=== PATIENT | male | born 1955 | race Two or more races ===

== ENCOUNTER 2017-09-15 20:44 | Inpatient (IN) | payer MEDICAID ==
[~2017-09-15] VITALS: Ht 175.3 cm; Wt 86.0 kg
[2017-09-15] MEDS ORDERED: cloNIDine HCL 0.1 MG TAB PO ONE (21:30)
[2017-09-15 21:47] LABS: Basophils # (auto) 0.1 uL; Basophils % (auto) 0.7 % (0.0-2.0); Eosinophils # (auto) 0.1 uL; Eosinophils % (auto) 0.8 % (0.0-7.0); Hematocrit 49.6 % (41.0-53.0); Hemoglobin 16.9 g/dL (13.5-17.5); Lymphocytes # (auto) 1.4 uL; Lymphocytes % (auto) 12.9 % (10.0-50.0); Mean Corpuscular Hemoglobin 32.8 pg (28.0-32.0); Mean Corpuscular Volume 96.5 fL (80.0-100.0); Monocytes # (auto) 0.8 uL; Monocytes % (auto) 7.5 % (0.0-12.0); Neutrophils # (auto) 8.3 uL; Neutrophils % (auto) 78.1 % (37.0-80.0); Nucleated Red Blood Cells % 0.1 %; Platelet Count (auto) 239 10^3/uL (140-450); Red Blood Cells 5.14 10^6/uL (4.5-5.90); Red Cell Distribution Width 13.8 % (11.8-14.3); White Blood Cell 10.6 10^3/uL (4.4-10.8)
[2017-09-15 21:51] LABS: Urine Bacteria FEW /hpf (None Seen); Urine Blood 2+ /uL (Negative); Urine Mucus FEW (None Seen); Urine Specific Gravity 1.014 (1.001-1.035); Urine WBC 1 /hpf (0 - 3)
[2017-09-15 22:11] LABS: Alanine Aminotransferase 25 U/L (16-61); Albumin 3.6 g/dL (3.4-5.0); Anion Gap 9 (5-15); Aspartate Aminotransferase 17 U/L (15-37); BUN/Creatinine Ratio 10.6; Blood Urea Nitrogen 35 mg/dL (7-18); Calcium 8.3 mg/dL (8.5-10.1); Carbon Dioxide 22 mmol/L (21-32); Chloride 104 mmol/L (98-107); GFR African American 25 mL/min; GFR Non-African American 20 mL/min; Glucose 322 mg/dL (74-106); Potassium 5.2 mmol/L (3.5-5.1); Sodium 135 mmol/L (136-145)
[2017-09-15 22:16] LABS: Alkaline Phosphatase 119 U/L (45-117); Bilirubin, Total 0.6 mg/dL (0.2-1.0)
[2017-09-15 22:23] LABS: INR 0.89 (0.9-1.15); Partial Thromboplastin Time 25.5 sec (23.78-33.04); Prothrombin Time 9.6 sec (9.27-12.13)
[2017-09-16 01:02] LABS: Amylase 81 U/L (25-115); Lipase 695 U/L (73-393)
[2017-09-16] MEDS ORDERED: SODIUM CHLORIDE 0.9% 1,000 ML IV ONE (01:15)
[2017-09-16] MEDS ORDERED: cloNIDine HCL 0.1 MG TAB PO ONE (02:45)
[2017-09-16] MEDS ORDERED: HYDROcodone-ACET 5/325MG TAB PO PRN (03:15)
[2017-09-16] MEDS ORDERED: ONDANSETRON HCL 4 MG/2 ML VIAL IV PRN (03:15)
[2017-09-16] MEDS ORDERED: cloNIDine HCL 0.1 MG TAB PO PRN (03:15)
[2017-09-16] MEDS ORDERED: ACETAMINOPHEN 325 MG TAB PO PRN (03:15)
[2017-09-16] MEDS ORDERED: DEXTROSE (50%) 50ML SYRG IV PRN (03:15)
[2017-09-16] MEDS: SODIUM CHLORIDE 0.9% 1,000 ML IV SCH ×2 (03:19→16:36)
[2017-09-16 05:00] VITALS: BP 150/94
[2017-09-16 05:16] VITALS: BP 150/94
[2017-09-16] MEDS ORDERED: METF-370 PO (05:56)
[2017-09-16] MEDS ORDERED: BENA40TA PO (05:56)
[2017-09-16] MEDS: ACCU-CHEK COMFORT CURVE STRIP VI SCH ×4 (06:23→22:54)
[2017-09-16] MEDS: InsuLIN REG 1unit/0.01ml Soln (100units/ml) SC SCH ×5 (06:23→22:54)
[2017-09-16] MEDS ORDERED: InsuLIN REG 1unit/0.01ml Soln (100units/ml) ONE (06:28)
[2017-09-16 08:00] VITALS: BP 126/82
[2017-09-16 08:30] VITALS: BP 126/82
[2017-09-16] MEDS: PANTOPRAZOLE 40 MG/10 ML VIAL IV SCH (10:33)
[2017-09-16] MEDS ORDERED: GASTROGRAFIN 120 ML SOL ONE (10:44)
[2017-09-16 13:30] VITALS: BP 152/99
[2017-09-16 15:57] LABS: BUN/Creatinine Ratio 10.2; Calcium 8.5 mg/dL (8.5-10.1); Potassium 5.3 mmol/L (3.5-5.1)
[2017-09-16] MEDS ORDERED: SODIUM POLYSTYRENE SULF 15GM/60ML SUSP PO ONE (16:30)
[2017-09-16 21:40] VITALS: BP 127/85
[2017-09-16] MEDS ORDERED: INSULIN LANTUS (GLARGINE) 1 /0.01ml (100units/ml) SC SCH (22:00)
[2017-09-17] MEDS: SODIUM CHLORIDE 0.9% 1,000 ML IV SCH (04:17)
[2017-09-17 04:43] VITALS: BP 120/73
[2017-09-17] MEDS: ACCU-CHEK COMFORT CURVE STRIP VI SCH ×2 (05:27→12:09)
[2017-09-17] MEDS: InsuLIN REG 1unit/0.01ml Soln (100units/ml) SC SCH ×2 (05:27→12:10)
[2017-09-17 07:01] LABS: BUN/Creatinine Ratio 9.3; Calcium 7.8 mg/dL (8.5-10.1); Potassium 4.6 mmol/L (3.5-5.1)
[2017-09-17 08:00] VITALS: BP_SYST 121; BP_SYST 141; BP_SYST 155; BP_DIAS 86; BP_DIAS 93; BP_DIAS 97
[2017-09-17] MEDS: PANTOPRAZOLE 40 MG/10 ML VIAL IV SCH (10:26)
[2017-09-17] MEDS ORDERED: INSULIN LANTUS (GLARGINE) 1 /0.01ml (100units/ml) SC ONE (11:45)
[2017-09-17 12:00] VITALS: BP 154/92
[2017-09-17 12:29] VITALS: BP 140/75
== END 2017-09-17 15:00 | disposition home or self-care (01) | DRG 282 ==
LOC: ER 21:01 → WEST WING 21:02 → ER 09-16 04:09
PROVIDERS: ADMIT Nurse Practitioner; ATTEND Internal Medicine
DX: K85.00 Idiopathic acute pancreatitis without necrosis or infection (principal); N17.0 Acute kidney failure with tubular necrosis; E11.21 Type 2 diabetes mellitus with diabetic nephropathy; R18.8 Other ascites; E87.5 Hyperkalemia; E11.65 Type 2 diabetes mellitus with hyperglycemia; N18.4 Chronic kidney disease, stage 4 (severe); K76.0 Fatty (change of) liver, not elsewhere classified; K56.7 Ileus, unspecified; E11.22 Type 2 diabetes mellitus with diabetic chronic kidney disease; I12.9 Hypertensive chronic kidney disease with stage 1 through stage 4 chronic kidney disease, or unspecified chronic kidney disease; F17.210 Nicotine dependence, cigarettes, uncomplicated; K52.9 Noninfective gastroenteritis and colitis, unspecified; N28.1 Cyst of kidney, acquired
CPT/HCPCS: 36415; 71045; 74176; 74250; 80048; 80053; 81001; 82150; 82962; 83036; 83690; 83735; 83880; 84484; 85025; 85610; 85730; 93005; 94761; 96361; 96374; C9113; J1815

== ENCOUNTER 2018-06-20 10:55 | Emergency (ER) | payer MEDICAID ==
[~2018-06-20] VITALS: Ht 177.8 cm; Wt 93.0 kg
[2018-06-20 12:50] VITALS: BP 150/83
[2018-06-20] MEDS ORDERED: methylPREDNISolone SOD SUCC 125 MG/2 ML VL IM ONE (13:15)
== END 2018-06-20 15:29 | disposition home or self-care (01) ==
LOC: ER 11:00
DX: J02.9 Acute pharyngitis, unspecified (principal); E11.9 Type 2 diabetes mellitus without complications; I10 Essential (primary) hypertension; F17.210 Nicotine dependence, cigarettes, uncomplicated
CPT/HCPCS: 71046; 96372; 99283; J2930

== ENCOUNTER 2020-02-11 15:43 | Emergency (ER) | payer MEDICAID ==
[~2020-02-11] VITALS: Ht 172.7 cm; Wt 90.7 kg
[2020-02-11 20:30] VITALS: BP 190/115
[2020-02-11] MEDS ORDERED: ACETAMINOPHEN 325 MG TAB PO ONE (20:45)
[2020-02-11] MEDS ORDERED: cloNIDine HCL 0.1 MG TAB PO ONE (20:45)
[2020-02-11 22:35] LABS: Basophils # (auto) 0 10 ^3/uL (0-0.2); Basophils % (auto) 0.4 % (0.0-2.0); Eosinophils # (auto) 0 10 ^3/uL (0-0.8); Eosinophils % (auto) 0.3 % (0.0-7.0); Hematocrit 43.9 % (41.0-53.0); Hemoglobin 15.3 g/dL (13.5-17.5); Lymphocytes % (auto) 17.8 % (10.0-50.0); Mean Corpuscular Hgb Conc. 34.9 g/dL (32.0-36.0); Mean Corpuscular Volume 94.6 fL (80.0-100.0); Monocytes # (auto) 0.7 10 ^3/uL (0-1.3); Monocytes % (auto) 12.3 % (0.0-12.0); Neutrophils # (auto) 3.9 10 ^3/uL (1.6-8.6); Neutrophils % (auto) 69.2 % (37.0-80.0); Nucleated Red Blood Cells % 0.1 %; Platelet Count (auto) 204 10^3/uL (140-450); Red Blood Cells 4.64 10^6/uL (4.5-5.90); Red Cell Distribution Width 13.3 % (11.8-14.3); White Blood Cell 5.7 10^3/uL (4.4-10.8)
[2020-02-11 23:04] LABS: Albumin 2.9 g/dL (3.4-5.0); Anion Gap 7 (5-15); Blood Urea Nitrogen 36 mg/dL (7-18); Calcium 8.1 mg/dL (8.5-10.1); Carbon Dioxide 21 mmol/L (21-32); Chloride 97 mmol/L (98-107); Glucose 303 mg/dL (74-106); Potassium 4.6 mmol/L (3.5-5.1); Sodium 125 mmol/L (136-145)
[2020-02-11 23:11] LABS: Alanine Aminotransferase 20 U/L (16-61); Alkaline Phosphatase 113 U/L (45-117); Aspartate Aminotransferase 15 U/L (15-37); BUN/Creatinine Ratio 7.7; Bilirubin, Total 0.4 mg/dL (0.2-1.0); GFR African American 16 mL/min; GFR Non-African American 13 mL/min; Total Protein 7.4 g/dL (6.4-8.2)
[2020-02-11] MEDS ORDERED: DOXYCYCLINE 100 MG TAB/CAP PO ONE (23:30)
[2020-02-11] MEDS ORDERED: cefTRIAXone SOD 1,000 MG VL IM ONE (23:30)
== END 2020-02-12 00:59 | disposition left against medical advice (07) ==
LOC: ER 15:43
DX: U07.1 COVID-19 (principal); R03.0 Elevated blood-pressure reading, without diagnosis of hypertension; E11.22 Type 2 diabetes mellitus with diabetic chronic kidney disease; I12.9 Hypertensive chronic kidney disease with stage 1 through stage 4 chronic kidney disease, or unspecified chronic kidney disease; N18.5 Chronic kidney disease, stage 5; E86.0 Dehydration
CPT/HCPCS: 36415; 71045; 80053; 83880; 84443; 84484; 85025; 87426; 93005

== ENCOUNTER 2020-02-12 09:27 | Emergency (ER) | payer MEDICAID ==
[~2020-02-12] VITALS: Ht 175.3 cm; Wt 90.7 kg
[2020-02-12 16:22] VITALS: BP 147/95
[2020-02-12 16:44] LABS: Basophils # (auto) 0 10 ^3/uL (0-0.2); Basophils % (auto) 0.6 % (0.0-2.0); Eosinophils # (auto) 0 10 ^3/uL (0-0.8); Hematocrit 44.9 % (41.0-53.0); Hemoglobin 15.5 g/dL (13.5-17.5); Lymphocytes # (auto) 1.3 10 ^3/uL (0.4-5.4); Lymphocytes % (auto) 27.8 % (10.0-50.0); Mean Corpuscular Hemoglobin 32.5 pg (28.0-32.0); Mean Corpuscular Hgb Conc. 34.6 g/dL (32.0-36.0); Mean Corpuscular Volume 94.1 fL (80.0-100.0); Monocytes # (auto) 0.8 10 ^3/uL (0-1.3); Monocytes % (auto) 16.9 % (0.0-12.0); Neutrophils # (auto) 2.6 10 ^3/uL (1.6-8.6); Neutrophils % (auto) 54.7 % (37.0-80.0); Nucleated Red Blood Cells % 0.3 %; Platelet Count (auto) 198 10^3/uL (140-450); Red Blood Cells 4.78 10^6/uL (4.5-5.90); Red Cell Distribution Width 13.6 % (11.8-14.3); White Blood Cell 4.7 10^3/uL (4.4-10.8)
[2020-02-12 17:01] LABS: BUN/Creatinine Ratio 8.3; Magnesium 1.9 mg/dL (1.6-2.6); Potassium 4.7 mmol/L (3.5-5.1)
[2020-02-12 17:02] LABS: INR 0.98 (0.9-1.15); Partial Thromboplastin Time 29.4 sec (23.0-31.2)
[2020-02-12 17:04] LABS: Bilirubin, Total 0.4 mg/dL (0.2-1.0); Total Protein 7.4 g/dL (6.4-8.2)
== END 2020-02-12 20:18 | disposition home or self-care (01) ==
LOC: ER 09:27
DX: U07.1 COVID-19 (principal); J40 Bronchitis, not specified as acute or chronic; I12.9 Hypertensive chronic kidney disease with stage 1 through stage 4 chronic kidney disease, or unspecified chronic kidney disease; N18.9 Chronic kidney disease, unspecified
CPT/HCPCS: 36415; 71045; 80053; 83735; 85025; 85610; 85730

== ENCOUNTER 2020-03-19 15:08 | Emergency (ER) | payer MEDICAID ==
[~2020-03-19] VITALS: Ht 175.3 cm; Wt 88.9 kg
[2020-03-19] MEDS ORDERED: cloNIDine HCL 0.1 MG TAB PO ONE ×2 (16:00→19:45)
[2020-03-19 17:13] LABS: Basophils # (auto) 0.1 10 ^3/uL (0-0.2); Basophils % (auto) 1.1 % (0.0-2.0); Eosinophils # (auto) 0.2 10 ^3/uL (0-0.8); Hematocrit 43.4 % (41.0-53.0); Hemoglobin 14.7 g/dL (13.5-17.5); Lymphocytes # (auto) 1.7 10 ^3/uL (0.4-5.4); Mean Corpuscular Hemoglobin 32.1 pg (28.0-32.0); Mean Corpuscular Hgb Conc. 33.9 g/dL (32.0-36.0); Mean Corpuscular Volume 94.6 fL (80.0-100.0); Monocytes # (auto) 0.5 10 ^3/uL (0-1.3); Monocytes % (auto) 6.7 % (0.0-12.0); Neutrophils # (auto) 5.5 10 ^3/uL (1.6-8.6); Neutrophils % (auto) 69.2 % (37.0-80.0); Nucleated Red Blood Cells % 0.1 %; Platelet Count (auto) 254 10^3/uL (140-450); Red Blood Cells 4.59 10^6/uL (4.5-5.90); Red Cell Distribution Width 14.3 % (11.8-14.3)
[2020-03-19 17:23] LABS: Alanine Aminotransferase 17 U/L (16-61); Albumin 3.3 g/dL (3.4-5.0); Anion Gap 8 (5-15); Aspartate Aminotransferase 17 U/L (15-37); BUN/Creatinine Ratio 8.7; Blood Urea Nitrogen 36 mg/dL (7-18); Calcium 8.5 mg/dL (8.5-10.1); Carbon Dioxide 22 mmol/L (21-32); Chloride 104 mmol/L (98-107); GFR African American 19 mL/min; GFR Non-African American 16 mL/min; Glucose 201 mg/dL (74-106); Potassium 4.6 mmol/L (3.5-5.1); Sodium 134 mmol/L (136-145)
[2020-03-19 17:28] LABS: Alkaline Phosphatase 102 U/L (45-117); Bilirubin, Total 0.6 mg/dL (0.2-1.0); Total Protein 7.5 g/dL (6.4-8.2)
[2020-03-19 17:38] LABS: INR 0.97 (0.9-1.15); Partial Thromboplastin Time 26.8 sec (23.0-31.2)
[2020-03-19 19:09] LABS: Urine Bacteria FEW /hpf (None Seen); Urine Blood TRACE /uL (Negative); Urine Specific Gravity 1.006 (1.001-1.035); Urine WBC <1 /hpf (0 - 3)
[2020-03-19 21:26] VITALS: BP 137/91
== END 2020-03-19 21:29 | disposition home or self-care (01) ==
LOC: ER 15:08
DX: I16.0 Hypertensive urgency (principal); E11.22 Type 2 diabetes mellitus with diabetic chronic kidney disease; N18.5 Chronic kidney disease, stage 5; K80.20 Calculus of gallbladder without cholecystitis without obstruction; K86.1 Other chronic pancreatitis; K21.9 Gastro-esophageal reflux disease without esophagitis; Z20.822 Contact with and (suspected) exposure to COVID-19
CPT/HCPCS: 36415; 71250; 74176; 76705; 80053; 81001; 83690; 83735; 83880; 84443; 84484; 85025; 85379; 85610; 85730; 87426; 93005; 99285; C9803; U0003

== ENCOUNTER 2021-01-01 13:04 | Emergency (ER) | payer MEDICAID ==
[~2021-01-01] VITALS: Ht 175.3 cm; Wt 90.7 kg
[2021-01-01] MEDS ORDERED: cloNIDine HCL 0.1 MG TAB ONE (13:14)
[2021-01-01] MEDS ORDERED: cloNIDine HCL 0.1 MG TAB PO ONE (13:30)
[2021-01-01 14:29] LABS: Basophils # (auto) 0.1 10 ^3/uL (0-0.2); Basophils % (auto) 1.2 % (0.0-2.0); Eosinophils # (auto) 0.1 10 ^3/uL (0-0.8); Eosinophils % (auto) 1.4 % (0.0-7.0); Hematocrit 46.8 % (41.0-53.0); Hemoglobin 15.8 g/dL (13.5-17.5); Lymphocytes # (auto) 2.2 10 ^3/uL (0.4-5.4); Lymphocytes % (auto) 23.8 % (10.0-50.0); Mean Corpuscular Hgb Conc. 33.7 g/dL (32.0-36.0); Mean Corpuscular Volume 95.1 fL (80.0-100.0); Monocytes # (auto) 0.7 10 ^3/uL (0-1.3); Monocytes % (auto) 7.9 % (0.0-12.0); Neutrophils # (auto) 6.1 10 ^3/uL (1.6-8.6); Neutrophils % (auto) 65.7 % (37.0-80.0); Nucleated Red Blood Cells % 0.2 %; Red Blood Cells 4.92 10^6/uL (4.5-5.90); Red Cell Distribution Width 14.4 % (11.8-14.3); White Blood Cell 9.2 10^3/uL (4.4-10.8)
[2021-01-01 14:44] LABS: Albumin 3.2 g/dL (3.4-5.0); Calcium 8.2 mg/dL (8.5-10.1)
[2021-01-01 14:49] LABS: BUN/Creatinine Ratio 8.3; Bilirubin, Total 0.5 mg/dL (0.2-1.0)
[2021-01-01] MEDS ORDERED: amLODIPine BESYLATE 5 MG TAB PO ONE (16:00)
[2021-01-01] MEDS ORDERED: hydrALAZINE HCL 20 MG/ML VL IV ONE ×2 (17:15→18:30)
[2021-01-01 18:34] LABS: Urine Bacteria FEW /hpf (None Seen); Urine Blood TRACE /uL (Negative); Urine Specific Gravity 1.007 (1.001-1.035); Urine WBC 5 /hpf (0 - 3)
[2021-01-01 19:36] VITALS: BP 131/84
== END 2021-01-01 20:09 | disposition home or self-care (01) ==
LOC: ER 13:04
DX: I16.0 Hypertensive urgency (principal); J45.909 Unspecified asthma, uncomplicated; I12.9 Hypertensive chronic kidney disease with stage 1 through stage 4 chronic kidney disease, or unspecified chronic kidney disease; N18.9 Chronic kidney disease, unspecified
CPT/HCPCS: 36415; 70450; 80053; 81001; 84484; 85025; 93005; 96374; 96375; 99285; J0360

== ENCOUNTER 2021-01-03 02:37 | Inpatient (IN) | payer MEDICAID ==
[~2021-01-03] VITALS: Ht 175.3 cm; Wt 90.4 kg
[2021-01-03 04:38] LABS: Urine Bacteria FEW /hpf (None Seen); Urine Blood TRACE /uL (Negative); Urine Specific Gravity 1.005 (1.001-1.035); Urine WBC 2 /hpf (0 - 3)
[2021-01-03] MEDS ORDERED: LABETALOL HCL 5 MG/ML 4ML SYRINGE IV ONE (05:15)
[2021-01-03 07:05] LABS: Albumin 1.7 g/dL (3.4-5.0); BUN/Creatinine Ratio 11.2; Bilirubin, Total 0.5 mg/dL (0.2-1.0); Total Protein 4.5 g/dL (6.4-8.2)
[2021-01-03 07:13] LABS: Calcium 5.6 mg/dL (8.5-10.1); Potassium 2.9 mmol/L (3.5-5.1)
[2021-01-03] MEDS ORDERED: LORazepam 2MG/ML-1ML VIAL IV ONE (07:30)
[2021-01-03] MEDS ORDERED: CALCIUM GLUC 1,000mg/50ml-NS 50 ML IV ONE (07:30)
[2021-01-03] MEDS ORDERED: ENOXAPARIN SOD 100 MG/1 ML SYRINGE SC ONE (07:30)
[2021-01-03] MEDS ORDERED: POTASSIUM EFFERVESENT TAB 25 MEQ PO ONE (07:30)
[2021-01-03] MEDS ORDERED: ASPirin 81 mg TAB PO ONE (07:30)
[2021-01-03 08:40] LABS: Basophils # (auto) 0.1 10 ^3/uL (0-0.2); Basophils % (auto) 0.8 % (0.0-2.0); Eosinophils # (auto) 0.1 10 ^3/uL (0-0.8); Eosinophils % (auto) 1.2 % (0.0-7.0); Hemoglobin 14.2 g/dL (13.5-17.5); Lymphocytes # (auto) 1.5 10 ^3/uL (0.4-5.4); Lymphocytes % (auto) 20.2 % (10.0-50.0); Mean Corpuscular Hemoglobin 32.2 pg (28.0-32.0); Mean Corpuscular Hgb Conc. 33.8 g/dL (32.0-36.0); Mean Corpuscular Volume 95.2 fL (80.0-100.0); Monocytes # (auto) 0.7 10 ^3/uL (0-1.3); Monocytes % (auto) 8.8 % (0.0-12.0); Neutrophils # (auto) 5.2 10 ^3/uL (1.6-8.6); Nucleated Red Blood Cells % 0.1 %; Red Blood Cells 4.42 10^6/uL (4.5-5.90); Red Cell Distribution Width 13.9 % (11.8-14.3); White Blood Cell 7.6 10^3/uL (4.4-10.8)
[2021-01-03] MEDS ORDERED: POTASSIUM CHLORIDE 60 MEQ, LIDOCAINE 1% (LOCAL ANESTH.) 6 ML in SODIUM CHL 0.9% 500 ML IV ONE (09:15)
[2021-01-03] MEDS ORDERED: MORPHINE SULFATE INJECTION 2 MG/ML SYRG IV PRN ×3 (09:15→11:15)
[2021-01-03] MEDS ORDERED: METOPROLOL SUCCINATE XL 50 MG TAB PO ONE (09:15)
[2021-01-03] MEDS ORDERED: LABETALOL HCL 5 MG/ML 4ML SYRINGE IV PRN (09:15)
[2021-01-03] MEDS ORDERED: NITROGLYCERIN 0.4 MG SL TAB SL PRN ×2 (09:15→11:15)
[2021-01-03 09:44] LABS: Magnesium 1.4 mg/dL (1.6-2.6); Phosphorus 3.5 mg/dL (2.5-4.90)
[2021-01-03] MEDS ORDERED: MAGNESIUM SULFATE 1GM/100ML 100 ML IV ONE (10:00)
[2021-01-03] MEDS ORDERED: amLODIPine BESYLATE 5 MG TAB PO ONE (10:15)
[2021-01-03 10:59] LABS: Cholesterol 68 mg/dL (< 200); Triglycerides 113 mg/dL (< 150)
[2021-01-03 11:03] LABS: HDL Cholesterol 27 mg/dL (40-59); LDL Cholesterol 30 mg/dL (< 100)
[2021-01-03] MEDS ORDERED: ADENOSINE 76 MG in GIVE UN-DILUTED 0 ML IV STA (11:12)
[2021-01-03] MEDS ORDERED: HYDROcodone-ACET 5/325MG TAB PO PRN (11:15)
[2021-01-03] MEDS ORDERED: DOCUSATE SOD 100 MG CAP PO PRN (11:15)
[2021-01-03] MEDS ORDERED: LORazepam 0.5 MG TAB PO PRN (11:15)
[2021-01-03] MEDS ORDERED: FAMOTIDINE (10MG/ML) 2ML VL IV ONE (11:15)
[2021-01-03] MEDS ORDERED: DEXTROSE (50%) 50ML SYRG IV PRN (11:15)
[2021-01-03] MEDS ORDERED: ALUM & MAG HYDROX-SIMETH LIQ(MAALOX) 30 ML PO PRN (11:15)
[2021-01-03] MEDS ORDERED: ONDANSETRON HCL 4 MG/2 ML VIAL IV PRN (11:15)
[2021-01-03] MEDS ORDERED: cefTRIAXone 1GM/50ML D5W 50 ML IV ONE (11:15)
[2021-01-03] MEDS ORDERED: ACETAMINOPHEN 325 MG TAB PO PRN (11:15)
[2021-01-03 11:22] LABS: Sodium Urine 36 mmol/L (40-220)
[2021-01-03 11:56] LABS: INR 0.99 (0.9-1.15); Partial Thromboplastin Time 29.6 sec (23.6-33.0)
[2021-01-03] MEDS ORDERED: HEPARIN DRIP/D5W 100UNITS/ML 250 ML IV SCH (12:00)
[2021-01-03 12:26] VITALS: BP 155/90
[2021-01-03 15:58] LABS: Alcohol, Urine < 3.0 mg/dL (0-10); Amphetamine Screen, Urine NEGATIVE (NEGATIVE); Barbiturate Scree,Urine NEGATIVE (NEGATIVE); Benzodiazephine Screen, Urine NEGATIVE (NEGATIVE); Cannabinoid Screen, Urine NEGATIVE (NEGATIVE); Cocaine Screen, Urine NEGATIVE (NEGATIVE); Opiate Scree,Urine NEGATIVE (NEGATIVE); Phencyclidine Screen, Urine NEGATIVE (NEGATIVE)
[2021-01-03] MEDS: ACCU-CHEK COMFORT CURVE STRIP VI SCH ×3 (16:00→21:44)
[2021-01-03 16:39] VITALS: BP 148/95
[2021-01-03] MEDS: InsuLIN REG 1unit/0.01ml Soln (100units/ml) SC SCH ×2 (16:43→16:46)
[2021-01-03] MEDS: FUROSEMIDE 20 MG/2 ML VIAL IV SCH (17:42)
[2021-01-03] MEDS: CALCIUM W/VIT D (600MG/400IU) TAB PO SCH (17:42)
[2021-01-03] MEDS: METOPROLOL TARTRATE 50 MG TAB PO SCH (21:43)
[2021-01-03] MEDS: FAMOTIDINE (10MG/ML) 2ML VL IV SCH (21:44)
[2021-01-03 22:00] VITALS: BP 129/87
[2021-01-03] MEDS ORDERED: ATORVASTATIN 20 MG TAB PO SCH (22:00)
[2021-01-03] MEDS ORDERED: POTASSIUM CHL 20 Meq TABLET PO SCH (22:00)
[2021-01-03] MEDS ORDERED: MAGNESIUM OXIDE 400 MG TAB PO SCH (22:00)
[2021-01-03] MEDS ORDERED: InsuLIN REG 1unit/0.01ml Soln (100units/ml) SC SCH (22:00)
[2021-01-04 05:00] VITALS: BP 159/101
[2021-01-04 05:25] LABS: Basophils # (auto) 0.1 10 ^3/uL (0-0.2); Eosinophils # (auto) 0.1 10 ^3/uL (0-0.8); Eosinophils % (auto) 1.8 % (0.0-7.0); Hematocrit 45.3 % (41.0-53.0); Hemoglobin 14.8 g/dL (13.5-17.5); Lymphocytes # (auto) 1.8 10 ^3/uL (0.4-5.4); Lymphocytes % (auto) 26.9 % (10.0-50.0); Mean Corpuscular Hemoglobin 31.2 pg (28.0-32.0); Mean Corpuscular Hgb Conc. 32.7 g/dL (32.0-36.0); Mean Corpuscular Volume 95.4 fL (80.0-100.0); Monocytes # (auto) 0.6 10 ^3/uL (0-1.3); Monocytes % (auto) 8.9 % (0.0-12.0); Neutrophils # (auto) 4.2 10 ^3/uL (1.6-8.6); Neutrophils % (auto) 61.4 % (37.0-80.0); Nucleated Red Blood Cells % 0.1 %; Red Blood Cells 4.75 10^6/uL (4.5-5.90); Red Cell Distribution Width 14.3 % (11.8-14.3); White Blood Cell 6.8 10^3/uL (4.4-10.8)
[2021-01-04 05:41] LABS: INR 0.98 (0.9-1.15); Partial Thromboplastin Time 27.1 sec (23.6-33.0)
[2021-01-04 05:43] LABS: Albumin 2.8 g/dL (3.4-5.0); Calcium 8.6 mg/dL (8.5-10.1); Magnesium 2.9 mg/dL (1.6-2.6)
[2021-01-04 05:48] LABS: BUN/Creatinine Ratio 9.9; Bilirubin, Total 0.5 mg/dL (0.2-1.0); Phosphorus 4.9 mg/dL (2.5-4.90); Total Protein 7.1 g/dL (6.4-8.2); Uric Acid 8.3 mg/dL (3.5-7.2)
[2021-01-04] MEDS: ACCU-CHEK COMFORT CURVE STRIP VI SCH ×2 (05:51→11:32)
[2021-01-04] MEDS: FUROSEMIDE 20 MG/2 ML VIAL IV SCH (05:51)
[2021-01-04] MEDS: InsuLIN REG 1unit/0.01ml Soln (100units/ml) SC SCH ×2 (06:04→11:33)
[2021-01-04] MEDS: CALCIUM W/VIT D (600MG/400IU) TAB PO SCH (08:31)
[2021-01-04] MEDS: FAMOTIDINE (10MG/ML) 2ML VL IV SCH (08:32)
[2021-01-04 08:33] VITALS: BP 150/97
[2021-01-04] MEDS: METOPROLOL TARTRATE 50 MG TAB PO SCH (08:33)
[2021-01-04] MEDS ORDERED: cefTRIAXone 1GM/50ML D5W 50 ML IV SCH (09:00)
[2021-01-04] MEDS ORDERED: METOPROLOL SUCCINATE XL 50 MG TAB PO SCH (10:00)
[2021-01-04] MEDS ORDERED: ASPirin 81 mg TAB PO SCH (10:00)
[2021-01-04] MEDS ORDERED: amLODIPine BESYLATE 5 MG TAB PO SCH (10:00)
[2021-01-04] MEDS ORDERED: ENOXAPARIN SOD 100 MG/1 ML SYRINGE SC SCH (10:00)
[2021-01-04] MEDS ORDERED: LORATADINE 10 MG TAB PO ONE (11:45)
[2021-01-04] MEDS ORDERED: FLUTICASONE PROP NASAL SPR 0.05 % (50MCG) 16GM EACHNOSTRI ONE (11:45)
[2021-01-04] MEDS ORDERED: ATEN50TA PO (12:17)
[2021-01-04] MEDS ORDERED: ATOR20TA50 PO (13:22)
[2021-01-04] MEDS ORDERED: FLUT50SP EACHNOSTRI (13:22)
[2021-01-04] MEDS ORDERED: ASPI1CHW15 PO (13:22)
[2021-01-04] MEDS ORDERED: ISOS1TAB28 PO (13:22)
[2021-01-04] MEDS ORDERED: MET50T PO (13:22)
[2021-01-04] MEDS ORDERED: AMLO-496 PO (13:22)
[2021-01-04] MEDS ORDERED: LORA-483 PO (13:22)
[2021-01-04] MEDS ORDERED: NITR0.4S29 SL (13:22)
[2021-01-04] MEDS ORDERED: ERGOCALCIFEROL 50,000 UNIT(1.25MG) CAP PO SCH (13:30)
[2021-01-04 14:16] VITALS: BP 150/99
[2021-01-04] MEDS ORDERED: FLUTICASONE PROP NASAL SPR 0.05 % (50MCG) 16GM EACHNOSTRI SCH (22:00)
[2021-01-05] MEDS ORDERED: amLODIPine BESYLATE 5 MG TAB PO SCH (10:00)
[2021-01-05] MEDS ORDERED: ISOSORBIDE MONONITRATE ER 60 MG TAB PO SCH (10:00)
[2021-01-05] MEDS ORDERED: ENOXAPARIN SOD 30 MG/0.3 ML SYRINGE SC SCH (10:00)
[2021-01-05] MEDS ORDERED: LORATADINE 10 MG TAB PO SCH (10:00)
== END 2021-01-04 15:37 | disposition home or self-care (01) | DRG 194 ==
LOC: EDBD 02:37 → ER 02:37 → TELE 09:05 → TELE-CENTR 11:21
PROVIDERS: ADMIT Hospitalist; ATTEND Internal Medicine
DX: I13.2 Hypertensive heart and chronic kidney disease with heart failure and with stage 5 chronic kidney disease, or end stage renal disease (principal); E43 Unspecified severe protein-calorie malnutrition; I21.A1 Myocardial infarction type 2; E83.51 Hypocalcemia; E83.59 Other disorders of calcium metabolism; I16.1 Hypertensive emergency; I50.21 Acute systolic (congestive) heart failure; E11.40 Type 2 diabetes mellitus with diabetic neuropathy, unspecified; I15.9 Secondary hypertension, unspecified; E87.6 Hypokalemia; E66.9 Obesity, unspecified; E83.42 Hypomagnesemia; I25.5 Ischemic cardiomyopathy; N18.5 Chronic kidney disease, stage 5; N30.00 Acute cystitis without hematuria; E11.22 Type 2 diabetes mellitus with diabetic chronic kidney disease; E87.8 Other disorders of electrolyte and fluid balance, not elsewhere classified; J45.909 Unspecified asthma, uncomplicated; E11.21 Type 2 diabetes mellitus with diabetic nephropathy; E11.59 Type 2 diabetes mellitus with other circulatory complications; Z20.822 Contact with and (suspected) exposure to COVID-19; Z91.19 Patient's noncompliance with other medical treatment and regimen; Z79.4 Long term (current) use of insulin; Z80.3 Family history of malignant neoplasm of breast; Z82.49 Family history of ischemic heart disease and other diseases of the circulatory system; Z82.5 Family history of asthma and other chronic lower respiratory diseases; Z83.3 Family history of diabetes mellitus; Z68.29 Body mass index [BMI] 29.0-29.9, adult
CPT/HCPCS: 36415; 71045; 78452; 80053; 80061; 80307; 81001; 82088; 82306; 82962; 83036; 83735; 83880; 83970; 84100; 84132; 84133; 84244; 84300; 84443; 84484; 84550; 85025; 85379; 85610; 85730; 87040; 87081; 87086; 87426; 87804; 93005; 93017; 93306; 96365; 96375; G0378; J0153; J0696; J1815; J2001; J2405; J3490

== ENCOUNTER 2022-01-14 09:16 | Inpatient (IN) | payer MEDICARE, MEDICAID ==
[~2022-01-14] VITALS: Ht 177.8 cm; Wt 76.9 kg
[~2022-01-14 09:16] MED LIST: AMLO-496 PO; ASPI1CHW15 PO; ATEN50TA PO; ATOR20TA50 PO; ISOS1TAB28 PO; LORA-483 PO; MET50T PO; NITR0.4S29 SL
[2022-01-14 09:46] LABS: Basophils # (auto) 0.1 10 ^3/uL (0-0.2); Basophils % (auto) 0.9 % (0.0-2.0); Eosinophils # (auto) 0.2 10 ^3/uL (0-0.8); Eosinophils % (auto) 2.3 % (0.0-7.0); Hematocrit 31.9 % (41.0-53.0); Hemoglobin 10.4 g/dL (13.5-17.5); Lymphocytes # (auto) 1.6 10 ^3/uL (0.4-5.4); Lymphocytes % (auto) 21.9 % (10.0-50.0); Mean Corpuscular Hemoglobin 32.1 pg (28.0-32.0); Mean Corpuscular Hgb Conc. 32.5 g/dL (32.0-36.0); Mean Corpuscular Volume 98.8 fL (80.0-100.0); Monocytes # (auto) 0.6 10 ^3/uL (0-1.3); Monocytes % (auto) 7.6 % (0.0-12.0); Neutrophils % (auto) 67.3 % (37.0-80.0); Red Blood Cells 3.23 10^6/uL (4.5-5.90); Red Cell Distribution Width 14.7 % (11.8-14.3); White Blood Cell 7.3 10^3/uL (4.4-10.8)
[2022-01-14 10:48] LABS: Albumin 3.7 g/dL (3.4-5.0); BUN/Creatinine Ratio 7.8; Bilirubin, Total 0.5 mg/dL (0.2-1.0); Total Protein 7.2 g/dL (6.4-8.2)
[2022-01-14 10:54] LABS: Potassium 6.4 mmol/L (3.5-5.1)
[2022-01-14] MEDS ORDERED: CALCIUM GLUC 1,000mg/50ml-NS 50 ML IV ONE (11:30)
[2022-01-14] MEDS ORDERED: ALBUTEROL SULF 2.5 MG/0.5ML(0.5%) NEB SOLN NEB ONE ×2 (11:30→18:30)
[2022-01-14] MEDS ORDERED: SODIUM ZIRCONIUM CYCL 10 GM PAK PO ONE ×2 (11:30→18:30)
[2022-01-14] MEDS ORDERED: DEXTROSE (50%) 50ML SYRG IV ONE (11:30)
[2022-01-14] MEDS ORDERED: InsuLIN REG 1unit/0.01ml Soln (100units/ml) IV ONE (11:30)
[2022-01-14 15:05] LABS: Urine Specific Gravity 1.009 (1.001-1.035)
[2022-01-14 15:06] LABS: Urine Blood Trace /uL (Negative)
[2022-01-14] MEDS ORDERED: MORPHINE SULFATE INJ 2 MG/ml SYRG IV PRN (15:45)
[2022-01-14] MEDS ORDERED: NITROGLYCERIN 0.4 MG SL TAB SL PRN (15:45)
[2022-01-14] MEDS ORDERED: ALBUTEROL SULF 2.5 MG/0.5ML(0.5%) NEB SOLN NEB PRN (16:00)
[2022-01-14 17:40] LABS: Cholesterol 90 mg/dL (< 200); LDL Cholesterol 51 mg/dL (< 100); Triglycerides 108 mg/dL (< 150)
[2022-01-14 17:42] LABS: HDL Cholesterol 32 mg/dL (40-59)
[2022-01-14] MEDS ORDERED: LISI40TA11 PO (18:21)
[2022-01-14] MEDS ORDERED: B-CO-5 PO (18:21)
[2022-01-14] MEDS ORDERED: SODIUM CHL 0.9% 1000 ML BAG XX ONE (18:30)
[2022-01-14] MEDS: MORPHINE SULFATE INJ 2 MG/ml SYRG IV PRN (20:48)
[2022-01-14] MEDS: SODIUM CHLOR 0.9% PF (SALINE LOCK) 10ML VIAL/SYR IV SCH (22:03)
[2022-01-14] MEDS: ATORVASTATIN 20 MG TAB PO SCH (23:41)
[2022-01-14] MEDS: HEPARIN SODIUM (PORCINE) 5000 UNITS/ML 1ML VIAL SC SCH (23:42)
[2022-01-15 01:44] VITALS: BP 137/79
[2022-01-15 04:53] LABS: Basophils # (auto) 0.1 10 ^3/uL (0-0.2); Basophils % (auto) 0.9 % (0.0-2.0); Eosinophils # (auto) 0.2 10 ^3/uL (0-0.8); Eosinophils % (auto) 2.1 % (0.0-7.0); Hematocrit 29.1 % (41.0-53.0); Hemoglobin 9.7 g/dL (13.5-17.5); Lymphocytes # (auto) 1.6 10 ^3/uL (0.4-5.4); Lymphocytes % (auto) 22.2 % (10.0-50.0); Mean Corpuscular Hemoglobin 32.6 pg (28.0-32.0); Mean Corpuscular Hgb Conc. 33.4 g/dL (32.0-36.0); Mean Corpuscular Volume 97.6 fL (80.0-100.0); Monocytes # (auto) 0.7 10 ^3/uL (0-1.3); Monocytes % (auto) 9.1 % (0.0-12.0); Neutrophils # (auto) 4.8 10 ^3/uL (1.6-8.6); Neutrophils % (auto) 65.7 % (37.0-80.0); Red Blood Cells 2.98 10^6/uL (4.5-5.90); Red Cell Distribution Width 14.5 % (11.8-14.3); White Blood Cell 7.3 10^3/uL (4.4-10.8)
[2022-01-15 05:16] LABS: Albumin 3.4 g/dL (3.4-5.0); BUN/Creatinine Ratio 7.9; Calcium 7.9 mg/dL (8.5-10.1); Potassium 4.7 mmol/L (3.5-5.1)
[2022-01-15 05:19] LABS: Bilirubin, Total 0.4 mg/dL (0.2-1.0); Total Protein 6.7 g/dL (6.4-8.2)
[2022-01-15] MEDS: SODIUM CHLOR 0.9% PF (SALINE LOCK) 10ML VIAL/SYR IV SCH ×3 (06:38→21:44)
[2022-01-15] MEDS ORDERED: PATIENTS OWN MEDICATION (Isosorbide Mononitrate (Isosorbide Mononitrate Er) 1 TAB) PO SCH (10:00)
[2022-01-15] MEDS ORDERED: ASPirin 81 mg TAB PO SCH (10:00)
[2022-01-15] MEDS ORDERED: amLODIPine BESYLATE 5 MG TAB PO SCH (10:00)
[2022-01-15] MEDS: MORPHINE SULFATE INJ 2 MG/ml SYRG IV PRN (10:21)
[2022-01-15] MEDS: HEPARIN SODIUM (PORCINE) 5000 UNITS/ML 1ML VIAL SC SCH ×2 (10:21→21:26)
[2022-01-15 13:34] VITALS: BP 150/84
[2022-01-15] MEDS ORDERED: GABA100C9 PO (15:25)
[2022-01-15 17:00] VITALS: BP 133/76
[2022-01-15] MEDS ORDERED: ZOLPIDEM TARTRATE 5 MG TAB PO PRN (17:00)
[2022-01-15] MEDS ORDERED: DEXTROSE (50%) 50ML SYRG IV PRN (17:00)
[2022-01-15] MEDS: ACCU-CHEK COMFORT CURVE STRIP VI SCH ×2 (17:47→21:44)
[2022-01-15] MEDS: InsuLIN REG 1unit/0.01ml Soln (100units/ml) SC SCH ×2 (17:50→21:44)
[2022-01-15 20:00] VITALS: BP 153/78
[2022-01-15] MEDS: ATORVASTATIN 20 MG TAB PO SCH (21:24)
[2022-01-15] MEDS: ACETAMINOPHEN 325 MG TAB PO PRN (21:43)
[2022-01-15 22:00] VITALS: BP 153/78
[2022-01-16 05:00] VITALS: BP 142/76
[2022-01-16] MEDS: SODIUM CHLOR 0.9% PF (SALINE LOCK) 10ML VIAL/SYR IV SCH ×3 (05:26→20:54)
[2022-01-16] MEDS: ACCU-CHEK COMFORT CURVE STRIP VI SCH ×4 (06:54→20:54)
[2022-01-16] MEDS: InsuLIN REG 1unit/0.01ml Soln (100units/ml) SC SCH ×4 (06:55→20:55)
[2022-01-16 08:00] VITALS: BP 118/71
[2022-01-16] MEDS ORDERED: ADENOSINE 74 MG in GIVE UN-DILUTED 0 ML IV ONE (08:00)
[2022-01-16 09:19] VITALS: BP 118/71
[2022-01-16] MEDS: HEPARIN SODIUM (PORCINE) 5000 UNITS/ML 1ML VIAL SC SCH ×2 (10:13→20:55)
[2022-01-16 13:00] VITALS: BP 130/61
[2022-01-16 16:45] VITALS: BP 116/60
[2022-01-16] MEDS ORDERED: DOCUSATE SOD 100 MG CAP PO PRN (18:00)
[2022-01-16] MEDS: ATORVASTATIN 20 MG TAB PO SCH (20:54)
[2022-01-16] MEDS: TEMAZEPAM 15 MG CAP PO PRN (21:43)
[2022-01-16 22:00] VITALS: BP 142/86
[2022-01-17 05:00] VITALS: BP 134/69
[2022-01-17] MEDS: SODIUM CHLOR 0.9% PF (SALINE LOCK) 10ML VIAL/SYR IV SCH ×2 (05:17→17:01)
[2022-01-17] MEDS: ACCU-CHEK COMFORT CURVE STRIP VI SCH ×3 (06:01→19:20)
[2022-01-17] MEDS: InsuLIN REG 1unit/0.01ml Soln (100units/ml) SC SCH ×4 (06:01→22:00)
[2022-01-17] MEDS ORDERED: SODIUM CHL 0.9% 1000 ML BAG XX ONE (07:00)
[2022-01-17 09:00] VITALS: BP 179/81
[2022-01-17] MEDS: HEPARIN SODIUM (PORCINE) 5000 UNITS/ML 1ML VIAL SC SCH (10:00)
[2022-01-17 13:00] VITALS: BP_SYST 113; BP_SYST 152; BP_DIAS 62; BP_DIAS 92
[2022-01-17] MEDS: ACETAMINOPHEN 325 MG TAB PO PRN (14:57)
[2022-01-17 17:00] VITALS: BP 149/81
[2022-01-17 22:00] VITALS: BP 146/85
[2022-01-18] MEDS: SODIUM CHLOR 0.9% PF (SALINE LOCK) 10ML VIAL/SYR IV SCH ×2 (00:22→06:41)
[2022-01-18] MEDS: ACCU-CHEK COMFORT CURVE STRIP VI SCH ×2 (00:23→06:42)
[2022-01-18] MEDS: ATORVASTATIN 20 MG TAB PO SCH (00:23)
[2022-01-18] MEDS: TEMAZEPAM 15 MG CAP PO PRN (00:24)
[2022-01-18] MEDS: HEPARIN SODIUM (PORCINE) 5000 UNITS/ML 1ML VIAL SC SCH ×2 (00:27→08:57)
[2022-01-18 05:00] VITALS: BP 151/80
[2022-01-18] MEDS: InsuLIN REG 1unit/0.01ml Soln (100units/ml) SC SCH (06:43)
[2022-01-18 09:00] VITALS: BP 137/79
[2022-01-18] MEDS ORDERED: LEVO500T31 PO (10:12)
[2022-01-18 11:50] VITALS: BP 135/76
== END 2022-01-18 13:30 | disposition home or self-care (01) | DRG 194 ==
LOC: ER 09:16 → TELE 15:34 → TELE-CENTR 01-15 13:26
PROVIDERS: ADMIT Nurse Practitioner Family; ATTEND Family Medicine
PROC: 5A1D70Z Performance of Urinary Filtration, Intermittent, Less than 6 Hours Per Day (ICD-10-PCS; principal; 2022-01-15)
PROC: 5A1D70Z Performance of Urinary Filtration, Intermittent, Less than 6 Hours Per Day (ICD-10-PCS; 2022-01-17)
DX: I13.2 Hypertensive heart and chronic kidney disease with heart failure and with stage 5 chronic kidney disease, or end stage renal disease (principal); E87.20 Acidosis, unspecified; D63.1 Anemia in chronic kidney disease; R07.89 Other chest pain; I50.33 Acute on chronic diastolic (congestive) heart failure; N18.6 End stage renal disease; J45.909 Unspecified asthma, uncomplicated; K21.9 Gastro-esophageal reflux disease without esophagitis; E03.9 Hypothyroidism, unspecified; E87.5 Hyperkalemia; I07.1 Rheumatic tricuspid insufficiency; Z20.822 Contact with and (suspected) exposure to COVID-19; E78.5 Hyperlipidemia, unspecified; Z80.3 Family history of malignant neoplasm of breast; Z82.49 Family history of ischemic heart disease and other diseases of the circulatory system; Z82.5 Family history of asthma and other chronic lower respiratory diseases; Z83.3 Family history of diabetes mellitus; Z99.2 Dependence on renal dialysis; Z86.16 Personal history of COVID-19; Z79.4 Long term (current) use of insulin
CPT/HCPCS: 36415; 71045; 78452; 78582; 80053; 80061; 81001; 82962; 83036; 84443; 84484; 85025; 85379; 87081; 87426; 87804; 90935; 93005; 93017; 93306; 93970; 94640; 96365; 96375; 99291; G0378; J0153; J1642; J1815

== ENCOUNTER 2022-03-03 09:22 | Emergency (ER) | payer MEDICARE, MEDICAID ==
[~2022-03-03] VITALS: Ht 177.8 cm; Wt 90.9 kg
[~2022-03-03 09:22] MED LIST changes: -AMLO-496 PO; -ASPI1CHW15 PO; -ATOR20TA50 PO; +B-CO-5 PO; +GABA100C9 PO; -ISOS1TAB28 PO; +LEVO500T31 PO; +LISI40TA11 PO; -LORA-483 PO; -MET50T PO; -NITR0.4S29 SL
[2022-03-03 09:39] VITALS: BP 160/85
[2022-03-03 09:57] LABS: Basophils # (auto) 0.1 10 ^3/uL (0-0.2); Basophils % (auto) 0.6 % (0.0-2.0); Eosinophils # (auto) 0 10 ^3/uL (0-0.8); Eosinophils % (auto) 0.5 % (0.0-7.0); Hematocrit 34.5 % (41.0-53.0); Hemoglobin 11.3 g/dL (13.5-17.5); Lymphocytes # (auto) 0.7 10 ^3/uL (0.4-5.4); Mean Corpuscular Hemoglobin 31.8 pg (28.0-32.0); Mean Corpuscular Hgb Conc. 32.9 g/dL (32.0-36.0); Mean Corpuscular Volume 96.8 fL (80.0-100.0); Monocytes # (auto) 0.9 10 ^3/uL (0-1.3); Monocytes % (auto) 9.7 % (0.0-12.0); Neutrophils # (auto) 7.5 10 ^3/uL (1.6-8.6); Neutrophils % (auto) 81.2 % (37.0-80.0); Red Blood Cells 3.56 10^6/uL (4.5-5.90); Red Cell Distribution Width 14.1 % (11.8-14.3); White Blood Cell 9.3 10^3/uL (4.4-10.8)
[2022-03-03 10:56] LABS: Urine Bacteria NONE SEEN /hpf (None Seen); Urine Blood TRACE /uL (Negative); Urine Specific Gravity 1.008 (1.001-1.035); Urine WBC 2 /hpf (0 - 3)
[2022-03-03 11:27] LABS: Potassium 4.9 mmol/L (3.5-5.1)
[2022-03-03] MEDS ORDERED: cloNIDine HCL 0.1 MG TAB PO ONE (11:45)
[2022-03-03 11:57] LABS: Albumin 3.9 g/dL (3.4-5.0); BUN/Creatinine Ratio 5.2; Bilirubin, Total 0.7 mg/dL (0.2-1.0); Calcium 8.5 mg/dL (8.5-10.1); Total Protein 7.5 g/dL (6.4-8.2)
== END 2022-03-03 17:54 | disposition home or self-care (01) ==
LOC: ER 09:22
DX: R33.9 Retention of urine, unspecified (principal); I10 Essential (primary) hypertension; I12.0 Hypertensive chronic kidney disease with stage 5 chronic kidney disease or end stage renal disease; N18.6 End stage renal disease; K21.9 Gastro-esophageal reflux disease without esophagitis; J45.909 Unspecified asthma, uncomplicated
CPT/HCPCS: 36415; 51702; 71045; 80053; 81001; 85025

== ENCOUNTER 2022-03-12 15:30 | Emergency (ER) | payer MEDICARE, MEDICAID ==
[~2022-03-12] VITALS: Ht 177.8 cm; Wt 87.6 kg
[2022-03-12 16:15] LABS: Basophils # (auto) 0 10 ^3/uL (0-0.2); Basophils % (auto) 0.8 % (0.0-2.0); Eosinophils # (auto) 0.1 10 ^3/uL (0-0.8); Eosinophils % (auto) 2.5 % (0.0-7.0); Hematocrit 33.6 % (41.0-53.0); Hemoglobin 11.1 g/dL (13.5-17.5); Lymphocytes # (auto) 1.3 10 ^3/uL (0.4-5.4); Lymphocytes % (auto) 22.5 % (10.0-50.0); Mean Corpuscular Hemoglobin 31.9 pg (28.0-32.0); Mean Corpuscular Volume 96.8 fL (80.0-100.0); Monocytes # (auto) 0.5 10 ^3/uL (0-1.3); Monocytes % (auto) 7.7 % (0.0-12.0); Neutrophils % (auto) 66.5 % (37.0-80.0); Nucleated Red Blood Cells % 0.1 %; Red Blood Cells 3.47 10^6/uL (4.5-5.90); Red Cell Distribution Width 14.2 % (11.8-14.3)
[2022-03-12 16:50] LABS: Albumin 3.7 g/dL (3.4-5.0); Calcium 8.1 mg/dL (8.5-10.1); Potassium 5.4 mmol/L (3.5-5.1)
[2022-03-12 16:53] LABS: BUN/Creatinine Ratio 6.9; Bilirubin, Total 0.4 mg/dL (0.2-1.0); Total Protein 7.6 g/dL (6.4-8.2)
[2022-03-12] MEDS ORDERED: cloNIDine HCL 0.1 MG TAB PO ONE (21:00)
[2022-03-12 21:33] VITALS: BP 189/108
== END 2022-03-12 21:37 | disposition home or self-care (01) ==
LOC: ER 15:30
DX: E11.22 Type 2 diabetes mellitus with diabetic chronic kidney disease (principal); I12.0 Hypertensive chronic kidney disease with stage 5 chronic kidney disease or end stage renal disease; N18.6 End stage renal disease; E11.65 Type 2 diabetes mellitus with hyperglycemia; R60.9 Edema, unspecified; E87.5 Hyperkalemia; R91.8 Other nonspecific abnormal finding of lung field; Z20.822 Contact with and (suspected) exposure to COVID-19
CPT/HCPCS: 36415; 71046; 80053; 83735; 85025; 87426; 87804

== ENCOUNTER 2022-09-17 08:07 | Emergency (ER) | payer MEDICARE, MEDICAID ==
[~2022-09-17] VITALS: Ht 177.8 cm; Wt 96.3 kg
[~2022-09-17 08:07] MED LIST changes: +GABA-1308 PO; -GABA100C9 PO; -LISI40TA11 PO; +LISI40TA16 PO
[2022-09-17 09:00] LABS: Basophils # (auto) 0.1 10 ^3/uL (0-0.2); Basophils % (auto) 0.8 % (0.0-2.0); Eosinophils # (auto) 0.1 10 ^3/uL (0-0.8); Hematocrit 29.7 % (41.0-53.0); Hemoglobin 10.1 g/dL (13.5-17.5); Lymphocytes # (auto) 1.5 10 ^3/uL (0.4-5.4); Lymphocytes % (auto) 22.9 % (10.0-50.0); Mean Corpuscular Hemoglobin 33.6 pg (28.0-32.0); Mean Corpuscular Volume 98.8 fL (80.0-100.0); Monocytes # (auto) 0.7 10 ^3/uL (0-1.3); Monocytes % (auto) 10.7 % (0.0-12.0); Neutrophils # (auto) 4.2 10 ^3/uL (1.6-8.6); Neutrophils % (auto) 63.6 % (37.0-80.0); Nucleated Red Blood Cells % 0.1 %; Red Blood Cells 3.01 10^6/uL (4.5-5.90); Red Cell Distribution Width 14.5 % (11.8-14.3); White Blood Cell 6.7 10^3/uL (4.4-10.8)
[2022-09-17 09:12] LABS: Urine Bacteria NONE SEEN /hpf (None Seen); Urine Blood TRACE /uL (Negative); Urine Clarity Clear (Clear); Urine Color Colorless (Yellow); Urine Protein, UAD 3+ (Negative); Urine Specific Gravity 1.005 (1.001-1.035); Urine Urobilinogen Normal (Negative); Urine WBC 1 /hpf (0 - 3)
[2022-09-17 09:21] LABS: Potassium 4.4 mmol/L (3.5-5.1)
[2022-09-17 09:30] LABS: Albumin 3.2 g/dL (3.4-5.0); BUN/Creatinine Ratio 5.3 (10.0-20.0); Bilirubin, Total 0.3 mg/dL (0.2-1.0); Calcium 7.5 mg/dL (8.5-10.1); Total Protein 6.7 g/dL (6.4-8.2)
[2022-09-17] MEDS ORDERED: SODIUM CHLORIDE 0.9% 1,000 ML IV ONE (10:00)
[2022-09-17 10:35] LABS: Magnesium 2.9 mg/dL (1.6-2.6)
[2022-09-17] MEDS ORDERED: TRAM50TA2 PO (13:33)
[2022-09-17] MEDS ORDERED: METO-281 PO (13:33)
[2022-09-17 13:43] VITALS: BP 168/81; PULSE 71; RESP 16; TEMP 98.3; O2SAT 95
== END 2022-09-17 13:44 | disposition home or self-care (01) ==
LOC: ER 08:07
DX: K80.50 Calculus of bile duct without cholangitis or cholecystitis without obstruction (principal); R10.84 Generalized abdominal pain; E11.65 Type 2 diabetes mellitus with hyperglycemia; N18.6 End stage renal disease; E46 Unspecified protein-calorie malnutrition; J45.909 Unspecified asthma, uncomplicated; K80.20 Calculus of gallbladder without cholecystitis without obstruction; K21.9 Gastro-esophageal reflux disease without esophagitis; I10 Essential (primary) hypertension; Z98.890 Other specified postprocedural states; Z88.8 Allergy status to other drugs, medicaments and biological substances; Z79.899 Other long term (current) drug therapy; Z99.2 Dependence on renal dialysis; Z68.30 Body mass index [BMI] 30.0-30.9, adult
CPT/HCPCS: 36415; 71046; 74176; 80053; 81001; 83690; 83735; 84484; 85025; 93005; 96360; 96361; 99285; J7030

== ENCOUNTER 2023-03-22 22:25 | Emergency (ER) | payer MEDICARE, MEDICAID ==
[~2023-03-22] VITALS: Ht 177.8 cm; Wt 90.9 kg
[~2023-03-22 22:25] MED LIST changes: +METO-281 PO; +TRAM50TA2 PO
[2023-03-22 23:10] LABS: Basophils # (auto) 0.1 10 ^3/uL (0-0.2); Basophils % (auto) 1.1 % (0.0-2.0); Eosinophils # (auto) 0.2 10 ^3/uL (0-0.8); Eosinophils % (auto) 3.4 % (0.0-7.0); Hematocrit 29.8 % (41.0-53.0); Hemoglobin 9.5 g/dL (13.5-17.5); Lymphocytes # (auto) 1.4 10 ^3/uL (0.4-5.4); Mean Corpuscular Hemoglobin 31.5 pg (28.0-32.0); Mean Corpuscular Hgb Conc. 32.1 g/dL (32.0-36.0); Mean Corpuscular Volume 98.3 fL (80.0-100.0); Monocytes # (auto) 0.7 10 ^3/uL (0-1.3); Monocytes % (auto) 11.2 % (0.0-12.0); Neutrophils # (auto) 3.9 10 ^3/uL (1.6-8.6); Neutrophils % (auto) 62.3 % (37.0-80.0); Nucleated Red Blood Cells % 0.1 %; Red Blood Cells 3.03 10^6/uL (4.5-5.90); Red Cell Distribution Width 15.8 % (11.8-14.3); White Blood Cell 6.3 10^3/uL (4.4-10.8)
[2023-03-22 23:19] LABS: Urine Bacteria NONE SEEN /hpf (None Seen); Urine Blood TRACE /uL (Negative); Urine Clarity Clear (Clear); Urine Color Colorless (Yellow); Urine Protein, UAD 3+ (Negative); Urine Specific Gravity 1.007 (1.001-1.035); Urine Urobilinogen Normal (Negative); Urine WBC <1 /hpf (0 - 3)
[2023-03-22 23:26] LABS: Chloride 102 mmol/L (98-107); Potassium 5.2 mmol/L (3.5-5.1); Sodium 135 mmol/L (136-145)
[2023-03-22 23:27] LABS: Anion Gap 10 (5-15); Calcium 8.4 mg/dL (8.7-10.4); Carbon Dioxide 23 mmol/L (20-30)
[2023-03-22 23:32] LABS: BUN/Creatinine Ratio 3.9 (10.0-20.0); Blood Urea Nitrogen 42 mg/dL (9-23); Glucose 115 mg/dL (74-106); Lipase 63 U/L (12-53)
[2023-03-23] MEDS ORDERED: LEVO500T91 PO (02:35)
[2023-03-23 03:06] VITALS: PULSE 84; RESP 12; O2SAT 96
[2023-03-23] MEDS ORDERED: SODIUM ZIRCONIUM CYCL 10 GM PAK PO ONE (03:45)
[2023-03-23] MEDS ORDERED: HYDROcodone-ACET 5/325MG TAB PO ONE (03:45)
[2023-03-23 04:00] VITALS: BP 176/92; PULSE 85; RESP 15; O2SAT 100
== END 2023-03-23 04:21 | disposition home or self-care (01) ==
LOC: ER 22:25
DX: N30.90 Cystitis, unspecified without hematuria (principal); K57.30 Diverticulosis of large intestine without perforation or abscess without bleeding; E11.22 Type 2 diabetes mellitus with diabetic chronic kidney disease; I12.0 Hypertensive chronic kidney disease with stage 5 chronic kidney disease or end stage renal disease; N18.6 End stage renal disease; J45.909 Unspecified asthma, uncomplicated; K21.9 Gastro-esophageal reflux disease without esophagitis
CPT/HCPCS: 36415; 74176; 80048; 81001; 83690; 85025

== ENCOUNTER 2023-04-16 00:43 | Emergency (ER) | payer MEDICARE, MEDICAID ==
[~2023-04-16] VITALS: Ht 172.7 cm; Wt 90.0 kg
[~2023-04-16 00:43] MED LIST changes: +LEVO500T91 PO
[2023-04-16] MEDS: HYDROcodone-ACET 5/325MG TAB PO ONE (01:19)
[2023-04-16] MEDS: cloNIDine HCL 0.1 MG TAB PO ONE (02:33)
[2023-04-16 03:24] VITALS: BP 134/78; PULSE 72; RESP 18; TEMP 98.6; O2SAT 98
== END 2023-04-16 03:22 | disposition home or self-care (01) ==
LOC: ER 00:43 → EDBD 00:43 → ER 03:22
DX: S02.32XA Fracture of orbital floor, left side, initial encounter for closed fracture (principal); I10 Essential (primary) hypertension; I12.0 Hypertensive chronic kidney disease with stage 5 chronic kidney disease or end stage renal disease; E11.22 Type 2 diabetes mellitus with diabetic chronic kidney disease; N18.6 End stage renal disease; Z99.2 Dependence on renal dialysis; K21.9 Gastro-esophageal reflux disease without esophagitis; J45.909 Unspecified asthma, uncomplicated; Z79.2 Long term (current) use of antibiotics; Z79.899 Other long term (current) drug therapy; Z88.8 Allergy status to other drugs, medicaments and biological substances; W18.39XA Other fall on same level, initial encounter; Y93.89 Activity, other specified; Y92.89 Other specified places as the place of occurrence of the external cause; Y99.8 Other external cause status
CPT/HCPCS: 70450; 70486; 72125

== ENCOUNTER 2023-07-03 16:49 | Inpatient (IN) | payer MEDICARE, MEDICAID ==
[~2023-07-03] VITALS: Ht 170.2 cm; Wt 84.5 kg
[2023-07-03 19:16] LABS: Basophils # (auto) 0.1 10 ^3/uL (0-0.2); Basophils % (auto) 1.1 % (0.0-2.0); Eosinophils # (auto) 0.1 10 ^3/uL (0-0.8); Eosinophils % (auto) 1.7 % (0.0-7.0); Hematocrit 35.2 % (41.0-53.0); Hemoglobin 11.2 g/dL (13.5-17.5); Lymphocytes # (auto) 1.2 10 ^3/uL (0.4-5.4); Lymphocytes % (auto) 25.4 % (10.0-50.0); Mean Corpuscular Hemoglobin 28.8 pg (28.0-32.0); Mean Corpuscular Hgb Conc. 31.9 g/dL (32.0-36.0); Mean Corpuscular Volume 90.4 fL (80.0-100.0); Monocytes # (auto) 0.7 10 ^3/uL (0-1.3); Monocytes % (auto) 13.3 % (0.0-12.0); Neutrophils # (auto) 2.9 10 ^3/uL (1.6-8.6); Neutrophils % (auto) 58.5 % (37.0-80.0); Nucleated Red Blood Cells % 0.1 %; Red Cell Distribution Width 17.7 % (11.8-14.3); White Blood Cell 4.9 10^3/uL (4.4-10.8)
[2023-07-03 19:36] LABS: Alanine Aminotransferase 11 U/L (7-40); Albumin 3.8 g/dL (3.2-4.8); Alkaline Phosphatase 105 U/L (46-116); Anion Gap 10 (5-15); Aspartate Aminotransferase 11 U/L (13-40); Blood Urea Nitrogen 35 mg/dL (9-23); Calcium 9.2 mg/dL (8.7-10.4); Carbon Dioxide 26 mmol/L (20-30); Chloride 97 mmol/L (98-107); Glucose 106 mg/dL (74-106); Potassium 4.8 mmol/L (3.5-5.1); Sodium 133 mmol/L (136-145)
[2023-07-03 19:37] LABS: Bilirubin, Total 0.5 mg/dL (0.2-1.0); Total Protein 6.5 g/dL (5.7-8.2)
[2023-07-03 19:58] VITALS: PULSE 80; RESP 16; O2SAT 94
[2023-07-03 20:00] VITALS: PULSE 56
[2023-07-03] MEDS: cloNIDine HCL 0.1 MG TAB PO ONE (20:00)
[2023-07-03] MEDS: InsuLIN REG 1unit/0.01ml Soln (100units/ml) SC SCH (22:00)
[2023-07-03] MEDS ORDERED: DEXTROSE (50%) 50ML SYRG IV PRN (22:00)
[2023-07-03] MEDS: SODIUM CHLOR 0.9% PF (SALINE LOCK) 10ML VIAL/SYR IV SCH (22:00)
[2023-07-03] MEDS ORDERED: ONDANSETRON HCL 4 MG/2 ML VIAL IV PRN (22:00)
[2023-07-03] MEDS ORDERED: ACETAMINOPHEN 325 MG TAB PO PRN (22:00)
[2023-07-03] MEDS ORDERED: MORPHINE SULFATE INJ 2 MG/ml SYRG IV PRN (22:45)
[2023-07-03] MEDS ORDERED: NITROGLYCERIN 0.4 MG SL TAB SL PRN (22:45)
[2023-07-03 23:43] LABS: Urine Bacteria None Seen /hpf (None Seen)
[2023-07-04] VITALS (11 sets, daily range): BP systolic 149–177; BP diastolic 82–101; PULSE 56–74; RESP 15–20; TEMP 97.1–98.4; O2SAT 94–100
[2023-07-04 00:11] LABS: Urine Blood TRACE /uL (Negative); Urine Clarity Clear (Clear); Urine Color Light-Yellow (Yellow); Urine Protein, UAD 3+ (Negative); Urine Specific Gravity 1.007 (1.001-1.035); Urine Urobilinogen Normal (Negative); Urine WBC 1 /hpf (0 - 3)
[2023-07-04 00:15] LABS: Amphetamine Screen, Urine Neg (NEGATIVE); Barbiturate Scree,Urine Neg (NEGATIVE); Benzodiazephine Screen, Urine Neg (NEGATIVE); Cannabinoid Screen, Urine Neg (NEGATIVE); Cocaine Screen, Urine Neg (NEGATIVE); Opiate Scree,Urine Neg (NEGATIVE); Phencyclidine Screen, Urine Neg (NEGATIVE)
[2023-07-04] MEDS: ACCU-CHEK COMFORT CURVE STRIP VI SCH (00:35)
[2023-07-04] MEDS: HYDROcodone-ACET 5/325MG TAB PO PRN (00:35)
[2023-07-04] MEDS: cloNIDine HCL 0.1 MG TAB PO PRN (02:38)
[2023-07-04 05:56] LABS: Basophils # (auto) 0.1 10 ^3/uL (0-0.2); Basophils % (auto) 1.4 % (0.0-2.0); Eosinophils # (auto) 0.1 10 ^3/uL (0-0.8); Eosinophils % (auto) 1.7 % (0.0-7.0); Hematocrit 30.9 % (41.0-53.0); Hemoglobin 10.1 g/dL (13.5-17.5); Lymphocytes # (auto) 1.2 10 ^3/uL (0.4-5.4); Lymphocytes % (auto) 25.3 % (10.0-50.0); Mean Corpuscular Hemoglobin 29.3 pg (28.0-32.0); Mean Corpuscular Hgb Conc. 32.5 g/dL (32.0-36.0); Mean Corpuscular Volume 90.1 fL (80.0-100.0); Monocytes # (auto) 0.6 10 ^3/uL (0-1.3); Monocytes % (auto) 12.4 % (0.0-12.0); Neutrophils # (auto) 2.7 10 ^3/uL (1.6-8.6); Neutrophils % (auto) 59.2 % (37.0-80.0); Nucleated Red Blood Cells % 0.2 %; Red Blood Cells 3.43 10^6/uL (4.5-5.90); Red Cell Distribution Width 17.6 % (11.8-14.3); White Blood Cell 4.6 10^3/uL (4.4-10.8)
[2023-07-04 06:10] LABS: Alanine Aminotransferase < 9 U/L (7-40); Albumin 3.5 g/dL (3.2-4.8); Alkaline Phosphatase 89 U/L (46-116); Anion Gap 9 (5-15); Aspartate Aminotransferase 10 U/L (13-40); BUN/Creatinine Ratio 3.5 (10.0-20.0); Blood Urea Nitrogen 32 mg/dL (9-23); Carbon Dioxide 24 mmol/L (20-30); Chloride 99 mmol/L (98-107); Glucose 91 mg/dL (74-106); Potassium 4.8 mmol/L (3.5-5.1); Sodium 132 mmol/L (136-145)
[2023-07-04 06:11] LABS: Bilirubin, Total 0.4 mg/dL (0.2-1.0); Total Protein 6.1 g/dL (5.7-8.2)
[2023-07-04] MEDS: SEVELAMER 800 MG TAB PO SCH (09:59)
[2023-07-04] MEDS: ATENOLOL 25 MG TAB PO SCH (10:00)
[2023-07-04] MEDS: B-COMPLEX W/ C & FOLIC ACID(NEPHROVITE TAB) PO SCH (10:01)
[2023-07-04] MEDS: DOCUSATE SOD 100 MG CAP PO PRN (12:15)
[2023-07-04] MEDS: ACYCLOVIR 400 MG TAB PO SCH (17:56)
[2023-07-04] MEDS: LOSARTAN POTASSIUM 50 MG TAB PO SCH (22:06)
[2023-07-04] MEDS: diphenhdrAMINE HCL 50 MG/1 ML VL IV ONE (22:07)
[2023-07-05] VITALS (9 sets, daily range): BP systolic 150–182; BP diastolic 72–104; PULSE 58–78; RESP 17–19; TEMP 97.1–98.2; O2SAT 91–100
[2023-07-05] MEDS: hydrALAZINE HCL 20 MG/ML VL IV PRN (01:34)
[2023-07-05] MEDS: LOSARTAN POTASSIUM 50 MG TAB PO SCH (22:32)
[2023-07-06 01:00] VITALS: BP 133/76; PULSE 73; RESP 18; TEMP 97.9; O2SAT 94
[2023-07-06 05:00] VITALS: BP 165/101; PULSE 72; RESP 20; TEMP 98.1; O2SAT 95
[2023-07-06 08:00] VITALS: PULSE 77
[2023-07-06 08:39] VITALS: BP 144/70; PULSE 73; RESP 19; TEMP 99.3; O2SAT 94
[2023-07-06 09:19] LABS: Hepatitis B Surface Antibody Positive (Negative)
[2023-07-06 09:31] LABS: Hepatitis B Surface Antigen Negative (Negative)
[2023-07-06] MEDS: SODIUM CHL 0.9% 1000 ML BAG XX ONE (09:40)
[2023-07-06] MEDS ORDERED: HYDR50TA47 PO (09:45)
[2023-07-06] MEDS ORDERED: SEVE800T20 PO (09:45)
[2023-07-06] MEDS ORDERED: DEXT1SYP9 PO (10:59)
[2023-07-06] MEDS ORDERED: ACYC400T16 PO (10:59)
[2023-07-06 13:00] VITALS: BP 149/85; PULSE 66; RESP 18; TEMP 97.8; O2SAT 99
[2023-07-07] MEDS ORDERED: SODIUM CHL 0.9% 1000 ML BAG XX ONE (07:00)
[2023-07-07] MEDS ORDERED: EPOETIN ALFA-EPBX 10,000 UNIT/1ML VIAL SC ONE (21:00)
== END 2023-07-06 14:45 | disposition home or self-care (01) | DRG 812 ==
LOC: ER 16:49 → TELE 22:37 → TELE-CENTR 07-04 02:25 → TELE-EAST 07-06 09:40
PROVIDERS: ADMIT Nurse Practitioner Family; ATTEND Family Medicine
PROC: 5A1D70Z Performance of Urinary Filtration, Intermittent, Less than 6 Hours Per Day (ICD-10-PCS; principal; 2023-07-05)
DX: T42.6X1A Poisoning by other antiepileptic and sedative-hypnotic drugs, accidental (unintentional), initial encounter (principal); G92.8 Other toxic encephalopathy; I12.0 Hypertensive chronic kidney disease with stage 5 chronic kidney disease or end stage renal disease; N18.6 End stage renal disease; D63.1 Anemia in chronic kidney disease; E87.1 Hypo-osmolality and hyponatremia; E11.22 Type 2 diabetes mellitus with diabetic chronic kidney disease; B02.9 Zoster without complications; J45.909 Unspecified asthma, uncomplicated; I16.0 Hypertensive urgency; E11.65 Type 2 diabetes mellitus with hyperglycemia; R80.9 Proteinuria, unspecified; K21.9 Gastro-esophageal reflux disease without esophagitis; Z86.19 Personal history of other infectious and parasitic diseases; Z99.2 Dependence on renal dialysis; Y92.89 Other specified places as the place of occurrence of the external cause; Z79.899 Other long term (current) drug therapy; Z80.3 Family history of malignant neoplasm of breast; Z82.49 Family history of ischemic heart disease and other diseases of the circulatory system; Z82.5 Family history of asthma and other chronic lower respiratory diseases; Z83.3 Family history of diabetes mellitus
CPT/HCPCS: 36415; 80053; 80307; 81001; 82140; 82962; 83036; 85025; 86706; 87081; 87340; 90935; G0378; J1815

== ENCOUNTER 2023-07-24 14:00 | Inpatient (IN) | payer MEDICARE, MEDICAID ==
[~2023-07-24] VITALS: Ht 175.3 cm; Wt 84.5 kg
[~2023-07-24 14:00] MED LIST changes: +ACYC400T16 PO; +DEXT1SYP9 PO; +HYDR50TA47 PO; +SEVE800T20 PO
[2023-07-24 16:05] LABS: Basophils # (auto) 0.1 10 ^3/uL (0-0.2); Basophils % (auto) 1.3 % (0.0-2.0); Eosinophils # (auto) 0.2 10 ^3/uL (0-0.8); Eosinophils % (auto) 2.7 % (0.0-7.0); Hematocrit 38.9 % (41.0-53.0); Hemoglobin 12.6 g/dL (13.5-17.5); Lymphocytes # (auto) 0.7 10 ^3/uL (0.4-5.4); Lymphocytes % (auto) 12.1 % (10.0-50.0); Mean Corpuscular Hemoglobin 29.4 pg (28.0-32.0); Mean Corpuscular Hgb Conc. 32.4 g/dL (32.0-36.0); Mean Corpuscular Volume 90.6 fL (80.0-100.0); Monocytes # (auto) 0.6 10 ^3/uL (0-1.3); Monocytes % (auto) 9.6 % (0.0-12.0); Neutrophils # (auto) 4.4 10 ^3/uL (1.6-8.6); Neutrophils % (auto) 74.3 % (37.0-80.0); Nucleated Red Blood Cells % 0.1 %; Red Blood Cells 4.29 10^6/uL (4.5-5.90); Red Cell Distribution Width 19.9 % (11.8-14.3); White Blood Cell 5.9 10^3/uL (4.4-10.8)
[2023-07-24 16:12] LABS: Alkaline Phosphatase 111 U/L (46-116); Anion Gap 6 (5-15); Aspartate Aminotransferase 9 U/L (13-40); BUN/Creatinine Ratio 3.9 (10.0-20.0); Bilirubin, Total 0.4 mg/dL (0.2-1.0); Blood Urea Nitrogen 33 mg/dL (9-23); Calcium 9.2 mg/dL (8.5-10.1); Carbon Dioxide 30 mmol/L (20-30); Chloride 100 mmol/L (98-107); Glucose 132 mg/dL (74-106); Potassium 4.8 mmol/L (3.5-5.1); Sodium 136 mmol/L (136-145); Total Protein 6.9 g/dL (5.7-8.2)
[2023-07-24 16:15] LABS: Alanine Aminotransferase < 9 U/L (7-40)
[2023-07-24] MEDS: cloNIDine HCL 0.1 MG TAB PO ONE (18:21)
[2023-07-24] MEDS: HYDROcodone-ACET 10/325MG TAB PO ONE (18:21)
[2023-07-24] MEDS: FUROSEMIDE 40 MG/4 ML VIAL IV ONE (18:25)
[2023-07-24 19:44] VITALS: RESP 20; O2SAT 96
[2023-07-24] MEDS: InsuLIN REG 1unit/0.01ml Soln (100units/ml) SC SCH (22:00)
[2023-07-24] MEDS ORDERED: ACETAMINOPHEN 325 MG TAB PO PRN (22:00)
[2023-07-24] MEDS ORDERED: DEXTROSE (50%) 50ML SYRG IV PRN (22:00)
[2023-07-24] MEDS: CARVEDILOL 12.5 MG TAB PO SCH (22:00)
[2023-07-24] MEDS ORDERED: ONDANSETRON HCL 4 MG/2 ML VIAL IV PRN (22:00)
[2023-07-24] MEDS: HEPARIN SODIUM (PORCINE) 5000 UNITS/ML 1ML VIAL SC SCH (22:00)
[2023-07-24] MEDS: ACCU-CHEK COMFORT CURVE STRIP VI SCH (22:00)
[2023-07-24] MEDS: SODIUM CHLOR 0.9% PF (SALINE LOCK) 10ML VIAL/SYR IV SCH (22:00)
[2023-07-24] MEDS ORDERED: DOCUSATE SOD 100 MG CAP PO PRN (22:00)
[2023-07-24] MEDS ORDERED: NITROGLYCERIN 0.4 MG SL TAB SL PRN (23:30)
[2023-07-24] MEDS ORDERED: MORPHINE SULFATE INJ 2 MG/ml SYRG IV PRN (23:30)
[2023-07-25] VITALS (8 sets, daily range): BP systolic 126–161; BP diastolic 72–97; PULSE 71–91; RESP 17–20; TEMP 97.4–98.3; O2SAT 92–97
[2023-07-25] MEDS: hydrALAZINE HCL 20 MG/ML VL IV PRN (05:01)
[2023-07-25 06:46] LABS: Albumin 3.6 g/dL (3.2-4.8); Alkaline Phosphatase 91 U/L (46-116); Anion Gap 11 (5-15); BUN/Creatinine Ratio 3.9 (10.0-20.0); Blood Urea Nitrogen 37 mg/dL (9-23); Calcium 9.2 mg/dL (8.7-10.4); Carbon Dioxide 25 mmol/L (20-30); Chloride 98 mmol/L (98-107); Glucose 131 mg/dL (74-106); Sodium 134 mmol/L (136-145)
[2023-07-25 06:47] LABS: Aspartate Aminotransferase < 8 U/L (13-40); Bilirubin, Total 0.4 mg/dL (0.2-1.0); Total Protein 6.3 g/dL (5.7-8.2)
[2023-07-25] MEDS: InsuLIN REG 1unit/0.01ml Soln (100units/ml) SC SCH (06:56)
[2023-07-25 07:51] LABS: Alanine Aminotransferase < 9 U/L (7-40)
[2023-07-25 07:53] LABS: Potassium 5.6 mmol/L (3.5-5.1)
[2023-07-25 08:01] LABS: Basophils # (auto) 0.1 10 ^3/uL (0-0.2); Basophils % (auto) 1.2 % (0.0-2.0); Eosinophils # (auto) 0.1 10 ^3/uL (0-0.8); Eosinophils % (auto) 2.2 % (0.0-7.0); Hematocrit 37.6 % (41.0-53.0); Hemoglobin 12.2 g/dL (13.5-17.5); Lymphocytes # (auto) 0.5 10 ^3/uL (0.4-5.4); Lymphocytes % (auto) 9.4 % (10.0-50.0); Mean Corpuscular Hemoglobin 30.1 pg (28.0-32.0); Mean Corpuscular Hgb Conc. 32.5 g/dL (32.0-36.0); Mean Corpuscular Volume 92.7 fL (80.0-100.0); Monocytes # (auto) 0.6 10 ^3/uL (0-1.3); Monocytes % (auto) 10.2 % (0.0-12.0); Neutrophils # (auto) 4.4 10 ^3/uL (1.6-8.6); Nucleated Red Blood Cells % 0.1 %; Red Blood Cells 4.06 10^6/uL (4.5-5.90); White Blood Cell 5.7 10^3/uL (4.4-10.8)
[2023-07-25 08:03] LABS: Red Cell Distribution Width 20.1 % (11.8-14.3)
[2023-07-25] MEDS: SEVELAMER 800 MG TAB PO SCH (09:52)
[2023-07-25] MEDS: FAMOTIDINE (10MG/ML) 2ML VL IV SCH (09:52)
[2023-07-25] MEDS: B-COMPLEX W/ C & FOLIC ACID(NEPHROVITE TAB) PO SCH (09:52)
[2023-07-25 16:09] LABS: Triglycerides 65 mg/dL (< 150)
[2023-07-25 16:10] LABS: LDL Cholesterol 53 mg/dL (< 100)
[2023-07-25 16:11] LABS: Cholesterol 118 mg/dL (< 200); HDL Cholesterol 48 mg/dL (40-59)
[2023-07-25] MEDS: SODIUM ZIRCONIUM CYCL 10 GM PAK PO ONE (16:26)
[2023-07-25] MEDS ORDERED: FUROSEMIDE 40 MG/4 ML VIAL IV SCH (18:00)
[2023-07-25] MEDS: FUROSEMIDE 40 MG/4 ML VIAL IV SCH (19:36)
[2023-07-26] VITALS (8 sets, daily range): BP systolic 112–143; BP diastolic 68–85; PULSE 70–89; RESP 14–19; TEMP 97.9–98.7; O2SAT 92–95
[2023-07-26] MEDS: HYDROcodone-ACET 5/325MG TAB PO PRN (05:38)
[2023-07-26] MEDS ORDERED: SODIUM CHL 0.9% 1000 ML BAG XX ONE (07:00)
[2023-07-26] MEDS ORDERED: EMPAGLIFLOZIN 10 MG TAB PO SCH (10:00)
[2023-07-26] MEDS: MAGNESIUM OXIDE 400 MG TAB PO ONE (15:33)
[2023-07-26] MEDS ORDERED: TAMS0.4C36 PO (20:02)
[2023-07-26] MEDS: MAGNESIUM OXIDE 400 MG TAB PO SCH (21:34)
[2023-07-27] VITALS (9 sets, daily range): BP systolic 101–153; BP diastolic 65–91; PULSE 65–81; RESP 14–18; TEMP 97.7–98.7; O2SAT 92–95
[2023-07-27] MEDS ORDERED: PATI1POW PO (11:43)
[2023-07-27] MEDS ORDERED: FERR1TAB17 PO (11:43)
[2023-07-27] MEDS ORDERED: GABA-1250 PO (11:43)
[2023-07-27] MEDS ORDERED: CLON0.1T PO (11:43)
[2023-07-27] MEDS: GABAPENTIN 300 MG CAP PO ONE (14:59)
[2023-07-28] VITALS (7 sets, daily range): BP systolic 130–178; BP diastolic 70–89; PULSE 60–79; RESP 18–19; TEMP 36.7; O2SAT 92–95
[2023-07-28] MEDS ORDERED: SODIUM CHL 0.9% 1000 ML BAG XX ONE (07:00)
[2023-07-28 08:38] LABS: Alanine Aminotransferase 11 U/L (7-40); Albumin 3.6 g/dL (3.2-4.8); Alkaline Phosphatase 83 U/L (46-116); Anion Gap 6 (5-15); Aspartate Aminotransferase 9 U/L (13-40); BUN/Creatinine Ratio 3.5 (10.0-20.0); Blood Urea Nitrogen 32 mg/dL (9-23); Calcium 8.9 mg/dL (8.5-10.1); Carbon Dioxide 25 mmol/L (20-30); Chloride 101 mmol/L (98-107); Glucose 97 mg/dL (74-106); Potassium 5.1 mmol/L (3.5-5.1); Sodium 132 mmol/L (136-145)
[2023-07-28 08:40] LABS: Bilirubin, Total 0.4 mg/dL (0.2-1.0); Total Protein 6.1 g/dL (5.7-8.2)
[2023-07-28] MEDS: GABAPENTIN 300 MG CAP PO SCH (09:06)
[2023-07-28] MEDS: LIDOCAINE 5% TOPICAL PATCH TOP SCH (09:08)
[2023-07-28 12:33] LABS: COVID19 ANTIGEN SOFIA FIA NEGATIVE (NEGATIVE)
[2023-07-28] MEDS: LIDOCAINE 2% TOPICAL JELLY 5 ML URJT TOP PRN (13:19)
[2023-07-30 08:30] LABS: Hepatitis B Surface Antibody Positive (Negative)
[2023-07-30 08:41] LABS: Hepatitis B Surface Antigen Negative (Negative)
== END 2023-07-28 18:25 | DRG 194 ==
LOC: ER 14:00 → EDBD 14:00 → TELE 23:22 → TELE-CENTR 23:22
PROVIDERS: ADMIT Family Medicine; ATTEND Family Medicine
PROC: 5A1D70Z Performance of Urinary Filtration, Intermittent, Less than 6 Hours Per Day (ICD-10-PCS; principal; 2023-07-26)
PROC: 5A1D70Z Performance of Urinary Filtration, Intermittent, Less than 6 Hours Per Day (ICD-10-PCS; 2023-07-28)
DX: I13.2 Hypertensive heart and chronic kidney disease with heart failure and with stage 5 chronic kidney disease, or end stage renal disease (principal); D63.1 Anemia in chronic kidney disease; N18.6 End stage renal disease; E11.22 Type 2 diabetes mellitus with diabetic chronic kidney disease; E11.65 Type 2 diabetes mellitus with hyperglycemia; E87.5 Hyperkalemia; Z20.822 Contact with and (suspected) exposure to COVID-19; I50.33 Acute on chronic diastolic (congestive) heart failure; I16.0 Hypertensive urgency; K21.9 Gastro-esophageal reflux disease without esophagitis; J45.909 Unspecified asthma, uncomplicated; N40.0 Benign prostatic hyperplasia without lower urinary tract symptoms; Z80.3 Family history of malignant neoplasm of breast; Z82.49 Family history of ischemic heart disease and other diseases of the circulatory system; Z82.5 Family history of asthma and other chronic lower respiratory diseases; Z91.148 Patient's other noncompliance with medication regimen for other reason; Z83.3 Family history of diabetes mellitus; Z99.2 Dependence on renal dialysis; Z79.4 Long term (current) use of insulin
CPT/HCPCS: 36415; 72131; 73600; 80053; 80061; 82962; 83605; 83735; 83880; 84132; 84443; 85025; 86706; 87340; 87426; 90935; 93306; 93926; 93971; 96374; 97163; G0378; J1815; J3490

== ENCOUNTER 2024-03-15 17:15 | Inpatient (IN) | payer MEDICARE, MEDICAID ==
[~2024-03-15] VITALS: Ht 180.3 cm; Wt 81.5 kg
[~2024-03-15 17:15] MED LIST changes: +CLON0.1T PO; +FERR1TAB17 PO; +GABA-1250 PO; -GABA-1308 PO; -LEVO500T31 PO; -LEVO500T91 PO; -METO-281 PO; +PATI1POW PO; +TAMS0.4C39 PO; -TRAM50TA2 PO
[2024-03-15 17:51] LABS: Basophils # (auto) 0.1 10 ^3/uL (0-0.2); Basophils % (auto) 1.6 % (0.0-2.0); Eosinophils # (auto) 0.1 10 ^3/uL (0-0.8); Hematocrit 38.9 % (41.0-53.0); Hemoglobin 12.9 g/dL (13.5-17.5); Lymphocytes # (auto) 1.1 10 ^3/uL (0.4-5.4); Lymphocytes % (auto) 17.2 % (10.0-50.0); Mean Corpuscular Hemoglobin 32.6 pg (28.0-32.0); Mean Corpuscular Hgb Conc. 33.1 g/dL (32.0-36.0); Mean Corpuscular Volume 98.5 fL (80.0-100.0); Monocytes # (auto) 0.7 10 ^3/uL (0-1.3); Monocytes % (auto) 11.4 % (0.0-12.0); Neutrophils # (auto) 4.4 10 ^3/uL (1.6-8.6); Neutrophils % (auto) 67.8 % (37.0-80.0); Nucleated Red Blood Cells % 0.1 %; Platelet Count (auto) 263 10^3/uL (140-450); Red Blood Cells 3.95 10^6/uL (4.5-5.90); White Blood Cell 6.5 10^3/uL (4.4-10.8)
--- NOTE | 2024-03-15 17:59 | ED.PDOC ---
Musculoskeletal HPI Comments HPI: Poor Historian. HPI: 68 y/o M, with PMHX of ESRD, DM, and HTN presents to the ED with CC left toe pain. Patient states, that he has been experiencing 3rd and 4th digit left foot pain [id number]. Patient states that he bumped his foot approximately two weeks ago and that is when they onset of pain. Patient completed a full session of dialysis today. Patient also has multiple other chronic complaints including diffuse itchiness for a one year particularly after dialysis. Also a lesion on his penis that he showed his PCP in the past and started him on cream which patient states showed some improvement but has not completely resolved. Denies any history of STDs. Initial Vitals: Temp:98.0 BP:173/42 HR:78 RR:18 O2 Sat.:93 Past Medical History: ESRD, DM, HTN Past Surgical History: Denies Social History: Denies smoking, ETOH, and drug use Medication: LISINOPRIL, NORCO, ATENOLOL Allergies: NKDA Past Medcial History: Past Surgical History: REVIEW OF SYSTEMS: CONSTITUTIONAL: Denies acute: fever, diaphoresis, chills, generalized weakness. HEAD: Denies acute: headache, photophobia Eyes: Denies acute: Double vision, vision loss, eye pain, eye discharge. EARS: Denies acute: tinnitus, hearing loss, ear discharge, ear pain, THROAT: Denies acute: sore throat, swelling, difficulty swallowing , pain with swal lowing, change in voice. NECK: Denies acute: neck pain, neck swelling, stiff neck. HEART: Denies acute : chest pain, palpitations, LUNGS: Denies acute: SOB, wheezing, cough, hemoptysis ABDOMEN: Denies acute: abdominal pain, Nausea, Vomiting, diarrhea, melena , hematemesis, hematochezia SKIN: Denies acute: rash, redness, lesions, itchiness. EXTREMITIES: Denies acute: calf pain, numbness, tingling, weakness, denies pain in extremity. Denies acute: Low back pain. Neuro: Denies acute: focal neurological deficit, motor or sensory focal neurological deficit, tremors, seizure like activity, confusion, dizziness, change in mental status, loss of bowel or bladder function, cauda equina like symptoms. : Denies acute: dysuria, hematuria, flank pain, increase in urinary frequency. PSYCH: Denies acute: hallucination, suicidal ideation, homicidal ideation. PHYSICAL EXAM: General: no acute distress, awake and alert. Head: normocephalic, atraumatic. Neck: supple, trachea is midline, no swelling. Throat: Normal phonation. Eyes:, no erythema, no purulent discharge, no proptosis, no icterus. Heart: regular rate, regular rhythm, no significant murmur appreciated. Lungs: no apparent respiratory distress, Able to speak in full sentences. No wheezing, no rhonchi, no crackles. No stridors Clear to auscultation bilaterally. Abdomen: non tender to palpation, non distended, soft, no guarding, no rebound, + bowel sounds. Neuro: Awake, Alert, oriented to name, self, situation, follows commands GCS=15. Speech is normal. Skin: no petechia, no purpura, no cyanosis, non-pale, not jaundice. Lower extremities: --trace bilateral - Pitting edema no deformity, no calf TTP. Noted mild focal swelling at the dorsum of the left foot near the 3rd and 4th digit that is tender to palpation. Pulses are present in the affected extremity by Doppler. There is noted erythema of the region as well. Makes eye contact. moves all four extremities. Face: no apparent facial droop. Ambulating in the ED independently. Chief Complaint: Wound Check Time Seen by MD: 17:30 Primary Care Provider: WANDA Reviewed Notes: Nurses Notes, Allergies Allergies: Coded Allergies: Amlodipine (Verified Adverse Reaction, Mild, "feet swelling" per pt statement on 01/07/21. , 07/04/23) Home Meds Active Scripts Dextromethorphan-Guaifenesin (Robitussin-Dm) 10 Ml Sr, 10 ML PO TID, #180 SYP Prov:ANDRAE RYAN MD 07/06/23 Acyclovir (ZOVIRAX TABLET) 400 Mg Tb, 1 TAB PO BID, #14 TAB 11 Refills Prov:ANDRAE RYAN MD 07/06/23 Reported Medications Patiromer Sorbitex Calcium (Veltassa) 8.4 Gm Pow, 8.4 GM PO DAILY, POW 07/27/23 Ferric Citrate (Auryxia) 210 Mg Tab, 2 TAB PO TIDWM, TAB 07/27/23 Clonidine Hydrochloride (Clonidine Hcl) 0.1 Mg Tab, 0.1 MG PO BID, MG 07/27/23 Gabapentin (Gabapentin) 300 Mg Cap, 300 MG PO DAILY for ZOSTER UNCOMPLICATED, MG 07/27/23 Tamsulosin Hcl (Tamsulosin Hcl) 0.4 Mg Cap, 0.4 MG PO DAILY for Urine Retension for 30 Days, MG 07/26/23 Sevelamer Hydrochloride (Sevelamer Hydrochloride) 800 Mg Tab, 2 TAB PO TID 07/06/23 Hydralazine Hcl (Hydralazine Hcl) 50 Mg Tab, 1 TAB PO TID 07/06/23 B-Complex W/ C & Folic Acid (Blanka-Meredith) Tab, 1 TAB PO DAILY, TAB 01/14/22 Lisinopril (Lisinopril) 40 Mg Tab, 40 MG PO DAILY, MG 01/14/22 Atenolol (Atenolol) 50 Mg Tab, 50 MG PO EOD 01/04/21 Information Source: Patient Mode of Arrival: Ambulatory Was a procedure done? Was a procedure done?: No Differential Diagnosis EXT Differential Diagnosis: Fracture, Sprain, Gout, Other (Leg swellingDdx include but not limited to DVT, ischemic limb, pitting edema, volume overload, CHF, cellulitis, hematoma, compartment syndrome, dependent edema, venous stasis.) X-Ray, Labs, Meds, VS Vital Signs Date Time Temp Pulse Resp B/P (MAP) Pulse Ox O2 Delivery O2 Flow Rate FiO2 03/15/24 18:39 69 03/15/24 17:27 98.0 78 18 173/42 (85) 93 Lab Test 03/15/24 20:14 03/15/24 18:15 03/15/24 17:40 03/15/24 17:33 Range/Units Troponin I High Sensitivity 29 27 26 </=54 ng/L Urine Color Yellow Yellow Urine Clarity Clear Clear Urine pH 8.5 5.0-9.0 Urine Specific [place] 1.015 1.001-1.035 Urine Protein 3+ H Negative Urine Ketones Trace Negative Urine Blood Trace H Negative /uL Urine Nitrite Negative Negative Urine Bilirubin Negative Negative Urine Urobilinogen Normal Negative mg/dL Urine Leukocyte Esterase Negative Negative /uL Urine RBC 1 0 - 3 /hpf Urine Microscopic WBC 2 0-3 /HPF Urine Squamous Epithelial Cells Few <5 /hpf Urine Bacteria None seen None Seen /hpf Urine Glucose 2+ H Normal mg/dL Chlamydia trachomatis (ITZ) Pending Neisseria gonorrhoeae (ITZ) Pending White Blood Count 6.5 4.4-10.8 10^3/uL Red Blood Count 3.95 L 4.5-5.90 10^6/uL Hemoglobin 12.9 L 13.5-17.5 g/dL Hematocrit 38.9 L 41.0-53.0 % Mean Corpuscular Volume 98.5 80.0-100.0 fL Mean Corpuscular Hemoglobin 32.6 H 28.0-32.0 pg Mean Corpuscular Hemoglobin Concent 33.1 32.0-36.0 g/dL Red Cell Distribution Width 17.0 H 11.8-14.3 % Platelet Count 263 140-450 10^3/uL Mean Platelet Volume 7.3 6.9-10.8 fL Neutrophils (%) (Auto) 67.8 37.0-80.0 % Lymphocytes (%) (Auto) 17.2 10.0-50.0 % Monocytes (%) (Auto) 11.4 0.0-12.0 % Eosinophils (%) (Auto) 2.0 0.0-7.0 % Basophils (%) (Auto) 1.6 0.0-2.0 % Neutrophils # (Auto) 4.4 1.6-8.6 10 ^3/uL Lymphocytes # (Auto) 1.1 0.4-5.4 10 ^3/uL Monocytes # (Auto) 0.7 0-1.3 10 ^3/uL Eosinophils # (Auto) 0.1 0-0.8 10 ^3/uL Basophils # (Auto) 0.1 0-0.2 10 ^3/uL Nucleated Red Blood Cells 0.1 % Erythrocyte Sedimentation Rate 36 H 0-20 mm/hr Sodium Level 136 136-145 mmol/L Potassium Level 4.4 3.5-5.1 mmol/L Chloride Level 96 L 98-107 mmol/L Carbon Dioxide Level 30 20-31 mmol/L Anion Gap 10 5-15 Blood Urea Nitrogen 31 H 9-23 mg/dL Creatinine 6.58 H 0.700-1.30 mg/dL Glomerular Filtration Rate Calc 9 >90 mL/min BUN/Creatinine Ratio 4.7 L 10.0-20.0 Serum Glucose 88 74-106 mg/dL Lactic Acid Level 1.8 0.4-2.0 mmol/L Uric Acid 3.8 3.7-9.2 mg/dL Calcium Level 9.3 8.7-10.4 mg/dL Total Bilirubin 0.6 0.2-1.0 mg/dL Aspartate Amino Transferase (AST) 22 13-40 U/L Alanine Aminotransferase (ALT) 16 7-40 U/L Alkaline Phosphatase 157 H 46-116 U/L C-Reactive Protein High Sensitivity 2.66 H <1.0 mg/dL Total Protein 6.5 5.7-8.2 g/dL Albumin 4.0 3.2-4.8 g/dL Test 03/15/24 17:25 Range/Units Influenza Type A Antigen Negative Negative Influenza Type B Antigen Negative Negative SARS-CoV-2 Antigen (Rapid) Negative NEGATIVE [place] [address] Ph: [phone] DIAGNOSTIC IMAGING Diagnostic Imaging Report : [id number] Signed PATIENT: MANDA LAI ACCT: [id number] UNIT: [id number] : 1955 LOC: ER ROOM / BED: / AGE / SEX: 68 / M ADM STATUS: REG ER SERVICE 1720 ORDERING PHYSICIAN: MARIVEL DUKE DO PROCEDURE(s): CXRP - CHEST PORTABLE REASON: cough ORDER NUMBER(s): [id number], ACCESSION NUMBER(s): [id number] CHEST RADIOGRAPH Indication: cough Technique: Single frontal view of the chest was obtained Comparison: CXRP on DOS: 03/03/22, CHEST PORTABLE on DOS: 03/03/22, CXRP on DOS: 01/14/22 FINDINGS: Lines and Tubes: None Lungs: No focal consolidation. Pleura: SMall right pleural effusion No pneumothorax. Cardiomediastinal contours: cardiomegaly Bones: No acute osseous abnormality. IMPRESSION: SMall right pleural effusion cardiomegaly with chf ATED BY: EVENS ORTIZ MD DICTATED DATE/TIME: 03/15/241821 SIGNED BY: EVENS ORTIZ MD SIGNED DATE/TIME: 03/15/241821 CC: [place] [address] Ph: [phone] DIAGNOSTIC IMAGING Diagnostic Imaging Report : [id number] Signed PATIENT: MANDA LAI ACCT: [id number] UNIT: [id number] : 1955 LOC: ER ROOM / BED: / AGE / SEX: 68 / M ADM STATUS: REG ER SERVICE 06 ORDERING PHYSICIAN: MARIVEL DUKE DO PROCEDURE(s): LFOOT - L FOOT 3 VIEW XRAY REASON: 3rd/4th digit pain ORDER NUMBER(s): [id number], ACCESSION NUMBER(s): [id number] EXAM: XY L FOOT 3 VIEW XRAY CLINICAL INDICATION: 3rd/4th digit pain TECHNIQUE: XY L FOOT 3 VIEW XRAY Comparison: None FINDINGS/IMPRESSION: There is no evidence of acute fracture or dislocation. The visualized joint space is well maintained. The alignment is anatomical. There is no radiopaque foreign body. Extensive atherosclerosis ATED BY: EVENS ORTIZ MD DICTATED DATE/TIME: 03/15/241830 SIGNED BY: EVENS ORTIZ MD SIGNED DATE/TIME: 03/15/241830 CC: Time of 1ST Reevaluation: 18:00 Reevaluation 1ST: Unchanged Patient Education/Counseling: Diagnosis, Treatment Family Education/Counseling: No Family Present Comments Patient presented with the above HPI.-- WOUND CHECK--workup was initiated. patient was found with the above mentioned diagnosis. the following medications were ordered: NONE the following tests were ordered: LABS, CXR, L FT XR, EKG Patient ED course and VS have been stabilized. Patient has been reassessed in the ED and remained in a stable condition. Pertinent incidental findings were discussed with the patient and/or family. Patient/family voices understanding and is agreeable with plan. Patient has been observed in the ED adequate length of time to insure improvement/stability. Escalation of care considered: Consideration of escalation to observation or admission Patient was ADMITTED to the medicine team for further evaluation and treatment of their presentation. Patient was DISCHARGED home in a stable condition. All the reports of any imaging studies that were ordered by myself were reviewed by myself. Departure 1 Departure Time of Disposition: 21:02 Impression: Primary Impression: Toe contusion Additional Impressions: Cough Toe infection Disposition: ADMITTED INPATIENT Admit to: Tele Condition: Guarded Additional Instructions: [address] [address] Ph: [phone] DIAGNOSTIC IMAGING Diagnostic Imaging Report : [id number] Signed PATIENT: MANDA LAI ACCT: [id number] UNIT: [id number] : 1955 LOC: ER ROOM / BED: / AGE / SEX: 68 / M ADM STATUS: REG ER SERVICE 1720 ORDERING PHYSICIAN: MARIVEL DUKE DO PROCEDURE(s): CXRP - CHEST PORTABLE REASON: cough ORDER NUMBER(s): [id number], ACCESSION NUMBER(s): [id number] CHEST RADIOGRAPH Indication: cough Technique: Single frontal view of the chest was obtained Comparison: CXRP on DOS: 03/03/22, CHEST PORTABLE on DOS: 03/03/22, CXRP on DOS: 01/14/22 FINDINGS: Lines and Tubes: None Lungs: No focal consolidation. Pleura: SMall right pleural effusion No pneumothorax. Cardiomediastinal contours: cardiomegaly Bones: No acute osseous abnormality. IMPRESSION: SMall right pleural effusion cardiomegaly with chf ATED BY: EVENS ORTIZ MD DICTATED DATE/TIME: 03/15/241821 SIGNED BY: EVENS ORTIZ MD SIGNED DATE/TIME: 03/15/241821 CC: [address] [address] Ph: [phone] DIAGNOSTIC IMAGING Diagnostic Imaging Report : [id number] Signed PATIENT: MANDA LAI ACCT: [id number] UNIT: [id number] : 1955 LOC: ER ROOM / BED: / AGE / SEX: 68 / M ADM STATUS: REG ER SERVICE 1807 ORDERING PHYSICIAN: MARIVEL DUKE DO PROCEDURE(s): LFOOT - L FOOT 3 VIEW XRAY REASON: 3rd/4th digit pain ORDER NUMBER(s): [id number], ACCESSION NUMBER(s): [id number] EXAM: XY L FOOT 3 VIEW XRAY CLINICAL INDICATION: 3rd/4th digit pain TECHNIQUE: XY L FOOT 3 VIEW XRAY Comparison: None FINDINGS/IMPRESSION: There is no evidence of acute fracture or dislocation. The visualized joint space is well maintained. The alignment is anatomical. There is no radiopaque foreign body. Extensive atherosclerosis ATED BY: EVENS ORTIZ MD DICTATED DATE/TIME: 03/15/241830 SIGNED BY: EVENS ORTIZ MD SIGNED DATE/TIME: 03/15/241830 CC: Discharged With: Self I personally scribed for MARIVEL DUKE DO ([email or web address]) on 03/15/24 at 17:59. Electronically submitted by Ly Sarkar ([email or web address]). I personally scribed for MARIVEL DUKE DO ([email or web address]) on 03/15/24 at 18:39. Electronically submitted by Ly Sarkar ([email or web address]). I personally scribed for MARIVEL DUKE DO ([email or web address]) on 03/15/24 at 18:41. Electronically submitted by Ly Sarkar ([email or web address]). MARIVEL DUKE DO Mar 15, 2024 17:59
[2024-03-15 18:08] LABS: Alanine Aminotransferase 16 U/L (7-40); Anion Gap 10 (5-15); Aspartate Aminotransferase 22 U/L (13-40); BUN/Creatinine Ratio 4.7 (10.0-20.0); Bilirubin, Total 0.6 mg/dL (0.2-1.0); Calcium 9.3 mg/dL (8.7-10.4); Carbon Dioxide 30 mmol/L (20-31); Glucose 88 mg/dL (74-106); Potassium 4.4 mmol/L (3.5-5.1); Sodium 136 mmol/L (136-145); Total Protein 6.5 g/dL (5.7-8.2)
[2024-03-15 18:23] LABS: Chloride 96 mmol/L (98-107)
[2024-03-15 18:24] LABS: Alkaline Phosphatase 157 U/L (46-116); Blood Urea Nitrogen 31 mg/dL (9-23)
--- NOTE | 2024-03-15 18:24 | DVH ---
CHEST RADIOGRAPH Indication: cough Technique: Single frontal view of the chest was obtained Comparison: CXRP on DOS: 03/03/22, CHEST PORTABLE on DOS: 03/03/22, CXRP on DOS: 01/14/22 FINDINGS: Lines and Tubes: None Lungs: No focal consolidation. Pleura: SMall right pleural effusion No pneumothorax. Cardiomediastinal contours: cardiomegaly Bones: No acute osseous abnormality. IMPRESSION: SMall right pleural effusion cardiomegaly with chf
--- NOTE | 2024-03-15 18:34 | DVH ---
EXAM: XY L FOOT 3 VIEW XRAY CLINICAL INDICATION: 3rd/4th digit pain TECHNIQUE: XY L FOOT 3 VIEW XRAY Comparison: None FINDINGS/IMPRESSION: There is no evidence of acute fracture or dislocation. The visualized joint space is well maintained. The alignment is anatomical. There is no radiopaque foreign body. Extensive atherosclerosis
[2024-03-15 19:31] LABS: Urine Bacteria None Seen /hpf (None Seen)
[2024-03-15 19:41] LABS: Urine Blood TRACE /uL (Negative); Urine Clarity Clear (Clear); Urine Color Yellow (Yellow); Urine Protein, UAD 3+ (Negative); Urine Specific Gravity 1.015 (1.001-1.035); Urine Squamous Epithelial Cell FEW /hpf (<5); Urine Urobilinogen Normal (Negative); Urine WBC 2 /HPF (0-3); Urine pH 8.5 (5.0-9.0)
[2024-03-15 19:43] LABS: COVID19 ANTIGEN SOFIA FIA NEGATIVE (NEGATIVE); Rapid Influenza A Negative (Negative); Rapid Influenza B Negative (Negative)
--- NOTE | 2024-03-15 22:22 | ECG ---
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
[2024-03-15 22:23] LABS: Erythrocyte Sedimentation Rate 36 mm/hr (0-20)
[2024-03-15] MEDS ORDERED: VANCOMYCIN PER PHARMACY 0 MG IV SCH (22:45)
--- NOTE | 2024-03-15 23:21 | DVHHPRES ---
History of Present Illness Resident Creating Document: ROMEO BLACK RESIDENT History of Present Illness Patient is a 68-year-old male with past medical history of ESRD on hemodialysis, CHF, diabetes, cholelithiasis, herpes zoster, chronic anemia, hypertension, who came in due to a dry cough. According to the patient, for the past 2 months he has been experiencing a dry cough that is persistent. Moreover, patient notes he banged his left foot against the wall 2 weeks ago and sustained a contusion of the 3rd and 4th digit of the left lower extremity, discoloration noted along with severe tenderness to palpation in the 4th toe, L pedal pulse was palpable manually and with bedside Doppler. Patient is also complaining of balanitis which is what prompted this visit to the hospital, patient is not sexually active currently. Patient receives dialysis on Tuesdays and via a right forearm fistula and is able to make urine. On review of systems patient is complaining of fatigue, chills, shortness of breath, dry cough, dyspnea, nausea. Patient was also complaining of generalized body itching. Chest x-ray showed a small left-sided pleural effusion. Past Medical History ESRD on hemodialysis, CHF, diabetes, cholelithiasis, herpes zoster, chronic anemia, hypertension Past Surgical History Right arm fistula Past Social History Smokin pack year history in the past now quit Alcohol: Quit 5 years ago, prior to that was drinking daily 2-3 drinks Drugs: Denies Review of Systems Constitutional: Yes: Fever, Chills, Malaise; No: Sweats, Weakness, Other Eyes: No: Pain, Vision change, Conjunctivae inflammation, Eyelid inflammation, Other, Redness ENT: No: Ear pain, Ear discharge, Nose pain, Nose discharge, Nose congestion, Mouth pain, Mouth swelling, Throat pain, Throat swelling, Other Respiratory: Cough, Dry, Shortness of breath; No: SOB with excertion, Wheezing, Hemoptysis, Pleuritic Pain, Sputum, Wheezing, Other Cardiovascular: Orthopnea; No: Chest Pain, Palpitations, Paroxysmal Noc. Dyspnea, Edema, Lt Headedness, Other Gastrointestinal: Nausea; No: Vomiting, Abdominal Pain, Diarrhea, Constipation, Melena, Hematochezia, Other Genitourinary: No Dysuria, No Frequency, No Incontinence, No Hematuria, No Retention, No Other Musculoskeletal: No: other, neck pain, shoulder pain, arm pain, back pain, hand pain, leg pain, foot pain Skin: No: Rash, Lesions, Jaundice, Bruising, Other Neurological: No: Weakness, Numbness, Incoordination, Change in speech, Confusion, Seizures, Other Allergies: Coded Allergies: Amlodipine (Verified Adverse Reaction, Mild, "feet swelling" per pt statement on 01/07/21. , 07/04/23) Medications Current Medications Medications Dose Ordered Sig/Alec Route Start Time Stop Time Status Last Admin Dose Admin Vancomycin HCl 0 ml @ 0 mls/hr UD IV 03/15/24 22:45 UNV Vancomycin HCl 250 ml @ 125 mls/hr Q2H IV 03/15/24 23:00 03/16/24 02:59 Exam Vital Signs Vital Signs Date Time Temp Pulse Resp B/P (MAP) Pulse Ox O2 Delivery O2 Flow Rate FiO2 03/15/24 18:39 69 03/15/24 17:27 98.0 18 173/42 (85) 93 General Appearance: Alert, Oriented X3, Cooperative, No acute distress HEENT: Atraumatic, PERRLA, EOMI Respiratory: Clear to auscultation, Normal air movement Cardiovascular: Regular rate, Normal S1, Normal S2 Abdominal: Normal bowel sounds, Soft, No tenderness Extremities: Other (Left foot 4th toe discoloration, positive pedal pulses. Small multiple papules noted on the right foot) Neuro: Normal speech, Sensation intact Psych/Mental Status: Mental status NL, Mood NL Labs/Xrays Labs Test 03/15/24 20:14 03/15/24 17:40 03/15/24 17:33 03/15/24 17:25 Range/Units Troponin I High Sensitivity 29 </=54 ng/L Urine Color Yellow Yellow Urine Clarity Clear Clear Urine pH 8.5 5.0-9.0 Urine Specific [place] 1.015 1.001-1.035 Urine Protein 3+ H Negative Urine Ketones Trace Negative Urine Blood Trace H Negative /uL Urine Nitrite Negative Negative Urine Bilirubin Negative Negative Urine Urobilinogen Normal Negative mg/dL Urine Leukocyte Esterase Negative Negative /uL Urine RBC 1 0 - 3 /hpf Urine Microscopic WBC 2 0-3 /HPF Urine Squamous Epithelial Cells Few <5 /hpf Urine Bacteria None seen None Seen /hpf Urine Glucose 2+ H Normal mg/dL White Blood Count 6.5 4.4-10.8 10^3/uL Red Blood Count 3.95 L 4.5-5.90 10^6/uL Hemoglobin 12.9 L 13.5-17.5 g/dL Hematocrit 38.9 L 41.0-53.0 % Mean Corpuscular Volume 98.5 80.0-100.0 fL Mean Corpuscular Hemoglobin 32.6 H 28.0-32.0 pg Mean Corpuscular Hemoglobin Concent 33.1 32.0-36.0 g/dL Red Cell Distribution Width 17.0 H 11.8-14.3 % Platelet Count 263 140-450 10^3/uL Mean Platelet Volume 7.3 6.9-10.8 fL Neutrophils (%) (Auto) 67.8 37.0-80.0 % Lymphocytes (%) (Auto) 17.2 10.0-50.0 % Monocytes (%) (Auto) 11.4 0.0-12.0 % Eosinophils (%) (Auto) 2.0 0.0-7.0 % Basophils (%) (Auto) 1.6 0.0-2.0 % Neutrophils # (Auto) 4.4 1.6-8.6 10 ^3/uL Lymphocytes # (Auto) 1.1 0.4-5.4 10 ^3/uL Monocytes # (Auto) 0.7 0-1.3 10 ^3/uL Eosinophils # (Auto) 0.1 0-0.8 10 ^3/uL Basophils # (Auto) 0.1 0-0.2 10 ^3/uL Nucleated Red Blood Cells 0.1 % Erythrocyte Sedimentation Rate 36 H 0-20 mm/hr Sodium Level 136 136-145 mmol/L Potassium Level 4.4 3.5-5.1 mmol/L Chloride Level 96 L 98-107 mmol/L Carbon Dioxide Level 30 20-31 mmol/L Anion Gap 10 5-15 Blood Urea Nitrogen 31 H 9-23 mg/dL Creatinine 6.58 H 0.700-1.30 mg/dL Glomerular Filtration Rate Calc 9 >90 mL/min BUN/Creatinine Ratio 4.7 L 10.0-20.0 Serum Glucose 88 74-106 mg/dL Lactic Acid Level 1.8 0.4-2.0 mmol/L Uric Acid 3.8 3.7-9.2 mg/dL Calcium Level 9.3 8.7-10.4 mg/dL Total Bilirubin 0.6 0.2-1.0 mg/dL Aspartate Amino Transferase (AST) 22 13-40 U/L Alanine Aminotransferase (ALT) 16 7-40 U/L Alkaline Phosphatase 157 H 46-116 U/L C-Reactive Protein High Sensitivity 2.66 H <1.0 mg/dL Total Protein 6.5 5.7-8.2 g/dL Albumin 4.0 3.2-4.8 g/dL Influenza Type A Antigen Negative Negative Influenza Type B Antigen Negative Negative SARS-CoV-2 Antigen (Rapid) Negative NEGATIVE Assessment/Plan Assessment/Plan Left-sided pleural effusion Left lower extremity 4th digit contusion with a possible infection/cellulitis - CXR: SMall right pleural effusion. cardiomegaly with chf - L foot xray: There is no evidence of acute fracture or dislocation. The visualized joint space is well maintained. The alignment is anatomical. There is no radiopaque foreign body. Extensive atherosclerosis - IV vancomycin, IV cefepime - ordered foot MRI - ordered arterial Doppler - wound consult Hypertensive urgency - carvedilol 6.25 mg b.i.d. - resumed home medication lisinopril 40 mg - IV hydralazine 10 mg once ESRD on hemodialysis CHF Type 2 diabetes Chronic anemia BPH - resumed home medication tamsulosin 0.4 mg - sevelamer - renal diet DVT prophylaxis: Heparin 5000 units b.i.d. Goals of care: Full code, discussed for >16 minutes on 03/16/2024 Plan discussed with patient Plan discussed with Dr. Frazier Plan discussed with: Patient, Other (RN) Date of Service: Mar 15, 2024 Billing Provider: JOSIE MORALES MD Common Visit Codes: 84401-[id number] INP/OBS CARE (HIGH) ROMEO BLACK RESIDENT Mar 15, 2024 23:21 JOSIE MORALES MD Mar 16, 2024 23:16
[2024-03-16] VITALS (9 sets, daily range): BP systolic 114–185; BP diastolic 63–91; PULSE 58–84; RESP 18–20; TEMP 97.4–99.6; O2SAT 92–100
[2024-03-16] MEDS: VANCOMYCIN 1GM/250ML KIT 250 ML IV SCH
[2024-03-16] MEDS: PIPERACILLIN-TAZOB 2.25GM 50 ML IV ONE
[2024-03-16] MEDS: CARVEDILOL 3.125 MG TAB PO SCH (03:14)
[2024-03-16] MEDS: hydrALAZINE HCL 20 MG/ML VL IV ONE (03:15)
[2024-03-16] MEDS: diphenhdrAMINE HCL 50 MG/1 ML VL IV ONE (03:19)
[2024-03-16 04:36] LABS: Basophils # (auto) 0.1 10 ^3/uL (0-0.2); Basophils % (auto) 1.2 % (0.0-2.0); Eosinophils # (auto) 0.2 10 ^3/uL (0-0.8); Eosinophils % (auto) 2.9 % (0.0-7.0); Hematocrit 37.9 % (41.0-53.0); Hemoglobin 12.5 g/dL (13.5-17.5); Lymphocytes # (auto) 0.8 10 ^3/uL (0.4-5.4); Lymphocytes % (auto) 14.9 % (10.0-50.0); Mean Corpuscular Hemoglobin 32.2 pg (28.0-32.0); Mean Corpuscular Hgb Conc. 32.9 g/dL (32.0-36.0); Monocytes # (auto) 0.8 10 ^3/uL (0-1.3); Monocytes % (auto) 14.4 % (0.0-12.0); Neutrophils # (auto) 3.7 10 ^3/uL (1.6-8.6); Neutrophils % (auto) 66.6 % (37.0-80.0); Nucleated Red Blood Cells % 0.1 %; Platelet Count (auto) 244 10^3/uL (140-450); Red Blood Cells 3.87 10^6/uL (4.5-5.90); Red Cell Distribution Width 17.6 % (11.8-14.3); White Blood Cell 5.5 10^3/uL (4.4-10.8)
[2024-03-16 04:46] LABS: Potassium 4.8 mmol/L (3.5-5.1)
[2024-03-16 04:47] LABS: Anion Gap 9 (5-15)
[2024-03-16 04:52] LABS: BUN/Creatinine Ratio 4.4 (10.0-20.0); Blood Urea Nitrogen 32 mg/dL (9-23); Carbon Dioxide 31 mmol/L (20-31); Chloride 95 mmol/L (98-107); Glucose 88 mg/dL (74-106); Sodium 135 mmol/L (136-145)
[2024-03-16] MEDS: SEVELAMER 800 MG TAB PO SCH (06:09)
--- NOTE | 2024-03-16 09:34 | DVH ---
CLINICAL INDICATION: 68 years old, Male; osteomyelitis abscess . COMPARISON: None TECHNIQUE: Multiplanar, multisequence MRI of the left foot was performed without intravenous contrast . Contrast: None. INTERPRETATION: Images are degraded by motion but still of diagnostic value. Bones: No evidence of acute fracture. There is no marrow replacing lesion. Soft tissues: Diffuse subcutaneous edema in the dorsal forefoot. No fluid collection. The Lisfranc li gament is intact. The medial and lateral collateral ligaments are intact at the metatarsophalangeal joints. The flexor and extensor tendons are intact. There is no high-grade plantar plate tear. Th ere is no soft tissue mass. The intrinsic muscles of the foot are unremarkable. IMPRESSION: 1. Diffuse soft tissue swelling of the forefoot which may reflect cellulitis. No MR evidence of osteo myelitis.
[2024-03-16] MEDS: HYDROcodone-ACET 5/325MG TAB PO PRN (10:15)
[2024-03-16] MEDS: TAMSULOSIN HYDROCHLORIDE 0.4 MG CAP PO SCH (10:19)
[2024-03-16] MEDS: hydrALAZINE HCL 25 MG TAB PO SCH (10:20)
[2024-03-16] MEDS: LISINOPRIL 20 MG TAB PO SCH (10:21)
[2024-03-16] MEDS: HEPARIN SODIUM (PORCINE) 5000 UNITS/ML 1ML VIAL SC SCH (10:22)
[2024-03-16] MEDS: CEFEPIME 1GM/ 50ML 50 ML IV SCH (10:22)
[2024-03-16] MEDS: guaiFENesin-DM 100/10mg/5ml SYR PO PRN (10:36)
--- NOTE | 2024-03-16 13:20 | DVH ---
Bilateral Lower Extremity Arterial Duplex Clinical History: L foot 4th toe blue; bruising vs ischemia Comparison: US LT LOW EXT ART DUPLEX on DOS: 07/25/23 Technique: Duplex Doppler evaluation including color Doppler and spectral/pulsed waveform analysis of the lower extremity arteries was performed. Findings: RIGHT: Peak systolic velocities are less than 150 centimeter/second. The waveforms are biphasic with diastolic flow. LEFT: Peak systolic velocities are less than 150 centimeter/second. The waveforms are monophasic in the dorsalis pedis and anterior tibial artery. IMPRESSION: No hemodynamically significant stenosis based on peak systolic velocity criteria. Monophasic arterial waveforms are present in the left calf suggestive of underlying peripheral arteri al disease. Left popliteal fossa cyst measures 6.4 cm. REFERENCE VALUES, [facility] ([facility]) vascular Imaging Lab Criteria: Peak systolic velocity ranges (in cm/sec) are as follows: <150 cm/s - <20 % stenosis 150-200 cm/s - 20-49% stenosis 200-300 cm/s - 50-75% stenosis >300 cm/s -> 75% stenosis
[2024-03-16] MEDS ORDERED: CLOTRIMAZOLE 1 % CREAM 15GM TOP ONE (15:15)
[2024-03-16] MEDS: MUPIROCIN 2% OINT 15gm or 22gm TOP SCH (18:52)
--- NOTE | 2024-03-16 21:55 | DVHINCON2 ---
DATE OF CONSULTATION: 03/16/2024 CONSULTING PHYSICIAN: Dr. Perdomo. REASON FOR CONSULTATION: Management of dialysis. HISTORY OF PRESENT ILLNESS: The patient is a 68-year-old gentleman who is one of our chronic dialysis patients. He went to the hospital complaining of left foot pain. Apparently, 2 weeks ago, he sustained a contusion to the lower aspect of his foot and he noticed some bruising in the area. The bruising has turned into actual inflammation with tenderness and swelling and redness, so now, he came to the hospital and was found to have cellulitis. At the same time, he is complaining of dysuria, urinary tract infection. He also has an inflammation of the genital area. REVIEW OF SYSTEMS: Otherwise, unremarkable. PAST MEDICAL HISTORY: Significant for hypertension, diabetes, end-stage renal disease, cholelithiasis, anemia, hyperparathyroidism and herpes zoster. SOCIAL HISTORY: He denies smoking cigarettes recently, in the past used to smoke for about 20 years. Also, he quit drinking alcohol 5 years ago. MEDICATIONS: Here in the hospital, he is on ____, hydralazine, tamsulosin, lisinopril. He is getting hydrocodone, sevelamer, and carvedilol. PHYSICAL EXAMINATION: VITAL SIGNS: Blood pressure 139/47, heart rate is 59, respirations 16, temperature 98. GENERAL: The patient is an adult gentleman who appears to be chronically ill, in no acute distress, alert and oriented x3. HEENT: Unremarkable. NECK: There is no jugular venous distention, palpable thyroid or lymphadenopathy. LUNGS: Clear to auscultation. CARDIOVASCULAR: Shows regular rate, 1/6 systolic murmur. ABDOMEN: Soft, nontender, no organomegaly. EXTREMITIES: Show no clubbing, cyanosis. NEUROLOGIC: There is cellulitis of the left foot. LABORATORY DATA: Sodium is 135, potassium 4.8, BUN 32, creatinine 7.3. hemoglobin is 12.5. ASSESSMENT AND PLAN: 1. End-stage renal disease. 2. Cellulitis of the left foot. 3. Balanitis. 4. Anemia of renal disease. 5. Type 2 diabetes. The plan is to schedule dialysis tomorrow. We will remove 2 liters of fluid. He will get intravenous antibiotics. Wound care consulting and also urine cultures. His hemoglobin is good. There is no need for Epogen. I will follow him closely. Thank you for the consult. MD CLARK Crawford/ROJELIO/HEBER TID: [id number] RECEIPT: [id number]
[2024-03-16] MEDS ORDERED: CLOTRIMAZOLE 1 % CREAM 15GM TOP SCH (22:00)
[2024-03-16] MEDS: ceFAZolin 1GM/50ML 50 ML IV SCH (22:45)
--- NOTE | 2024-03-16 23:06 | DVHPNRES ---
Progress Note Date Seen: Mar 16, 2024 Resident Creating Document: JINNY SWANSONOJ RESIDENT Medical Necessity Reason Pt with a Central, PICC or Fol: No Subjective Review of Systems Patient is a 68-year-old male with past medical history of ESRD on hemodialysis, CHF, diabetes, cholelithiasis, herpes zoster, chronic anemia, hypertension, who came in due to a dry cough. According to the patient, for the past 2 months he has been experiencing a dry cough that is persistent. Moreover, patient notes he banged his left foot against the wall 2 weeks ago and sustained a contusion of the 3rd and 4th digit of the left lower extremity, discoloration noted along with severe tenderness to palpation in the 4th toe, L pedal pulse was palpable manually and with bedside Doppler. Patient is also complaining of balanitis which is what prompted this visit to the hospital, patient is not sexually active currently. Patient receives dialysis on TTS via a right forearm fistula and is able to make urine. On review of systems patient is complaining of fatigue, chills, shortness of breath, dry cough, dyspnea, nausea. Patient was also complaining of generalized body itching. Chest x-ray showed a small left- sided pleural effusion. Past Medical History: ESRD on hemodialysis, CHF, diabetes, cholelithiasis, herpes zoster, chronic anemia, hypertension Past Surgical History: Right arm fistula Past Social History: Smokin pack year history in the past, but currently denies smoking, alcohol and drug use Review of systems Patient reports feeling short of breath and had to be put on oxygen has pain at the glans penis pain at the left foot around the 3rd-4th toe with swelling Objective vital signs Vital Sign Date Time Temp Pulse Resp B/P (MAP) Pulse Ox O2 Delivery O2 Flow Rate FiO2 03/16/24 22:20 97.7 70 19 138/69 (92) 95 97.7 03/16/24 09:47 Nasal Cannula* 6 44 medications Current Medications Medications Dose Ordered Sig/Alec Route Start Time Stop Time Status Last Admin Dose Admin Heparin Sodium (Porcine) 5,000 units Q12HR SC 03/16/24 10:00 03/16/24 10:22 5,000 UNITS Carvedilol 6.25 mg Q12HR PO 03/16/24 02:00 03/16/24 10:22 6.25 MG Lisinopril 40 mg DAILY PO 03/16/24 10:00 03/16/24 10:21 40 MG Sevelamer HCl 1,600 mg TID PO 03/16/24 06:00 03/16/24 14:33 1,600 MG Tamsulosin HCl 0.4 mg DAILY PO 03/16/24 10:00 03/16/24 10:19 0.4 MG Hydralazine HCl 50 mg Q12HR PO 03/16/24 10:00 03/16/24 10:20 50 MG Acetaminophen/ Hydrocodone Bitart 1 tab [id number] PRN PO 03/16/24 09:00 03/16/24 10:15 1 TAB Guaifenesin/ Dextromethorphan 10 ml Q6HP PRN PO 03/16/24 09:00 03/16/24 10:36 10 ML Cefazolin Sodium 50 ml @ 100 mls/hr Q12HR IV 03/16/24 22:00 Mupirocin 1 applic BID TOP 03/16/24 16:21 03/16/24 18:52 1 APPLIC Examination Physical Examination Constitutional: Patient was alert and oriented to time, place and person does not appear to be in acute distress. Gen - no pallor, no icterus, no cyanosis, no clubbing, no LAD, 2+ bilateral pedal edema Skin - Patients skin is warm and dry.. HEENT - normocephalic, atraumatic, moist mucous membranes. Neck - full ROM, no LAD, no JVD Pulmonary -decreased - absent breath sounds on the right lower lung no crackles , no wheezing cardiovascular - normal S1,S2 heard. no murmurs heard. GI - soft abdomen without tenderness to palpation. no hepatospleenomegaly. Bowel sounds normoactive Neurological - Bilateral upper extremity strength 5/5, bilateral lower extremity strength 5/5, no facial droop, normal speech, no tremor, no sensory deficiets. Extremity: Left foot has swelling on the dorsal surface around the 3rd and the 4th toe with redness. Tender to touch Genital: Ulcer seen on the glans penis less than 1 cm in size and pain food to touch, no inguinal lymph nodes palpated laboratory and microbiology Laboratory Tests 03/16/24 04:19 Test 03/16/24 04:19 Range/Units Serum Glucose 88 74-106 mg/dL Problem List/Assessment/Plan Problem List/Assessment/Plan Acute hypoxic respiratory failure likely d/t pleural effusion Right sided pleural effusion , ESRD with fluid overload pneumonitis ESRD on hemodialysis -chest x-ray shows right-sided pleural effusion -bedside ultrasound reveals pleural effusion -patient on 1-2 L oxygen via nasal cannula -nephrology consulted with Dr. Mayen, dialysis to be done tomorrow Left lower extremity 4th digit contusion with a possible infection/cellulitis - L foot xray: There is no evidence of acute fracture or dislocation. The visualized joint space is well maintained. The alignment is anatomical. There is no radiopaque foreign body. Extensive atherosclerosis - foot MRI shows Diffuse soft tissue swelling of the forefoot which may reflect cellulitis. - arterial Doppler shows no hemodynamically significant stenosis - IV cefazolin - wound consult Hypertensive urgency - carvedilol 6.25 mg b.i.d. - resumed home medication lisinopril 40 mg Balanitis - on mupirocin ointment bid Type 2 diabetes HbA1c 6.9% Blood glucose levels target 140-180 mg/dL Chronic anemia BPH DVT prophylaxis: Heparin 5000 units b.i.d. Goals of care discussed with the patient for over 20 minutes. Full code Plan discussed with Plan discussed with: Patient My Orders My Orders Orders - ALEXEI SWANSON RESIDENT Procedure Category Date Status Time Hydralazine Hcl PHA 03/16/24 In Process Tablet (Apresoline 10:00 Hydrocodone-Acet PHA 03/16/24 In Process 5/325mg Tab ([place] 09:00 Guaifenesin-Dextromet PHA 03/16/24 In Process Liquid (Robitussin 09:00 Mrsa Screen NOEMY 03/16/24 Uncollected 10:07 Cefazolin 1gm/50ml PHA 03/16/24 In Process (Ancef) 22:00 Mupirocin 2% Ointment PHA 03/16/24 In Process (Bactroban 2% Oint 16:21 Communication Order ORDERS 03/16/24 Transmitted 16:07 Cleanse Wound With SANDRA 03/16/24 In Process Wound Clean 15:40 *Consult CONS 03/16/24 Transmitted / 17:30 ALEXEI SWANSON RESIDENT Mar 16, 2024 23:06
--- NOTE | 2024-03-16 23:17 | DVHINCON2 ---
Date of service: Mar 16, 2024 Referring Physician Enedina Miranda MD Reason for Consultation Acute hypoxic respiratory failure, pleural effusion History of Present Illness A 68-year-old man with PMHx of ESRD on hemodialysis, CHF, diabetes, cholelithiasis, herpes zoster, chronic anemia, and hypertension, who presented to ED on 03/15/24 due to a dry cough, persistent for past 2 months. Patient also reports he banged his left foot against the wall 2 weeks ago and sustained a contusion of the left 3rd and 4th digits with pain. He also c/o balanitis which is what prompted this visit to the hospital. Pt is not sexually active currently. He receives dialysis on Tuesdays and via a right forearm fistula and is able to make urine. On review of systems pt c/o fatigue, chills, shortness of breath, dry cough, dyspnea, nausea and generalized body itching. Chest x-ray showed a small left-sided pleural effusion. Patient was admitted for further care and pulmonary consultation is requested for evaluation and management due to the above findings. Review of Systems: 14-point review of systems negative unless otherwise noted above. Past Medical History: ESRD on hemodialysis, CHF, diabetes, cholelithiasis, herpes zoster, chronic anemia, hypertension Past Surgical History: Right arm fistula Medications: Reviewed. Allergies: Amlodipine. Family History: Bronchitis breast cancer diabetes mellitus hypertension. Social History: Former smoker. 20 pack year history in the past, now quit Alcohol: Quit 5 years ago, prior to that was drinking daily 2-3 drinks No illicit drug use. Family History: Bronchitis G8 MOTHER FH: breast cancer G8 MOTHER FH: diabetes mellitus G8 MOTHER G8 FATHER FH: hypertension G8 MOTHER G8 FATHER FH: smoking G8 MOTHER Allergies: Coded Allergies: Amlodipine (Verified Adverse Reaction, Mild, "feet swelling" per pt statement on 01/07/21. , 07/04/23) Home Meds Active Scripts Dextromethorphan-Guaifenesin (Robitussin-Dm) 10 Ml Sr, 10 ML PO TID, #180 SYP Prov:ANDRAE RYAN MD 07/06/23 Acyclovir (ZOVIRAX TABLET) 400 Mg Tb, 1 TAB PO BID, #14 TAB 11 Refills Prov:ANDRAE RYAN MD 07/06/23 Reported Medications Patiromer Sorbitex Calcium (Veltassa) 8.4 Gm Pow, 8.4 GM PO DAILY, POW 07/27/23 Ferric Citrate (Auryxia) 210 Mg Tab, 2 TAB PO TIDWM, TAB 07/27/23 Clonidine Hydrochloride (Clonidine Hcl) 0.1 Mg Tab, 0.1 MG PO BID, MG 07/27/23 Gabapentin (Gabapentin) 300 Mg Cap, 300 MG PO DAILY for ZOSTER UNCOMPLICATED, MG 07/27/23 Tamsulosin Hcl (Tamsulosin Hcl) 0.4 Mg Cap, 0.4 MG PO DAILY for Urine Retension for 30 Days, MG 07/26/23 Sevelamer Hydrochloride (Sevelamer Hydrochloride) 800 Mg Tab, 2 TAB PO TID 07/06/23 Hydralazine Hcl (Hydralazine Hcl) 50 Mg Tab, 1 TAB PO TID 07/06/23 B-Complex W/ C & Folic Acid (Blanka-Meredith) Tab, 1 TAB PO DAILY, TAB 01/14/22 Lisinopril (Lisinopril) 40 Mg Tab, 40 MG PO DAILY, MG 01/14/22 Atenolol (Atenolol) 50 Mg Tab, 50 MG PO EOD 01/04/21 Current Medications Current Medications Medications (Trade) Dose Ordered Sig/Alec Route PRN Reason Start Time Stop Time Status Last Admin Cefepime HCl 50 ml @ 12.5 mls/hr DAILY IV 03/16/24 10:00 03/16/24 15:04 DC 03/16/24 10:22 Heparin Sodium (Porcine) 5,000 units Q12HR SC 03/16/24 10:00 03/16/24 22:50 Carvedilol (Coreg Tablet) 6.25 mg Q12HR PO 03/16/24 02:00 03/16/24 22:47 Lisinopril (Zestril Tablet) 40 mg DAILY PO 03/16/24 10:00 03/16/24 10:21 Sevelamer HCl (Renagel) 1,600 mg TID PO 03/16/24 06:00 03/16/24 22:49 Tamsulosin HCl (Flomax) 0.4 mg DAILY PO 03/16/24 10:00 03/16/24 10:19 Hydralazine HCl (Apresoline Tablet) 50 mg Q12HR PO 03/16/24 10:00 03/16/24 10:20 Acetaminophen/ Hydrocodone Bitart ([place] 5/325MG Tab) 1 tab [id number] PRN PO MODERATE PAIN (4-6 PAIN SCALE) 03/16/24 09:00 03/16/24 22:44 Guaifenesin/ Dextromethorphan (Robitussin-Dm Liquid) 10 ml Q6HP PRN PO FOR COUGH 03/16/24 09:00 03/16/24 10:36 Cefazolin Sodium 50 ml @ 100 mls/hr Q12HR IV 03/16/24 22:00 03/16/24 22:45 Clotrimazole (Lotrimin 1% Cream) 1 applic Q12HR TOP 03/16/24 22:00 03/16/24 16:08 DC Mupirocin (Bactroban 2% Ointment) 1 applic BID TOP 03/16/24 16:21 03/16/24 18:52 Vital Signs Vital Signs Date Time Temp Pulse Resp B/P (MAP) Pulse Ox O2 Delivery O2 Flow Rate FiO2 03/16/24 22:47 70 138/77 03/16/24 22:20 97.7 19 95 97.7 03/16/24 09:47 Nasal Cannula* 6 44 Physical Exam Gen.: Patient lying in bed in no apparent distress. On supplemental oxygen Head: Normocephalic, atraumatic. Eyes: EOMI/PERRLA. Ears: Normal hearing. Normal anatomy. Neck/trachea: Trachea midline, supple. Nose: Normal external anatomy. Mouth: Moist mucous membranes. Chest: Decreased air entry bilaterally. No wheezing or rhonchi. Cardiovascular: Positive S1, positive S2. Regular rate and rhythm. Abdomen: Positive bowel sounds in all 4 quadrants. Soft, non-tender, non- distended. : Deferred. Rectal: Deferred. Skin: Warm, dry. Intact. Extremities: 2+ radial pulses bilaterally. No lower extremity edema. Neuro: Awake, alert, oriented x3. No gross motor or sensory deficits. Cranial nerves II through XII intact. Gait not assessed. Labs/Diagnostic Data Labs Test 03/16/24 04:19 03/16/24 02:18 03/15/24 20:14 03/15/24 17:40 Range/Units White Blood Count 5.5 4.4-10.8 10^3/uL Red Blood Count 3.87 L 4.5-5.90 10^6/uL Hemoglobin 12.5 L 13.5-17.5 g/dL Hematocrit 37.9 L 41.0-53.0 % Mean Corpuscular Volume 98.0 80.0-100.0 fL Mean Corpuscular Hemoglobin 32.2 H 28.0-32.0 pg Mean Corpuscular Hemoglobin Concent 32.9 32.0-36.0 g/dL Red Cell Distribution Width 17.6 H 11.8-14.3 % Platelet Count 244 140-450 10^3/uL Mean Platelet Volume 7.0 6.9-10.8 fL Neutrophils (%) (Auto) 66.6 37.0-80.0 % Lymphocytes (%) (Auto) 14.9 10.0-50.0 % Monocytes (%) (Auto) 14.4 H 0.0-12.0 % Eosinophils (%) (Auto) 2.9 0.0-7.0 % Basophils (%) (Auto) 1.2 0.0-2.0 % Neutrophils # (Auto) 3.7 1.6-8.6 10 ^3/uL Lymphocytes # (Auto) 0.8 0.4-5.4 10 ^3/uL Monocytes # (Auto) 0.8 0-1.3 10 ^3/uL Eosinophils # (Auto) 0.2 0-0.8 10 ^3/uL Basophils # (Auto) 0.1 0-0.2 10 ^3/uL Nucleated Red Blood Cells 0.1 % Sodium Level 135 L 136-145 mmol/L Potassium Level 4.8 3.5-5.1 mmol/L Chloride Level 95 L 98-107 mmol/L Carbon Dioxide Level 31 20-31 mmol/L Anion Gap 9 5-15 Blood Urea Nitrogen 32 H 9-23 mg/dL Creatinine 7.34 H 0.700-1.30 mg/dL Glomerular Filtration Rate Calc 8 >90 mL/min BUN/Creatinine Ratio 4.4 L 10.0-20.0 Serum Glucose 88 74-106 mg/dL Hemoglobin A1c 6.9 H <5.7 % A1C Calcium Level 9.0 8.7-10.4 mg/dL HIV (1&2) Antibody Negative Negative Troponin I High Sensitivity 29 </=54 ng/L Urine Color Yellow Yellow Urine Clarity Clear Clear Urine pH 8.5 5.0-9.0 Urine Specific [place] 1.015 1.001-1.035 Urine Protein 3+ H Negative Urine Ketones Trace Negative Urine Blood Trace H Negative /uL Urine Nitrite Negative Negative Urine Bilirubin Negative Negative Urine Urobilinogen Normal Negative mg/dL Urine Leukocyte Esterase Negative Negative /uL Urine RBC 1 0 - 3 /hpf Urine Microscopic WBC 2 0-3 /HPF Urine Squamous Epithelial Cells Few <5 /hpf Urine Bacteria None seen None Seen /hpf Urine Glucose 2+ H Normal mg/dL Test 03/15/24 17:33 03/15/24 17:25 Range/Units Erythrocyte Sedimentation Rate 36 H 0-20 mm/hr Lactic Acid Level 1.8 0.4-2.0 mmol/L Uric Acid 3.8 3.7-9.2 mg/dL Total Bilirubin 0.6 0.2-1.0 mg/dL Aspartate Amino Transferase (AST) 22 13-40 U/L Alanine Aminotransferase (ALT) 16 7-40 U/L Alkaline Phosphatase 157 H 46-116 U/L C-Reactive Protein High Sensitivity 2.66 H <1.0 mg/dL Total Protein 6.5 5.7-8.2 g/dL Albumin 4.0 3.2-4.8 g/dL Influenza Type A Antigen Negative Negative Influenza Type B Antigen Negative Negative SARS-CoV-2 Antigen (Rapid) Negative NEGATIVE Assessment Impression: Acute hypoxic respiratory failure Pleural effusion, right Atelectasis End-stage renal disease, on hemodialysis Congestive heart failure Hx of nicotine dependence Plan: Supplemental oxygen Titrate to keep O2 sats above 92%. CXR reviewed, demonstrates small right pleural effusion. Cardiomegaly. No consolidation or pneumothorax. Obtain consent for right thoracentesis Send fluid for analysis, cultures Plan for thora in AM We will do limited chest ultrasound to assess if pleural effusion amenable for thoracentesis. Continue antibiotics Incentive spirometry Pain control Avoid oversedation Monitor renal function. Monitor electrolytes. Supplement as necessary. Monitor ins and outs. HD per Nephrology DVT prophylaxis. Prognosis: Poor given patient's multiple co-morbidities. Rest of plan per hospitalist and other consultants. Thank you Dr. Miranda, for allowing me to participate in this patient's care. Further recommendations will depend on the patient's clinical course. Please do not hesitate to contact me if you have any questions or concerns. This medical document was created using an electronic medical record system with S[employer] computerized dictation system. Although these documentations are being carefully reviewed, there may still be some phonetic and typographical changes. The errors are purely typographical, due to imperfection on the software program, and do not reflect any compromise in the patient's medical care. Plan discussed with: Patient, Other (RN/ Jhajj,) ALIA MOBLEY MD Mar 16, 2024 23:17
[2024-03-17] VITALS (13 sets, daily range): BP systolic 124–136; BP diastolic 49–74; PULSE 58–78; RESP 17–20; TEMP 97.4–98.3; O2SAT 92–99
[2024-03-17] MEDS: diphenhdrAMINE HCL 50 MG/1 ML VL IV ONE (00:06)
[2024-03-17] MEDS: ACETAMINOPHEN 325 MG TAB PO ONE (06:19)
[2024-03-17 07:06] LABS: RPR Non Reactive (Non Reactive)
[2024-03-17 08:13] LABS: Basophils # (auto) 0 10 ^3/uL (0-0.2); Eosinophils # (auto) 0.1 10 ^3/uL (0-0.8); Eosinophils % (auto) 2.7 % (0.0-7.0); Hematocrit 34.2 % (41.0-53.0); Hemoglobin 11.5 g/dL (13.5-17.5); Lymphocytes # (auto) 0.8 10 ^3/uL (0.4-5.4); Mean Corpuscular Hemoglobin 32.8 pg (28.0-32.0); Mean Corpuscular Hgb Conc. 33.5 g/dL (32.0-36.0); Mean Corpuscular Volume 98.1 fL (80.0-100.0); Monocytes # (auto) 0.6 10 ^3/uL (0-1.3); Monocytes % (auto) 11.4 % (0.0-12.0); Neutrophils # (auto) 3.6 10 ^3/uL (1.6-8.6); Neutrophils % (auto) 69.9 % (37.0-80.0); Nucleated Red Blood Cells % 0.2 %; Platelet Count (auto) 207 10^3/uL (140-450); Red Blood Cells 3.49 10^6/uL (4.5-5.90); Red Cell Distribution Width 16.9 % (11.8-14.3); White Blood Cell 5.2 10^3/uL (4.4-10.8)
[2024-03-17 08:28] LABS: INR 1.08 (0.9-1.15); Partial Thromboplastin Time 28.5 SEC (24.5-34.5); Prothrombin Time 11.4 sec (9.3-11.8)
[2024-03-17 08:42] LABS: Anion Gap 9 (5-15); Carbon Dioxide 30 mmol/L (20-31); Potassium 4.6 mmol/L (3.5-5.1)
[2024-03-17] MEDS ORDERED: HYDROcodone-ACET 5/325MG TAB PO PRN (08:45)
[2024-03-17 08:48] LABS: BUN/Creatinine Ratio 4.6 (10.0-20.0); Calcium 8.6 mg/dL (8.7-10.4); Chloride 92 mmol/L (98-107); Glucose 89 mg/dL (74-106); Sodium 131 mmol/L (136-145)
[2024-03-17 08:55] LABS: Blood Urea Nitrogen 38 mg/dL (9-23)
[2024-03-17] MEDS: HYDROcodone-ACET 5/325MG TAB PO ONE (09:20)
[2024-03-17] MEDS: ALBUTEROL SULF 2.5 MG/0.5ML(0.5%) NEB SOLN NEB PRN (14:27)
[2024-03-17] MEDS: SODIUM CHL 0.9% 1000 ML BAG XX ONE (16:24)
[2024-03-17] MEDS: HYDROcodone-ACET 5/325MG TAB PO PRN (17:40)
--- NOTE | 2024-03-17 18:19 | DVHPN2 ---
Progress Note - Dictate Date Seen: Mar 17, 2024 Medical Necessity Reason Pt with a Central, PICC or Fol: No Subjective No new complaints vital signs Vital Sign Date Time Temp Pulse Resp B/P (MAP) Pulse Ox O2 Delivery O2 Flow Rate FiO2 03/17/24 17:47 92 Nasal Cannula 4.0 03/17/24 17:47 36 03/17/24 17:46 71 20 03/17/24 16:38 97.6 136/74 (94) 97.6 Total Intake and Output 03/16/24 03/16/24 03/17/24 15:00 23:00 07:00 Intake Total 50 ml 50 ml Balance 50 ml 50 ml medications Current Medications Medications Dose Ordered Sig/Alec Route Start Time Stop Time Status Last Admin Dose Admin Heparin Sodium (Porcine) 5,000 units Q12HR SC 03/16/24 10:00 03/16/24 22:50 5,000 UNITS Carvedilol 6.25 mg Q12HR PO 03/16/24 02:00 03/16/24 22:47 6.25 MG Lisinopril 40 mg DAILY PO 03/16/24 10:00 03/16/24 10:21 40 MG Sevelamer HCl 1,600 mg TID PO 03/16/24 06:00 03/17/24 14:00 1,600 MG Tamsulosin HCl 0.4 mg DAILY PO 03/16/24 10:00 03/17/24 09:20 0.4 MG Hydralazine HCl 50 mg Q12HR PO 03/16/24 10:00 03/16/24 10:20 50 MG Guaifenesin/ Dextromethorphan 10 ml Q6HP PRN PO 03/16/24 09:00 03/17/24 01:43 10 ML Cefazolin Sodium 50 ml @ 100 mls/hr Q12HR IV 03/16/24 22:00 03/17/24 09:20 100 MLS/HR Mupirocin 1 applic BID TOP 03/16/24 16:21 03/17/24 09:31 1 APPLIC Acetaminophen/ Hydrocodone Bitart 1 tab Q8HPRN PRN PO 03/17/24 14:00 03/17/24 17:40 1 TAB Albuterol 2.5 mg Q6HPRN PRN NEB 03/17/24 13:45 03/17/24 17:46 2.5 MG objective Alert and oriented 3 NAD Lungs few basilar rales CV RR, no pericardial rub Abdomen soft, NT Trace ankle edema Left foot cellulitis laboratory and microbiology Laboratory Tests 03/17/24 07:01 Test 03/17/24 07:01 Range/Units Serum Glucose 89 74-106 mg/dL Problem List 1. Stable ESRD 2. Left foot cellulitis, MRI is negative for OM 3. HTN 4. Anemia 5. DM2 HD to be done today UF goal 3 L DC home on PO antibiotics Plan discussed with: AMANDEEP Pugh MD Mar 17, 2024 18:19
--- NOTE | 2024-03-17 19:22 | DVHPNRES ---
Progress Note Date Seen: Mar 17, 2024 Resident Creating Document: ELISEOREJIALEXEI RESIDENT Medical Necessity Reason Pt with a Central, PICC or Fol: No Subjective Review of Systems Patient reports feeling short of breath and had to be put on oxygen. reports pain in the foot has decreased. Objective vital signs Vital Sign Date Time Temp Pulse Resp B/P (MAP) Pulse Ox O2 Delivery O2 Flow Rate FiO2 03/17/24 17:47 92 Nasal Cannula 4.0 03/17/24 17:47 36 03/17/24 17:46 71 20 03/17/24 16:38 97.6 136/74 (94) 97.6 Total Intake and Output 03/16/24 03/16/24 03/17/24 15:00 23:00 07:00 Intake Total 50 ml 50 ml Balance 50 ml 50 ml medications Current Medications Medications Dose Ordered Sig/Alec Route Start Time Stop Time Status Last Admin Dose Admin Heparin Sodium (Porcine) 5,000 units Q12HR SC 03/16/24 10:00 03/16/24 22:50 5,000 UNITS Carvedilol 6.25 mg Q12HR PO 03/16/24 02:00 03/16/24 22:47 6.25 MG Lisinopril 40 mg DAILY PO 03/16/24 10:00 03/16/24 10:21 40 MG Sevelamer HCl 1,600 mg TID PO 03/16/24 06:00 03/17/24 14:00 1,600 MG Tamsulosin HCl 0.4 mg DAILY PO 03/16/24 10:00 03/17/24 09:20 0.4 MG Hydralazine HCl 50 mg Q12HR PO 03/16/24 10:00 03/16/24 10:20 50 MG Guaifenesin/ Dextromethorphan 10 ml Q6HP PRN PO 03/16/24 09:00 03/17/24 01:43 10 ML Cefazolin Sodium 50 ml @ 100 mls/hr Q12HR IV 03/16/24 22:00 03/17/24 09:20 100 MLS/HR Mupirocin 1 applic BID TOP 03/16/24 16:21 03/17/24 09:31 1 APPLIC Acetaminophen/ Hydrocodone Bitart 1 tab Q8HPRN PRN PO 03/17/24 14:00 03/17/24 17:40 1 TAB Albuterol 2.5 mg Q6HPRN PRN NEB 03/17/24 13:45 03/17/24 17:46 2.5 MG Acetylcysteine 200 mg Q8HR NEB 03/17/24 22:00 Examination Constitutional: Patient was alert and oriented to time, place and person does not appear to be in acute distress. Gen - no pallor, no icterus, no cyanosis, no clubbing, no LAD, 2+ bilateral pedal edema Skin - Patients skin is warm and dry.. HEENT - normocephalic, atraumatic, moist mucous membranes. Neck - full ROM, no LAD, no JVD Pulmonary -decreased - absent breath sounds on the right lower lung no crackles , no wheezing cardiovascular - normal S1,S2 heard. no murmurs heard. GI - soft abdomen without tenderness to palpation. no hepatospleenomegaly. Bowel sounds normoactive Neurological - Bilateral upper extremity strength 5/5, bilateral lower extremity strength 5/5, no facial droop, normal speech, no tremor, no sensory deficiets. Extremity: Left foot has swelling on the dorsal surface around the 3rd and the 4th toe with redness. Better than yesterday Genital: Ulcer seen on the glans penis less than 1 cm in size and pain food to touch, no inguinal lymph nodes palpated laboratory and microbiology Laboratory Tests 03/17/24 07:01 Test 03/17/24 07:01 Range/Units Serum Glucose 89 74-106 mg/dL Microbiology Date/Time Source Procedure Growth Status 03/17/24 00:40 Nose MRSA Screen - Final Complete Problem List/Assessment/Plan Problem List/Assessment/Plan Acute hypoxic respiratory failure likely d/t pleural effusion Right sided pleural effusion , ESRD with fluid overload pneumonitis ESRD on hemodialysis -chest x-ray shows right-sided pleural effusion -bedside ultrasound reveals pleural effusion -patient on 2-3 L oxygen via nasal cannula -nephrology consulted with Dr. Mayen, dialysis done today with goal UF 3L Left lower extremity 4th digit contusion with a possible infection/cellulitis - L foot xray: There is no evidence of acute fracture or dislocation. The visualized joint space is well maintained. The alignment is anatomical. There is no radiopaque foreign body. Extensive atherosclerosis - foot MRI shows Diffuse soft tissue swelling of the forefoot which may reflect cellulitis. - arterial Doppler shows no hemodynamically significant stenosis - IV cefazolin - wound consult Hypertensive urgency - carvedilol 6.25 mg b.i.d. - resumed home medication lisinopril 40 mg Balanitis - on mupirocin ointment bid Type 2 diabetes HbA1c 6.9% Blood glucose levels target 140-180 mg/dL Chronic anemia BPH Patient reported feeling shortness of breath and was advised that thoracocentesis will be beneficial but the patient denied even after more than 20 mins of explanation. we will rediscuss in the morning currently on O2 support via NC at 2-3L/min DVT prophylaxis: Heparin 5000 units b.i.d. Goals of care discussed with the patient for over 20 minutes. Full code Plan discussed with Plan discussed with: Patient My Orders My Orders Orders - ALEXEI SWANSON Procedure Category Date Status Time Hydrocodone-Acet PHA 03/17/24 In Process 5/325mg Tab ([place] 14:00 ALEXEI SWANSON RESIDENT Mar 17, 2024 19:22
[2024-03-17] MEDS: ACETYLCYSTEINE 20%(200MG/ML) SOL 4ML NEB SCH (22:25)
[2024-03-17 23:06] LABS: Chlamydia Trachomatis, NAA Negative (Negative); Neisseria gonorrhoeae, NAA Negative (Negative)
--- NOTE | 2024-03-17 23:19 | DVHPN2 ---
Progress Note - Dictate Date Seen: Mar 17, 2024 Medical Necessity Reason Pt with a Central, PICC or Fol: No Subjective Patient seen and examined at bedside. Remains on supplemental oxygen Overnight events reviewed. vital signs Vital Sign Date Time Temp Pulse Resp B/P (MAP) Pulse Ox O2 Delivery O2 Flow Rate FiO2 03/17/24 22:44 78 125/61 03/17/24 22:26 18 97 03/17/24 21:00 97.4 97.4 03/17/24 17:47 Nasal Cannula 4.0 03/17/24 17:47 36 Total Intake and Output 03/16/24 03/16/24 03/17/24 15:00 23:00 07:00 Intake Total 50 ml 50 ml Balance 50 ml 50 ml medications Current Medications Medications Dose Ordered Sig/Alec Route Start Time Stop Time Status Last Admin Dose Admin Heparin Sodium (Porcine) 5,000 units Q12HR SC 03/16/24 10:00 03/17/24 22:55 5,000 UNITS Carvedilol 6.25 mg Q12HR PO 03/16/24 02:00 03/17/24 22:44 6.25 MG Lisinopril 40 mg DAILY PO 03/16/24 10:00 03/16/24 10:21 40 MG Sevelamer HCl 1,600 mg TID PO 03/16/24 06:00 03/17/24 22:44 1,600 MG Tamsulosin HCl 0.4 mg DAILY PO 03/16/24 10:00 03/17/24 09:20 0.4 MG Hydralazine HCl 50 mg Q12HR PO 03/16/24 10:00 03/17/24 22:43 50 MG Guaifenesin/ Dextromethorphan 10 ml Q6HP PRN PO 03/16/24 09:00 03/17/24 20:37 10 ML Cefazolin Sodium 50 ml @ 100 mls/hr Q12HR IV 03/16/24 22:00 03/17/24 22:41 100 MLS/HR Mupirocin 1 applic BID TOP 03/16/24 16:21 03/17/24 22:59 1 APPLIC Acetaminophen/ Hydrocodone Bitart 1 tab Q8HPRN PRN PO 03/17/24 14:00 03/17/24 17:40 1 TAB Albuterol 2.5 mg Q6HPRN PRN NEB 03/17/24 13:45 03/17/24 22:23 2.5 MG Acetylcysteine 200 mg Q8HR NEB 03/17/24 22:00 03/17/24 22:25 200 MG objective Gen.: Patient lying in bed in no apparent distress. On supplemental oxygen. Head: Normocephalic, atraumatic. Eyes: EOMI/PERRLA. Ears: Normal hearing. Normal anatomy. Neck/trachea: Trachea midline, supple. Nose: Normal external anatomy. Mouth: Moist mucous membranes. Chest: Decreased air entry bilaterally. No wheezing or rhonchi. Cardiovascular: Positive S1, positive S2. Regular rate and rhythm. Abdomen: Positive bowel sounds in all 4 quadrants. Soft, non-tender, non- distended. : Deferred. Rectal: Deferred. Skin: Warm, dry. Intact. Extremities: 2+ radial pulses bilaterally. No lower extremity edema. Neuro: Awake, alert, oriented x3. No gross motor or sensory deficits. Cranial nerves II through XII intact. Gait not assessed. laboratory and microbiology Laboratory Tests 03/17/24 07:01 Test 03/17/24 07:01 Range/Units Serum Glucose 89 74-106 mg/dL Assessment/Plan Impression: Acute hypoxic respiratory failure Pleural effusion, right Atelectasis End-stage renal disease, on hemodialysis Congestive heart failure Hx of nicotine dependence Events: Remains on supplemental oxygen, 2 LPM NC Taper O2 as tolerated Patient refused thoracentesis this AM. On hemodialysis this evening. Obtain chest x-ray in AM. If right pleural effusion persists, then plan for right thoracentesis Start bronchodilators/Mucomyst/CPT Continue antibiotics Incentive spirometry Antitussive for cough Labs and imaging reviewed. Rest of plan as noted below. Plan: Supplemental oxygen Titrate to keep O2 sats above 92%. CXR reviewed, demonstrates small right pleural effusion. Cardiomegaly. No consolidation or pneumothorax. Plan for right thoracentesis Send fluid for analysis, cultures Continue antibiotics Incentive spirometry Pain control Avoid oversedation Monitor renal function. Monitor electrolytes. Supplement as necessary. Monitor ins and outs. HD per Nephrology DVT prophylaxis. Prognosis: Poor given patient's multiple co-morbidities. Rest of plan per hospitalist and other consultants. Thank you Dr. Miranda, for allowing me to participate in this patient's care. Further recommendations will depend on the patient's clinical course. Please do not hesitate to contact me if you have any questions or concerns. This medical document was created using an electronic medical record system with [employer] dictation system. Although these documentations are being carefully reviewed, there may still be some phonetic and typographical changes. The errors are purely typographical, due to imperfection on the software program, and do not reflect any compromise in the patient's medical care. Plan discussed with: Patient, Other (DANNA Kelly/ Jhajj) ALIA MOBLEY MD Mar 17, 2024 23:19
[2024-03-18] VITALS (15 sets, daily range): BP systolic 103–160; BP diastolic 43–62; PULSE 65–78; RESP 17–21; TEMP 97.6–98.6; O2SAT 90–99
--- NOTE | 2024-03-18 05:45 | DVH ---
EXAM: XR Chest, 1 View CLINICAL INDICATION: pleural effusion TECHNIQUE: Frontal view of the chest. COMPARISON: XY CHEST PORTABLE on DOS: 03/15/24, CXRP on DOS: 03/03/22, CHEST PORTABLE on DOS: 03/03/22 , CXRP on DOS: 01/14/22 FINDINGS: LUNGS AND PLEURAL SPACES: Mild CHF. Right pleural effusion. No consolidation. No pneumothorax. HEART: Unremarkable. No cardiomegaly. MEDIASTINUM: Unremarkable. Normal mediastinal contour. BONES/JOINTS: Unremarkable. No acute fracture. OTHER FINDINGS: . . IMPRESSION: 1. Mild CHF. 2. Right pleural effusion.
[2024-03-18] MEDS ORDERED: DEXTROSE (50%) 50ML SYRG IV PRN (06:45)
[2024-03-18] MEDS: ACCU-CHEK COMFORT CURVE STRIP VI SCH (07:00)
[2024-03-18] MEDS: InsuLIN REG 1unit/0.01ml Soln (100units/ml) SC SCH (07:00)
[2024-03-18 10:45] LABS: Basophils # (auto) 0.1 10 ^3/uL (0-0.2); Basophils % (auto) 0.9 % (0.0-2.0); Eosinophils # (auto) 0.1 10 ^3/uL (0-0.8); Eosinophils % (auto) 1.8 % (0.0-7.0); Hematocrit 33.9 % (41.0-53.0); Hemoglobin 11.1 g/dL (13.5-17.5); Lymphocytes # (auto) 0.7 10 ^3/uL (0.4-5.4); Mean Corpuscular Hemoglobin 32.6 pg (28.0-32.0); Mean Corpuscular Hgb Conc. 32.9 g/dL (32.0-36.0); Mean Corpuscular Volume 99.3 fL (80.0-100.0); Monocytes # (auto) 0.6 10 ^3/uL (0-1.3); Monocytes % (auto) 10.5 % (0.0-12.0); Neutrophils # (auto) 4.6 10 ^3/uL (1.6-8.6); Neutrophils % (auto) 75.8 % (37.0-80.0); Nucleated Red Blood Cells % 0.2 %; Platelet Count (auto) 194 10^3/uL (140-450); Red Blood Cells 3.41 10^6/uL (4.5-5.90); Red Cell Distribution Width 17.8 % (11.8-14.3)
--- NOTE | 2024-03-18 11:00 | DVHPN2 ---
Progress Note - Dictate Date Seen: Mar 18, 2024 Medical Necessity Reason Pt with a Central, PICC or Fol: No Subjective No new complaints vital signs Vital Sign Date Time Temp Pulse Resp B/P (MAP) Pulse Ox O2 Delivery O2 Flow Rate FiO2 03/18/24 09:53 160/60 03/18/24 09:52 70 03/18/24 09:00 97.8 17 91 97.8 03/18/24 07:03 Nasal Cannula* 4 36 Total Intake and Output 03/17/24 03/17/24 03/18/24 15:00 23:00 07:00 Intake Total 50 ml 550 ml 1200 ml Output Total 430 ml Balance 50 ml 120 ml 1200 ml medications Current Medications Medications Dose Ordered Sig/Alec Route Start Time Stop Time Status Last Admin Dose Admin Heparin Sodium (Porcine) 5,000 units Q12HR SC 03/16/24 10:00 03/17/24 22:55 5,000 UNITS Carvedilol 6.25 mg Q12HR PO 03/16/24 02:00 03/18/24 09:52 6.25 MG Lisinopril 40 mg DAILY PO 03/16/24 10:00 03/18/24 09:53 40 MG Sevelamer HCl 1,600 mg TID PO 03/16/24 06:00 03/18/24 06:17 1,600 MG Tamsulosin HCl 0.4 mg DAILY PO 03/16/24 10:00 03/18/24 09:53 0.4 MG Hydralazine HCl 50 mg Q12HR PO 03/16/24 10:00 03/18/24 09:52 50 MG Guaifenesin/ Dextromethorphan 10 ml Q6HP PRN PO 03/16/24 09:00 03/17/24 20:37 10 ML Cefazolin Sodium 50 ml @ 100 mls/hr Q12HR IV 03/16/24 22:00 03/18/24 09:49 100 MLS/HR Mupirocin 1 applic BID TOP 03/16/24 16:21 03/18/24 10:02 1 APPLIC Acetaminophen/ Hydrocodone Bitart 1 tab Q8HPRN PRN PO 03/17/24 14:00 03/18/24 07:53 1 TAB Albuterol 2.5 mg Q6HPRN PRN NEB 03/17/24 13:45 03/18/24 07:03 2.5 MG Acetylcysteine 200 mg Q8HR NEB 03/17/24 22:00 03/18/24 07:03 200 MG Diagnostic Test (Pha) 1 strip ACHS 03/18/24 07:00 03/18/24 07:00 1 STRIP Insulin Human Regular ACHS SC 03/18/24 07:00 Dextrose 50 ml UD PRN IV 03/18/24 06:45 Atorvastatin Calcium 40 mg HS PO 03/18/24 22:00 objective Alert and oriented 3 NAD Lungs few basilar rales CV RR, no pericardial rub Abdomen soft, NT Trace ankle edema Left foot cellulitis laboratory and microbiology Laboratory Tests 03/18/24 10:29 Test 03/18/24 10:29 Range/Units Serum Glucose Pending Problem List 1. Stable ESRD 2. Left foot cellulitis, MRI is negative for OM 3. HTN 4. Anemia 5. DM2 6. Pleural effusion HD on TTS schedule DC home on PO antibiotics Plan discussed with: Patient AMANDEEP BAIN MD Mar 18, 2024 11:00
[2024-03-18 11:01] LABS: Potassium 4.5 mmol/L (3.5-5.1)
[2024-03-18 11:02] LABS: Anion Gap 10 (5-15); Calcium 8.6 mg/dL (8.7-10.4); Carbon Dioxide 28 mmol/L (20-31); Chloride 95 mmol/L (98-107); Sodium 133 mmol/L (136-145)
[2024-03-18 11:07] LABS: BUN/Creatinine Ratio 4.3 (10.0-20.0)
[2024-03-18 11:10] LABS: Blood Urea Nitrogen 27 mg/dL (9-23); Glucose 119 mg/dL (74-106)
[2024-03-18 11:33] LABS: Albumin 3.5 g/dL (3.2-4.8); Alkaline Phosphatase 110 U/L (46-116); Anion Gap 11 (5-15); Aspartate Aminotransferase 17 U/L (13-40); BUN/Creatinine Ratio 4.1 (10.0-20.0); Carbon Dioxide 26 mmol/L (20-31); Chloride 96 mmol/L (98-107); Glucose 120 mg/dL (74-106); Potassium 4.5 mmol/L (3.5-5.1); Sodium 133 mmol/L (136-145)
[2024-03-18 11:34] LABS: Alanine Aminotransferase < 9 U/L (7-40); Bilirubin, Total 0.4 mg/dL (0.2-1.0); Blood Urea Nitrogen 26 mg/dL (9-23); Calcium 8.5 mg/dL (8.7-10.4)
[2024-03-18 11:36] LABS: Total Protein 5.6 g/dL (5.7-8.2)
--- NOTE | 2024-03-18 13:25 | DVHPNRES ---
Progress Note Date Seen: Mar 18, 2024 Resident Creating Document: ELISEOALEXEI MENDOZA RESIDENT Medical Necessity Reason Pt with a Central, PICC or Fol: No Subjective Review of Systems Patient reports feeling worsening shortness of breath, on O2 3L via NC. reports pain in the foot has decreased. Thoracentesis done bedside Objective vital signs Vital Sign Date Time Temp Pulse Resp B/P (MAP) Pulse Ox O2 Delivery O2 Flow Rate FiO2 03/18/24 10:00 91 Nasal Cannula 4.0 03/18/24 10:00 36 03/18/24 09:53 160/60 03/18/24 09:52 70 03/18/24 09:00 97.8 17 97.8 Total Intake and Output 03/17/24 03/17/24 03/18/24 15:00 23:00 07:00 Intake Total 50 ml 550 ml 1200 ml Output Total 430 ml Balance 50 ml 120 ml 1200 ml medications Current Medications Medications Dose Ordered Sig/Alec Route Start Time Stop Time Status Last Admin Dose Admin Heparin Sodium (Porcine) 5,000 units Q12HR SC 03/16/24 10:00 03/17/24 22:55 5,000 UNITS Carvedilol 6.25 mg Q12HR PO 03/16/24 02:00 03/18/24 09:52 6.25 MG Lisinopril 40 mg DAILY PO 03/16/24 10:00 03/18/24 09:53 40 MG Sevelamer HCl 1,600 mg TID PO 03/16/24 06:00 03/18/24 13:03 1,600 MG Tamsulosin HCl 0.4 mg DAILY PO 03/16/24 10:00 03/18/24 09:53 0.4 MG Hydralazine HCl 50 mg Q12HR PO 03/16/24 10:00 03/18/24 09:52 50 MG Guaifenesin/ Dextromethorphan 10 ml Q6HP PRN PO 03/16/24 09:00 03/17/24 20:37 10 ML Cefazolin Sodium 50 ml @ 100 mls/hr Q12HR IV 03/16/24 22:00 03/18/24 09:49 100 MLS/HR Mupirocin 1 applic BID TOP 03/16/24 16:21 03/18/24 10:02 1 APPLIC Acetaminophen/ Hydrocodone Bitart 1 tab Q8HPRN PRN PO 03/17/24 14:00 03/18/24 13:03 1 TAB Albuterol 2.5 mg Q6HPRN PRN NEB 03/17/24 13:45 03/18/24 07:03 2.5 MG Acetylcysteine 200 mg Q8HR NEB 03/17/24 22:00 03/18/24 07:03 200 MG Diagnostic Test (Pha) 1 strip ACHS 03/18/24 07:00 03/18/24 13:01 1 STRIP Insulin Human Regular ACHS SC 03/18/24 07:00 Dextrose 50 ml UD PRN IV 03/18/24 06:45 Atorvastatin Calcium 40 mg HS PO 03/18/24 22:00 Examination Constitutional: Patient was alert and oriented to time, place and person does not appear to be in acute distress. Gen - no pallor, no icterus, no cyanosis, no clubbing, no LAD, 2+ bilateral pedal edema Skin - Patients skin is warm and dry.. HEENT - normocephalic, atraumatic, moist mucous membranes. Neck - full ROM, no LAD, no JVD Pulmonary -decreased - absent breath sounds on the right lower lung no crackles , no wheezing cardiovascular - normal S1,S2 heard. no murmurs heard. GI - soft abdomen without tenderness to palpation. no hepatospleenomegaly. Bowel sounds normoactive Neurological - Bilateral upper extremity strength 5/5, bilateral lower extremity strength 5/5, no facial droop, normal speech, no tremor, no sensory deficiets. Extremity: Left foot has swelling on the dorsal surface around the 3rd and the 4th toe with redness. Better than yesterday Genital: Ulcer seen on the glans penis less than 1 cm in size and pain food to touch, no inguinal lymph nodes palpated laboratory and microbiology Laboratory Tests 03/18/24 10:29 Test 03/18/24 10:29 Range/Units Serum Glucose 120 H 74-106 mg/dL Microbiology Date/Time Source Procedure Growth Status 03/17/24 00:40 Nose MRSA Screen - Final Complete Problem List/Assessment/Plan Problem List/Assessment/Plan Acute hypoxic respiratory failure likely d/t pleural effusion Right sided pleural effusion , ESRD with fluid overload pneumonitis ESRD on hemodialysis -chest x-ray shows right-sided pleural effusion -bedside ultrasound reveals pleural effusion -patient on 2-3 L oxygen via nasal cannula -nephrology consulted with Dr. Mayen, dialysis done yesterday with goal UF 3L Left lower extremity 4th digit contusion with a possible infection/cellulitis - L foot xray: There is no evidence of acute fracture or dislocation. The visualized joint space is well maintained. The alignment is anatomical. There is no radiopaque foreign body. Extensive atherosclerosis - foot MRI shows Diffuse soft tissue swelling of the forefoot which may reflect cellulitis. - arterial Doppler shows no hemodynamically significant stenosis - IV cefazolin - wound consult Hypertensive urgency - carvedilol 6.25 mg b.i.d. - resumed home medication lisinopril 40 mg Balanitis - on mupirocin ointment bid Type 2 diabetes HbA1c 6.9% Blood glucose levels target 140-180 mg/dL Chronic anemia BPH On reevaluation with the patient, he agreed to get the thoracentesis done. 1650 ml of krzysztof colored fluid removed and sent for culture, cytology. patient reports feeling better. continued on 2L O2 Possible D/c tomorrow DVT prophylaxis: Heparin 5000 units b.i.d. Goals of care discussed with the patient for over 20 minutes. Full code Plan discussed with Plan discussed with: Patient My Orders My Orders Orders - ALEXEI SWANSON RESIDENT Procedure Category Date Status Time Glucose Blood PHA 03/18/24 In Process (Accu-Chek Comfort 07:00 Insulin R (Human) PHA 03/18/24 In Process (Insulin R) 07:00 Dextrose 50% Syringe PHA 03/18/24 In Process 06:45 Atorvastatin (Lipitor) PHA 03/18/24 In Process 22:00 Lactate Dehydrogenase LAB 03/18/24 Logged 10:59 ALEXEI SWANSON Mar 18, 2024 13:25
--- NOTE | 2024-03-18 17:32 | DVHNC2 ---
Procedure - Ultrasound-guided RIGHT thoracentesis procedure note: Physician: Dr Karlie Roman Asst: Jhashvinjj DANNA Green Time out time: 1711 pm Patient medications and allergies reviewed. The risks and benefits of the procedure and the sedation options and risk were discussed with the patient's healthcare proxy. All questions were answered and informed consent was obtained. Patient identification and proposed procedure were verified prior to the procedure by the physician, and a nurse in the patient's room. The heart rate, respiratory rate, oxygen saturations, blood pressure, adequacy of pulmonary ventilation, and response to care were monitored throughout the procedure. The physical status of the patient was reassessed after the procedure. Date: 03/18/2024 Consent: Consent was obtained from patient's healthcare proxy prior to procedure. Indication, risks, and benefits were explained at length. Procedure summary: A time-out was performed and a chest x-ray was reviewed prior to procedure. The appropriate site was confirmed and marked. My hands were washed immediately prior to the procedure, I wore a surgical cap, mask with protective eyewear, sterile gown and sterile gloves throughout the procedure. The patient was prepped and draped in a sterile manner using chlorhexidine scrub after the appropriate level was percussed and confirmed by ultrasound. 1% lidocaine was used to anesthetize the skin, subcutaneous tissue, superior aspect of the rib periosteum and parietal pleura. A finder needle was then introduced over the superior aspect of the rib to locate the pleural fluid; BASSAM colored fluid was aspirated. Thoracentesis needle was then introduced through the skin incision into the pleural space using negative aspiration pressure. The thoracentesis catheter was then threaded without difficulty. 1650 mL's of BASSAM colored fluid were removed without difficulty. The catheter was then removed. No im mediate complications were noted during the procedure. A postprocedure chest x- ray is pending at the time of this note. The pleural fluid will be sent for cultures and cytology. Estimated blood loss is less than 5 mL's. CPT: 80536 ALIA ROMAN MD Mar 18, 2024 17:32
--- NOTE | 2024-03-18 17:53 | DVH ---
EXAM: XR Chest, 1 View CLINICAL INDICATION: s/p right thoracentesis TECHNIQUE: Frontal view of the chest. COMPARISON: XY CHEST PORTABLE on DOS: 03/18/24, XY CHEST PORTABLE on DOS: 03/15/24, CXRP on DOS: 03/03, CHEST PORTABLE on DOS: 03/03/22, CXRP on DOS: 01/14/22 FINDINGS: LUNGS AND PLEURAL SPACES: Decreasing right pleural effusion. No pneumothorax. Congestion. HEART: Unremarkable. No cardiomegaly. MEDIASTINUM: Unremarkable. Normal mediastinal contour. BONES/JOINTS: Unremarkable. No acute fracture. OTHER FINDINGS: . . IMPRESSION: Decreasing right pleural effusion. No pneumothorax.
[2024-03-18 21:07] LABS: Body Fluid Polymorphonuclear 5 % (0-25); Body Fluid Red Blood Cells 0 CUMM (0-2000); Body Fluid White Blood Cells 448 CUMM (0-200)
[2024-03-18] MEDS: POLYETHYLENE GLYCOL 17 GM PWDR PO PRN (22:01)
[2024-03-18] MEDS: ATORVASTATIN 20 MG TAB PO SCH (22:02)
[2024-03-18] MEDS: ceFAZolin 1GM/50ML 50 ML IV SCH (22:05)
--- NOTE | 2024-03-18 22:27 | DVHPN2 ---
Progress Note - Dictate Date Seen: Mar 18, 2024 Medical Necessity Reason Pt with a Central, PICC or Fol: No Subjective Patient seen and examined at bedside. Remains on supplemental oxygen Overnight events reviewed. vital signs Vital Sign Date Time Temp Pulse Resp B/P (MAP) Pulse Ox O2 Delivery O2 Flow Rate FiO2 03/18/24 22:09 77 20 99 03/18/24 22:02 Nasal Cannula 4.0 03/18/24 22:02 36 03/18/24 22:00 122/55 03/18/24 21:00 97.6 97.6 Total Intake and Output 03/17/24 03/17/24 03/18/24 14:59 22:59 06:59 Intake Total 50 ml 400 ml 1350 ml Output Total 200 ml 230 ml Balance 50 ml 200 ml 1120 ml medications Current Medications Medications Dose Ordered Sig/Alec Route Start Time Stop Time Status Last Admin Dose Admin Heparin Sodium (Porcine) 5,000 units Q12HR SC 03/16/24 10:00 03/18/24 21:56 5,000 UNITS Carvedilol 6.25 mg Q12HR PO 03/16/24 02:00 03/18/24 09:52 6.25 MG Lisinopril 40 mg DAILY PO 03/16/24 10:00 03/18/24 09:53 40 MG Sevelamer HCl 1,600 mg TID PO 03/16/24 06:00 03/18/24 22:01 1,600 MG Tamsulosin HCl 0.4 mg DAILY PO 03/16/24 10:00 03/18/24 09:53 0.4 MG Hydralazine HCl 50 mg Q12HR PO 03/16/24 10:00 03/18/24 22:00 50 MG Guaifenesin/ Dextromethorphan 10 ml Q6HP PRN PO 03/16/24 09:00 03/17/24 20:37 10 ML Mupirocin 1 applic BID TOP 03/16/24 16:21 03/18/24 22:04 1 APPLIC Acetaminophen/ Hydrocodone Bitart 1 tab Q8HPRN PRN PO 03/17/24 14:00 03/18/24 20:23 1 TAB Albuterol 2.5 mg Q6HPRN PRN NEB 03/17/24 13:45 03/18/24 22:07 2.5 MG Acetylcysteine 200 mg Q8HR NEB 03/17/24 22:00 03/18/24 22:07 200 MG Diagnostic Test (Pha) 1 strip ACHS 03/18/24 07:00 03/18/24 22:04 1 STRIP Insulin Human Regular ACHS SC 03/18/24 07:00 Dextrose 50 ml UD PRN IV 03/18/24 06:45 Atorvastatin Calcium 40 mg HS PO 03/18/24 22:00 03/18/24 22:02 40 MG Polyethylene Glycol 17 gm DAILYPRN PRN PO 03/18/24 16:15 03/18/24 22:01 17 GM Cefazolin Sodium 50 ml @ 100 mls/hr HS IV 03/18/24 22:00 03/18/24 22:05 100 MLS/HR objective Gen.: Patient lying in bed in no apparent distress. On supplemental oxygen. Head: Normocephalic, atraumatic. Eyes: EOMI/PERRLA. Ears: Normal hearing. Normal anatomy. Neck/trachea: Trachea midline, supple. Nose: Normal external anatomy. Mouth: Moist mucous membranes. Chest: Decreased air entry bilaterally. No wheezing or rhonchi. Cardiovascular: Positive S1, positive S2. Regular rate and rhythm. Abdomen: Positive bowel sounds in all 4 quadrants. Soft, non-tender, non- distended. : Deferred. Rectal: Deferred. Skin: Warm, dry. Intact. Extremities: 2+ radial pulses bilaterally. No lower extremity edema. Neuro: Awake, alert, oriented x3. No gross motor or sensory deficits. Cranial nerves II through XII intact. Gait not assessed. laboratory and microbiology Laboratory Tests 03/18/24 10:29 Test 03/18/24 10:29 Range/Units Serum Glucose 120 H 74-106 mg/dL Assessment/Plan Impression: Acute hypoxic respiratory failure Pleural effusion, right Atelectasis End-stage renal disease, on hemodialysis Congestive heart failure Hx of nicotine dependence Events: Remains on supplemental oxygen, 2 LPM NC Taper O2 as tolerated Patient underwent right thoracentesis with drainage of 1650 mL krzysztof fluid from R pleural space. Thoracentesis was stopped due to pain. CXR demonstrates interval reduction in right pleural effusion. S/p hemodialysis yesterday. Continue bronchodilators/Mucomyst/CPT Continue antibiotics Incentive spirometry Antitussive for cough Labs and imaging reviewed. Rest of plan as noted below. Plan: Supplemental oxygen Titrate to keep O2 sats above 92%. S/p right thoracentesis with drainage of 1650 mL krzysztof fluid from R pleural space. Fluid sent for analysis, cultures Continue antibiotics Incentive spirometry Pain control Avoid oversedation Monitor renal function. Monitor electrolytes. Supplement as necessary. Monitor ins and outs. HD per Nephrology DVT prophylaxis. Prognosis: Poor given patient's multiple co-morbidities. Rest of plan per hospitalist and other consultants. Thank you Dr. Miranda, for allowing me to participate in this patient's care. Further recommendations will depend on the patient's clinical course. Please do not hesitate to contact me if you have any questions or concerns. This medical document was created using an electronic medical record system with [employer] dictation system. Although these documentations are being carefully reviewed, there may still be some phonetic and typographical changes. The errors are purely typographical, due to imperfection on the software program, and do not reflect any compromise in the patient's medical care. Plan discussed with: Patient, Other (DNANA Green) ALIA MOBLEY MD Mar 18, 2024 22:27
[2024-03-19] VITALS (15 sets, daily range): BP systolic 103–155; BP diastolic 53–80; PULSE 57–89; RESP 12–22; TEMP 97.9–99.3; O2SAT 82–100
[2024-03-19] MEDS ORDERED: SODIUM CHL 0.9% 1000 ML BAG XX ONE (07:00)
[2024-03-19 07:19] LABS: Basophils # (auto) 0 10 ^3/uL (0-0.2); Basophils % (auto) 0.6 % (0.0-2.0); Eosinophils # (auto) 0.1 10 ^3/uL (0-0.8); Eosinophils % (auto) 0.9 % (0.0-7.0); Hematocrit 32.7 % (41.0-53.0); Lymphocytes # (auto) 0.9 10 ^3/uL (0.4-5.4); Lymphocytes % (auto) 13.2 % (10.0-50.0); Mean Corpuscular Hgb Conc. 33.6 g/dL (32.0-36.0); Mean Corpuscular Volume 98.3 fL (80.0-100.0); Monocytes # (auto) 0.6 10 ^3/uL (0-1.3); Monocytes % (auto) 9.6 % (0.0-12.0); Neutrophils % (auto) 75.7 % (37.0-80.0); Nucleated Red Blood Cells % 0.2 %; Platelet Count (auto) 186 10^3/uL (140-450); Red Blood Cells 3.33 10^6/uL (4.5-5.90); Red Cell Distribution Width 17.2 % (11.8-14.3); White Blood Cell 6.6 10^3/uL (4.4-10.8)
[2024-03-19 07:21] LABS: Hematocrit 33.1 % (41.0-53.0); Hemoglobin 11.1 g/dL (13.5-17.5)
[2024-03-19 07:37] LABS: Potassium 4.7 mmol/L (3.5-5.1)
[2024-03-19 07:38] LABS: Anion Gap 10 (5-15); Carbon Dioxide 27 mmol/L (20-31)
[2024-03-19 07:39] LABS: % Iron Saturation 10.3 % (20-55); Calcium 8.8 mg/dL (8.7-10.4)
[2024-03-19 07:41] LABS: Chloride 92 mmol/L (98-107); Sodium 129 mmol/L (136-145)
[2024-03-19 07:43] LABS: Glucose 84 mg/dL (74-106)
[2024-03-19 07:44] LABS: BUN/Creatinine Ratio 3.8 (10.0-20.0); Blood Urea Nitrogen 28 mg/dL (9-23)
[2024-03-19] MEDS: cefTRIAXone 1GM/50ML D5W 50 ML IV ONE (11:51)
[2024-03-19] MEDS: traMADol HCL 50 MG TAB PO PRN (11:52)
[2024-03-19] MEDS: BUMETANIDE 1 MG TAB PO ONE (11:52)
--- NOTE | 2024-03-19 15:41 | DVHPN2 ---
Progress Note - Dictate Date Seen: Mar 19, 2024 Medical Necessity Reason Pt with a Central, PICC or Fol: No Subjective No new complaints vital signs Vital Sign Date Time Temp Pulse Resp B/P (MAP) Pulse Ox O2 Delivery O2 Flow Rate FiO2 03/19/24 14:40 83 20 96 03/19/24 14:29 Nasal Cannula* 2 28 03/19/24 12:50 98.2 103/53 (70) 98.2 Total Intake and Output 03/18/24 03/18/24 03/19/24 15:00 23:00 07:00 Intake Total 50 ml 1020 ml 780 ml Output Total 100 ml Balance 50 ml 1020 ml 680 ml medications Current Medications Medications Dose Ordered Sig/Alec Route Start Time Stop Time Status Last Admin Dose Admin Heparin Sodium (Porcine) 5,000 units Q12HR SC 03/16/24 10:00 03/18/24 21:56 5,000 UNITS Carvedilol 6.25 mg Q12HR PO 03/16/24 02:00 03/19/24 09:28 6.25 MG Lisinopril 40 mg DAILY PO 03/16/24 10:00 03/19/24 09:27 40 MG Sevelamer HCl 1,600 mg TID PO 03/16/24 06:00 03/19/24 11:52 1,600 MG Tamsulosin HCl 0.4 mg DAILY PO 03/16/24 10:00 03/19/24 09:26 0.4 MG Hydralazine HCl 50 mg Q12HR PO 03/16/24 10:00 03/19/24 09:26 50 MG Guaifenesin/ Dextromethorphan 10 ml Q6HP PRN PO 03/16/24 09:00 03/17/24 20:37 10 ML Mupirocin 1 applic BID TOP 03/16/24 16:21 03/19/24 09:51 1 APPLIC Albuterol 2.5 mg Q6HPRN PRN NEB 03/17/24 13:45 03/19/24 14:29 2.5 MG Acetylcysteine 200 mg Q8HR NEB 03/17/24 22:00 03/19/24 14:28 200 MG Diagnostic Test (Pha) 1 strip ACHS 03/18/24 07:00 03/19/24 11:56 1 STRIP Insulin Human Regular ACHS SC 03/18/24 07:00 Dextrose 50 ml UD PRN IV 03/18/24 06:45 Atorvastatin Calcium 40 mg HS PO 03/18/24 22:00 03/18/24 22:02 40 MG Polyethylene Glycol 17 gm DAILYPRN PRN PO 03/18/24 16:15 03/19/24 09:27 17 GM Bumetanide 2 mg BIDD PO 03/19/24 18:00 Ceftriaxone Sodium 50 ml @ 100 mls/hr DAILY@09 IV 03/20/24 09:00 Tramadol HCl 50 mg Q6HP PRN PO 03/19/24 10:00 03/19/24 11:52 50 MG Gabapentin 100 mg TID PO 03/19/24 22:00 objective Alert and oriented 3 NAD Lungs few basilar rales CV RR, no pericardial rub Abdomen soft, NT Trace ankle edema Left foot cellulitis laboratory and microbiology Laboratory Tests 03/19/24 06:23 Test 03/19/24 06:23 Range/Units Serum Glucose 84 74-106 mg/dL Problem List 1. Stable ESRD, patient requested to terminate HD 30 min early today 2. Left foot cellulitis, MRI is negative for OM 3. HTN 4. Anemia 5. DM2 6. Pleural effusion HD on TTS schedule DC home on PO antibiotics Plan discussed with: Patient AMANDEEP BAIN MD Mar 19, 2024 15:41
[2024-03-19] MEDS: GABAPENTIN 100 MG CAP PO ONE (16:31)
--- NOTE | 2024-03-19 17:00 | DVHPNRES ---
Progress Note Date Seen: Mar 19, 2024 Resident Creating Document: ALEXEI SWANSON RESIDENT Medical Necessity Reason Pt with a Central, PICC or Fol: No Subjective Review of Systems Patient reports breathing is better with lower O2 requirements reports pain in the foot has been the same since yesterday. reports feeling constipated Objective vital signs Vital Sign Date Time Temp Pulse Resp B/P (MAP) Pulse Ox O2 Delivery O2 Flow Rate FiO2 03/19/24 14:40 83 20 96 03/19/24 14:29 Nasal Cannula* 2 28 03/19/24 12:50 98.2 103/53 (70) 98.2 Total Intake and Output 03/18/24 03/18/24 03/19/24 15:00 23:00 07:00 Intake Total 50 ml 1020 ml 780 ml Output Total 100 ml Balance 50 ml 1020 ml 680 ml medications Current Medications Medications Dose Ordered Sig/Alec Route Start Time Stop Time Status Last Admin Dose Admin Heparin Sodium (Porcine) 5,000 units Q12HR SC 03/16/24 10:00 03/18/24 21:56 5,000 UNITS Carvedilol 6.25 mg Q12HR PO 03/16/24 02:00 03/19/24 09:28 6.25 MG Lisinopril 40 mg DAILY PO 03/16/24 10:00 03/19/24 09:27 40 MG Sevelamer HCl 1,600 mg TID PO 03/16/24 06:00 03/19/24 11:52 1,600 MG Tamsulosin HCl 0.4 mg DAILY PO 03/16/24 10:00 03/19/24 09:26 0.4 MG Hydralazine HCl 50 mg Q12HR PO 03/16/24 10:00 03/19/24 09:26 50 MG Guaifenesin/ Dextromethorphan 10 ml Q6HP PRN PO 03/16/24 09:00 03/19/24 16:31 10 ML Mupirocin 1 applic BID TOP 03/16/24 16:21 03/19/24 09:51 1 APPLIC Albuterol 2.5 mg Q6HPRN PRN NEB 03/17/24 13:45 03/19/24 14:29 2.5 MG Acetylcysteine 200 mg Q8HR NEB 03/17/24 22:00 03/19/24 14:28 200 MG Diagnostic Test (Pha) 1 strip ACHS 03/18/24 07:00 03/19/24 11:56 1 STRIP Insulin Human Regular ACHS SC 03/18/24 07:00 Dextrose 50 ml UD PRN IV 03/18/24 06:45 Atorvastatin Calcium 40 mg HS PO 03/18/24 22:00 03/18/24 22:02 40 MG Polyethylene Glycol 17 gm DAILYPRN PRN PO 03/18/24 16:15 03/19/24 09:27 17 GM Bumetanide 2 mg BIDD PO 03/19/24 18:00 Ceftriaxone Sodium 50 ml @ 100 mls/hr DAILY@09 IV 03/20/24 09:00 Tramadol HCl 50 mg Q6HP PRN PO 03/19/24 10:00 03/19/24 11:52 50 MG Gabapentin 100 mg TID PO 03/19/24 22:00 Examination Constitutional: Patient was alert and oriented to time, place and person does not appear to be in acute distress. Gen - no pallor, no icterus, no cyanosis, no clubbing, no LAD, 2+ bilateral pedal edema Skin - Patients skin is warm and dry.. HEENT - normocephalic, atraumatic, moist mucous membranes. Neck - full ROM, no LAD, no JVD Pulmonary - breath sounds on the right lower lung audible with coarse inspiratory crackles, no wheezing cardiovascular - normal S1,S2 heard. no murmurs heard. GI - soft abdomen without tenderness to palpation. no hepatospleenomegaly. Bowel sounds normoactive Neurological - Bilateral upper extremity strength 5/5, bilateral lower extremity strength 5/5, no facial droop, normal speech, no tremor, no sensory deficiets. Extremity: Left foot has swelling on the dorsal surface around the 3rd and the 4th toe with redness. Genital: Ulcer seen on the glans penis less than 1 cm in size and pain food to touch, no inguinal lymph nodes palpated laboratory and microbiology Laboratory Tests 03/19/24 06:23 Test 03/19/24 06:23 Range/Units Serum Glucose 84 74-106 mg/dL Microbiology Date/Time Source Procedure Growth Status 03/18/24 17:30 Pleural Fluid Gram Stain - Final Resulted 03/18/24 17:30 Pleural Fluid Body Fluid Culture - Preliminary Resulted 03/17/24 00:40 Nose MRSA Screen - Final Complete Problem List/Assessment/Plan Problem List/Assessment/Plan Acute hypoxic respiratory failure likely d/t pleural effusion Right sided pleural effusion , ESRD with fluid overload pneumonitis ESRD on hemodialysis -chest x-ray shows right-sided pleural effusion -bedside ultrasound reveals pleural effusion -patient on 2-3 L oxygen via nasal cannula -nephrology consulted with Dr. Mayen, dialysis done yesterday with goal UF 3L Left lower extremity 4th digit contusion with a possible infection/cellulitis - L foot xray: There is no evidence of acute fracture or dislocation. The visualized joint space is well maintained. The alignment is anatomical. There is no radiopaque foreign body. Extensive atherosclerosis - foot MRI shows Diffuse soft tissue swelling of the forefoot which may reflect cellulitis. - arterial Doppler shows no hemodynamically significant stenosis - IV cefazolin stopped - wound consult Hypertensive urgency - carvedilol 6.25 mg b.i.d. - resumed home medication lisinopril 40 mg Balanitis - on mupirocin ointment bid Type 2 diabetes HbA1c 6.9% Blood glucose levels target 140-180 mg/dL Chronic anemia BPH patient reports feeling better. Oxygen requirement has decreased and the patient will be tried to wean off O2. started on IV ceftriaxone miralax PRN for constipation gabapentin 100mg tid added Possible D/c tomorrow DVT prophylaxis: Heparin 5000 units b.i.d. Goals of care discussed with the patient for over 21 minutes. Full code Plan discussed with Dr. Hernández Plan discussed with: Patient My Orders My Orders Orders - ALEXEI SWANSON Procedure Category Date Status Time Bumetanide Tablet PHA 03/19/24 In Process (Bumex Tablet) 18:00 Ceftriaxone 1gm/50ml PHA 03/20/24 In Process D5w (Rocephin) 09:00 Pt Request For Service PT 03/19/24 Logged 09:59 Tramadol Hcl (Ultram) PHA 03/19/24 In Process 10:00 Gabapentin Capsule PHA 03/19/24 In Process (Neurontin Capsule) 22:00 Date of Service: Mar 19, 2024 Billing Provider: HEIDI HERNÁNDEZ MD Common Visit Codes: [id number] INP/OBS CARE(HIGH) ALEXEI SWANSON Mar 19, 2024 17:00 HEIDI HERNÁNDEZ MD Mar 21, 2024 18:09
[2024-03-19] MEDS: BUMETANIDE 1 MG TAB PO SCH (17:17)
--- NOTE | 2024-03-19 21:46 | DVH ---
CHEST RADIOGRAPH Indication: S/P THORA Technique: Single frontal view of the chest was obtained COMPARISON: XY CHEST XRAY 1 VIEW on DOS: 03/18/24, XY CHEST PORTABLE on DOS: 03/18/24, XY CHEST PORTABL E on DOS: 03/15/24, CXRP on DOS: 03/03/22, CHEST PORTABLE on DOS: 03/03/22 FINDINGS: Lines and Tubes: None Lungs: Right lower lobe airspace disease. Pulmonary vascular congestion. Pleura: Small right pleural effusion. No pneumothorax. Cardiomediastinal contours: Unremarkable Bones: Unremarkable IMPRESSION: No appreciable pneumothorax post thoracentesis.
[2024-03-19] MEDS: GABAPENTIN 100 MG CAP PO SCH (21:57)
--- NOTE | 2024-03-19 22:51 | DVHPN2 ---
Progress Note - Dictate Date Seen: Mar 19, 2024 Medical Necessity Reason Pt with a Central, PICC or Fol: No Subjective Patient seen and examined at bedside. Remains on supplemental oxygen Overnight events reviewed. vital signs Vital Sign Date Time Temp Pulse Resp B/P (MAP) Pulse Ox O2 Delivery O2 Flow Rate FiO2 03/19/24 22:00 122/60 03/19/24 22:00 81 03/19/24 21:00 98.4 19 96 98.4 03/19/24 19:33 Nasal Cannula 2.0 03/19/24 19:33 28 Total Intake and Output 03/18/24 03/18/24 03/19/24 15:00 23:00 07:00 Intake Total 50 ml 1020 ml 780 ml Output Total 100 ml Balance 50 ml 1020 ml 680 ml medications Current Medications Medications Dose Ordered Sig/Alec Route Start Time Stop Time Status Last Admin Dose Admin Heparin Sodium (Porcine) 5,000 units Q12HR SC 03/16/24 10:00 03/19/24 22:01 5,000 UNITS Carvedilol 6.25 mg Q12HR PO 03/16/24 02:00 03/19/24 22:00 6.25 MG Lisinopril 40 mg DAILY PO 03/16/24 10:00 03/19/24 09:27 40 MG Sevelamer HCl 1,600 mg TID PO 03/16/24 06:00 03/19/24 22:06 1,600 MG Tamsulosin HCl 0.4 mg DAILY PO 03/16/24 10:00 03/19/24 09:26 0.4 MG Hydralazine HCl 50 mg Q12HR PO 03/16/24 10:00 03/19/24 22:00 50 MG Guaifenesin/ Dextromethorphan 10 ml Q6HP PRN PO 03/16/24 09:00 03/17/24 20:37 10 ML Mupirocin 1 applic BID TOP 03/16/24 16:21 03/19/24 22:07 1 APPLIC Albuterol 2.5 mg Q6HPRN PRN NEB 03/17/24 13:45 03/19/24 19:32 2.5 MG Acetylcysteine 200 mg Q8HR NEB 03/17/24 22:00 03/19/24 19:33 200 MG Diagnostic Test (Pha) 1 strip ACHS 1/31/25 07:00 03/19/24 22:02 1 STRIP Insulin Human Regular ACHS SC 03/18/24 07:00 Dextrose 50 ml UD PRN IV 03/18/24 06:45 Atorvastatin Calcium 40 mg HS PO 03/18/24 22:00 03/19/24 22:00 40 MG Polyethylene Glycol 17 gm DAILYPRN PRN PO 03/18/24 16:15 03/19/24 09:27 17 GM Bumetanide 2 mg BIDD PO 03/19/24 18:00 03/19/24 17:17 2 MG Ceftriaxone Sodium 50 ml @ 100 mls/hr DAILY@09 IV 03/20/24 09:00 Tramadol HCl 50 mg Q6HP PRN PO 03/19/24 10:00 03/19/24 21:40 50 MG Gabapentin 100 mg TID PO 03/19/24 22:00 03/19/24 21:57 100 MG Aspirin 81 mg DAILY PO 03/20/24 10:00 Clopidogrel Bisulfate 75 mg DAILY PO 03/20/24 10:00 objective Gen.: Patient lying in bed in no apparent distress. On supplemental oxygen. Head: Normocephalic, atraumatic. Eyes: EOMI/PERRLA. Ears: Normal hearing. Normal anatomy. Neck/trachea: Trachea midline, supple. Nose: Normal external anatomy. Mouth: Moist mucous membranes. Chest: Decreased air entry bilaterally. No wheezing or rhonchi. Cardiovascular: Positive S1, positive S2. Regular rate and rhythm. Abdomen: Positive bowel sounds in all 4 quadrants. Soft, non-tender, non- distended. : Deferred. Rectal: Deferred. Skin: Warm, dry. Intact. Extremities: 2+ radial pulses bilaterally. No lower extremity edema. Neuro: Awake, alert, oriented x3. No gross motor or sensory deficits. Cranial nerves II through XII intact. Gait not assessed. laboratory and microbiology Laboratory Tests 03/19/24 06:23 Test 03/19/24 06:23 Range/Units Serum Glucose 84 74-106 mg/dL Assessment/Plan Impression: Acute hypoxic respiratory failure Pleural effusion, right Atelectasis End-stage renal disease, on hemodialysis Congestive heart failure Hx of nicotine dependence Events: Remains on supplemental oxygen, 2 LPM NC Taper O2 as tolerated Assess for home O2 requirements Arrange for home O2 Pt desaturated to 84% on room air at rest. BiPAP PRN. Obtain CXR in AM for interval changes. Diurese w/ Bumex as tolerated Monitor renal function Hemodialysis per Nephrology - HD today Continue bronchodilators/Mucomyst/CPT Continue antibiotics Incentive spirometry Antitussive for cough S/p right thoracentesis on 03/18/24 with drainage of 1650 mL krzysztof fluid from R pleural space. Thoracentesis was stopped due to pain. CXR demonstrated interval reduction in right pleural effusion. Labs and imaging reviewed. Rest of plan as noted below. Plan: Supplemental oxygen Titrate to keep O2 sats above 92%. Continue antibiotics Incentive spirometry Pain control Avoid oversedation Monitor renal function. Monitor electrolytes. Supplement as necessary. Monitor ins and outs. HD per Nephrology DVT prophylaxis. Prognosis: Poor given patient's multiple co-morbidities. Rest of plan per hospitalist and other consultants. Thank you Dr. Miranda, for allowing me to participate in this patient's care. Further recommendations will depend on the patient's clinical course. Please do not hesitate to contact me if you have any questions or concerns. This medical document was created using an electronic medical record system with [employer] dictation system. Although these documentations are being carefully reviewed, there may still be some phonetic and typographical changes. The errors are purely typographical, due to imperfection on the software program, and do not reflect any compromise in the patient's medical care. Plan discussed with: Patient, Other (DANNA Green) ALIA MOBLEY MD Mar 19, 2024 22:51
[2024-03-20] VITALS (14 sets, daily range): BP systolic 104–141; BP diastolic 58–73; PULSE 64–78; RESP 15–20; TEMP 97.6–98.9; O2SAT 92–100
--- NOTE | 2024-03-20 05:38 | DVH ---
EXAM: XY CHEST XRAY 1 VIEW HISTORY: shortness of breath COMPARISON: XY CHEST XRAY 1 VIEW on DOS: 03/19/24, XY CHEST XRAY 1 VIEW on DOS: 03/18/24, XY CHEST REY BLE on DOS: 03/18/24, XY CHEST PORTABLE on DOS: 03/15/24, CXRP on DOS: 03/03/22 TECHNIQUE: Portable AP view of the chest was performed. FINDINGS: There is stable interstitial prominence, greater centrally. There is stable right basilar infiltrate and effusion. No pneumothorax. The heart is enlarged. IMPRESSION: 1. Stable right basilar infiltrate and effusion. 2. Cardiomegaly and central interstitial prominence suggestive of CHF.
[2024-03-20 06:25] LABS: Eosinophils # (auto) 0.1 10 ^3/uL (0-0.8); Lymphocytes # (auto) 0.8 10 ^3/uL (0.4-5.4); Monocytes # (auto) 0.8 10 ^3/uL (0-1.3)
[2024-03-20 06:49] LABS: Anion Gap 10 (5-15); Carbon Dioxide 27 mmol/L (20-31); Potassium 4.7 mmol/L (3.5-5.1)
[2024-03-20 06:50] LABS: Chloride 95 mmol/L (98-107); Sodium 132 mmol/L (136-145)
[2024-03-20 06:55] LABS: Glucose 81 mg/dL (74-106)
[2024-03-20 06:56] LABS: BUN/Creatinine Ratio 3.4 (10.0-20.0); Blood Urea Nitrogen 20 mg/dL (9-23)
[2024-03-20 07:02] LABS: Calcium 8.7 mg/dL (8.7-10.4); Phosphorus 5.5 mg/dL (2.4-5.1)
[2024-03-20 07:43] LABS: Basophils # (auto) 0 10 ^3/uL (0-0.2); Basophils % (auto) 0.7 % (0.0-2.0); Eosinophils % (auto) 2.1 % (0.0-7.0); Hematocrit 33.1 % (41.0-53.0); Hemoglobin 10.8 g/dL (13.5-17.5); Lymphocytes % (auto) 13.1 % (10.0-50.0); Mean Corpuscular Hemoglobin 32.3 pg (28.0-32.0); Mean Corpuscular Hgb Conc. 32.6 g/dL (32.0-36.0); Monocytes % (auto) 13.6 % (0.0-12.0); Neutrophils # (auto) 4.1 10 ^3/uL (1.6-8.6); Neutrophils % (auto) 70.5 % (37.0-80.0); Nucleated Red Blood Cells % 0.1 %; Platelet Count (auto) 167 10^3/uL (140-450); Red Blood Cells 3.34 10^6/uL (4.5-5.90); Red Cell Distribution Width 17.4 % (11.8-14.3); White Blood Cell 5.8 10^3/uL (4.4-10.8)
[2024-03-20] MEDS: cefTRIAXone 1GM/50ML D5W 50 ML IV SCH (09:06)
[2024-03-20] MEDS: CLOPIDOGREL BISULFATE 75 MG TAB PO SCH (09:08)
[2024-03-20] MEDS: ASPirin 81 mg TAB PO SCH (09:08)
--- NOTE | 2024-03-20 11:38 | DVHPNRES ---
Progress Note Date Seen: Mar 20, 2024 Resident Creating Document: PARIS VALLES RESIDENT Medical Necessity Reason Pt with a Central, PICC or Fol: No Subjective Review of Systems Patient is having episodes of desaturation is refusing bipap at night Objective vital signs Vital Sign Date Time Temp Pulse Resp B/P (MAP) Pulse Ox O2 Delivery O2 Flow Rate FiO2 03/20/24 09:47 98 Nasal Cannula* 3 32 03/20/24 09:07 141/73 03/20/24 09:00 98.9 76 18 98.9 Total Intake and Output 03/19/24 03/19/24 03/20/24 15:00 23:00 07:00 Intake Total 620 ml Output Total 200 ml Balance 420 ml medications Current Medications Medications Dose Ordered Sig/Alec Route Start Time Stop Time Status Last Admin Dose Admin Heparin Sodium (Porcine) 5,000 units Q12HR SC 03/16/24 10:00 03/20/24 09:13 5,000 UNITS Carvedilol 6.25 mg Q12HR PO 03/16/24 02:00 03/19/24 22:00 6.25 MG Lisinopril 40 mg DAILY PO 03/16/24 10:00 03/20/24 09:07 40 MG Sevelamer HCl 1,600 mg TID PO 03/16/24 06:00 03/20/24 06:45 1,600 MG Tamsulosin HCl 0.4 mg DAILY PO 03/16/24 10:00 03/20/24 09:08 0.4 MG Hydralazine HCl 50 mg Q12HR PO 03/16/24 10:00 03/20/24 09:07 50 MG Guaifenesin/ Dextromethorphan 10 ml Q6HP PRN PO 03/16/24 09:00 03/17/24 20:37 10 ML Mupirocin 1 applic BID TOP 03/16/24 16:21 03/20/24 09:09 1 APPLIC Albuterol 2.5 mg Q6HPRN PRN NEB 03/17/24 13:45 03/20/24 06:59 2.5 MG Acetylcysteine 200 mg Q8HR NEB 03/17/24 22:00 03/20/24 06:59 200 MG Diagnostic Test (Pha) 1 strip ACHS 03/18/24 07:00 03/20/24 06:45 1 STRIP Insulin Human Regular ACHS SC 03/18/24 07:00 Dextrose 50 ml UD PRN IV 03/18/24 06:45 Atorvastatin Calcium 40 mg HS PO 03/18/24 22:00 03/19/24 22:00 40 MG Polyethylene Glycol 17 gm DAILYPRN PRN PO 03/18/24 16:15 03/19/24 09:27 17 GM Bumetanide 2 mg BIDD PO 03/19/24 18:00 03/20/24 06:45 2 MG Ceftriaxone Sodium 50 ml @ 100 mls/hr DAILY@09 IV 03/20/24 09:00 03/20/24 09:06 100 MLS/HR Tramadol HCl 50 mg Q6HP PRN PO 03/19/24 10:00 03/20/24 09:06 50 MG Gabapentin 100 mg TID PO 03/19/24 22:00 03/20/24 06:45 100 MG Aspirin 81 mg DAILY PO 03/20/24 10:00 03/20/24 09:08 81 MG Clopidogrel Bisulfate 75 mg DAILY PO 03/20/24 10:00 03/20/24 09:08 75 MG Examination Constitutional: Patient was alert and oriented to time, place and person does not appear to be in acute distress. Gen - no pallor, no icterus, no cyanosis, no clubbing, no LAD, 2+ bilateral pedal edema Skin - Patients skin is warm and dry.. HEENT - normocephalic, atraumatic, moist mucous membranes. Neck - full ROM, no LAD, no JVD Pulmonary - breath sounds on the right lower lung audible with coarse inspiratory crackles, no wheezing cardiovascular - normal S1,S2 heard. no murmurs heard. GI - soft abdomen without tenderness to palpation. no hepatospleenomegaly. Bowel sounds normoactive Neurological - Bilateral upper extremity strength 5/5, bilateral lower extremity strength 5/5, no facial droop, normal speech, no tremor, no sensory deficiets. Extremity: Left foot has swelling on the dorsal surface around the 3rd and the 4th toe with redness. Genital: Ulcer seen on the glans penis less than 1 cm in size and pain food to touch, no inguinal lymph nodes palpated laboratory and microbiology Laboratory Tests 03/20/24 06:03 Test 03/20/24 06:03 Range/Units Serum Glucose 81 74-106 mg/dL Microbiology Date/Time Source Procedure Growth Status 03/18/24 17:30 Pleural Fluid Gram Stain - Final Resulted 03/18/24 17:30 Pleural Fluid Body Fluid Culture - Preliminary Resulted 03/17/24 00:40 Nose MRSA Screen - Final Complete Problem List/Assessment/Plan Problem List/Assessment/Plan Acute hypoxic respiratory failure likely d/t pleural effusion Right sided pleural effusion , ESRD with fluid overload pneumonitis ESRD on hemodialysis -chest x-ray shows right-sided pleural effusion -bedside ultrasound reveals pleural effusion -patient on 2-3 L oxygen via nasal cannula: patient will need home o2: abg on room air ordered -nephrology consulted with Dr. Mayen, dialysis done yesterday stop ealry: only 1.5 LT were pulled off Left lower extremity 4th digit contusion with a possible infection/cellulitis - L foot xray: There is no evidence of acute fracture or dislocation. The visualized joint space is well maintained. The alignment is anatomical. There is no radiopaque foreign body. Extensive atherosclerosis - foot MRI shows Diffuse soft tissue swelling of the forefoot which may reflect cellulitis. - arterial Doppler shows no hemodynamically significant stenosis - IV ceftriaxone - wound consult Hypertensive urgency - carvedilol 6.25 mg b.i.d. - resumed home medication lisinopril 40 mg Balanitis - on mupirocin ointment bid Type 2 diabetes HbA1c 6.9% Blood glucose levels target 140-180 mg/dL Chronic anemia BPH patient reports feeling better. Pending ABG for home o2 DVT prophylaxis: Heparin 5000 units b.i.d. Goals of care discussed with the patient for over 21 minutes. Full code Plan discussed with Dr. Hernández Plan discussed with: Patient, Other My Orders My Orders Orders - PARIS VALLES Procedure Category Date Status Time Abg W/ Co-Ox RT 03/20/24 Logged 11:14 Date of Service: Mar 20, 2024 Billing Provider: HEIDI HERNÁNDEZ MD Common Visit Codes: [id number] INP/OBS CARE(HIGH) PARIS VALLES RESIDENT Mar 20, 2024 11:38 HEIDI HERNÁNDEZ MD Mar 21, 2024 18:10
--- NOTE | 2024-03-20 12:53 | DVHPN2 ---
Progress Note - Dictate Date Seen: Mar 20, 2024 Medical Necessity Reason Pt with a Central, PICC or Fol: No Subjective Patient complains that he is getting "too much dialysis here" He requested to terminate treatment early yesterday vital signs Vital Sign Date Time Temp Pulse Resp B/P (MAP) Pulse Ox O2 Delivery O2 Flow Rate FiO2 03/20/24 11:51 74 20 94 03/20/24 09:47 Nasal Cannula* 3 32 03/20/24 09:07 141/73 03/20/24 09:00 98.9 98.9 Total Intake and Output 03/19/24 03/19/24 03/20/24 14:59 22:59 06:59 Intake Total 620 ml Output Total 200 ml Balance 420 ml medications Current Medications Medications Dose Ordered Sig/Alec Route Start Time Stop Time Status Last Admin Dose Admin Heparin Sodium (Porcine) 5,000 units Q12HR SC 03/16/24 10:00 03/20/24 09:13 5,000 UNITS Carvedilol 6.25 mg Q12HR PO 03/16/24 02:00 03/19/24 22:00 6.25 MG Lisinopril 40 mg DAILY PO 03/16/24 10:00 03/20/24 09:07 40 MG Sevelamer HCl 1,600 mg TID PO 03/16/24 06:00 03/20/24 12:05 1,600 MG Tamsulosin HCl 0.4 mg DAILY PO 03/16/24 10:00 03/20/24 09:08 0.4 MG Hydralazine HCl 50 mg Q12HR PO 03/16/24 10:00 03/20/24 09:07 50 MG Guaifenesin/ Dextromethorphan 10 ml Q6HP PRN PO 03/16/24 09:00 03/17/24 20:37 10 ML Mupirocin 1 applic BID TOP 03/16/24 16:21 03/20/24 09:09 1 APPLIC Albuterol 2.5 mg Q6HPRN PRN NEB 03/17/24 13:45 03/20/24 11:41 2.5 MG Acetylcysteine 200 mg Q8HR NEB 03/17/24 22:00 03/20/24 11:42 200 MG Diagnostic Test (Pha) 1 strip ACHS 03/18/24 07:00 03/20/24 12:05 1 STRIP Insulin Human Regular ACHS SC 03/18/24 07:00 Dextrose 50 ml UD PRN IV 03/18/24 06:45 Atorvastatin Calcium 40 mg HS PO 03/18/24 22:00 03/19/24 22:00 40 MG Polyethylene Glycol 17 gm DAILYPRN PRN PO 03/18/24 16:15 03/19/24 09:27 17 GM Bumetanide 2 mg BIDD PO 03/19/24 18:00 03/20/24 06:45 2 MG Ceftriaxone Sodium 50 ml @ 100 mls/hr DAILY@09 IV 03/20/24 09:00 03/20/24 09:06 100 MLS/HR Tramadol HCl 50 mg Q6HP PRN PO 03/19/24 10:00 03/20/24 09:06 50 MG Gabapentin 100 mg TID PO 03/19/24 22:00 03/20/24 12:05 100 MG Aspirin 81 mg DAILY PO 03/20/24 10:00 03/20/24 09:08 81 MG Clopidogrel Bisulfate 75 mg DAILY PO 03/20/24 10:00 03/20/24 09:08 75 MG objective Alert and oriented 3 NAD Lungs Low air entry at right base CV RR, no pericardial rub Abdomen soft, NT Trace ankle edema Penile ulcer Left foot cellulitis laboratory and microbiology Laboratory Tests 03/20/24 06:03 Test 03/20/24 06:03 Range/Units Serum Glucose 81 74-106 mg/dL Problem List 1. ESRD 2. Left foot cellulitis, MRI is negative for OM 3. HTN 4. Anemia 5. DM2 6. Pleural effusion this looks large on the CXR, and is the reason he desaturates when laying down 7. Balanitis Needs a thoracentesis HD will continue on TTS schedule IV antibiotics Home O2 Plan discussed with: Patient AMANDEEP BAIN MD Mar 20, 2024 12:53
[2024-03-20 14:47] LABS: Base Excess 2.8 mmol/L (-2.0-3.0)
--- NOTE | 2024-03-20 21:17 | DVH ---
CHEST RADIOGRAPH Indication: post thoracentesis Technique: Single frontal view of the chest was obtained Comparison: XY CHEST XRAY 1 VIEW on DOS: 03/20/24, XY CHEST XRAY 1 VIEW on DOS: 03/19/24, XY CHEST XRAY 1 VIEW on DOS: 03/18/24 Findings / impression: Status post thoracentesis with interval improvement in the right lower lung zone opacification. Stab le mild cardiomegaly. Small left-sided pleural effusion. No pneumothorax.
--- NOTE | 2024-03-20 22:09 | DVHNC2 ---
Procedure - Ultrasound-guided thoracentesis procedure note: Physician: Dr Karlie Roman Time out time: 1814 Patient medications and allergies reviewed. The risks and benefits of the procedure and the sedation options and risk were discussed with the patient's healthcare proxy. All questions were answered and informed consent was obtained. Patient identification and proposed procedure were verified prior to the procedure by the physician, and a nurse in the patient's room. The heart rate, respiratory rate, oxygen saturations, blood pressure, adequacy of pulmonary ventilation, and response to care were monitored throughout the procedure. The physical status of the patient was reassessed after the procedure. Date: Consent: Consent was obtained from patient prior to procedure. Indication, risks, and benefits were explained at length. Procedure summary: A time out was performed and a chest x-ray was reviewed prior to procedure. The appropriate site was confirmed and marked. My hands were washed immediately prior to the procedure, I wore a surgical cap, mask with protective eyewear, sterile gown and sterile gloves throughout the procedure. The patient was prepped and draped in a sterile manner using chlorhexidine scrub after the appropriate level was percussed and confirmed by ultrasound. 1% lidocaine was used to anesthetize the skin, subcutaneous tissue, superior aspect of the rib periosteum and parietal pleura. A finder needle was then introduced over the superior aspect of the rib to locate the pleural fluid; whitish sanguinous fluid was aspirated. A 10 blade scalpel was used to isabel the skin at the insertion site. Thoracentesis needle was then introduced through the skin incision into the pleural space using negative aspiration pressure. The thoracentesis catheter was then threaded without difficulty. 2000 mL's of whitish sanguinous colored fluid were removed without difficulty. The catheter was then removed. No immediate complications were noted during the procedure. A postprocedure chest x-ray demonstrates interval improvement in right pleural effusion. No pneumothorax. The pleural fluid will be sent for cultures. Estimated blood loss is less than 5 mL's. CPT: 32184 ALIA ROMAN MD Mar 20, 2024 22:09
--- NOTE | 2024-03-20 22:13 | DVHPN2 ---
Progress Note - Dictate Date Seen: Mar 20, 2024 Medical Necessity Reason Pt with a Central, PICC or Fol: No Subjective Patient seen and examined at bedside. Remains on supplemental oxygen Overnight events reviewed. vital signs Vital Sign Date Time Temp Pulse Resp B/P (MAP) Pulse Ox O2 Delivery O2 Flow Rate FiO2 03/20/24 22:00 59 107/90 03/20/24 21:59 16 100 03/20/24 17:26 98.9 98.9 03/20/24 14:20 3.0 32 03/20/24 09:47 Nasal Cannula* Total Intake and Output 03/19/24 03/19/24 03/20/24 15:00 23:00 07:00 Intake Total 620 ml Output Total 200 ml Balance 420 ml medications Current Medications Medications Dose Ordered Sig/Alec Route Start Time Stop Time Status Last Admin Dose Admin Heparin Sodium (Porcine) 5,000 units Q12HR SC 03/16/24 10:00 03/20/24 09:13 5,000 UNITS Carvedilol 6.25 mg Q12HR PO 03/16/24 02:00 03/19/24 22:00 6.25 MG Lisinopril 40 mg DAILY PO 03/16/24 10:00 03/20/24 09:07 40 MG Sevelamer HCl 1,600 mg TID PO 03/16/24 06:00 03/20/24 12:05 1,600 MG Tamsulosin HCl 0.4 mg DAILY PO 03/16/24 10:00 03/20/24 09:08 0.4 MG Hydralazine HCl 50 mg Q12HR PO 03/16/24 10:00 03/20/24 09:07 50 MG Guaifenesin/ Dextromethorphan 10 ml Q6HP PRN PO 03/16/24 09:00 03/17/24 20:37 10 ML Mupirocin 1 applic BID TOP 03/16/24 16:21 03/20/24 09:09 1 APPLIC Albuterol 2.5 mg Q6HPRN PRN NEB 03/17/24 13:45 03/20/24 11:41 2.5 MG Acetylcysteine 200 mg Q8HR NEB 03/17/24 22:00 03/20/24 11:42 200 MG Diagnostic Test (Pha) 1 strip ACHS 03/18/24 07:00 03/20/24 19:06 1 STRIP Insulin Human Regular ACHS SC 03/18/24 07:00 Dextrose 50 ml UD PRN IV 03/18/24 06:45 Atorvastatin Calcium 40 mg HS PO 03/18/24 22:00 03/19/24 22:00 40 MG Polyethylene Glycol 17 gm DAILYPRN PRN PO 03/18/24 16:15 03/19/24 09:27 17 GM Bumetanide 2 mg BIDD PO 03/19/24 18:00 03/20/24 16:20 2 MG Ceftriaxone Sodium 50 ml @ 100 mls/hr DAILY@09 IV 03/20/24 09:00 03/20/24 09:06 100 MLS/HR Tramadol HCl 50 mg Q6HP PRN PO 03/19/24 10:00 03/20/24 16:19 50 MG Gabapentin 100 mg TID PO 03/19/24 22:00 03/20/24 12:05 100 MG Aspirin 81 mg DAILY PO 03/20/24 10:00 03/20/24 09:08 81 MG Clopidogrel Bisulfate 75 mg DAILY PO 03/20/24 10:00 03/20/24 09:08 75 MG objective Gen.: Patient lying in bed in no apparent distress. On supplemental oxygen. Head: Normocephalic, atraumatic. Eyes: EOMI/PERRLA. Ears: Normal hearing. Normal anatomy. Neck/trachea: Trachea midline, supple. Nose: Normal external anatomy. Mouth: Moist mucous membranes. Chest: Decreased air entry bilaterally. No wheezing or rhonchi. Cardiovascular: Positive S1, positive S2. Regular rate and rhythm. Abdomen: Positive bowel sounds in all 4 quadrants. Soft, non-tender, non- distended. : Deferred. Rectal: Deferred. Skin: Warm, dry. Intact. Extremities: 2+ radial pulses bilaterally. No lower extremity edema. Neuro: Awake, alert, oriented x3. No gross motor or sensory deficits. Cranial nerves II through XII intact. Gait not assessed. laboratory and microbiology Laboratory Tests 03/20/24 06:03 Test 03/20/24 06:03 Range/Units Serum Glucose 81 74-106 mg/dL Assessment/Plan Impression: Acute hypoxic respiratory failure Pleural effusion, right Atelectasis End-stage renal disease, on hemodialysis Congestive heart failure Hx of nicotine dependence Events: Remains on supplemental oxygen, 3 LPM NC Taper O2 as tolerated Assess for home O2 requirements Arrange for home O2 Pt desaturates on room air. BiPAP PRN. Patient was on BIPAP overnight CXR at 10:00 reviewed; stable right basilar infiltrate and effusion. Cardiomegaly and central interstitial prominence suggestive of CHF. Patient agreed for right thoracentesis S/p right thoracentesis with removal of 2000 mL's of whitish sanguineous fluid from R pleural space. Obtain post procedure chest x-ray Diurese w/ Bumex as tolerated Monitor renal function Hemodialysis per Nephrology - S/p HD yesterday Continue bronchodilators/Mucomyst/CPT Continue antibiotics Incentive spirometry Antitussive for cough S/p right thoracentesis on 03/18/24 with drainage of 1650 mL krzysztof fluid from R pleural space. Thoracentesis was stopped due to pain. CXR demonstrated interval reduction in right pleural effusion. Labs and imaging reviewed. Rest of plan as noted below. Plan: Supplemental oxygen Titrate to keep O2 sats above 92%. Continue antibiotics Incentive spirometry Pain control Avoid oversedation Monitor renal function. Monitor electrolytes. Supplement as necessary. Monitor ins and outs. HD per Nephrology DVT prophylaxis. Prognosis: Poor given patient's multiple co-morbidities. Rest of plan per hospitalist and other consultants. Thank you Dr. Miranda, for allowing me to participate in this patient's care. Further recommendations will depend on the patient's clinical course. Please do not hesitate to contact me if you have any questions or concerns. This medical document was created using an electronic medical record system with [employer] dictation system. Although these documentations are being carefully reviewed, there may still be some phonetic and typographical changes. The errors are purely typographical, due to imperfection on the software program, and do not reflect any compromise in the patient's medical care. Plan discussed with: Patient, Other (DANNA Green) ALIA MOBLEY MD Mar 20, 2024 22:13
[2024-03-21] VITALS (15 sets, daily range): BP systolic 102–119; BP diastolic 56–64; PULSE 60–80; RESP 16–20; TEMP 98.1–98.7; O2SAT 91–100
[2024-03-21 07:15] LABS: Basophils # (auto) 0 10 ^3/uL (0-0.2); Basophils % (auto) 0.6 % (0.0-2.0); Eosinophils # (auto) 0.2 10 ^3/uL (0-0.8); Eosinophils % (auto) 3.6 % (0.0-7.0); Hematocrit 32.9 % (41.0-53.0); Hemoglobin 10.9 g/dL (13.5-17.5); Lymphocytes # (auto) 0.7 10 ^3/uL (0.4-5.4); Lymphocytes % (auto) 11.2 % (10.0-50.0); Mean Corpuscular Hemoglobin 32.9 pg (28.0-32.0); Mean Corpuscular Hgb Conc. 33.1 g/dL (32.0-36.0); Mean Corpuscular Volume 99.3 fL (80.0-100.0); Monocytes # (auto) 0.8 10 ^3/uL (0-1.3); Monocytes % (auto) 12.4 % (0.0-12.0); Neutrophils # (auto) 4.5 10 ^3/uL (1.6-8.6); Neutrophils % (auto) 72.2 % (37.0-80.0); Nucleated Red Blood Cells % 0.1 %; Platelet Count (auto) 176 10^3/uL (140-450); Red Blood Cells 3.32 10^6/uL (4.5-5.90); Red Cell Distribution Width 17.3 % (11.8-14.3); White Blood Cell 6.2 10^3/uL (4.4-10.8)
[2024-03-21 07:36] LABS: Alkaline Phosphatase 85 U/L (46-116); Anion Gap 9 (5-15); Aspartate Aminotransferase 13 U/L (13-40); BUN/Creatinine Ratio 4.1 (10.0-20.0); Carbon Dioxide 27 mmol/L (20-31); Glucose 83 mg/dL (74-106); Potassium 4.9 mmol/L (3.5-5.1)
[2024-03-21 07:40] LABS: Chloride 93 mmol/L (98-107); Sodium 129 mmol/L (136-145)
[2024-03-21 07:41] LABS: Alanine Aminotransferase < 9 U/L (7-40); Albumin 3.2 g/dL (3.2-4.8); Blood Urea Nitrogen 30 mg/dL (9-23); Calcium 8.2 mg/dL (8.7-10.4); Total Protein 5.3 g/dL (5.7-8.2)
[2024-03-21 07:45] LABS: Bilirubin, Total 0.3 mg/dL (0.2-1.0)
--- NOTE | 2024-03-21 13:16 | DVHSR ---
APPROVED REPORT EXAM: Two-dimensional and M-mode echocardiogram with Doppler and color Doppler. Blood Pressure: 106/64 mmHg INDICATION Heart Failure RISK FACTORS Height: 5'11", Weight: 178 DIMENSIONS LVDd5.3 (3.8-5.7cm)LA (2D)5.0 (1.9-4.0cm)Aortic Root3.6 (2.0-3.7cm) LVDs3.7 (2.5-4.0cm)LA (MM) (1.9-4.0cm)Aortic Cusp Exc1.5 (1.5-2.0cm) EF (%) 57.0 (55-70%)Rt. Atrium5.1 (1.9-4.0cm)Asc. Aorta3.6 cm IVSd1.4 (0.7-1.1cm)RV (D)4.5 (1.8-2.4cm) PWd1.3 (0.7-1.1cm) Mitral Valve MitralMitral Stenosis E wave1.25m/sMV Mean GR.mmHg A wave0.50m/sMV Peak GR.mmHg E/A ratio2.52D MVAcm2 DECEL [id number] 1/2 Timems Aortic Valve Aortic ValveAortic Stenosis V11.28m/Laura Mean GR.6mmHg V21.57m/Laura Peak GR.10mmHg LVOT Diameter2.2 (1.8-2.4cm)Doppler AVA3.10cm2 Tricuspid Valve TR Velocity3.66m/s [id number] Other Information Quality : Technically LimitedRhythm : Technically limited study due to body habitus. Conclusion Technically good study. Sinus rhythm. Biatrial and right ventricular enlargement. Concentric LVH. Sclerosis of the right and non coronary cusps. Adequate excursion of the leaflets. Tricuspid and pu lmonic or structurally normal. EF of 60% with normal RV function. Moderate tricuspid regurgitation. Pulmonary hypertension noted. Right ventricular systolic pressure a55 mmHg. Trace aortic insufficiency. Small pericardial effusion not hemodynamically significant. No masses or vegetations discernible.
--- NOTE | 2024-03-21 14:51 | DVHPNRES ---
Progress Note Date Seen: Mar 21, 2024 Resident Creating Document: JHElviJALEXEI Mendez RESIDENT Medical Necessity Reason Pt with a Central, PICC or Fol: No Subjective Review of Systems patient underwent a thoracentesis yesterday with removal of about 1800ml fluid reports that his breathing is better reports pain at the left foot although the swelling has decreased denies penile pain Objective vital signs Vital Sign Date Time Temp Pulse Resp B/P (MAP) Pulse Ox O2 Delivery O2 Flow Rate FiO2 03/21/24 13:00 98.2 70 17 118/61 (80) 96 98.2 03/21/24 09:15 Nasal Cannula* 2 28 Total Intake and Output 03/20/24 03/20/24 03/21/24 15:00 23:00 07:00 Intake Total 70 ml 400 ml 300 ml Output Total 200 ml Balance 70 ml 200 ml 300 ml medications Current Medications Medications Dose Ordered Sig/Alec Route Start Time Stop Time Status Last Admin Dose Admin Heparin Sodium (Porcine) 5,000 units Q12HR SC 03/16/24 10:00 03/21/24 10:06 5,000 UNITS Carvedilol 6.25 mg Q12HR PO 03/16/24 02:00 03/21/24 09:38 6.25 MG Lisinopril 40 mg DAILY PO 03/16/24 10:00 03/21/24 09:39 40 MG Sevelamer HCl 1,600 mg TID PO 03/16/24 06:00 03/21/24 13:29 1,600 MG Tamsulosin HCl 0.4 mg DAILY PO 03/16/24 10:00 03/21/24 09:37 0.4 MG Hydralazine HCl 50 mg Q12HR PO 03/16/24 10:00 03/21/24 09:37 50 MG Guaifenesin/ Dextromethorphan 10 ml Q6HP PRN PO 03/16/24 09:00 03/20/24 22:50 10 ML Mupirocin 1 applic BID TOP 03/16/24 16:21 03/21/24 10:00 1 APPLIC Albuterol 2.5 mg Q6HPRN PRN NEB 03/17/24 13:45 03/21/24 06:25 2.5 MG Acetylcysteine 200 mg Q8HR NEB 03/17/24 22:00 03/21/24 06:25 200 MG Diagnostic Test (Pha) 1 strip ACHS 03/18/24 07:00 03/21/24 11:30 1 STRIP Insulin Human Regular ACHS SC 03/18/24 07:00 03/20/24 22:39 2 UNITS Dextrose 50 ml UD PRN IV 03/18/24 06:45 Atorvastatin Calcium 40 mg HS PO 03/18/24 22:00 03/20/24 22:51 40 MG Polyethylene Glycol 17 gm DAILYPRN PRN PO 03/18/24 16:15 03/19/24 09:27 17 GM Bumetanide 2 mg BIDD PO 03/19/24 18:00 03/21/24 05:54 2 MG Ceftriaxone Sodium 50 ml @ 100 mls/hr DAILY@09 IV 03/20/24 09:00 03/21/24 09:37 100 MLS/HR Tramadol HCl 50 mg Q6HP PRN PO 03/19/24 10:00 03/21/24 06:30 50 MG Gabapentin 100 mg TID PO 03/19/24 22:00 03/21/24 13:28 100 MG Aspirin 81 mg DAILY PO 03/20/24 10:00 03/21/24 09:39 81 MG Clopidogrel Bisulfate 75 mg DAILY PO 03/20/24 10:00 03/21/24 09:38 75 MG Examination Constitutional: Patient was alert and oriented to time, place and person does not appear to be in acute distress. Gen - no pallor, no icterus, no cyanosis, no clubbing, no LAD, 2+ bilateral pedal edema Skin - Patients skin is warm and dry.. HEENT - normocephalic, atraumatic, moist mucous membranes. Neck - full ROM, no LAD, no JVD Pulmonary - breath sounds on the right lower lung audible with coarse inspiratory crackles, left inspiratory crackles in the lower lobe, no wheezing cardiovascular - normal S1,S2 heard. no murmurs heard. GI - soft abdomen without tenderness to palpation. no hepatospleenomegaly. Bowel sounds normoactive Neurological - Bilateral upper extremity strength 5/5, bilateral lower extremity strength 5/5, no facial droop, normal speech, no tremor, no sensory deficiets. Extremity: Left foot has swelling on the dorsal surface around the 3rd and the 4th toe has decreased Genital: Ulcer seen on the glans penis less than 1 cm in size and pain food to touch, no inguinal lymph nodes palpated laboratory and microbiology Laboratory Tests 03/21/24 06:35 Test 03/21/24 06:35 Range/Units Serum Glucose 83 74-106 mg/dL Microbiology Date/Time Source Procedure Growth Status 03/18/24 17:30 Pleural Fluid Gram Stain - Final Resulted 03/18/24 17:30 Pleural Fluid Body Fluid Culture - Preliminary Resulted 03/17/24 00:40 Nose MRSA Screen - Final Complete Problem List/Assessment/Plan Problem List/Assessment/Plan Acute hypoxic respiratory failure likely d/t pleural effusion Right sided pleural effusion , ESRD with fluid overload pneumonitis ESRD on hemodialysis -chest x-ray shows right-sided pleural effusion -bedside ultrasound reveals pleural effusion -patient on 2 L oxygen via nasal cannula -nephrology consulted with Dr. Mayen, Left lower extremity 4th digit contusion with a possible infection/cellulitis - L foot xray: There is no evidence of acute fracture or dislocation. The visualized joint space is well maintained. The alignment is anatomical. There is no radiopaque foreign body. Extensive atherosclerosis - foot MRI shows Diffuse soft tissue swelling of the forefoot which may reflect cellulitis. - arterial Doppler shows no hemodynamically significant stenosis - IV cefazolin stopped - wound consult - on IV ceftriaxone Hypertensive urgency - carvedilol 6.25 mg b.i.d. - resumed home medication lisinopril 40 mg Balanitis - on mupirocin ointment bid Type 2 diabetes HbA1c 6.9% Blood glucose levels target 140-180 mg/dL Chronic anemia BPH patient reports feeling better. Oxygen requirement has decreased and the patient will be tried to wean off O2. on IV ceftriaxone miralax PRN for constipation Likely D/c tomorrow after hemodialysis DVT prophylaxis: Heparin 5000 units b.i.d. Goals of care discussed with the patient for over 21 minutes. Full code Plan discussed with Dr. Vaca Plan discussed with: Patient My Orders My Orders Orders - ALEXEI SWANSON Procedure Category Date Status Time Echo 2d Mode Cardiac US 03/21/24 Resulted DOP 06:36 Wound Culture W/ Gs NOEMY 03/21/24 In Process 07:38 ALEXEI SWANSON RESIDENT Mar 21, 2024 14:50
--- NOTE | 2024-03-21 17:05 | DVHPN2 ---
Progress Note - Dictate Date Seen: Mar 21, 2024 Medical Necessity Reason Pt with a Central, PICC or Fol: No vital signs Vital Sign Date Time Temp Pulse Resp B/P (MAP) Pulse Ox O2 Delivery O2 Flow Rate FiO2 03/21/24 15:23 80 16 98 03/21/24 15:17 Nasal Cannula* 3 32 03/21/24 13:00 98.2 118/61 (80) 98.2 Total Intake and Output 03/20/24 03/20/24 03/21/24 15:00 23:00 07:00 Intake Total 70 ml 400 ml 300 ml Output Total 200 ml Balance 70 ml 200 ml 300 ml medications Current Medications Medications Dose Ordered Sig/Alec Route Start Time Stop Time Status Last Admin Dose Admin Heparin Sodium (Porcine) 5,000 units Q12HR SC 03/16/24 10:00 03/21/24 10:06 5,000 UNITS Carvedilol 6.25 mg Q12HR PO 03/16/24 02:00 03/21/24 09:38 6.25 MG Lisinopril 40 mg DAILY PO 03/16/24 10:00 03/21/24 09:39 40 MG Sevelamer HCl 1,600 mg TID PO 03/16/24 06:00 03/21/24 13:29 1,600 MG Tamsulosin HCl 0.4 mg DAILY PO 03/16/24 10:00 03/21/24 09:37 0.4 MG Hydralazine HCl 50 mg Q12HR PO 03/16/24 10:00 03/21/24 09:37 50 MG Guaifenesin/ Dextromethorphan 10 ml Q6HP PRN PO 03/16/24 09:00 03/20/24 22:50 10 ML Mupirocin 1 applic BID TOP 03/16/24 16:21 03/21/24 10:00 1 APPLIC Albuterol 2.5 mg Q6HPRN PRN NEB 03/17/24 13:45 03/21/24 15:17 2.5 MG Acetylcysteine 200 mg Q8HR NEB 03/17/24 22:00 03/21/24 15:17 200 MG Diagnostic Test (Pha) 1 strip ACHS 03/18/24 07:00 03/21/24 11:30 1 STRIP Insulin Human Regular ACHS SC 03/18/24 07:00 2/2/25 22:39 2 UNITS Dextrose 50 ml UD PRN IV 03/18/24 06:45 Atorvastatin Calcium 40 mg HS PO 03/18/24 22:00 03/20/24 22:51 40 MG Polyethylene Glycol 17 gm DAILYPRN PRN PO 03/18/24 16:15 03/19/24 09:27 17 GM Bumetanide 2 mg BIDD PO 03/19/24 18:00 03/21/24 05:54 2 MG Ceftriaxone Sodium 50 ml @ 100 mls/hr DAILY@09 IV 03/20/24 09:00 03/21/24 09:37 100 MLS/HR Tramadol HCl 50 mg Q6HP PRN PO 03/19/24 10:00 03/21/24 06:30 50 MG Gabapentin 100 mg TID PO 03/19/24 22:00 03/21/24 13:28 100 MG Aspirin 81 mg DAILY PO 03/20/24 10:00 03/21/24 09:39 81 MG Clopidogrel Bisulfate 75 mg DAILY PO 03/20/24 10:00 03/21/24 09:38 75 MG objective Gen: NAD Lungs Low air entry at right base CV RR, no pericardial rub Abdomen soft, NT Trace ankle edema Penile ulcer Left foot cellulitis laboratory and microbiology Laboratory Tests 03/21/24 06:35 Test 03/21/24 06:35 Range/Units Serum Glucose 83 74-106 mg/dL Assessment/Plan Assessment: 1. ESRD on HD 2. Left foot cellulitis, MRI is negative for OM 3. Hypertension 4. Anemia of CKD 5. DM2 6. Rt Pleural effusion s/p thoracentesis 7. Balanitis Plan: Next HD on Thursday HD will continue on TTS schedule Needs a thoracentesis IV antibiotics Plan discussed with: STEPH Neri MD Mar 21, 2024 17:05
--- NOTE | 2024-03-21 22:23 | DVHPN2 ---
Progress Note - Dictate Date Seen: Mar 21, 2024 Medical Necessity Reason Pt with a Central, PICC or Fol: No Subjective Patient seen and examined at bedside. Remains on supplemental oxygen Overnight events reviewed. vital signs Vital Sign Date Time Temp Pulse Resp B/P (MAP) Pulse Ox O2 Delivery O2 Flow Rate FiO2 03/21/24 18:00 110/66 03/21/24 17:00 98.1 67 17 97 98.1 03/21/24 15:17 Nasal Cannula* 3 32 Total Intake and Output 03/20/24 03/20/24 03/21/24 15:00 23:00 07:00 Intake Total 70 ml 400 ml 300 ml Output Total 200 ml Balance 70 ml 200 ml 300 ml medications Current Medications Medications Dose Ordered Sig/Alec Route Start Time Stop Time Status Last Admin Dose Admin Heparin Sodium (Porcine) 5,000 units Q12HR SC 03/16/24 10:00 03/21/24 10:06 5,000 UNITS Carvedilol 6.25 mg Q12HR PO 03/16/24 02:00 03/21/24 09:38 6.25 MG Lisinopril 40 mg DAILY PO 03/16/24 10:00 03/21/24 09:39 40 MG Sevelamer HCl 1,600 mg TID PO 03/16/24 06:00 03/21/24 13:29 1,600 MG Tamsulosin HCl 0.4 mg DAILY PO 03/16/24 10:00 03/21/24 09:37 0.4 MG Hydralazine HCl 50 mg Q12HR PO 03/16/24 10:00 03/21/24 09:37 50 MG Guaifenesin/ Dextromethorphan 10 ml Q6HP PRN PO 03/16/24 09:00 03/20/24 22:50 10 ML Mupirocin 1 applic BID TOP 03/16/24 16:21 03/21/24 10:00 1 APPLIC Albuterol 2.5 mg Q6HPRN PRN NEB 03/17/24 13:45 03/21/24 15:17 2.5 MG Acetylcysteine 200 mg Q8HR NEB 03/17/24 22:00 03/21/24 15:17 200 MG Diagnostic Test (Pha) 1 strip ACHS 03/18/24 07:00 03/21/24 17:34 1 STRIP Insulin Human Regular ACHS SC 03/18/24 07:00 03/21/24 17:34 3 UNITS Dextrose 50 ml UD PRN IV 03/18/24 06:45 Atorvastatin Calcium 40 mg HS PO 03/18/24 22:00 03/20/24 22:51 40 MG Polyethylene Glycol 17 gm DAILYPRN PRN PO 03/18/24 16:15 03/19/24 09:27 17 GM Bumetanide 2 mg BIDD PO 03/19/24 18:00 03/21/24 18:00 2 MG Ceftriaxone Sodium 50 ml @ 100 mls/hr DAILY@09 IV 03/20/24 09:00 03/21/24 09:37 100 MLS/HR Tramadol HCl 50 mg Q6HP PRN PO 03/19/24 10:00 03/21/24 06:30 50 MG Gabapentin 100 mg TID PO 03/19/24 22:00 03/21/24 13:28 100 MG Aspirin 81 mg DAILY PO 03/20/24 10:00 03/21/24 09:39 81 MG Clopidogrel Bisulfate 75 mg DAILY PO 03/20/24 10:00 03/21/24 09:38 75 MG Sennosides 8.6 mg HS PO 03/21/24 22:00 objective Gen.: Patient lying in bed in no apparent distress. On supplemental oxygen. Head: Normocephalic, atraumatic. Eyes: EOMI/PERRLA. Ears: Normal hearing. Normal anatomy. Neck/trachea: Trachea midline, supple. Nose: Normal external anatomy. Mouth: Moist mucous membranes. Chest: Decreased air entry bilaterally. No wheezing or rhonchi. Cardiovascular: Positive S1, positive S2. Regular rate and rhythm. Abdomen: Positive bowel sounds in all 4 quadrants. Soft, non-tender, non- distended. : Deferred. Rectal: Deferred. Skin: Warm, dry. Intact. Extremities: 2+ radial pulses bilaterally. No lower extremity edema. Neuro: Awake, alert, oriented x3. No gross motor or sensory deficits. Cranial nerves II through XII intact. Gait not assessed. laboratory and microbiology Laboratory Tests 03/21/24 06:35 Test 03/21/24 06:35 Range/Units Serum Glucose 83 74-106 mg/dL Assessment/Plan Impression: Acute hypoxic respiratory failure Pleural effusion, right Atelectasis End-stage renal disease, on hemodialysis Congestive heart failure Hx of nicotine dependence Events: Remains on supplemental oxygen, 2 LPM NC Taper O2 as tolerated Assess for home O2 requirements Arrange for home O2 Pt desaturates on room air. BiPAP PRN. Obtain Echocardiogram Wound care S/p right thoracentesis on 03/20/24 with removal of 2000 mL's of whitish sanguineous fluid from R pleural space. Diurese w/ Bumex as tolerated Monitor renal function Hemodialysis per Nephrology Continue bronchodilators/Mucomyst/CPT Continue antibiotics Incentive spirometry Antitussive for cough S/p right thoracentesis on 03/18/24 with drainage of 1650 mL krzysztof fluid from R pleural space. Thoracentesis was stopped due to pain. CXR demonstrated interval reduction in right pleural effusion. Labs and imaging reviewed. Rest of plan as noted below. Plan: Supplemental oxygen Titrate to keep O2 sats above 92%. Continue antibiotics Incentive spirometry Pain control Avoid oversedation Monitor renal function. Monitor electrolytes. Supplement as necessary. Monitor ins and outs. HD per Nephrology DVT prophylaxis. Prognosis: Poor given patient's multiple co-morbidities. Rest of plan per hospitalist and other consultants. Thank you Dr. Miranda, for allowing me to participate in this patient's care. Further recommendations will depend on the patient's clinical course. Please do not hesitate to contact me if you have any questions or concerns. This medical document was created using an electronic medical record system with [employer] dictation system. Although these documentations are being carefully reviewed, there may still be some phonetic and typographical changes. The errors are purely typographical, due to imperfection on the software program, and do not reflect any compromise in the patient's medical care. Plan discussed with: Patient, Other (DANNA Perry) ALIA MOBLEY MD Mar 21, 2024 22:23
[2024-03-21] MEDS: SENNA 8.6 MG TAB PO SCH (22:29)
[2024-03-22] VITALS (18 sets, daily range): BP systolic 111–146; BP diastolic 52–80; PULSE 61–90; RESP 14–19; TEMP 97.3–98.6; O2SAT 78–99
[2024-03-22] MEDS ORDERED: SODIUM CHL 0.9% 1000 ML BAG XX ONE (07:00)
[2024-03-22 07:24] LABS: Anion Gap 9 (5-15); Carbon Dioxide 26 mmol/L (20-31)
[2024-03-22 07:30] LABS: BUN/Creatinine Ratio 4.2 (10.0-20.0); Glucose 93 mg/dL (74-106)
[2024-03-22 07:33] LABS: Blood Urea Nitrogen 35 mg/dL (9-23); Calcium 8.4 mg/dL (8.7-10.4); Chloride 91 mmol/L (98-107); Phosphorus 6.4 mg/dL (2.4-5.1); Potassium 5.2 mmol/L (3.5-5.1); Sodium 126 mmol/L (136-145)
[2024-03-22] MEDS: SODIUM ZIRCONIUM CYCL 10 GM PAK PO ONE (08:00)
[2024-03-22] MEDS: ALBUTEROL SULF 2.5 MG/0.5ML(0.5%) NEB SOLN NEB ONE (08:20)
[2024-03-22 13:06] LABS: Protein, Body Fluid 2.3 g/dL (.)
--- NOTE | 2024-03-22 15:30 | DVHPN2 ---
Progress Note - Dictate Date Seen: Mar 22, 2024 Medical Necessity Reason Pt with a Central, PICC or Fol: No Subjective no new symptoms vital signs Vital Sign Date Time Temp Pulse Resp B/P (MAP) Pulse Ox O2 Delivery O2 Flow Rate FiO2 03/22/24 14:26 98.3 90 16 128/58 (81) 94 98.3 03/22/24 10:00 Nasal Cannula* 2 28 Total Intake and Output 03/21/24 03/21/24 03/22/24 15:00 23:00 07:00 Intake Total 50 ml 400 ml 450 ml Output Total 0 ml Balance 50 ml 400 ml 450 ml medications Current Medications Medications Dose Ordered Sig/Alec Route Start Time Stop Time Status Last Admin Dose Admin Heparin Sodium (Porcine) 5,000 units Q12HR SC 03/16/24 10:00 03/21/24 22:28 5,000 UNITS Carvedilol 6.25 mg Q12HR PO 03/16/24 02:00 03/21/24 09:38 6.25 MG Lisinopril 40 mg DAILY PO 03/16/24 10:00 03/21/24 09:39 40 MG Sevelamer HCl 1,600 mg TID PO 03/16/24 06:00 03/22/24 14:54 1,600 MG Tamsulosin HCl 0.4 mg DAILY PO 03/16/24 10:00 03/21/24 09:37 0.4 MG Hydralazine HCl 50 mg Q12HR PO 03/16/24 10:00 03/21/24 09:37 50 MG Guaifenesin/ Dextromethorphan 10 ml Q6HP PRN PO 03/16/24 09:00 03/20/24 22:50 10 ML Mupirocin 1 applic BID TOP 03/16/24 16:21 03/22/24 10:00 1 APPLIC Albuterol 2.5 mg Q6HPRN PRN NEB 03/17/24 13:45 03/22/24 13:21 2.5 MG Acetylcysteine 200 mg Q8HR NEB 03/17/24 22:00 03/22/24 13:21 200 MG Diagnostic Test (Pha) 1 strip ACHS 03/18/24 07:00 03/22/24 11:30 1 STRIP Insulin Human Regular ACHS SC 03/18/24 07:00 03/21/24 17:34 3 UNITS Dextrose 50 ml UD PRN IV 03/18/24 06:45 Atorvastatin Calcium 40 mg HS PO 03/18/24 22:00 03/21/24 22:29 40 MG Polyethylene Glycol 17 gm DAILYPRN PRN PO 03/18/24 16:15 03/19/24 09:27 17 GM Bumetanide 2 mg BIDD PO 03/19/24 18:00 03/22/24 07:08 2 MG Ceftriaxone Sodium 50 ml @ 100 mls/hr DAILY@09 IV 03/20/24 09:00 03/21/24 09:37 100 MLS/HR Tramadol HCl 50 mg Q6HP PRN PO 03/19/24 10:00 03/22/24 01:10 50 MG Gabapentin 100 mg TID PO 03/19/24 22:00 03/22/24 14:53 100 MG Aspirin 81 mg DAILY PO 03/20/24 10:00 03/21/24 09:39 81 MG Clopidogrel Bisulfate 75 mg DAILY PO 03/20/24 10:00 03/21/24 09:38 75 MG Sennosides 8.6 mg HS PO 03/21/24 22:00 03/21/24 22:29 8.6 MG objective Gen: NAD Lungs Low air entry at right base CV RR, no pericardial rub Abdomen soft, NT Trace ankle edema Penile ulcer Left foot cellulitis laboratory and microbiology Laboratory Tests 03/22/24 06:18 03/21/24 06:35 Test 03/22/24 06:18 Range/Units Serum Glucose 93 74-106 mg/dL Assessment/Plan Assessment: 1. ESRD on HD 2. Left foot cellulitis, MRI is negative for OM 3. Hypertension 4. Anemia of CKD 5. DM2 6. Rt Pleural effusion s/p thoracentesis 7. Balanitis Plan: s/p HD this morning. net UF 1.4 L HD will continue on TTS schedule IV antibiotics Plan discussed with: Patient, Other STEPH WU MD Mar 22, 2024 15:30
--- NOTE | 2024-03-22 19:38 | DVHPNRES ---
Progress Note Date Seen: Mar 22, 2024 Resident Creating Document: JHElviJALEXEI Mendez RESIDENT Medical Necessity Reason Pt with a Central, PICC or Fol: No Subjective Review of Systems patient underwent a dialysis today reports that his breathing is better reports pain at the left foot although the swelling has decreased likely from severe calcifiction in the vessels of the foot denies penile pain Objective vital signs Vital Sign Date Time Temp Pulse Resp B/P (MAP) Pulse Ox O2 Delivery O2 Flow Rate FiO2 03/22/24 17:00 98.5 84 18 146/61 (89) 95 98.5 03/22/24 10:00 Nasal Cannula* 2 28 Total Intake and Output 03/21/24 03/21/24 03/22/24 15:00 23:00 07:00 Intake Total 50 ml 400 ml 450 ml Output Total 0 ml Balance 50 ml 400 ml 450 ml medications Current Medications Medications Dose Ordered Sig/Alec Route Start Time Stop Time Status Last Admin Dose Admin Heparin Sodium (Porcine) 5,000 units Q12HR SC 03/16/24 10:00 03/21/24 22:28 5,000 UNITS Carvedilol 6.25 mg Q12HR PO 03/16/24 02:00 03/21/24 09:38 6.25 MG Lisinopril 40 mg DAILY PO 03/16/24 10:00 03/21/24 09:39 40 MG Sevelamer HCl 1,600 mg TID PO 03/16/24 06:00 03/22/24 14:54 1,600 MG Tamsulosin HCl 0.4 mg DAILY PO 03/16/24 10:00 03/21/24 09:37 0.4 MG Hydralazine HCl 50 mg Q12HR PO 03/16/24 10:00 03/21/24 09:37 50 MG Guaifenesin/ Dextromethorphan 10 ml Q6HP PRN PO 03/16/24 09:00 03/20/24 22:50 10 ML Mupirocin 1 applic BID TOP 03/16/24 16:21 03/22/24 10:00 1 APPLIC Albuterol 2.5 mg Q6HPRN PRN NEB 03/17/24 13:45 03/22/24 18:53 2.5 MG Acetylcysteine 200 mg Q8HR NEB 03/17/24 22:00 03/22/24 18:53 200 MG Diagnostic Test (Pha) 1 strip ACHS 03/18/24 07:00 03/22/24 16:55 1 STRIP Insulin Human Regular ACHS SC 03/18/24 07:00 03/21/24 17:34 3 UNITS Dextrose 50 ml UD PRN IV 03/18/24 06:45 Atorvastatin Calcium 40 mg HS PO 03/18/24 22:00 03/21/24 22:29 40 MG Polyethylene Glycol 17 gm DAILYPRN PRN PO 03/18/24 16:15 03/19/24 09:27 17 GM Bumetanide 2 mg BIDD PO 03/19/24 18:00 03/22/24 16:56 2 MG Ceftriaxone Sodium 50 ml @ 100 mls/hr DAILY@09 IV 03/20/24 09:00 03/21/24 09:37 100 MLS/HR Tramadol HCl 50 mg Q6HP PRN PO 03/19/24 10:00 03/22/24 01:10 50 MG Gabapentin 100 mg TID PO 03/19/24 22:00 03/22/24 14:53 100 MG Aspirin 81 mg DAILY PO 03/20/24 10:00 03/21/24 09:39 81 MG Clopidogrel Bisulfate 75 mg DAILY PO 03/20/24 10:00 03/21/24 09:38 75 MG Sennosides 8.6 mg HS PO 03/21/24 22:00 03/21/24 22:29 8.6 MG Examination Constitutional: Patient was alert and oriented to time, place and person does not appear to be in acute distress. Gen - no pallor, no icterus, no cyanosis, no clubbing, no LAD, 2+ bilateral pedal edema Skin - Patients skin is warm and dry.. HEENT - normocephalic, atraumatic, moist mucous membranes. Neck - full ROM, no LAD, no JVD Pulmonary - breath sounds on the right lower lung audible with coarse inspiratory crackles, left inspiratory crackles in the lower lobe, no wheezing cardiovascular - normal S1,S2 heard. no murmurs heard. GI - soft abdomen without tenderness to palpation. no hepatospleenomegaly. Bowel sounds normoactive Neurological - Bilateral upper extremity strength 5/5, bilateral lower extremity strength 5/5, no facial droop, normal speech, no tremor, no sensory deficiets. Extremity: no swelling noted. left 4th toe has bluish discoloration Genital: Ulcer seen on the glans penis less than 1 cm in size and pain food to touch, no inguinal lymph nodes palpated Examination: HEENT:Normal laboratory and microbiology Laboratory Tests 03/22/24 06:18 03/21/24 06:35 Test 03/22/24 06:18 Range/Units Serum Glucose 93 74-106 mg/dL Microbiology Date/Time Source Procedure Growth Status 03/21/24 07:20 Foot Left Gram Stain - Final Resulted 03/21/24 07:20 Foot Left Wound Culture - Preliminary Resulted 03/20/24 21:00 Pleural Fluid Gram Stain - Final Resulted 03/20/24 21:00 Pleural Fluid Body Fluid Culture - Preliminary Resulted Problem List/Assessment/Plan Problem List/Assessment/Plan Acute hypoxic respiratory failure likely d/t pleural effusion Right sided pleural effusion , ESRD with fluid overload pneumonitis ESRD on hemodialysis -chest x-ray shows right-sided pleural effusion -bedside ultrasound reveals pleural effusion -patient on 2 L oxygen via nasal cannula -nephrology consulted with Dr. Mayen, Left lower extremity 4th digit contusion with a possible infection/cellulitis - L foot xray: There is no evidence of acute fracture or dislocation. The visualized joint space is well maintained. The alignment is anatomical. There is no radiopaque foreign body. Extensive atherosclerosis - foot MRI shows Diffuse soft tissue swelling of the forefoot which may reflect cellulitis. - arterial Doppler shows no hemodynamically significant stenosis - IV cefazolin stopped - wound consult - on IV ceftriaxone Hypertensive urgency - carvedilol 6.25 mg b.i.d. - resumed home medication lisinopril 40 mg Balanitis - on mupirocin ointment bid Type 2 diabetes HbA1c 6.9% Blood glucose levels target 140-180 mg/dL Chronic anemia BPH patient reports feeling better. Oxygen requirement has decreased and the patient will be tried to wean off O2. on IV ceftriaxone miralax PRN for constipation patient got the HD today with about 2L UF. physical therapy recommended patient to be d/c to SNF for physical therapy rehab. emergency medical services coordinator consulted for d/c to SNF DVT prophylaxis: Heparin 5000 units b.i.d. Goals of care discussed with the patient for over 21 minutes. Full code Plan discussed with Dr. Lio Plan discussed with: Patient My Orders My Orders Orders - ALEXEI SWANSON Procedure Category Date Status Time * [employer] CONS 03/22/24 Transmitted Consult 15:56 ALEXEI SWANSON Mar 22, 2024 19:38
--- NOTE | 2024-03-22 21:33 | DVHPN2 ---
Progress Note - Dictate Date Seen: Mar 22, 2024 Medical Necessity Reason Pt with a Central, PICC or Fol: No Subjective Patient seen and examined at bedside. Remains on supplemental oxygen Overnight events reviewed. vital signs Vital Sign Date Time Temp Pulse Resp B/P (MAP) Pulse Ox O2 Delivery O2 Flow Rate FiO2 03/22/24 17:00 98.5 84 18 146/61 (89) 95 98.5 03/22/24 10:00 Nasal Cannula* 2 28 Total Intake and Output 03/21/24 03/21/24 03/22/24 14:59 22:59 06:59 Intake Total 50 ml 400 ml 450 ml Output Total 0 ml Balance 50 ml 400 ml 450 ml medications Current Medications Medications Dose Ordered Sig/Alec Route Start Time Stop Time Status Last Admin Dose Admin Heparin Sodium (Porcine) 5,000 units Q12HR SC 03/16/24 10:00 03/21/24 22:28 5,000 UNITS Carvedilol 6.25 mg Q12HR PO 03/16/24 02:00 03/21/24 09:38 6.25 MG Lisinopril 40 mg DAILY PO 03/16/24 10:00 03/21/24 09:39 40 MG Sevelamer HCl 1,600 mg TID PO 03/16/24 06:00 03/22/24 14:54 1,600 MG Tamsulosin HCl 0.4 mg DAILY PO 03/16/24 10:00 03/21/24 09:37 0.4 MG Hydralazine HCl 50 mg Q12HR PO 03/16/24 10:00 03/21/24 09:37 50 MG Guaifenesin/ Dextromethorphan 10 ml Q6HP PRN PO 03/16/24 09:00 03/20/24 22:50 10 ML Mupirocin 1 applic BID TOP 03/16/24 16:21 03/22/24 10:00 1 APPLIC Albuterol 2.5 mg Q6HPRN PRN NEB 03/17/24 13:45 03/22/24 18:53 2.5 MG Acetylcysteine 200 mg Q8HR NEB 03/17/24 22:00 03/22/24 18:53 200 MG Diagnostic Test (Pha) 1 strip ACHS 03/18/24 07:00 03/22/24 16:55 1 STRIP Insulin Human Regular ACHS SC 03/18/24 07:00 03/21/24 17:34 3 UNITS Dextrose 50 ml UD PRN IV 03/18/24 06:45 Atorvastatin Calcium 40 mg HS PO 03/18/24 22:00 03/21/24 22:29 40 MG Polyethylene Glycol 17 gm DAILYPRN PRN PO 03/18/24 16:15 03/19/24 09:27 17 GM Bumetanide 2 mg BIDD PO 03/19/24 18:00 03/22/24 16:56 2 MG Ceftriaxone Sodium 50 ml @ 100 mls/hr DAILY@09 IV 03/20/24 09:00 03/21/24 09:37 100 MLS/HR Tramadol HCl 50 mg Q6HP PRN PO 03/19/24 10:00 03/22/24 01:10 50 MG Gabapentin 100 mg TID PO 03/19/24 22:00 03/22/24 14:53 100 MG Aspirin 81 mg DAILY PO 03/20/24 10:00 03/21/24 09:39 81 MG Clopidogrel Bisulfate 75 mg DAILY PO 03/20/24 10:00 03/21/24 09:38 75 MG Sennosides 8.6 mg HS PO 03/21/24 22:00 03/21/24 22:29 8.6 MG objective Gen.: Patient lying in bed in no apparent distress. On supplemental oxygen. Head: Normocephalic, atraumatic. Eyes: EOMI/PERRLA. Ears: Normal hearing. Normal anatomy. Neck/trachea: Trachea midline, supple. Nose: Normal external anatomy. Mouth: Moist mucous membranes. Chest: Decreased air entry bilaterally. No wheezing or rhonchi. Cardiovascular: Positive S1, positive S2. Regular rate and rhythm. Abdomen: Positive bowel sounds in all 4 quadrants. Soft, non-tender, non- distended. : Deferred. Rectal: Deferred. Skin: Warm, dry. Intact. Extremities: 2+ radial pulses bilaterally. No lower extremity edema. Neuro: Awake, alert, oriented x3. No gross motor or sensory deficits. Cranial nerves II through XII intact. Gait not assessed. laboratory and microbiology Laboratory Tests 03/22/24 06:18 03/21/24 06:35 Test 03/22/24 06:18 Range/Units Serum Glucose 93 74-106 mg/dL Assessment/Plan Impression: Acute hypoxic respiratory failure Pleural effusion, right Atelectasis End-stage renal disease, on hemodialysis Congestive heart failure Hx of nicotine dependence Events: Remains on supplemental oxygen, 2 LPM NC Taper O2 as tolerated Assess for home O2 requirements Arrange for home O2 Pt desaturates on room air. BiPAP PRN. Obtain Echocardiogram Wound care Diurese w/ Bumex as tolerated Monitor renal function Hemodialysis per Nephrology Continue bronchodilators/Mucomyst/CPT Continue antibiotics Incentive spirometry Antitussive for cough PT evaluation Plan for SNF placement S/p right thoracentesis on 03/20/24 with removal of 2000 mL's of whitish sanguineous fluid from R pleural space. S/p right thoracentesis on 03/18/24 with drainage of 1650 mL krzysztof fluid from R pleural space - Thoracentesis was stopped due to pain. Labs and imaging reviewed. Rest of plan as noted below. Plan: Supplemental oxygen Titrate to keep O2 sats above 92%. Continue antibiotics Incentive spirometry Pain control Avoid oversedation Monitor renal function. Monitor electrolytes. Supplement as necessary. Monitor ins and outs. HD per Nephrology DVT prophylaxis. Prognosis: Poor given patient's multiple co-morbidities. Rest of plan per hospitalist and other consultants. Thank you Dr. Miranda, for allowing me to participate in this patient's care. Further recommendations will depend on the patient's clinical course. Please do not hesitate to contact me if you have any questions or concerns. This medical document was created using an electronic medical record system with [employer] dictation system. Although these documentations are being carefully reviewed, there may still be some phonetic and typographical changes. The errors are purely typographical, due to imperfection on the software program, and do not reflect any compromise in the patient's medical care. Plan discussed with: Patient, Other (DANNA Coello) ALIA MOBLEY MD Mar 22, 2024 21:33
[2024-03-23] VITALS (16 sets, daily range): BP systolic 103–130; BP diastolic 57–77; PULSE 58–84; RESP 16–24; TEMP 98–100.1; O2SAT 91–100
--- NOTE | 2024-03-23 05:17 | DVH ---
CHEST RADIOGRAPH Indication: Reassess Technique: Single frontal view of the chest was obtained Comparison: XY CHEST XRAY 1 VIEW on DOS: 03/20/24 FINDINGS: Lines and Tubes: None Lungs: Bilateral airspace disease similar to prior study. Pleura: No effusion. No pneumothorax. Cardiomediastinal contours: Unremarkable Bones: No acute osseous abnormality. IMPRESSION: 1. Bilateral airspace disease similar to prior study.
[2024-03-23 06:42] LABS: Potassium 4.5 mmol/L (3.5-5.1)
[2024-03-23 06:43] LABS: Anion Gap 10 (5-15); Calcium 8.7 mg/dL (8.7-10.4); Carbon Dioxide 28 mmol/L (20-31)
[2024-03-23 06:48] LABS: Glucose 74 mg/dL (74-106)
[2024-03-23 06:52] LABS: Blood Urea Nitrogen 27 mg/dL (9-23); Chloride 93 mmol/L (98-107); Sodium 131 mmol/L (136-145)
--- NOTE | 2024-03-23 15:26 | DVHPN2 ---
Progress Note - Dictate Date Seen: Mar 23, 2024 Medical Necessity Reason Pt with a Central, PICC or Fol: No Subjective no new symptoms vital signs Vital Sign Date Time Temp Pulse Resp B/P (MAP) Pulse Ox O2 Delivery O2 Flow Rate FiO2 03/23/24 14:20 84 24 95 03/23/24 13:42 130/77 3.0 32 03/23/24 13:00 98.1 98.1 03/23/24 10:00 Nasal Cannula* Total Intake and Output 03/22/24 03/22/24 03/23/24 15:00 23:00 07:00 Intake Total 425 ml 80 ml Output Total 200 ml 100 ml Balance 225 ml -20 ml medications Current Medications Medications Dose Ordered Sig/Alec Route Start Time Stop Time Status Last Admin Dose Admin Heparin Sodium (Porcine) 5,000 units Q12HR SC 03/16/24 10:00 03/23/24 10:14 5,000 UNITS Carvedilol 6.25 mg Q12HR PO 03/16/24 02:00 03/23/24 10:07 6.25 MG Lisinopril 40 mg DAILY PO 03/16/24 10:00 03/23/24 10:07 40 MG Sevelamer HCl 1,600 mg TID PO 03/16/24 06:00 03/23/24 13:52 1,600 MG Tamsulosin HCl 0.4 mg DAILY PO 03/16/24 10:00 03/23/24 10:08 0.4 MG Hydralazine HCl 50 mg Q12HR PO 03/16/24 10:00 03/23/24 10:09 50 MG Guaifenesin/ Dextromethorphan 10 ml Q6HP PRN PO 03/16/24 09:00 03/22/24 23:21 10 ML Mupirocin 1 applic BID TOP 03/16/24 16:21 03/23/24 10:19 1 APPLIC Albuterol 2.5 mg Q6HPRN PRN NEB 03/17/24 13:45 03/23/24 14:29 2.5 MG Acetylcysteine 200 mg Q8HR NEB 03/17/24 22:00 03/23/24 14:29 200 MG Diagnostic Test (Pha) 1 strip ACHS 03/18/24 07:00 03/23/24 11:30 1 STRIP Insulin Human Regular ACHS SC 03/18/24 07:00 03/23/24 11:09 2 UNITS Dextrose 50 ml UD PRN IV 03/18/24 06:45 Atorvastatin Calcium 40 mg HS PO 03/18/24 22:00 03/22/24 22:43 40 MG Polyethylene Glycol 17 gm DAILYPRN PRN PO 03/18/24 16:15 03/19/24 09:27 17 GM Bumetanide 2 mg BIDD PO 03/19/24 18:00 03/23/24 06:34 2 MG Ceftriaxone Sodium 50 ml @ 100 mls/hr DAILY@09 IV 03/20/24 09:00 03/23/24 10:08 100 MLS/HR Tramadol HCl 50 mg Q6HP PRN PO 03/19/24 10:00 03/23/24 10:08 50 MG Gabapentin 100 mg TID PO 03/19/24 22:00 03/23/24 13:52 100 MG Aspirin 81 mg DAILY PO 03/20/24 10:00 03/23/24 10:08 81 MG Clopidogrel Bisulfate 75 mg DAILY PO 03/20/24 10:00 03/23/24 10:08 75 MG Sennosides 8.6 mg HS PO 03/21/24 22:00 03/22/24 22:53 8.6 MG objective Gen: NAD Lungs Low air entry at right base CV RR, no pericardial rub Abdomen soft, NT Trace ankle edema Penile ulcer Left foot cellulitis laboratory and microbiology Laboratory Tests 03/23/24 05:53 03/21/24 06:35 Test 03/23/24 05:53 Range/Units Serum Glucose 74 74-106 mg/dL Assessment/Plan Assessment: 1. ESRD on HD 2. Left foot cellulitis, MRI is negative for OM 3. Hypertension 4. Anemia of CKD 5. DM2 6. Rt Pleural effusion s/p thoracentesis 7. Balanitis Plan: s/p HD Thursday. net UF 1.4 L Next HD tomorrow- HD will continue on TTS schedule IV antibiotics Plan discussed with: Patient STEPH WU MD Mar 23, 2024 15:26
--- NOTE | 2024-03-23 19:52 | DVHNC2 ---
ALEXEI MIRANDA RESIDENT 03/23/241951: Procedure - Ultrasound-guided RIGHT thoracentesis procedure note: Physician: Dr Karlie Roman Asst: Dr Miranda RN Summer Time out time: 1826 pm Patient medications and allergies reviewed. The risks and benefits of the procedure and the sedation options and risk were discussed with the patient. All questions were answered and informed consent was obtained. Patient identification and proposed procedure were verified prior to the procedure by the physician, and a nurse in the patient's room. The heart rate, respiratory rate, oxygen saturations, blood pressure, adequacy of pulmonary ventilation, and response to care were monitored throughout the procedure. The physical status of the patient was reassessed after the procedure. Date: 03/23/2024 Consent: Consent was obtained from the patient. Indication, risks, and benefits were explained at length. Procedure summary: A time-out was performed and a chest x-ray was reviewed prior to procedure. The appropriate site was confirmed and marked. My hands were washed immediately prior to the procedure, I wore a surgical cap, mask with protective eyewear, sterile gown and sterile gloves throughout the procedure. The patient was prepped and draped in a sterile manner using chlorhexidine scrub after the appropriate level was percussed and confirmed by ultrasound. 1% lidocaine was used to anesthetize the skin, subcutaneous tissue, superior aspect of the rib periosteum and parietal pleura. A finder needle was then introduced over the superior aspect of the rib to locate the pleural fluid; BASSAM colored fluid was aspirated. Thoracentesis needle was then introduced through the skin incision into the pleural space using negative aspiration pressure. The thoracentesis catheter was then threaded without difficulty. 1200 mL's of BASSAM colored fluid were removed without difficulty. The catheter was then removed. No imme diate complications were noted during the procedure. A postprocedure chest x- ray is pending at the time of this note. No pleural fluid was sent for cultures and cytology. Estimated blood loss is less than 5 mL's. ALIA ROMAN MD 03/24/242052: Procedure - Right thoracentesis performed with Dr Miranda. See procedure note above for full details. ALEXEI MIRANDA RESIDENT Mar 23, 2024 19:52 ALIA ROMAN MD Mar 24, 2024 20:53
--- NOTE | 2024-03-23 22:51 | DVHPNRES ---
Progress Note Date Seen: Mar 23, 2024 Resident Creating Document: JHAJALEXEI Mendez RESIDENT Medical Necessity Reason Pt with a Central, PICC or Fol: No Subjective Review of Systems reports that his breathing is better reports pain at the left foot although the swelling has decreased likely from severe calcifiction in the vessels of the foot denies penile pain Objective vital signs Vital Sign Date Time Temp Pulse Resp B/P (MAP) Pulse Ox O2 Delivery O2 Flow Rate FiO2 03/23/24 22:31 58 102/59 03/23/24 21:46 18 100 03/23/24 21:38 Nasal Cannula 3.0 03/23/24 21:38 32 03/23/24 21:00 100.1 100.1 Total Intake and Output 03/22/24 03/22/24 03/23/24 15:00 23:00 07:00 Intake Total 425 ml 80 ml Output Total 200 ml 100 ml Balance 225 ml -20 ml medications Current Medications Medications Dose Ordered Sig/Alec Route Start Time Stop Time Status Last Admin Dose Admin Heparin Sodium (Porcine) 5,000 units Q12HR SC 03/16/24 10:00 03/23/24 21:41 5,000 UNITS Carvedilol 6.25 mg Q12HR PO 03/16/24 02:00 03/23/24 21:31 6.25 MG Lisinopril 40 mg DAILY PO 03/16/24 10:00 03/23/24 10:07 40 MG Sevelamer HCl 1,600 mg TID PO 03/16/24 06:00 03/23/24 21:30 1,600 MG Tamsulosin HCl 0.4 mg DAILY PO 03/16/24 10:00 03/23/24 10:08 0.4 MG Hydralazine HCl 50 mg Q12HR PO 03/16/24 10:00 03/23/24 10:09 50 MG Guaifenesin/ Dextromethorphan 10 ml Q6HP PRN PO 03/16/24 09:00 03/22/24 23:21 10 ML Mupirocin 1 applic BID TOP 03/16/24 16:21 03/23/24 21:35 1 APPLIC Albuterol 2.5 mg Q6HPRN PRN NEB 03/17/24 13:45 03/23/24 21:38 2.5 MG Acetylcysteine 200 mg Q8HR NEB 03/17/24 22:00 03/23/24 21:38 200 MG Diagnostic Test (Pha) 1 strip ACHS 03/18/24 07:00 03/23/24 21:34 1 STRIP Insulin Human Regular ACHS SC 03/18/24 07:00 03/23/24 11:09 2 UNITS Dextrose 50 ml UD PRN IV 03/18/24 06:45 Atorvastatin Calcium 40 mg HS PO 03/18/24 22:00 03/23/24 21:31 40 MG Polyethylene Glycol 17 gm DAILYPRN PRN PO 03/18/24 16:15 03/19/24 09:27 17 GM Bumetanide 2 mg BIDD PO 03/19/24 18:00 03/23/24 17:48 2 MG Ceftriaxone Sodium 50 ml @ 100 mls/hr DAILY@09 IV 03/20/24 09:00 03/23/24 10:08 100 MLS/HR Tramadol HCl 50 mg Q6HP PRN PO 03/19/24 10:00 03/23/24 20:11 50 MG Gabapentin 100 mg TID PO 03/19/24 22:00 03/23/24 21:31 100 MG Aspirin 81 mg DAILY PO 03/20/24 10:00 03/23/24 10:08 81 MG Clopidogrel Bisulfate 75 mg DAILY PO 03/20/24 10:00 03/23/24 10:08 75 MG Sennosides 8.6 mg HS PO 03/21/24 22:00 03/23/24 21:31 8.6 MG Examination Constitutional: Patient was alert and oriented to time, place and person does not appear to be in acute distress. Gen - no pallor, no icterus, no cyanosis, no clubbing, no LAD, 2+ bilateral pedal edema Skin - Patients skin is warm and dry.. HEENT - normocephalic, atraumatic, moist mucous membranes. Neck - full ROM, no LAD, no JVD Pulmonary - breath sounds on the right lower lung audible with coarse inspiratory crackles, left inspiratory crackles in the lower lobe, no wheezing cardiovascular - normal S1,S2 heard. no murmurs heard. GI - soft abdomen without tenderness to palpation. no hepatospleenomegaly. Bowel sounds normoactive Neurological - Bilateral upper extremity strength 5/5, bilateral lower extremity strength 5/5, no facial droop, normal speech, no tremor, no sensory deficiets. Extremity: no swelling noted. left 4th toe has bluish discoloration Genital: Ulcer seen on the glans penis less than 1 cm in size and pain food to touch, no inguinal lymph nodes palpated laboratory and microbiology Laboratory Tests 03/23/24 05:53 03/21/24 06:35 Test 03/23/24 05:53 Range/Units Serum Glucose 74 74-106 mg/dL Microbiology Date/Time Source Procedure Growth Status 03/21/24 07:20 Foot Left Gram Stain - Final Resulted 03/21/24 07:20 Foot Left Wound Culture - Preliminary Resulted 03/20/24 21:00 Pleural Fluid Gram Stain - Final Resulted 03/20/24 21:00 Pleural Fluid Body Fluid Culture - Preliminary Resulted Problem List/Assessment/Plan Problem List/Assessment/Plan Acute hypoxic respiratory failure likely d/t pleural effusion Right sided pleural effusion , ESRD with fluid overload pneumonitis ESRD on hemodialysis -chest x-ray shows right-sided pleural effusion -bedside ultrasound reveals pleural effusion -patient on 2 L oxygen via nasal cannula -nephrology consulted with Dr. Mayen, Left lower extremity 4th digit contusion with a possible infection/cellulitis - L foot xray: There is no evidence of acute fracture or dislocation. The visualized joint space is well maintained. The alignment is anatomical. There is no radiopaque foreign body. Extensive atherosclerosis - foot MRI shows Diffuse soft tissue swelling of the forefoot which may reflect cellulitis. - arterial Doppler shows no hemodynamically significant stenosis - IV cefazolin stopped - wound consult - on IV ceftriaxone Hypertensive urgency - carvedilol 6.25 mg b.i.d. - resumed home medication lisinopril 40 mg Balanitis - on mupirocin ointment bid Type 2 diabetes HbA1c 6.9% Blood glucose levels target 140-180 mg/dL Chronic anemia BPH patient reports feeling better. Oxygen requirement has decreased and the patient will be tried to wean off O2. on IV ceftriaxone miralax PRN for constipation patient got the HD today with about 2L UF. physical therapy recommended patient to be d/c to SNF for physical therapy rehab. financial services assistant consulted for d/c to SNF patient underwent thoracentesis today with 1200ml fluid drained. DVT prophylaxis: Heparin 5000 units b.i.d. Goals of care discussed with the patient for over 21 minutes. Full code Plan discussed with Dr. Vaca Plan discussed with: Patient, Daughter (zen) My Orders My Orders Orders - ALEXEI SWANSON Procedure Category Date Status Time Chest Xray 1 View XY 03/23/24 Logged 19:52 ALEXEI SWANSON Mar 23, 2024 22:51
--- NOTE | 2024-03-23 23:19 | DVHPN2 ---
Progress Note - Dictate Date Seen: Mar 23, 2024 Medical Necessity Reason Pt with a Central, PICC or Fol: No Subjective Patient seen and examined at bedside. Remains on supplemental oxygen Overnight events reviewed. vital signs Vital Sign Date Time Temp Pulse Resp B/P (MAP) Pulse Ox O2 Delivery O2 Flow Rate FiO2 03/23/24 22:31 58 102/59 03/23/24 21:46 18 100 03/23/24 21:38 Nasal Cannula 3.0 03/23/24 21:38 32 03/23/24 21:00 100.1 100.1 Total Intake and Output 03/22/24 03/22/24 03/23/24 15:00 23:00 07:00 Intake Total 425 ml 80 ml Output Total 200 ml 100 ml Balance 225 ml -20 ml medications Current Medications Medications Dose Ordered Sig/Alec Route Start Time Stop Time Status Last Admin Dose Admin Heparin Sodium (Porcine) 5,000 units Q12HR SC 03/16/24 10:00 03/23/24 21:41 5,000 UNITS Carvedilol 6.25 mg Q12HR PO 03/16/24 02:00 03/23/24 21:31 6.25 MG Lisinopril 40 mg DAILY PO 03/16/24 10:00 03/23/24 10:07 40 MG Sevelamer HCl 1,600 mg TID PO 03/16/24 06:00 03/23/24 21:30 1,600 MG Tamsulosin HCl 0.4 mg DAILY PO 03/16/24 10:00 03/23/24 10:08 0.4 MG Hydralazine HCl 50 mg Q12HR PO 03/16/24 10:00 03/23/24 10:09 50 MG Guaifenesin/ Dextromethorphan 10 ml Q6HP PRN PO 03/16/24 09:00 03/22/24 23:21 10 ML Mupirocin 1 applic BID TOP 03/16/24 16:21 03/23/24 21:35 1 APPLIC Albuterol 2.5 mg Q6HPRN PRN NEB 03/17/24 13:45 03/23/24 21:38 2.5 MG Acetylcysteine 200 mg Q8HR NEB 03/17/24 22:00 03/23/24 21:38 200 MG Diagnostic Test (Pha) 1 strip ACHS 03/18/24 07:00 03/23/24 21:34 1 STRIP Insulin Human Regular ACHS SC 03/18/24 07:00 03/23/24 11:09 2 UNITS Dextrose 50 ml UD PRN IV 03/18/24 06:45 Atorvastatin Calcium 40 mg HS PO 03/18/24 22:00 03/23/24 21:31 40 MG Polyethylene Glycol 17 gm DAILYPRN PRN PO 03/18/24 16:15 03/19/24 09:27 17 GM Bumetanide 2 mg BIDD PO 03/19/24 18:00 03/23/24 17:48 2 MG Ceftriaxone Sodium 50 ml @ 100 mls/hr DAILY@09 IV 03/20/24 09:00 03/23/24 10:08 100 MLS/HR Tramadol HCl 50 mg Q6HP PRN PO 03/19/24 10:00 03/23/24 20:11 50 MG Gabapentin 100 mg TID PO 03/19/24 22:00 03/23/24 21:31 100 MG Aspirin 81 mg DAILY PO 03/20/24 10:00 03/23/24 10:08 81 MG Clopidogrel Bisulfate 75 mg DAILY PO 03/20/24 10:00 03/23/24 10:08 75 MG Sennosides 8.6 mg HS PO 03/21/24 22:00 03/23/24 21:31 8.6 MG objective Gen.: Patient lying in bed in no apparent distress. On supplemental oxygen. Head: Normocephalic, atraumatic. Eyes: EOMI/PERRLA. Ears: Normal hearing. Normal anatomy. Neck/trachea: Trachea midline, supple. Nose: Normal external anatomy. Mouth: Moist mucous membranes. Chest: Decreased air entry bilaterally. No wheezing or rhonchi. Cardiovascular: Positive S1, positive S2. Regular rate and rhythm. Abdomen: Positive bowel sounds in all 4 quadrants. Soft, non-tender, non- distended. : Deferred. Rectal: Deferred. Skin: Warm, dry. Intact. Extremities: 2+ radial pulses bilaterally. No lower extremity edema. Neuro: Awake, alert, oriented x3. No gross motor or sensory deficits. Cranial nerves II through XII intact. Gait not assessed. laboratory and microbiology Laboratory Tests 03/23/24 05:53 03/21/24 06:35 Test 03/23/24 05:53 Range/Units Serum Glucose 74 74-106 mg/dL Assessment/Plan Impression: Acute hypoxic respiratory failure Pleural effusion, right Atelectasis End-stage renal disease, on hemodialysis Congestive heart failure Hx of nicotine dependence Events: Remains on supplemental oxygen, 3 LPM NC Taper O2 as tolerated Assess for home O2 requirements Arrange for home O2 Pt desaturates on room air. BiPAP PRN. Limited chest ultrasound notable for moderate right pleural effusion. Obtain consent for right thoracentesis to evacuate right pleural effusion. Wound care Diurese w/ Bumex as tolerated Monitor renal function Hemodialysis per Nephrology Continue bronchodilators/Mucomyst/CPT Continue antibiotics Incentive spirometry Antitussive for cough PT evaluation Plan for SNF placement Obtain Echocardiogram S/p right thoracentesis on 03/20/24 with removal of 2000 mL's of whitish sanguineous fluid from R pleural space. S/p right thoracentesis on 03/18/24 with drainage of 1650 mL krzysztof fluid from R pleural space - Thoracentesis was stopped due to pain. Labs and imaging reviewed. Rest of plan as noted below. Plan: Supplemental oxygen Titrate to keep O2 sats above 92%. Continue antibiotics Incentive spirometry Pain control Avoid oversedation Monitor renal function. Monitor electrolytes. Supplement as necessary. Monitor ins and outs. HD per Nephrology DVT prophylaxis. Prognosis: Poor given patient's multiple co-morbidities. Rest of plan per hospitalist and other consultants. Thank you Dr. Miranda, for allowing me to participate in this patient's care. Further recommendations will depend on the patient's clinical course. Please do not hesitate to contact me if you have any questions or concerns. This medical document was created using an electronic medical record system with [employer] dictation system. Although these documentations are being carefully reviewed, there may still be some phonetic and typographical changes. The errors are purely typographical, due to imperfection on the software program, and do not reflect any compromise in the patient's medical care. Plan discussed with: Patient, Other (DANNA Summer) ALIA MOBLEY MD Mar 23, 2024 23:19
[2024-03-24] VITALS (11 sets, daily range): BP systolic 106–136; BP diastolic 48–72; PULSE 65–85; RESP 16–20; TEMP 97.5–98.7; O2SAT 92–100
--- NOTE | 2024-03-24 06:48 | DVH ---
CHEST RADIOGRAPH Indication: s/p right thoracentesis Technique: Single frontal view of the chest was obtained Comparison: XY CHEST XRAY 1 VIEW on DOS: 03/23/24 FINDINGS: Lines and Tubes: None Lungs: Patchy right mid to lower lung zone opacities. Pleura: Decreased right pleural effusion. No persistent left pleural effusion. No pneumothorax. Cardiomediastinal contours: Cardiomegaly. Bones: No acute osseous abnormality. IMPRESSION: 1. Decreased right pleural effusion. Patchy right mid to lower lung zone opacities. 2. Cardiomegaly.
[2024-03-24] MEDS ORDERED: SODIUM CHL 0.9% 1000 ML BAG XX ONE (07:00)
[2024-03-24 07:01] LABS: Basophils # (auto) 0 10 ^3/uL (0-0.2); Basophils % (auto) 0.6 % (0.0-2.0); Eosinophils # (auto) 0.1 10 ^3/uL (0-0.8); Eosinophils % (auto) 1.5 % (0.0-7.0); Hematocrit 30.9 % (41.0-53.0); Hemoglobin 10.5 g/dL (13.5-17.5); Lymphocytes # (auto) 0.8 10 ^3/uL (0.4-5.4); Lymphocytes % (auto) 9.9 % (10.0-50.0); Mean Corpuscular Hemoglobin 32.9 pg (28.0-32.0); Mean Corpuscular Hgb Conc. 34.1 g/dL (32.0-36.0); Mean Corpuscular Volume 96.6 fL (80.0-100.0); Monocytes % (auto) 11.2 % (0.0-12.0); Neutrophils # (auto) 6.6 10 ^3/uL (1.6-8.6); Neutrophils % (auto) 76.8 % (37.0-80.0); Platelet Count (auto) 205 10^3/uL (140-450); Red Cell Distribution Width 16.6 % (11.8-14.3); White Blood Cell 8.6 10^3/uL (4.4-10.8)
[2024-03-24 07:09] LABS: Anion Gap 9 (5-15); Carbon Dioxide 27 mmol/L (20-31); Potassium 4.7 mmol/L (3.5-5.1)
[2024-03-24 07:10] LABS: Calcium 8.4 mg/dL (8.7-10.4); Chloride 93 mmol/L (98-107); Sodium 129 mmol/L (136-145)
[2024-03-24 07:15] LABS: BUN/Creatinine Ratio 4.5 (10.0-20.0)
[2024-03-24 07:16] LABS: Blood Urea Nitrogen 36 mg/dL (9-23); Glucose 66 mg/dL (74-106)
--- NOTE | 2024-03-24 18:00 | DVHPN2 ---
Progress Note - Dictate Date Seen: Mar 24, 2024 Medical Necessity Reason Pt with a Central, PICC or Fol: No Subjective no new symptoms vital signs Vital Sign Date Time Temp Pulse Resp B/P (MAP) Pulse Ox O2 Delivery O2 Flow Rate FiO2 03/24/24 16:40 98.2 75 19 122/68 (86) 94 98.2 03/24/24 10:29 Nasal Cannula* 3 32 Total Intake and Output 03/23/24 03/23/24 03/24/24 15:00 23:00 07:00 Intake Total 50 ml 480 ml 175 ml Output Total 0 ml 0 ml Balance 50 ml 480 ml 175 ml medications Current Medications Medications Dose Ordered Sig/Alec Route Start Time Stop Time Status Last Admin Dose Admin Heparin Sodium (Porcine) 5,000 units Q12HR SC 03/16/24 10:00 03/24/24 10:16 5,000 UNITS Carvedilol 6.25 mg Q12HR PO 03/16/24 02:00 03/23/24 21:31 6.25 MG Lisinopril 40 mg DAILY PO 03/16/24 10:00 03/23/24 10:07 40 MG Sevelamer HCl 1,600 mg TID PO 03/16/24 06:00 03/24/24 05:32 1,600 MG Tamsulosin HCl 0.4 mg DAILY PO 03/16/24 10:00 03/24/24 10:09 0.4 MG Hydralazine HCl 50 mg Q12HR PO 03/16/24 10:00 03/23/24 10:09 50 MG Guaifenesin/ Dextromethorphan 10 ml Q6HP PRN PO 03/16/24 09:00 03/22/24 23:21 10 ML Mupirocin 1 applic BID TOP 03/16/24 16:21 03/24/24 10:10 1 APPLIC Albuterol 2.5 mg Q6HPRN PRN NEB 03/17/24 13:45 03/24/24 07:10 2.5 MG Acetylcysteine 200 mg Q8HR NEB 03/17/24 22:00 03/24/24 07:10 200 MG Diagnostic Test (Pha) 1 strip ACHS 03/18/24 07:00 03/24/24 16:42 1 STRIP Insulin Human Regular ACHS SC 03/18/24 07:00 03/24/24 16:42 2 UNITS Dextrose 50 ml UD PRN IV 03/18/24 06:45 Atorvastatin Calcium 40 mg HS PO 03/18/24 22:00 03/23/24 21:31 40 MG Polyethylene Glycol 17 gm DAILYPRN PRN PO 03/18/24 16:15 03/19/24 09:27 17 GM Bumetanide 2 mg BIDD PO 03/19/24 18:00 03/24/24 05:37 2 MG Ceftriaxone Sodium 50 ml @ 100 mls/hr DAILY@09 IV 03/20/24 09:00 03/24/24 10:09 100 MLS/HR Tramadol HCl 50 mg Q6HP PRN PO 03/19/24 10:00 03/24/24 15:51 50 MG Gabapentin 100 mg TID PO 03/19/24 22:00 03/24/24 05:32 100 MG Aspirin 81 mg DAILY PO 03/20/24 10:00 03/24/24 10:09 81 MG Clopidogrel Bisulfate 75 mg DAILY PO 03/20/24 10:00 03/24/24 10:09 75 MG Sennosides 8.6 mg HS PO 03/21/24 22:00 03/23/24 21:31 8.6 MG objective Gen: NAD Lungs Low air entry at right base CV RR, no pericardial rub Abdomen soft, NT Trace ankle edema Penile ulcer Left foot cellulitis laboratory and microbiology Laboratory Tests 03/24/24 06:02 Test 03/24/24 06:02 Range/Units Serum Glucose 66 L 74-106 mg/dL Assessment/Plan Assessment: 1. ESRD on HD 2. Left foot cellulitis, MRI is negative for OM 3. Hypertension 4. Anemia of CKD 5. DM2 6. Rt Pleural effusion s/p thoracentesis 7. Balanitis Plan: s/p HD Today- net UF 1 L Next HD Thursday HD will continue on TTS schedule IV antibiotics Plan discussed with: Patient, Other STEPH WU MD Mar 24, 2024 18:00
--- NOTE | 2024-03-24 18:22 | DVHDSRES ---
Discharge Summary Date of Admission Resident Creating Document: ALEXEI SWANSON RESIDENT Mar 15, 2024 at 23:20 Date of Discharge: Mar 22, 2024 Admitting Diagnosis Left-sided pleural effusion Left lower extremity 4th digit contusion with a possible infection/cellulitis Hypertensive urgency ESRD on hemodialysis CHF Type 2 diabetes Chronic anemia BPH Wounds: small wound in the left foot interdigital space between 3rd and 4th digits whitish wound on the glans penis Labs/Diagnostic Data: Laboratory Results Test 03/24/24 15:53 03/24/24 06:02 03/22/24 06:18 03/21/24 06:35 POC Glucose 132 mg/dl (70-106) White Blood Count 8.6 10^3/uL (4.4-10.8) Red Blood Count 3.20 10^6/uL (4.5-5.90) Hemoglobin 10.5 g/dL (13.5-17.5) Hematocrit 30.9 % (41.0-53.0) Mean Corpuscular Volume 96.6 fL (80.0-100.0) Mean Corpuscular Hemoglobin 32.9 pg (28.0-32.0) Mean Corpuscular Hemoglobin Concent 34.1 g/dL (32.0-36.0) Red Cell Distribution Width 16.6 % (11.8-14.3) Platelet Count 205 10^3/uL (140-450) Mean Platelet Volume 7.6 fL (6.9-10.8) Neutrophils (%) (Auto) 76.8 % (37.0-80.0) Lymphocytes (%) (Auto) 9.9 % (10.0-50.0) Monocytes (%) (Auto) 11.2 % (0.0-12.0) Eosinophils (%) (Auto) 1.5 % (0.0-7.0) Basophils (%) (Auto) 0.6 % (0.0-2.0) Neutrophils # (Auto) 6.6 10 ^3/uL (1.6-8.6) Lymphocytes # (Auto) 0.8 10 ^3/uL (0.4-5.4) Monocytes # (Auto) 1.0 10 ^3/uL (0-1.3) Eosinophils # (Auto) 0.1 10 ^3/uL (0-0.8) Basophils # (Auto) 0 10 ^3/uL (0-0.2) Nucleated Red Blood Cells 0.0 % Sodium Level 129 mmol/L (136-145) Potassium Level 4.7 mmol/L (3.5-5.1) Chloride Level 93 mmol/L (98-107) Carbon Dioxide Level 27 mmol/L (20-31) Anion Gap 9 (5-15) Blood Urea Nitrogen 36 mg/dL (9-23) Creatinine 7.99 mg/dL (0.700-1.30) Glomerular Filtration Rate Calc 7 mL/min (>90) BUN/Creatinine Ratio 4.5 (10.0-20.0) Serum Glucose 66 mg/dL (74-106) Calcium Level 8.4 mg/dL (8.7-10.4) Phosphorus Level 6.4 mg/dL (2.4-5.1) Total Bilirubin 0.3 mg/dL (0.2-1.0) Aspartate Amino Transferase (AST) 13 U/L (13-40) Alanine Aminotransferase (ALT) < 9 U/L (7-40) Alkaline Phosphatase 85 U/L (46-116) Total Protein 5.3 g/dL (5.7-8.2) Albumin 3.2 g/dL (3.2-4.8) Test 03/20/24 21:00 03/20/24 14:35 03/19/24 06:23 03/18/24 17:30 Body Fluid Glucose 121 mg/dL (.) Body Fluid Total Protein 2.3 g/dL (.) Body Fluid Lactate Dehydrogenase 96 IU/L (.) Blood Gas Specimen Type Arterial Blood Gas Sample Site Left radial Blood Gas Patient Temperature 37.0 Arterial Blood Date Drawn [id number] Arterial Blood pH 7.397 (7.350-7.450) Arterial Blood Partial Pressure CO2 46.9 mmHg (35.0-48.0) Arterial Blood Partial Pressure O2 45.0 mmHg (83.0-108.0) Arterial Blood HCO3 28.2 mmol/L (21.0-28.0) Arterial Blood Oxygen Saturation 79.3 % (94.0-98.0) Arterial Blood Base Excess 2.8 mmol/L (-2.0-3.0) Arterial Blood Oxyhemoglobin 78.3 % (94.0-98.0) Arterial Blood Carboxyhemoglobin 0.9 % (0.5-1.5) Arterial Blood Methemoglobin 0.3 % (0.0-1.5) Norman Test Yes Blood Gas Total Hemoglobin 11.40 g/dL (13.5-17.5) Blood Gas Modality Room air FiO2 % 21.0 Blood Gas Critical Value Read Back Yes Blood Gas Notified Whom ruben Portillo md. Blood Gas Notified Time [id number] Blood Gas Notified By saad Christopher rt. Iron Level 22 ug/dL (65-175) Total Iron Binding Capacity 214 ug/dL (250-425) Percent Iron Saturation 10.3 % (20-55) Ferritin 396.9 ng/mL (22-322) Body Fluid Source Pleural fluid Body Fluid pH 9.0 Body Fluid WBC (Manual) 448 CUMM (0-200) Body Fluid RBC (Manual) 0 CUMM (0-2000) Body Fluid Mononuclear Cells 95 % Body Fluid Polymorphonuclear Cells 5 % (0-25) Test 03/18/24 10:29 03/17/24 07:01 03/16/24 04:19 03/16/24 02:18 Lactate Dehydrogenase 236 U/L (120-246) Prothrombin Time 11.4 sec (9.3-11.8) Prothrombin Time INR 1.08 (0.9-1.15) Activated Partial Thromboplast Time 28.5 SEC (24.5-34.5) Hepatitis B Surface Antigen Negative (Negative) Hemoglobin A1c 6.9 % A1C (<5.7) HIV (1&2) Antibody Negative (Negative) Rapid Plasma Reagin Non reactive (Non Reactive) Test 03/15/24 20:14 03/15/24 17:40 03/15/24 17:33 03/15/24 17:25 Troponin I High Sensitivity 29 ng/L (</=54) Urine Color Yellow (Yellow) Urine Clarity Clear (Clear) Urine pH 8.5 (5.0-9.0) Urine Specific [place] 1.015 (1.001-1.035) Urine Protein 3+ (Negative) Urine Ketones Trace (Negative) Urine Blood Trace /uL (Negative) Urine Nitrite Negative (Negative) Urine Bilirubin Negative (Negative) Urine Urobilinogen Normal mg/dL (Negative) Urine Leukocyte Esterase Negative /uL (Negative) Urine RBC 1 /hpf (0 - 3) Urine Microscopic WBC 2 /HPF (0-3) Urine Squamous Epithelial Cells Few /hpf (<5) Urine Bacteria None seen /hpf (None Seen) Urine Glucose 2+ mg/dL (Normal) Chlamydia trachomatis (ITZ) Negative (Negative) Neisseria gonorrhoeae (ITZ) Negative (Negative) Erythrocyte Sedimentation Rate 36 mm/hr (0-20) Lactic Acid Level 1.8 mmol/L (0.4-2.0) Uric Acid 3.8 mg/dL (3.7-9.2) C-Reactive Protein High Sensitivity 2.66 mg/dL (<1.0) Influenza Type A Antigen Negative (Negative) Influenza Type B Antigen Negative (Negative) SARS-CoV-2 Antigen (Rapid) Negative (NEGATIVE) Other Laboratory Tests 03/24/24 06:02 Brief Hx & Hospital Course: HPI Patient is a 68-year-old male with past medical history of ESRD on hemodialysis, CHF, diabetes, cholelithiasis, herpes zoster, chronic anemia, hypertension, who came in due to a dry cough. According to the patient, for the past 2 months he has been experiencing a dry cough that is persistent. Moreover, patient notes he banged his left foot against the wall 2 weeks ago and sustained a contusion of the 3rd and 4th digit of the left lower extremity, discoloration noted along with severe tenderness to palpation in the 4th toe, L pedal pulse was palpable manually and with bedside Doppler. Patient is also complaining of balanitis which is what prompted this visit to the hospital, patient is not sexually active currently. Patient receives dialysis on TTS via a right forearm fistula and is able to make urine. On review of systems patient is complaining of fatigue, chills, shortness of breath, dry cough, dyspnea, nausea. Patient was also complaining of generalized body itching. Chest x-ray showed a small left- sided pleural effusion. Past Medical History: ESRD on hemodialysis, CHF, diabetes, cholelithiasis, herpes zoster, chronic anemia, hypertension Past Surgical History: Right arm fistula Past Social History: Smokin pack year history in the past, but currently denies smoking, alcohol and drug use Hospital course Patient admitted to the hospital with a chief complaint of worsening shortness of breath and left foot pain after he reportedly banged his foot into a door. Patient was noted to have significant pleural effusion on the right side and was offered a thoracocentesis but urination initially denied. Patient got hemodialysis while in the hospital on his scheduled days of Thursday and nephrology with Dr. Tiarra quintero were following the case and recommendations were followed. Pulmonology were consulted with Dr. Roman and patient agreed to undergo thoracocentesis following which 1650 mL of krzysztof colored fluid were removed and sent for cytology and culture results came out that the fluid was transudative and culture did not grew any microorganisms. Thoracocentesis was done again twice with drainage of 1800 and 1200 ml of fluid. Patient was given IV ceftriaxone for cellulitis and balanitis was treated with topical mupirocin ointment. Physical therapy evaluated the patient and recommended SNF placement. Patient was discharged in stable condition to SNF and was explained the need for follow up at scheduled dialysis and follow up with pulmonology with . Discharge plan discharge to SNF, follow up by medications: augmentin 875mg bid X 5 days clotrimazole ointment bid for topical application on glans penis X 2 weeks bumex 2mg bid other meds as prescribed to SNF Dialysis- TTS with Krunal quintero Consults/Reason for consult Pulmonolgy consultation for recurrent pleural effusion Nephrology consultation for ESRD Operations or Procedures Right thoracentesis 3 times 1. 03/18/24- drained 1650 ml krzysztof colored fluid- transudative on analysis, culture showed no growth 2. 03/20/24- drained 1800ml krzysztof colored fluid 3. 03/23/24- drained 1200ml krzysztof colored fluid ECHOCARDIOGRAM Conclusion Technically good study. Sinus rhythm. Biatrial and right ventricular enlargement. Concentric LVH. Sclerosis of the right and non coronary cusps. Adequate excursion of the leaflets. Tricuspid and pulmonic or structurally normal. EF of 60% with normal RV function. Moderate tricuspid regurgitation. Pulmonary hypertension noted. Right ventricular systolic pressure a55 mmHg. Trace aortic insufficiency. Small pericardial effusion not hemodynamically significant. No masses or vegetations discernible. Hemodialysis on thursday- -thursday Condition at Discharge: Fair Final Diagnosis/Problems List Acute hypoxic respiratory failure likely d/t pleural effusion Right sided pleural effusion , ESRD with fluid overload pneumonitis ESRD on hemodialysis Left lower extremity 4th digit contusion with cellulitis Hypertensive urgency Balanitis Type 2 diabetes HbA1c 6.9% Chronic anemia likely d/t ESRD BPH Discharge Disposition: Custodial Facility Discharge Instruct/Medications Diet: Renal Activity: No Restrictions, As Tolerated Follow Up/Referral: Follow up with the PCP in one week Follow up with the scheduled dialysis on thursday, , thursday Medications: as per EMR Discharge Statement: "Patient was advised to return to the ER or call 911 if any headaches, dizziness, shortness of breath, chest pain, abdominal pain, bleeding, fevers, or worsening of medical condition. Patient was counseled about treatment plan, medications, possible side effects, patientverbalized understanding. All questions were answered to the best of my ability. This discharge took greater then 30 minutes in planning, reviewing documentation, counseling the patient, and discussing with other team members." ASSESSMENT ASSESSMENT Assessment Acute hypoxic respiratory failure likely d/t pleural effusion Right sided pleural effusion , ESRD with fluid overload pneumonitis ESRD on hemodialysis Left lower extremity 4th digit contusion with cellulitis Hypertensive urgency Balanitis Type 2 diabetes HbA1c 6.9% Chronic anemia likely d/t ESRD BPH ALEXEI SWANSON RESIDENT Mar 24, 2024 18:22
[2024-03-24] MEDS ORDERED: FLUCONAZOLE 100 MG TAB PO ONE (18:45)
--- NOTE | 2024-03-24 23:28 | DVHPN2 ---
Progress Note - Dictate Date Seen: Mar 24, 2024 Medical Necessity Reason Pt with a Central, PICC or Fol: No Subjective Patient seen and examined at bedside. Remains on supplemental oxygen Overnight events reviewed. vital signs Vital Sign Date Time Temp Pulse Resp B/P (MAP) Pulse Ox O2 Delivery O2 Flow Rate FiO2 03/24/24 16:40 98.2 75 19 122/68 (86) 94 98.2 03/24/24 10:29 Nasal Cannula* 3 32 Total Intake and Output 03/23/24 03/23/24 03/24/24 15:00 23:00 07:00 Intake Total 50 ml 480 ml 175 ml Output Total 0 ml 0 ml Balance 50 ml 480 ml 175 ml objective Gen.: Patient lying in bed in no apparent distress. On supplemental oxygen. Head: Normocephalic, atraumatic. Eyes: EOMI/PERRLA. Ears: Normal hearing. Normal anatomy. Neck/trachea: Trachea midline, supple. Nose: Normal external anatomy. Mouth: Moist mucous membranes. Chest: Decreased air entry bilaterally. No wheezing or rhonchi. Cardiovascular: Positive S1, positive S2. Regular rate and rhythm. Abdomen: Positive bowel sounds in all 4 quadrants. Soft, non-tender, non- distended. : Deferred. Rectal: Deferred. Skin: Warm, dry. Intact. Extremities: 2+ radial pulses bilaterally. No lower extremity edema. Neuro: Awake, alert, oriented x3. No gross motor or sensory deficits. Cranial nerves II through XII intact. Gait not assessed. laboratory and microbiology Laboratory Tests 03/24/24 06:02 Test 03/24/24 06:02 Range/Units Serum Glucose 66 L 74-106 mg/dL Assessment/Plan Impression: Acute hypoxic respiratory failure Pleural effusion, right Atelectasis End-stage renal disease, on hemodialysis Congestive heart failure Hx of nicotine dependence Events: Remains on supplemental oxygen, 2 LPM NC Taper O2 as tolerated Arrange for home O2 Patient is stable for discharge to SNF from the pulmonary standpoint. Recommend followup in [facility] in 1-2 weeks to assess for recurrence of right pleural effusion. S/p right thoracentesis Chest x-ray reviewed; reveals decreased right pleural effusion. Patchy right mid to lower lung zone opacities. Cardiomegaly. Wound care Diurese w/ Bumex as tolerated Monitor renal function Hemodialysis per Nephrology Continue bronchodilators/Mucomyst/CPT Continue antibiotics Incentive spirometry Antitussive for cough PT evaluation Plan for SNF placement Obtain Echocardiogram S/p right thoracentesis on 03/20/24 with removal of 2000 mL's of whitish sanguineous fluid from R pleural space. S/p right thoracentesis on 03/18/24 with drainage of 1650 mL krzysztof fluid from R pleural space - Thoracentesis was stopped due to pain. Labs and imaging reviewed. Rest of plan as noted below. Plan: Supplemental oxygen Titrate to keep O2 sats above 92%. Continue antibiotics Incentive spirometry Pain control Avoid oversedation Monitor renal function. Monitor electrolytes. Supplement as necessary. Monitor ins and outs. HD per Nephrology DVT prophylaxis. Prognosis: Guarded given patient's multiple co-morbidities. Rest of plan per hospitalist and other consultants. Thank you Dr. Miranda, for allowing me to participate in this patient's care. Further recommendations will depend on the patient's clinical course. Please do not hesitate to contact me if you have any questions or concerns. This medical document was created using an electronic medical record system with [employer] dictation system. Although these documentations are being carefully reviewed, there may still be some phonetic and typographical changes. The errors are purely typographical, due to imperfection on the software program, and do not reflect any compromise in the patient's medical care. Plan discussed with: Patient, Other (DANNA Summer) ALIA MOBLEY MD Mar 24, 2024 23:28
== END 2024-03-24 18:54 | DRG 602 ==
LOC: ER 17:19 → OVERFLOW 23:20 → EAST 03-16 22:01
PROVIDERS: ADMIT Student in an Organized Health Care Education/Training Program; ATTEND Emergency Medicine
PROC: 5A1D70Z Performance of Urinary Filtration, Intermittent, Less than 6 Hours Per Day (ICD-10-PCS; 2024-03-17)
PROC: 0W993ZZ Drainage of Right Pleural Cavity, Percutaneous Approach (ICD-10-PCS; principal; 2024-03-18)
PROC: 5A1D70Z Performance of Urinary Filtration, Intermittent, Less than 6 Hours Per Day (ICD-10-PCS; 2024-03-19)
PROC: 0W993ZZ Drainage of Right Pleural Cavity, Percutaneous Approach (ICD-10-PCS; 2024-03-20)
PROC: 5A1D70Z Performance of Urinary Filtration, Intermittent, Less than 6 Hours Per Day (ICD-10-PCS; 2024-03-22)
PROC: 0W993ZZ Drainage of Right Pleural Cavity, Percutaneous Approach (ICD-10-PCS; 2024-03-23)
DX: L03.116 Cellulitis of left lower limb (principal); J96.01 Acute respiratory failure with hypoxia; N18.6 End stage renal disease; N39.0 Urinary tract infection, site not specified; I13.2 Hypertensive heart and chronic kidney disease with heart failure and with stage 5 chronic kidney disease, or end stage renal disease; J98.11 Atelectasis; I16.0 Hypertensive urgency; J98.4 Other disorders of lung; Z20.822 Contact with and (suspected) exposure to COVID-19; N48.1 Balanitis; N40.0 Benign prostatic hyperplasia without lower urinary tract symptoms; E11.22 Type 2 diabetes mellitus with diabetic chronic kidney disease; D63.1 Anemia in chronic kidney disease; Z53.20 Procedure and treatment not carried out because of patient's decision for unspecified reasons; K80.20 Calculus of gallbladder without cholecystitis without obstruction; S90.122A Contusion of left lesser toe(s) without damage to nail, initial encounter; X58.XXXA Exposure to other specified factors, initial encounter; I50.9 Heart failure, unspecified; Z99.2 Dependence on renal dialysis; Y93.89 Activity, other specified; Y92.89 Other specified places as the place of occurrence of the external cause; Y99.8 Other external cause status; Z83.3 Family history of diabetes mellitus; Z82.49 Family history of ischemic heart disease and other diseases of the circulatory system; Z80.3 Family history of malignant neoplasm of breast; Z87.891 Personal history of nicotine dependence; Z82.5 Family history of asthma and other chronic lower respiratory diseases
CPT/HCPCS: 36415; 36600; 71045; 73630; 73718; 80048; 80053; 81001; 82728; 82805; 82962; 83036; 83540; 83550; 83605; 83615; 83986; 84100; 84484; 84550; 85014; 85018; 85025; 85610; 85652; 85730; 86141; 86592; 86703; 86850; 86900; 86901; 87077; 87081; 87186; 87205; 87340; 87426; 87804; 89051; 90935; 93005; 93306; 93925; 94640; 94667; 94668; 97110; 97116; 97163; 99291; G0378; J1815; J2543

== ENCOUNTER 2024-03-27 21:27 | Inpatient (IN) | payer MEDICARE, MEDICAID ==
[~2024-03-27] VITALS: Ht 180.3 cm; Wt 87.9 kg
[2024-03-27 22:28] VITALS: PULSE 79; RESP 19; O2SAT 94
[2024-03-27 23:34] LABS: Urine Bacteria FEW /hpf (None Seen); Urine Blood Negative /uL (Negative); Urine Clarity Clear (Clear); Urine Color Yellow (Yellow); Urine Protein, UAD 3+ (Negative); Urine Specific Gravity 1.011 (1.001-1.035); Urine Squamous Epithelial Cell FEW /hpf (<5); Urine Urobilinogen Normal (Negative); Urine WBC 3 /HPF (0-3)
[2024-03-27 23:50] LABS: Basophils # (auto) 0.1 10 ^3/uL (0-0.2); Basophils % (auto) 0.9 % (0.0-2.0); Eosinophils # (auto) 0.1 10 ^3/uL (0-0.8); Eosinophils % (auto) 0.9 % (0.0-7.0); Hematocrit 31.9 % (41.0-53.0); Hemoglobin 10.7 g/dL (13.5-17.5); Lymphocytes # (auto) 0.8 10 ^3/uL (0.4-5.4); Lymphocytes % (auto) 9.5 % (10.0-50.0); Mean Corpuscular Hemoglobin 32.2 pg (28.0-32.0); Mean Corpuscular Hgb Conc. 33.4 g/dL (32.0-36.0); Mean Corpuscular Volume 96.3 fL (80.0-100.0); Monocytes # (auto) 1.3 10 ^3/uL (0-1.3); Monocytes % (auto) 14.8 % (0.0-12.0); Neutrophils # (auto) 6.6 10 ^3/uL (1.6-8.6); Neutrophils % (auto) 73.9 % (37.0-80.0); Nucleated Red Blood Cells % 0.1 %; Platelet Count (auto) 281 10^3/uL (140-450); Red Blood Cells 3.31 10^6/uL (4.5-5.90); Red Cell Distribution Width 16.7 % (11.8-14.3); White Blood Cell 8.9 10^3/uL (4.4-10.8)
[2024-03-28 00:05] LABS: Anion Gap 8 (5-15); Aspartate Aminotransferase 23 U/L (13-40); BUN/Creatinine Ratio 4.5 (10.0-20.0); Bilirubin, Total 0.5 mg/dL (0.2-1.0); Carbon Dioxide 29 mmol/L (20-31); Glucose 90 mg/dL (74-106); Potassium 4.2 mmol/L (3.5-5.1)
[2024-03-28 00:06] LABS: Alanine Aminotransferase < 9 U/L (7-40); Alkaline Phosphatase 144 U/L (46-116); Blood Urea Nitrogen 26 mg/dL (9-23); Calcium 8.6 mg/dL (8.7-10.4); Chloride 92 mmol/L (98-107); Sodium 129 mmol/L (136-145); Total Protein 5.5 g/dL (5.7-8.2)
--- NOTE | 2024-03-28 00:48 | ED.PDOC ---
History of Present Illness HPI Comments 68-year-old male is brought in by ambulance with spouse for complaint of black discoloration and pain to 4th digit on left foot, today. Per EMS report, patient is a poor historian and a resident of [facility] for rehabilitation care following recent injury to said digit and was brought in after staff called, endorsing on it not healing well. Patient has a Hx of anemia, asthma, BPH, CHF, COPD, DM, ESRD, GERD, HTN, and HSV. Patient has no reported numbness, tingling, weakness, discharge, fever, chills, or other associated symptoms or modifiers at this time. Chief Complaint: Lower Extremity Time Seen by MD: 23:10 Primary Care Provider: CLINICA Reviewed Notes: Nurses Notes, Sales Account Coordinator Notes, Medications, Allergies Allergies: Coded Allergies: Amlodipine (Verified Adverse Reaction, Mild, "feet swelling" per pt statement on 01/07/21. , 07/04/23) Home Meds Active Scripts Dextromethorphan-Guaifenesin (Robitussin-Dm) 10 Ml Sr, 10 ML PO TID, #180 SYP Prov:ANDRAE RYAN MD 07/06/23 Acyclovir (ZOVIRAX TABLET) 400 Mg Tb, 1 TAB PO BID, #14 TAB 11 Refills Prov:ANDRAE RYAN MD 07/06/23 Reported Medications Patiromer Sorbitex Calcium (Veltassa) 8.4 Gm Pow, 8.4 GM PO DAILY, POW 07/27/23 Ferric Citrate (Auryxia) 210 Mg Tab, 2 TAB PO TIDWM, TAB 07/27/23 Clonidine Hydrochloride (Clonidine Hcl) 0.1 Mg Tab, 0.1 MG PO BID, MG 07/27/23 Gabapentin (Gabapentin) 300 Mg Cap, 300 MG PO DAILY for ZOSTER UNCOMPLICATED, MG 07/27/23 Tamsulosin Hcl (Tamsulosin Hcl) 0.4 Mg Cap, 0.4 MG PO DAILY for Urine Retension for 30 Days, MG 07/26/23 Sevelamer Hydrochloride (Sevelamer Hydrochloride) 800 Mg Tab, 2 TAB PO TID 07/06/23 Hydralazine Hcl (Hydralazine Hcl) 50 Mg Tab, 1 TAB PO TID 07/06/23 B-Complex W/ C & Folic Acid (Blanka-Meredith) Tab, 1 TAB PO DAILY, TAB 01/14/22 Lisinopril (Lisinopril) 40 Mg Tab, 40 MG PO DAILY, MG 01/14/22 Atenolol (Atenolol) 50 Mg Tab, 50 MG PO EOD 01/04/21 Information Source: Patient, Emergency Med Personnel Mode of Arrival: EMS Severity: Moderate Timing: Hours Duration: Since onset Prehospital treatment: 12 Lead EKG, Pet Adoption Counselor Review of Systems: REVIEW OF SYSTEMS: No fever, no chills, or fatigue HEENT: No sore throat, no earache, no congestion, no neck pain. Cardiac: No chest pain. No palpitations. Lungs: No shortness of breath, no cough. GI: No nausea, no vomiting, no diarrhea, no constipation, no abdominal pain : No dysuria, frequency, or urgency. No hematuria. Musculoskeletal: Pain to 4th digit on left foot , no joint swelling, no extremity edema. Skin: black discoloration to 4th digit on left foot. No rash, no itching. Neuro: No headache, no dizziness, no weakness Vital Signs Vital Signs Date Time Temp Pulse Resp B/P (MAP) Pulse Ox O2 Delivery O2 Flow Rate FiO2 03/28/24 03:00 73 15 112/62 (79) 100 03/28/24 00:34 97.9 97.9 03/27/24 22:28 Nasal Cannula* 4 36 Physical Exam General: Awake, alert and oriented. No acute distress. Skin: Skin in warm, dry and intact without rashes or lesions. HEENT: The head is normocephalic and atraumatic. Conjunctivae are clear without exudates or hemorrhage. Sclera is non-icteric. Neck: Normal range of motion. No JVD. Cardiac: Regular rate Respiratory: No signs of respiratory distress. No Stridor. Extremities: 4th digit on left foot is necrotic appearing, with erythema over the dorsal portion of left foot good DP pulse, capillary refill, and sensations intact. Otherwise, upper and lower extremities are atraumatic in appearance without tenderness or deformity. Neurological: The patient is awake, alert and oriented to person, place, and time with normal speech. Speech is clear. There is no facial asymmetry. Psychiatric: Appropriate mood and affect. Good judgement and insight. No visual or auditory hallucinations. No suicidal or homicidal ideation. Past Medical History PAST MEDICAL HISTORY: Anemia, Asthma, CHF, COPD (w/4LPM ), DM, ESRD, Gallstones, GERD, HTN Past Medical History (Other): HSV BPH Surgical History: Denies all surgeries Family History Family History: Reviewed,noncontributory to illness, Family hx of HTN Social History Smoker: Non-Smoker Alcohol: Occasionally Drugs: Denies Drug Use Lives In: Home Was a procedure done? Was a procedure done?: No Differential Dx Considerations may include: diabetic wound, unhealing wound, cellulitis, gangrene, dermatitis, osteomyelitis, bacteremia, sepsis X-Ray, Labs, Meds, VS Vital Signs Date Time Temp Pulse Resp B/P (MAP) Pulse Ox O2 Delivery O2 Flow Rate FiO2 03/28/24 03:00 73 15 112/62 (79) 100 03/28/24 01:29 86 19 148/89 03/28/24 00:59 104 33 150/97 03/28/24 00:34 97.9 91 20 132/89 (103) 99 97.9 03/27/24 22:28 79 19 94 Nasal Cannula* 4 36 03/27/24 22:26 98.2 89 19 139/75 (96) 96 98.2 03/27/24 21:37 98.3 78 18 110/76 (87) 98 Lab Test 03/27/24 23:35 03/27/24 23:04 Range/Units White Blood Count 8.9 4.4-10.8 10^3/uL Red Blood Count 3.31 L 4.5-5.90 10^6/uL Hemoglobin 10.7 L 13.5-17.5 g/dL Hematocrit 31.9 L 41.0-53.0 % Mean Corpuscular Volume 96.3 80.0-100.0 fL Mean Corpuscular Hemoglobin 32.2 H 28.0-32.0 pg Mean Corpuscular Hemoglobin Concent 33.4 32.0-36.0 g/dL Red Cell Distribution Width 16.7 H 11.8-14.3 % Platelet Count 281 140-450 10^3/uL Mean Platelet Volume 6.9 6.9-10.8 fL Neutrophils (%) (Auto) 73.9 37.0-80.0 % Lymphocytes (%) (Auto) 9.5 L 10.0-50.0 % Monocytes (%) (Auto) 14.8 H 0.0-12.0 % Eosinophils (%) (Auto) 0.9 0.0-7.0 % Basophils (%) (Auto) 0.9 0.0-2.0 % Neutrophils # (Auto) 6.6 1.6-8.6 10 ^3/uL Lymphocytes # (Auto) 0.8 0.4-5.4 10 ^3/uL Monocytes # (Auto) 1.3 0-1.3 10 ^3/uL Eosinophils # (Auto) 0.1 0-0.8 10 ^3/uL Basophils # (Auto) 0.1 0-0.2 10 ^3/uL Nucleated Red Blood Cells 0.1 % Sodium Level 129 L 136-145 mmol/L Potassium Level 4.2 3.5-5.1 mmol/L Chloride Level 92 L 98-107 mmol/L Carbon Dioxide Level 29 20-31 mmol/L Anion Gap 8 5-15 Blood Urea Nitrogen 26 H 9-23 mg/dL Creatinine 5.84 #H 0.700-1.30 mg/dL Glomerular Filtration Rate Calc 10 >90 mL/min BUN/Creatinine Ratio 4.5 L 10.0-20.0 Serum Glucose 90 74-106 mg/dL Lactic Acid Level 0.6 0.4-2.0 mmol/L Calcium Level 8.6 L 8.7-10.4 mg/dL Total Bilirubin 0.5 0.2-1.0 mg/dL Aspartate Amino Transferase (AST) 23 13-40 U/L Alanine Aminotransferase (ALT) < 9 7-40 U/L Alkaline Phosphatase 144 H 46-116 U/L Total Protein 5.5 L 5.7-8.2 g/dL Albumin 3.0 L 3.2-4.8 g/dL Urine Color Yellow Yellow Urine Clarity Clear Clear Urine pH 8.0 5.0-9.0 Urine Specific [place] 1.011 1.001-1.035 Urine Protein 3+ H Negative Urine Ketones Negative Negative Urine Blood Negative Negative /uL Urine Nitrite Negative Negative Urine Bilirubin Negative Negative Urine Urobilinogen Normal Negative mg/dL Urine Leukocyte Esterase Negative Negative /uL Urine RBC 3 0 - 3 /hpf Urine Microscopic WBC 3 0-3 /HPF Urine Squamous Epithelial Cells Few <5 /hpf Urine Bacteria Few H None Seen /hpf Urine Glucose 3+ H Normal mg/dL Current Medications Medications (Trade) Dose Ordered Sig/Alec Route Start Time Stop Time Status Last Admin Morphine Sulfate 2 mg ONCE ONCE IV 03/28/24 00:45 03/28/24 00:46 DC 03/28/24 00:59 Ondansetron HCl (Zofran) 2 mg ONCE ONCE IV 03/28/24 00:45 03/28/24 00:46 DC 03/28/24 01:00 Vancomycin HCl 250 ml @ 250 mls/hr ONCE ONCE IV 03/28/24 02:45 03/28/24 03:44 DC 03/28/24 03:45 Sodium Chloride 1,000 ml @ 100 mls/hr Q10H ONCE IV 03/28/24 02:45 03/28/24 12:44 03/28/24 03:45 Time of 1ST Reevaluation: 23:40 Reevaluation 1ST: Unchanged Patient Education/Counseling: Diagnosis, Treatment Family Education/Counseling: Diagnosis, Treatment Departure 1 Departure Time of Disposition: 02:12 Impression: Primary Impression: Necrosis of toe Additional Impressions: Hyponatremia End stage renal disease on dialysis Diabetic foot infection Disposition: ADMITTED INPATIENT Condition: Stable Comments 68-year-old male who presents to the emergency department with worsening diabetic foot infection. Antibiotics initiated in the emergency department. Patient admitted for further treatment, evaluation and monitoring. Critical Care Note Critical Care Time?: No Stability Stability form required: No Heart Score Heart Score: Heart Score Response (Comments) Value History N/A 0 EKG N/A 0 Age N/A 0 Risk Factors N/A 0 Troponin N/A 0 Total 0 I personally scribed for BRENT COOK MD ([email or web address]) on 03/28/24 at 00:48. Electronically submitted by Geovanny Leal ([email or web address]). BRENT COOK MD Mar 28, 2024 00:48
[2024-03-28] MEDS: MORPHINE SULFATE INJ 2 MG/ml SYRG IV ONE (00:59)
[2024-03-28] MEDS: ONDANSETRON HCL 4 MG/2 ML VIAL IV ONE ×2 (01:00→06:59)
--- NOTE | 2024-03-28 02:35 | DVH ---
Examination: LFTCT CLINICAL INDICATION: Left 4th toe necrosis, rule out osteomyelitis COMPARISON: None. CONTRAST USED: Intravenous. TECHNIQUE: Computed tomographic scan of the left leg was performed. The CT scan was conducted accor ding to ALARA (As Low as Reasonably Achievable) principles, with multiplanar reconstructions obtained . FINDINGS: The visualized tibia, fibula, calcaneum, tarsal, metatarsal and phalanges appear normal. No bony ero cas is seen. No evidence of soft tissue collection/hematoma seen. There is no joint effusion. No subluxation or dislocation is seen. No evidence of abnormal soft tissue calcification. Atherosclerotic arterial calcifications are seen. IMPRESSION: 1. No bony erosion is seen 2. No abscess seen. 3. Additional chronic and/or ancillary findings as detailed above. Suggest clinical correlation and follow-up as clinically deemed necessary. Electronically Signed 03/28/2024 02:35 Denis Amos
[2024-03-28] MEDS: SODIUM CHLORIDE 0.9% 1,000 ML IV ONE (03:45)
[2024-03-28] MEDS: VANCOMYCIN 1GM/250ML KIT 250 ML IV ONE (03:45)
[2024-03-28] MEDS: ceFAZolin 2 GM/D5W50ml 50 ML IV ONE (05:26)
[2024-03-28] MEDS: CEFEPIME 1GM/ 50ML 50 ML IV ONE (05:39)
[2024-03-28] MEDS: MORPHINE SULFATE 4 MG/ML SYR/VIAL IV ONE (06:59)
[2024-03-28 08:00] VITALS: PULSE 79; RESP 19; O2SAT 95
--- NOTE | 2024-03-28 08:11 | DVHHP2 ---
History of Present Illness Reason for Visit: Diabetic foot wound History of Present Illness José Luis Delgado is a 68-year-old male with past medical history of ESRD on HD, BPH, COPD, diabetes, GERD, HSV, and hypertension, who was brought in by ambulance for complaint of black discoloration and pain to 4th digit on left foot. Per EMS report, patient is a poor historian and a resident of [facility] for rehabilitation care. Patient was recently admitted for similar complaints, but came back due to toe worsening. Patient has no reported numbness, tingling, weakness, discharge, fever, chills, or other associated symptoms or modifiers at this time. Cardiovascular: CHF, HTN Pulmonary: Asthma, COPD Heme/Onc: Anemia NOS Renal/: Chronic renal failure (on HD) Endocrine: Diabetes Smoke: No ALCOHOL: none Drugs: None Lives: Long-Term Domestic Violence: Neg Review of Systems Constitutional: No: Fever, Chills, Sweats, Weakness, Malaise, Other Eyes: No: Pain, Vision change, Conjunctivae inflammation, Eyelid inflammation, Other, Redness ENT: No: Ear pain, Ear discharge, Nose pain, Nose discharge, Nose congestion, Mouth pain, Mouth swelling, Throat pain, Throat swelling, Other Respiratory: No: Cough, Dry, Shortness of breath, SOB with excertion, Wheezing, Hemoptysis, Pleuritic Pain, Sputum, Wheezing, Other Cardiovascular: No: Chest Pain, Palpitations, Orthopnea, Paroxysmal Noc. Dyspnea, Edema, Lt Headedness, Other Gastrointestinal: No: Nausea, Vomiting, Abdominal Pain, Diarrhea, Constipation, Melena, Hematochezia, Other Genitourinary: No Dysuria, No Frequency, No Incontinence, No Hematuria, No Retention, No Other Musculoskeletal: No: other, neck pain, shoulder pain, arm pain, back pain, hand pain, leg pain (Left toe wound, pain, and redness), foot pain Skin: No: Rash, Lesions, Jaundice, Bruising, Other Neurological: No: Weakness, Numbness, Incoordination, Change in speech, Confu cas, Seizures, Other Allergies: Coded Allergies: Amlodipine (Verified Allergy, Mild, "feet swelling" per pt statement on 01/07/21. , 03/28/24) ADVERSE REACTION Exam Vital Signs Vital Signs Date Time Temp Pulse Resp B/P (MAP) Pulse Ox O2 Delivery O2 Flow Rate FiO2 03/28/24 07:00 98.3 86 19 153/68 (96) 96 98.3 03/27/24 22:28 Nasal Cannula* 4 36 General Appearance: Alert, Cooperative, Other (Oriented x 1, ) HEENT: Atraumatic, PERRLA Cardiovascular: Regular rate, Normal S1, Normal S2 Abdominal: Normal bowel sounds, Soft, No tenderness, No hepatospenomegaly Extremities: No clubbing, No cyanosis, No edema Skin: No rashes Psych/Mental Status: Mood NL Labs/Xrays Labs Test 03/28/24 05:01 03/27/24 23:35 03/27/24 23:04 Range/Units POC Glucose 91 70-106 mg/dl White Blood Count 8.9 4.4-10.8 10^3/uL Red Blood Count 3.31 L 4.5-5.90 10^6/uL Hemoglobin 10.7 L 13.5-17.5 g/dL Hematocrit 31.9 L 41.0-53.0 % Mean Corpuscular Volume 96.3 80.0-100.0 fL Mean Corpuscular Hemoglobin 32.2 H 28.0-32.0 pg Mean Corpuscular Hemoglobin Concent 33.4 32.0-36.0 g/dL Red Cell Distribution Width 16.7 H 11.8-14.3 % Platelet Count 281 140-450 10^3/uL Mean Platelet Volume 6.9 6.9-10.8 fL Neutrophils (%) (Auto) 73.9 37.0-80.0 % Lymphocytes (%) (Auto) 9.5 L 10.0-50.0 % Monocytes (%) (Auto) 14.8 H 0.0-12.0 % Eosinophils (%) (Auto) 0.9 0.0-7.0 % Basophils (%) (Auto) 0.9 0.0-2.0 % Neutrophils # (Auto) 6.6 1.6-8.6 10 ^3/uL Lymphocytes # (Auto) 0.8 0.4-5.4 10 ^3/uL Monocytes # (Auto) 1.3 0-1.3 10 ^3/uL Eosinophils # (Auto) 0.1 0-0.8 10 ^3/uL Basophils # (Auto) 0.1 0-0.2 10 ^3/uL Nucleated Red Blood Cells 0.1 % Sodium Level 129 L 136-145 mmol/L Potassium Level 4.2 3.5-5.1 mmol/L Chloride Level 92 L 98-107 mmol/L Carbon Dioxide Level 29 20-31 mmol/L Anion Gap 8 5-15 Blood Urea Nitrogen 26 H 9-23 mg/dL Creatinine 5.84 #H 0.700-1.30 mg/dL Glomerular Filtration Rate Calc 10 >90 mL/min BUN/Creatinine Ratio 4.5 L 10.0-20.0 Serum Glucose 90 74-106 mg/dL Lactic Acid Level 0.6 0.4-2.0 mmol/L Calcium Level 8.6 L 8.7-10.4 mg/dL Total Bilirubin 0.5 0.2-1.0 mg/dL Aspartate Amino Transferase (AST) 23 13-40 U/L Alanine Aminotransferase (ALT) < 9 7-40 U/L Alkaline Phosphatase 144 H 46-116 U/L Total Protein 5.5 L 5.7-8.2 g/dL Albumin 3.0 L 3.2-4.8 g/dL Urine Color Yellow Yellow Urine Clarity Clear Clear Urine pH 8.0 5.0-9.0 Urine Specific [place] 1.011 1.001-1.035 Urine Protein 3+ H Negative Urine Ketones Negative Negative Urine Blood Negative Negative /uL Urine Nitrite Negative Negative Urine Bilirubin Negative Negative Urine Urobilinogen Normal Negative mg/dL Urine Leukocyte Esterase Negative Negative /uL Urine RBC 3 0 - 3 /hpf Urine Microscopic WBC 3 0-3 /HPF Urine Squamous Epithelial Cells Few <5 /hpf Urine Bacteria Few H None Seen /hpf Urine Glucose 3+ H Normal mg/dL Examination: LFTCT FINDINGS: The visualized tibia, fibula, calcaneum, tarsal, metatarsal and phalanges appear normal. No bony erosion is seen. No evidence of soft tissue collection/hematoma seen. There is no joint effusion. No subluxation or dislocation is seen. No evidence of abnormal soft tissue calcification. Atherosclerotic arterial calcifications are seen. IMPRESSION: 1. No bony erosion is seen 2. No abscess seen. 3. Additional chronic and/or ancillary findings as detailed above. Assessment/Plan Assessment/Plan Assessment: Diabetic foot infection, Balanitis, ESRD on HD, Hypertension, BPH, Diabetes, Plan: Admit to Tele, Nephrology consult, Podiatry consult, Urology consult, IV antibiotics, IV hydration, Wound care consult, Accu checks Q AC&HS with sliding scale coverage, Home medications reconciled, Plan discussed with: Patient My Orders Orders - FREYA GALVAN Procedure Category Date Status Time Admit ADMIT 03/28/24 Transmitted 08:07 Code Status CODE 03/28/24 Transmitted 08:07 Renal DIET 03/28/24 Transmitted Standard(2gna,3gk,Lopho) Breakfast Sodium Chloride Lock PHA 03/28/24 Transmitted (Saline Lock Ns) 14:00 Hydrocodone-Acet PHA 03/28/24 Transmitted 5/325mg Tab ([place] 08:15 Ondansetron Hcl PHA 03/28/24 Transmitted (Zofran) 08:15 Docusate Sodium PHA 03/28/24 Transmitted Capsule (Colace 08:15 Fall Risk Precautions SANDRA 03/28/[address] 08:07 Complete Blood Count LAB 03/29/24 Verified 04:00 Comprehensive LAB 03/29/24 Verified Metabolic Panel 04:00 Condition: Critical SANDRA 03/28/24 Transmitted 08:07 Acetaminophen Tablet PHA 03/28/24 Transmitted (Tylenol Tablet) 08:15 Nitroglycerin PHA 03/28/24 Transmitted Sublingual (Ntrostat 08:15 Morphine Sulfate PHA 03/28/24 Transmitted Injection 08:15 Stat Ekg For Chest SANDRA 03/28/24 Transmitted Pain 08:07 Notify Md Of Changes [facility] 03/28/24 Transmitted From Base 08:07 Patient Monitor For [facility] 03/28/24 Transmitted 24 Hours 08:07 Emergency Dysrhythmia SANDRA 03/28/24 Transmitted Protocol 08:07 Rhythm Strips Once SANDRA 03/28/24 Transmitted Every Shift 08:07 Oxygen By Nasal RT 03/28/24 Transmitted Cannula 08:07 Date of Service: Mar 28, 2024 Billing Provider: FREYA GALVAN Common Visit Codes: [id number] INP/OBS CARE (MOD) FREYA GALVAN Mar 28, 2024 08:11
[2024-03-28] MEDS ORDERED: DEXTROSE (50%) 50ML SYRG IV PRN (08:15)
[2024-03-28] MEDS ORDERED: NITROGLYCERIN 0.4 MG SL TAB SL PRN (08:15)
[2024-03-28] MEDS: PATIROMER SORBITEX CALCIUM 8.4 GM PO SCH (10:00)
[2024-03-28] MEDS: FOLIC ACID PO SCH (10:00)
[2024-03-28] MEDS: GABAPENTIN 300 MG CAP PO SCH (10:00)
[2024-03-28] MEDS: [UNRECOGNIZED DRUG - OTHER] PO SCH (10:00)
[2024-03-28] MEDS: B COMPLEX PO SCH (10:00)
[2024-03-28] MEDS: CEFEPIME 1GM/ 50ML 50 ML IV SCH (11:57)
[2024-03-28] MEDS: ACCU-CHEK COMFORT CURVE STRIP VI SCH (11:58)
[2024-03-28] MEDS: ACYCLOVIR 400 MG TAB PO SCH (11:58)
[2024-03-28] MEDS: TAMSULOSIN HYDROCHLORIDE 0.4 MG CAP PO SCH (11:58)
[2024-03-28] MEDS: FERRIC CITRATE 210 MG PO SCH (12:00)
[2024-03-28] MEDS: InsuLIN REG 1unit/0.01ml Soln (100units/ml) SC SCH ×2 (12:01→22:00)
--- NOTE | 2024-03-28 13:20 | DVHINCON2 ---
Date of service: Mar 28, 2024 Referring Physician hospitalist Reason for Consultation irwintis History of Present Illness History Source: Patient, RN Notes, Notes HPI 68-year-old male is brought in by ambulance with spouse for complaint of black discoloration and pain to 4th digit on left foot, today. Per EMS report, patient is a poor historian and a resident of [facility] for rehabilitation care following recent injury to said digit and was brought in after staff called, endorsing on it not healing well. Patient has a Hx of anemia, asthma, BPH, CHF, COPD, DM, ESRD on hemodialysis, GERD, HTN, and HSV. Patient has no reported numbness, tingling, weakness, discharge, fever, chills, or other associated symptoms or modifiers at this time. pt is complaining of rash to glans. Home Meds Active Scripts Dextromethorphan-Guaifenesin (Robitussin-Dm) 10 Ml Sr, 10 ML PO TID, #180 SYP Prov:ANDRAE RYAN MD 07/06/23 Acyclovir (ZOVIRAX TABLET) 400 Mg Tb, 1 TAB PO BID, #14 TAB 11 Refills Prov:ANDRAE RYAN MD 07/06/23 Reported Medications Patiromer Sorbitex Calcium (Veltassa) 8.4 Gm Pow, 8.4 GM PO DAILY, POW 07/27/23 Ferric Citrate (Auryxia) 210 Mg Tab, 2 TAB PO TIDWM, TAB 07/27/23 Clonidine Hydrochloride (Clonidine Hcl) 0.1 Mg Tab, 0.1 MG PO BID, MG 07/27/23 Gabapentin (Gabapentin) 300 Mg Cap, 300 MG PO DAILY for ZOSTER UNCOMPLICATED, MG 07/27/23 Tamsulosin Hcl (Tamsulosin Hcl) 0.4 Mg Cap, 0.4 MG PO DAILY for Urine Retension for 30 Days, MG 07/26/23 Sevelamer Hydrochloride (Sevelamer Hydrochloride) 800 Mg Tab, 2 TAB PO TID 07/06/23 Hydralazine Hcl (Hydralazine Hcl) 50 Mg Tab, 1 TAB PO TID 07/06/23 B-Complex W/ C & Folic Acid (Blanka-Meredith) Tab, 1 TAB PO DAILY, TAB 01/14/22 Lisinopril (Lisinopril) 40 Mg Tab, 40 MG PO DAILY, MG 01/14/22 Atenolol (Atenolol) 50 Mg Tab, 50 MG PO EOD 01/04/21 Past Medical History Renal/: Benign prostatic enlarg. Endocrine: NIDDM Patient Family History: Bronchitis G8 MOTHER FH: breast cancer G8 MOTHER FH: diabetes mellitus G8 MOTHER G8 FATHER FH: hypertension G8 MOTHER G8 FATHER FH: smoking G8 MOTHER Review of Systems Constitutional: Other (fatigue) Genitourinary: Pain, Other (rash to penis) H&P Exam Vital Signs Vital Signs Date Time Temp Pulse Resp B/P (MAP) Pulse Ox O2 Delivery O2 Flow Rate FiO2 03/28/24 12:15 75 15 117/65 (82) 95 03/28/24 08:00 98.5 98.5 03/27/24 22:28 Nasal Cannula* 4 36 General Appeara: Well developed, Well nourished, Normal Appearance Pulmonary/Respiratory: Normal inspection, Normal breath sounds, Chest non- tender, Lungs clear Cardiovascular/Chest: Normal inspection, Regular rate, Normal Rhythm Male Genital Exam: Other (whie atrophic sclerotic plaques on the glans without phimosis. foreskin is not involved. ) Neuro/Mental St: Alert, Oriented Appearance: Appropriate appearance, Appropriate insight Skin Exam: Normal inspection, Normal color, Warm/dry Labs/Xrays Labs Test 03/28/24 10:47 03/27/24 23:35 03/27/24 23:04 Range/Units POC Glucose 132 H 70-106 mg/dl White Blood Count 8.9 4.4-10.8 10^3/uL Red Blood Count 3.31 L 4.5-5.90 10^6/uL Hemoglobin 10.7 L 13.5-17.5 g/dL Hematocrit 31.9 L 41.0-53.0 % Mean Corpuscular Volume 96.3 80.0-100.0 fL Mean Corpuscular Hemoglobin 32.2 H 28.0-32.0 pg Mean Corpuscular Hemoglobin Concent 33.4 32.0-36.0 g/dL Red Cell Distribution Width 16.7 H 11.8-14.3 % Platelet Count 281 140-450 10^3/uL Mean Platelet Volume 6.9 6.9-10.8 fL Neutrophils (%) (Auto) 73.9 37.0-80.0 % Lymphocytes (%) (Auto) 9.5 L 10.0-50.0 % Monocytes (%) (Auto) 14.8 H 0.0-12.0 % Eosinophils (%) (Auto) 0.9 0.0-7.0 % Basophils (%) (Auto) 0.9 0.0-2.0 % Neutrophils # (Auto) 6.6 1.6-8.6 10 ^3/uL Lymphocytes # (Auto) 0.8 0.4-5.4 10 ^3/uL Monocytes # (Auto) 1.3 0-1.3 10 ^3/uL Eosinophils # (Auto) 0.1 0-0.8 10 ^3/uL Basophils # (Auto) 0.1 0-0.2 10 ^3/uL Nucleated Red Blood Cells 0.1 % Sodium Level 129 L 136-145 mmol/L Potassium Level 4.2 3.5-5.1 mmol/L Chloride Level 92 L 98-107 mmol/L Carbon Dioxide Level 29 20-31 mmol/L Anion Gap 8 5-15 Blood Urea Nitrogen 26 H 9-23 mg/dL Creatinine 5.84 #H 0.700-1.30 mg/dL Glomerular Filtration Rate Calc 10 >90 mL/min BUN/Creatinine Ratio 4.5 L 10.0-20.0 Serum Glucose 90 74-106 mg/dL Lactic Acid Level 0.6 0.4-2.0 mmol/L Calcium Level 8.6 L 8.7-10.4 mg/dL Total Bilirubin 0.5 0.2-1.0 mg/dL Aspartate Amino Transferase (AST) 23 13-40 U/L Alanine Aminotransferase (ALT) < 9 7-40 U/L Alkaline Phosphatase 144 H 46-116 U/L Total Protein 5.5 L 5.7-8.2 g/dL Albumin 3.0 L 3.2-4.8 g/dL Urine Color Yellow Yellow Urine Clarity Clear Clear Urine pH 8.0 5.0-9.0 Urine Specific [place] 1.011 1.001-1.035 Urine Protein 3+ H Negative Urine Ketones Negative Negative Urine Blood Negative Negative /uL Urine Nitrite Negative Negative Urine Bilirubin Negative Negative Urine Urobilinogen Normal Negative mg/dL Urine Leukocyte Esterase Negative Negative /uL Urine RBC 3 0 - 3 /hpf Urine Microscopic WBC 3 0-3 /HPF Urine Squamous Epithelial Cells Few <5 /hpf Urine Bacteria Few H None Seen /hpf Urine Glucose 3+ H Normal mg/dL Assessment/Plan Problem List: (1) 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
--- NOTE | 2024-03-28 13:22 | DVHINCON2 ---
Date of service: Mar 28, 2024 Referring Physician BHAVIN Spence History of Present Illness 68-year-old male is brought in by ambulance c/o black discoloration and pain to 4th digit on left foot.. Per EMS report, patient is a poor historian and a resident of [facility] for rehabilitation care following recent injury to toe. PMHx of asthma, BPH, CHF, COPD, DM, ESRD, GERD, HTN, and HSV. Patient has no reported numbness, tingling, weakness, discharge, fever, chills, or other associated symptoms or modifiers at this time. Labs show findings consistent with ESRD status. Past Medical History ESRD HTN Hyperlipidemia Anemia Past Surgical History HD access creation. Allergies: Coded Allergies: Amlodipine (Verified Allergy, Mild, "feet swelling" per pt statement on 01/07/21. , 03/28/24) ADVERSE REACTION Home Meds Active Scripts Dextromethorphan-Guaifenesin (Robitussin-Dm) 10 Ml Sr, 10 ML PO TID, #180 SYP Prov:ANDRAE RYAN MD 07/06/23 Acyclovir (ZOVIRAX TABLET) 400 Mg Tb, 1 TAB PO BID, #14 TAB 11 Refills Prov:ANDRAE RYAN MD 07/06/23 Reported Medications Patiromer Sorbitex Calcium (Veltassa) 8.4 Gm Pow, 8.4 GM PO DAILY, POW 07/27/23 Ferric Citrate (Auryxia) 210 Mg Tab, 2 TAB PO TIDWM, TAB 07/27/23 Clonidine Hydrochloride (Clonidine Hcl) 0.1 Mg Tab, 0.1 MG PO BID, MG 07/27/23 Gabapentin (Gabapentin) 300 Mg Cap, 300 MG PO DAILY for ZOSTER UNCOMPLICATED, MG 07/27/23 Tamsulosin Hcl (Tamsulosin Hcl) 0.4 Mg Cap, 0.4 MG PO DAILY for Urine Retension for 30 Days, MG 07/26/23 Sevelamer Hydrochloride (Sevelamer Hydrochloride) 800 Mg Tab, 2 TAB PO TID 07/06/23 Hydralazine Hcl (Hydralazine Hcl) 50 Mg Tab, 1 TAB PO TID 07/06/23 B-Complex W/ C & Folic Acid (Blanka-Meredith) Tab, 1 TAB PO DAILY, TAB 01/14/22 Lisinopril (Lisinopril) 40 Mg Tab, 40 MG PO DAILY, MG 01/14/22 Atenolol (Atenolol) 50 Mg Tab, 50 MG PO EOD 01/04/21 Current Medications Current Medications Medications (Trade) Dose Ordered Sig/Alec Route PRN Reason Start Time Stop Time Status Last Admin Sodium Chloride (Saline Lock Ns) 10 ml Q8HR IV 03/28/24 14:00 03/28/24 18:12 Acetaminophen/ Hydrocodone Bitart (Kramer 5/325MG Tab) 1 tab Q4HP PRN PO MODERATE PAIN (4-6 PAIN SCALE) 03/28/24 08:15 03/28/24 20:26 Ondansetron HCl (Zofran) 4 mg Q4HP PRN IV NAUSEA / VOMITING 03/28/24 08:15 Docusate Sodium (Colace Capsule) 100 mg BIDPRN PRN PO FOR CONSTIPATION 03/28/24 08:15 Acetaminophen (Tylenol Tablet) 650 mg Q6HP PRN PO PAIN SCALE 1-3 OR TEMP>100.4 03/28/24 08:15 Nitroglycerin (Ntrostat Sublingual) 0.4 mg Q5MINP PRN SL FOR CHEST PAIN 03/28/24 08:15 Morphine Sulfate 2 mg Q30M PRN IV FOR CHEST PAIN 03/28/24 08:15 Diagnostic Test (Pha) (Accu-Chek Comfort Curve T) 1 strip ACHS 03/28/24 11:30 03/28/24 18:12 Insulin Human Regular (InsuLIN R) HS SC 03/28/24 22:00 Insulin Human Regular (InsuLIN R) AC SC 03/28/24 11:30 03/28/24 12:01 Dextrose 50 ml UD PRN IV Blood Sugar LESS THAN 60 03/28/24 08:15 Cefepime HCl 50 ml @ 12.5 mls/hr DAILY IV 03/28/24 10:00 03/28/24 11:57 Acyclovir (Zovirax Tablet) 400 mg BID PO 03/28/24 10:00 03/28/24 11:58 Gabapentin (Neurontin Capsule) 300 mg DAILY PO 03/28/24 10:00 Hold Sevelamer HCl (Renagel) 1,600 mg TID PO 03/28/24 14:00 03/28/24 18:15 Tamsulosin HCl (Flomax) 0.4 mg DAILY PO 03/28/24 10:00 03/28/24 11:58 Patient Own Medication 1 tab DAILY PO 03/28/24 10:00 Patient Own Medication 2 tab TIDWM PO 03/28/24 12:00 Patient Own Medication 8.4 gm DAILY PO 03/28/24 10:00 Betamethasone Dipropion Augmented (Diprosone 0.05% Cream) 1 applic BID TOP 03/28/24 22:00 Vancomycin HCl 0 ml @ 0 mls/hr UD IV 03/28/24 14:30 Family History: Bronchitis G8 MOTHER FH: breast cancer G8 MOTHER FH: diabetes mellitus G8 MOTHER G8 FATHER FH: hypertension G8 MOTHER G8 FATHER FH: smoking G8 MOTHER Social History Denies smoking, alcohol or drug abuse. Review of Systems A ten point review of system was reviewed and as per HPI or negative. H&P Exam Vital Signs/I&O Vital Sign Date Time Temp Pulse Resp B/P (MAP) Pulse Ox O2 Delivery O2 Flow Rate FiO2 03/28/24 20:00 71 18 93 Nasal Cannula* 2 28 03/28/24 20:00 98.3 145/73 (97) 98.3 Intake and Output 03/27/24 03/28/24 19:00 07:00 Intake Total 462.5 ml Balance 462.5 ml Intake IV Total 462.5 ml Physical Exam General Appearance: Alert, Cooperative, Other (Oriented x 1, ) HEENT: Atraumatic, PERRLA Cardiovascular: Regular rate, Normal S1, Normal S2 Abdominal: Normal bowel sounds, Soft, No tenderness, No hepatospenomegaly Extremities: Left foot discoloration and gangrene of the 4th toe with edema and erythema that is up to the ankle Skin: No rashes Psych/Mental Status: Mood NL Access: Right forearm AVF +thirll and bruit. Labs/Diagnostic Data Labs/Diagnostic Data Laboratory Tests Test 03/28/24 18:07 03/28/24 10:47 03/28/24 05:01 03/27/24 23:35 Range/Units POC Glucose 104 132 H 91 70-106 mg/dl White Blood Count 8.9 4.4-10.8 10^3/uL Red Blood Count 3.31 L 4.5-5.90 10^6/uL Hemoglobin 10.7 L 13.5-17.5 g/dL Hematocrit 31.9 L 41.0-53.0 % Mean Corpuscular Volume 96.3 80.0-100.0 fL Mean Corpuscular Hemoglobin 32.2 H 28.0-32.0 pg Mean Corpuscular Hemoglobin Concent 33.4 32.0-36.0 g/dL Red Cell Distribution Width 16.7 H 11.8-14.3 % Platelet Count 281 140-450 10^3/uL Mean Platelet Volume 6.9 6.9-10.8 fL Neutrophils (%) (Auto) 73.9 37.0-80.0 % Lymphocytes (%) (Auto) 9.5 L 10.0-50.0 % Monocytes (%) (Auto) 14.8 H 0.0-12.0 % Eosinophils (%) (Auto) 0.9 0.0-7.0 % Basophils (%) (Auto) 0.9 0.0-2.0 % Neutrophils # (Auto) 6.6 1.6-8.6 10 ^3/uL Lymphocytes # (Auto) 0.8 0.4-5.4 10 ^3/uL Monocytes # (Auto) 1.3 0-1.3 10 ^3/uL Eosinophils # (Auto) 0.1 0-0.8 10 ^3/uL Basophils # (Auto) 0.1 0-0.2 10 ^3/uL Nucleated Red Blood Cells 0.1 % Sodium Level 129 L 136-145 mmol/L Potassium Level 4.2 3.5-5.1 mmol/L Chloride Level 92 L 98-107 mmol/L Carbon Dioxide Level 29 20-31 mmol/L Anion Gap 8 5-15 Blood Urea Nitrogen 26 H 9-23 mg/dL Creatinine 5.84 #H 0.700-1.30 mg/dL Glomerular Filtration Rate Calc 10 >90 mL/min BUN/Creatinine Ratio 4.5 L 10.0-20.0 Serum Glucose 90 74-106 mg/dL Lactic Acid Level 0.6 0.4-2.0 mmol/L Calcium Level 8.6 L 8.7-10.4 mg/dL Total Bilirubin 0.5 0.2-1.0 mg/dL Aspartate Amino Transferase (AST) 23 13-40 U/L Alanine Aminotransferase (ALT) < 9 7-40 U/L Alkaline Phosphatase 144 H 46-116 U/L Total Protein 5.5 L 5.7-8.2 g/dL Albumin 3.0 L 3.2-4.8 g/dL Test 03/27/24 23:04 Range/Units Urine Color Yellow Yellow Urine Clarity Clear Clear Urine pH 8.0 5.0-9.0 Urine Specific [place] 1.011 1.001-1.035 Urine Protein 3+ H Negative Urine Ketones Negative Negative Urine Blood Negative Negative /uL Urine Nitrite Negative Negative Urine Bilirubin Negative Negative Urine Urobilinogen Normal Negative mg/dL Urine Leukocyte Esterase Negative Negative /uL Urine RBC 3 0 - 3 /hpf Urine Microscopic WBC 3 0-3 /HPF Urine Squamous Epithelial Cells Few <5 /hpf Urine Bacteria Few H None Seen /hpf Urine Glucose 3+ H Normal mg/dL CT foot: No osteo Assessment Assessment: ESRD on HD Left foot 4th digit gangrene with cellulitis Hypertension GERD Type 2 diabetes BPH Balanitis xerotica obliterans Acute metabolic encephalopathy Plan plan and recommendations: Broad-spectrum antibiotics, renally dosed for EGFR less than 10 mL/min. Dialysis will be program for tomorrow and follow TTS schedule LAUREL for goal hemoglobin 10-11 Fluid restriction less than 1 L/day Resume antihypertensive meds Podiatry consultation appreciated Thank you very much for the consultation Plan discussed with: Patient LONNIE GASPAR MD Mar 28, 2024 13:21
--- NOTE | 2024-03-28 14:23 | DVHPN2 ---
Subjective 68-year-old male with a history of end-stage renal disease on hemodialysis who was at [facility] for rehab and was sent here because of black discoloration of the 4th digit of the left foot that he sustained before for an recent injury to that foot however it looks worse now with spreading edema of the foot and erythema. He is confused, not able to give any history at this time Changes from previous H/P or p: Changes Objective Vitals Vital Signs Date Time Temp Pulse Resp B/P (MAP) Pulse Ox O2 Delivery O2 Flow Rate FiO2 03/28/24 12:15 75 15 117/65 (82) 95 03/28/24 08:00 98.5 98.5 03/27/24 22:28 Nasal Cannula* 4 36 Intake/Output Intake and Output 03/28/24 07:00 Intake Total 462.5 ml Balance 462.5 ml Intake IV Total 462.5 ml General Appearance: Alert, Other (Disoriented) Lungs: Other (Bilateral rhonchi) Cardiovascular: Regular rate, Normal S1 Abdomen: Normal bowel sounds, Soft, No tenderness Extremities: No edema, Other (Left foot discoloration and gangrene of the 4th toe with edema and erythema that is up to the ankle) Medications Current Medications Medications Dose Ordered Sig/Alec Route Start Time Stop Time Status Last Admin Dose Admin Sodium Chloride 10 ml Q8HR IV 03/28/24 14:00 Acetaminophen/ Hydrocodone Bitart 1 tab Q4HP PRN PO 03/28/24 08:15 Ondansetron HCl 4 mg Q4HP PRN IV 03/28/24 08:15 Docusate Sodium 100 mg BIDPRN PRN PO 03/28/24 08:15 Acetaminophen 650 mg Q6HP PRN PO 03/28/24 08:15 Nitroglycerin 0.4 mg Q5MINP PRN SL 03/28/24 08:15 Morphine Sulfate 2 mg Q30M PRN IV 03/28/24 08:15 Diagnostic Test (Pha) 1 strip ACHS 03/28/24 11:30 03/28/24 11:58 1 STRIP Insulin Human Regular HS SC 03/28/24 22:00 Insulin Human Regular AC SC 03/28/24 11:30 03/28/24 12:01 2 UNITS Dextrose 50 ml UD PRN IV 03/28/24 08:15 Cefepime HCl 50 ml @ 12.5 mls/hr DAILY IV 03/28/24 10:00 03/28/24 11:57 12.5 MLS/HR Acyclovir 400 mg BID PO 03/28/24 10:00 03/28/24 11:58 400 MG Gabapentin 300 mg DAILY PO 03/28/24 10:00 Hold Sevelamer HCl 1,600 mg TID PO 03/28/24 14:00 Tamsulosin HCl 0.4 mg DAILY PO 03/28/24 10:00 03/28/24 11:58 0.4 MG Patient Own Medication 1 tab DAILY PO 03/28/24 10:00 Patient Own Medication 2 tab TIDWM PO 03/28/24 12:00 Patient Own Medication 8.4 gm DAILY PO 03/28/24 10:00 Betamethasone Dipropion Augmented 1 applic BID TOP 03/28/24 22:00 Laboratory Results Laboratory Tests 03/27/24 23:35 Chemistry Test 03/27/24 23:35 Albumin 3.0 g/dL (3.2-4.8) L Calcium Level 8.6 mg/dL (8.7-10.4) L Total Protein 5.5 g/dL (5.7-8.2) L LFT Test 03/27/24 23:35 Alanine Aminotransferase (ALT) < 9 U/L (7-40) Alkaline Phosphatase 144 U/L (46-116) H Aspartate Amino Transferase (AST) 23 U/L (13-40) Total Bilirubin 0.5 mg/dL (0.2-1.0) Urinalysis Test 03/27/24 23:04 Urine Color Yellow (Yellow) Urine Clarity Clear (Clear) Urine pH 8.0 (5.0-9.0) Urine Specific [place] 1.011 (1.001-1.035) Urine Protein 3+ (Negative) H Urine Ketones Negative (Negative) Urine Blood Negative /uL (Negative) Urine Nitrite Negative (Negative) Urine Bilirubin Negative (Negative) Urine Urobilinogen Normal mg/dL (Negative) Urine Leukocyte Esterase Negative /uL (Negative) Urine RBC 3 /hpf (0 - 3) Urine Microscopic WBC 3 /HPF (0-3) Urine Squamous Epithelial Cells Few /hpf (<5) Urine Bacteria Few /hpf (None Seen) H Urine Glucose 3+ mg/dL (Normal) H Assessment/Plan Assessment/Plan Left foot cellulitis Left foot 4th digit gangrene End-stage renal disease on hemodialysis Hypertension GERD Type 2 diabetes BPH Balanitis xerotica obliterans Acute metabolic encephalopathy Plan Broad-spectrum antibiotics with vancomycin and cefepime Infectious disease consult Nephrology consult for hemodialysis Urology consult was done, recommended medical management Podiatry consult Monitor closely Full code Advance directives discussed for 15 minute Plan discussed with: Patient, Other My Orders Orders - FRANKIE SANCHEZ MD Procedure Category Date Status Time *Podiatry Consult CONS 03/28/24 Transmitted [facility]) 14:17 * Infectious [place]- CONS 03/28/24 Transmitted Jayce Krishna 14:17 Vancomycin Per PHA 03/28/24 Verified Pharmacy 14:30 Date of Service: Mar 28, 2024 Billing Provider: FRANKIE SANCHEZ MD Common Visit Codes: [id number] INP/OBS CARE(HIGH) Secondary Visit Codes: [id number] CARE PLAN 30 MINUTES FRANKIE SANCHEZ MD Mar 28, 2024 14:23
[2024-03-28] MEDS ORDERED: VANCOMYCIN PER PHARMACY 0 MG IV SCH (14:30)
--- NOTE | 2024-03-28 16:42 | DVHINCON2 ---
Date Seen: Mar 28, 2024 Reason for Consultation Left foot wound History of Present Illness José Luis Delgado is a 68-year-old male with past medical history of ESRD on HD, BPH, COPD, diabetes, GERD, HSV, and hypertension, who was brought in by ambulance for complaint of black discoloration and pain to 4th digit on left foot. Per EMS report, patient is a poor historian and a resident of [facility] for rehabilitation care. Patient was recently admitted for similar complaints, but came back due to toe worsening. Patient has no reported numbness, tingling, weakness, discharge, fever, chills, or other associated symptoms or modifiers at this time. Past Medical History See H&P Past Surgical History See H&P Family History: Bronchitis G8 MOTHER FH: breast cancer G8 MOTHER FH: diabetes mellitus G8 MOTHER G8 FATHER FH: hypertension G8 MOTHER G8 FATHER FH: smoking G8 MOTHER Allergies: Coded Allergies: Amlodipine (Verified Allergy, Mild, "feet swelling" per pt statement on 01/07/21. , 03/28/24) ADVERSE REACTION Home Meds Active Scripts Dextromethorphan-Guaifenesin (Robitussin-Dm) 10 Ml Sr, 10 ML PO TID, #180 SYP Prov:ANDRAE RYAN MD 07/06/23 Acyclovir (ZOVIRAX TABLET) 400 Mg Tb, 1 TAB PO BID, #14 TAB 11 Refills Prov:ANDRAE RYAN MD 07/06/23 Reported Medications Patiromer Sorbitex Calcium (Veltassa) 8.4 Gm Pow, 8.4 GM PO DAILY, POW 07/27/23 Ferric Citrate (Auryxia) 210 Mg Tab, 2 TAB PO TIDWM, TAB 07/27/23 Clonidine Hydrochloride (Clonidine Hcl) 0.1 Mg Tab, 0.1 MG PO BID, MG 07/27/23 Gabapentin (Gabapentin) 300 Mg Cap, 300 MG PO DAILY for ZOSTER UNCOMPLICATED, MG 07/27/23 Tamsulosin Hcl (Tamsulosin Hcl) 0.4 Mg Cap, 0.4 MG PO DAILY for Urine Retension for 30 Days, MG 07/26/23 Sevelamer Hydrochloride (Sevelamer Hydrochloride) 800 Mg Tab, 2 TAB PO TID 07/06/23 Hydralazine Hcl (Hydralazine Hcl) 50 Mg Tab, 1 TAB PO TID 07/06/23 B-Complex W/ C & Folic Acid (Blanka-Meredith) Tab, 1 TAB PO DAILY, TAB 01/14/22 Lisinopril (Lisinopril) 40 Mg Tab, 40 MG PO DAILY, MG 01/14/22 Atenolol (Atenolol) 50 Mg Tab, 50 MG PO EOD 01/04/21 Current Medications Current Medications Medications (Trade) Dose Ordered Sig/Alec Route PRN Reason Start Time Stop Time Status Last Admin Sodium Chloride (Saline Lock Ns) 10 ml Q8HR IV 03/28/24 14:00 Acetaminophen/ Hydrocodone Bitart (Edwards 5/325MG Tab) 1 tab Q4HP PRN PO MODERATE PAIN (4-6 PAIN SCALE) 03/28/24 08:15 Ondansetron HCl (Zofran) 4 mg Q4HP PRN IV NAUSEA / VOMITING 03/28/24 08:15 Docusate Sodium (Colace Capsule) 100 mg BIDPRN PRN PO FOR CONSTIPATION 03/28/24 08:15 Acetaminophen (Tylenol Tablet) 650 mg Q6HP PRN PO PAIN SCALE 1-3 OR TEMP>100.4 03/28/24 08:15 Nitroglycerin (Ntrostat Sublingual) 0.4 mg Q5MINP PRN SL FOR CHEST PAIN 03/28/24 08:15 Morphine Sulfate 2 mg Q30M PRN IV FOR CHEST PAIN 03/28/24 08:15 Diagnostic Test (Pha) (Accu-Chek Comfort Curve T) 1 strip ACHS 03/28/24 11:30 03/28/24 11:58 Insulin Human Regular (InsuLIN R) HS SC 03/28/24 22:00 Insulin Human Regular (InsuLIN R) AC SC 03/28/24 11:30 03/28/24 12:01 Dextrose 50 ml UD PRN IV Blood Sugar LESS THAN 60 03/28/24 08:15 Cefepime HCl 50 ml @ 12.5 mls/hr DAILY IV 03/28/24 10:00 03/28/24 11:57 Acyclovir (Zovirax Tablet) 400 mg BID PO 03/28/24 10:00 03/28/24 11:58 Gabapentin (Neurontin Capsule) 300 mg DAILY PO 03/28/24 10:00 Hold Sevelamer HCl (Renagel) 1,600 mg TID PO 03/28/24 14:00 Tamsulosin HCl (Flomax) 0.4 mg DAILY PO 03/28/24 10:00 03/28/24 11:58 Patient Own Medication 1 tab DAILY PO 03/28/24 10:00 Patient Own Medication 2 tab TIDWM PO 03/28/24 12:00 Patient Own Medication 8.4 gm DAILY PO 03/28/24 10:00 Betamethasone Dipropion Augmented (Diprosone 0.05% Cream) 1 applic BID TOP 03/28/24 22:00 Vancomycin HCl 0 ml @ 0 mls/hr UD IV 03/28/24 14:30 Vital Signs Vital Signs Date Time Temp Pulse Resp B/P (MAP) Pulse Ox O2 Delivery O2 Flow Rate FiO2 03/28/24 14:30 68 14 114/61 (78) 95 03/28/24 08:00 Nasal Cannula* 2 28 03/28/24 08:00 98.5 98.5 Physical Exam DERMATOLOGIC EXAM: - Skin is dry and cool to the touch dry bilaterally. - Nails 1-5 of the bilateral foot are thickened, discolored, dystrophic, and tender to palpate with subungual debris - Hair loss noted to bilateral feet - necrosis of the 4th digit on the left foot VASCULAR EXAM: - DP and PT pulses are palpable bilaterally. 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 - Feet are cool to touch compared to lower legs bilaterally. NEUROLOGIC EXAM: - Normal light touch sensation to the superficial peroneal, deep peroneal, sural, saphenous, and tibial nerve branches. - Protective sensation is diminished as tested with a 5.07 10g [place] bilaterally. MUSCULOSKELETAL EXAM: - No gross deformities - Muscle strength is 5/5 and active motion is pain-free and symmetrical bilaterally - No pain or crepitation with passive range of motion bilaterally to all major pedal joints Labs/Diagnostic Data Labs Test 03/28/24 10:47 03/27/24 23:35 03/27/24 23:04 Range/Units POC Glucose 132 H 70-106 mg/dl White Blood Count 8.9 4.4-10.8 10^3/uL Red Blood Count 3.31 L 4.5-5.90 10^6/uL Hemoglobin 10.7 L 13.5-17.5 g/dL Hematocrit 31.9 L 41.0-53.0 % Mean Corpuscular Volume 96.3 80.0-100.0 fL Mean Corpuscular Hemoglobin 32.2 H 28.0-32.0 pg Mean Corpuscular Hemoglobin Concent 33.4 32.0-36.0 g/dL Red Cell Distribution Width 16.7 H 11.8-14.3 % Platelet Count 281 140-450 10^3/uL Mean Platelet Volume 6.9 6.9-10.8 fL Neutrophils (%) (Auto) 73.9 37.0-80.0 % Lymphocytes (%) (Auto) 9.5 L 10.0-50.0 % Monocytes (%) (Auto) 14.8 H 0.0-12.0 % Eosinophils (%) (Auto) 0.9 0.0-7.0 % Basophils (%) (Auto) 0.9 0.0-2.0 % Neutrophils # (Auto) 6.6 1.6-8.6 10 ^3/uL Lymphocytes # (Auto) 0.8 0.4-5.4 10 ^3/uL Monocytes # (Auto) 1.3 0-1.3 10 ^3/uL Eosinophils # (Auto) 0.1 0-0.8 10 ^3/uL Basophils # (Auto) 0.1 0-0.2 10 ^3/uL Nucleated Red Blood Cells 0.1 % Sodium Level 129 L 136-145 mmol/L Potassium Level 4.2 3.5-5.1 mmol/L Chloride Level 92 L 98-107 mmol/L Carbon Dioxide Level 29 20-31 mmol/L Anion Gap 8 5-15 Blood Urea Nitrogen 26 H 9-23 mg/dL Creatinine 5.84 #H 0.700-1.30 mg/dL Glomerular Filtration Rate Calc 10 >90 mL/min BUN/Creatinine Ratio 4.5 L 10.0-20.0 Serum Glucose 90 74-106 mg/dL Lactic Acid Level 0.6 0.4-2.0 mmol/L Calcium Level 8.6 L 8.7-10.4 mg/dL Total Bilirubin 0.5 0.2-1.0 mg/dL Aspartate Amino Transferase (AST) 23 13-40 U/L Alanine Aminotransferase (ALT) < 9 7-40 U/L Alkaline Phosphatase 144 H 46-116 U/L Total Protein 5.5 L 5.7-8.2 g/dL Albumin 3.0 L 3.2-4.8 g/dL Urine Color Yellow Yellow Urine Clarity Clear Clear Urine pH 8.0 5.0-9.0 Urine Specific [place] 1.011 1.001-1.035 Urine Protein 3+ H Negative Urine Ketones Negative Negative Urine Blood Negative Negative /uL Urine Nitrite Negative Negative Urine Bilirubin Negative Negative Urine Urobilinogen Normal Negative mg/dL Urine Leukocyte Esterase Negative Negative /uL Urine RBC 3 0 - 3 /hpf Urine Microscopic WBC 3 0-3 /HPF Urine Squamous Epithelial Cells Few <5 /hpf Urine Bacteria Few H None Seen /hpf Urine Glucose 3+ H Normal mg/dL Problems(with codes): (1) Tonsillitis (2) Wheezing (3) Mild dehydration (4) Acute bronchitis (5) Elevated brain natriuretic peptide (BNP) level (6) COVID-19 (7) Dehydration (8) Elevated blood pressure reading (9) Bronchitis due to COVID-19 virus (10) Lab test positive for detection of COVID-19 virus (11) Chronic pancreatitis (12) CKD (chronic kidney disease) stage 5, GFR less than 15 ml/min (13) Cholelithiasis without cholecystitis (14) Pneumonia of both lower lobes (15) Suspected COVID-19 virus infection (16) Hypokalemia (17) Hypocalcemia (18) Severe malnutrition (19) Elevated troponin (20) Chest pain (21) History of renal dialysis (22) Urinary retention (23) Fluid retention (24) Uncontrolled hypertension (25) Opacity of lung on imaging study (26) Biliary colic (27) Abdominal pain (28) Mild protein malnutrition (29) Uncontrolled diabetes mellitus (30) Cystitis (31) Diverticula of colon (32) Orbital floor fracture (33) Head injury (34) Hypertension (35) Confusion (36) Metabolic encephalopathy (37) Confusional state (38) Diabetes type 2, controlled (39) Hypertensive urgency (40) History of shingles (41) Acute renal failure superimposed on chronic kidney disease, on chronic dialysis (42) Acute hyperkalemia (43) End stage renal failure on dialysis (44) Acute exacerbation of congestive heart failure (45) Hypertensive urgency (46) Diabetes mellitus with hyperglycemia (47) Cough (48) Toe contusion (49) Toe infection (50) Hyponatremia (51) End stage renal disease on dialysis (52) Necrosis of toe (53) BXO (balanitis xerotica obliterans) (54) Diabetic foot infection (55) 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 - reviewed advanced imaging - discussed plan is to perform an incision and drainage - patient will be NPO at midnight - take him to the OR today - we will get cultures in the OR - can weightbear as tolerated in postoperative shoe All questions were answered and concerns addressed to the patient's satisfactio n. The patient was given the phone number to the clinic and was told how to make contact with the clinic should any concerns or questions arise. Patient understands that if any questions or concerns arise prior to the next appointment, we should be contacted immediately. FOLLOW-UP: Continue to follow while inpatient Plan discussed with: Patient Date of Service: Mar 28, 2024 Billing Provider: YUSEF OSCAR DPM Common Visit Codes: CONSULT ONLY Consultation Codes: [id number] CONSULT <80MIN YUSEF OSCAR DPM Mar 28, 2024 16:42
[2024-03-28] MEDS: SODIUM CHLOR 0.9% PF (SALINE LOCK) 10ML VIAL/SYR IV SCH (18:12)
[2024-03-28] MEDS: SEVELAMER 800 MG TAB PO SCH (18:15)
[2024-03-28 20:00] VITALS: PULSE 71; RESP 18; O2SAT 93
[2024-03-28] MEDS: HYDROcodone-ACET 5/325MG TAB PO PRN (20:26)
[2024-03-28] MEDS: BETAMETHASONE DIPROP0.05% TOPICAL CREAM 15GM TOP SCH (22:00)
[2024-03-29] VITALS (11 sets, daily range): BP systolic 112–141; BP diastolic 59–91; PULSE 66–87; RESP 15–22; TEMP 97.7–98.9; O2SAT 88–96
--- NOTE | 2024-03-29 07:04 | DVH ---
EXAM: XR Chest, 1 View CLINICAL INDICATION: Per Protocol prior to Surgery TECHNIQUE: Frontal view of the chest. COMPARISON: None FINDINGS: LUNGS AND PLEURAL SPACES: Pleural effusions. HEART: Cardiomegaly with mild congestion. MEDIASTINUM: Unremarkable. Normal mediastinal contour. BONES/JOINTS: Unremarkable. No acute fracture. OTHER FINDINGS: . None. . .. IMPRESSION: Cardiomegaly with mild congestion.
[2024-03-29 07:09] LABS: Basophils # (auto) 0.1 10 ^3/uL (0-0.2); Basophils % (auto) 1.1 % (0.0-2.0); Eosinophils # (auto) 0.2 10 ^3/uL (0-0.8); Eosinophils % (auto) 1.6 % (0.0-7.0); Hematocrit 31.4 % (41.0-53.0); Hemoglobin 10.4 g/dL (13.5-17.5); Lymphocytes # (auto) 1.1 10 ^3/uL (0.4-5.4); Mean Corpuscular Hemoglobin 32.4 pg (28.0-32.0); Mean Corpuscular Hgb Conc. 33.3 g/dL (32.0-36.0); Mean Corpuscular Volume 97.3 fL (80.0-100.0); Monocytes # (auto) 1.1 10 ^3/uL (0-1.3); Monocytes % (auto) 11.5 % (0.0-12.0); Neutrophils # (auto) 7.2 10 ^3/uL (1.6-8.6); Neutrophils % (auto) 74.8 % (37.0-80.0); Platelet Count (auto) 296 10^3/uL (140-450); Red Blood Cells 3.22 10^6/uL (4.5-5.90); Red Cell Distribution Width 16.5 % (11.8-14.3); White Blood Cell 9.6 10^3/uL (4.4-10.8)
[2024-03-29 07:12] LABS: Anion Gap 8 (5-15); BUN/Creatinine Ratio 5.2 (10.0-20.0); Carbon Dioxide 29 mmol/L (20-31); Glucose 76 mg/dL (74-106); Potassium 4.8 mmol/L (3.5-5.1)
[2024-03-29 07:13] LABS: Aspartate Aminotransferase 22 U/L (13-40); Bilirubin, Total 0.5 mg/dL (0.2-1.0)
[2024-03-29 07:20] LABS: Alanine Aminotransferase < 9 U/L (7-40); Alkaline Phosphatase 171 U/L (46-116); Blood Urea Nitrogen 36 mg/dL (9-23); Calcium 8.6 mg/dL (8.7-10.4); Chloride 90 mmol/L (98-107); Sodium 127 mmol/L (136-145); Total Protein 5.7 g/dL (5.7-8.2)
[2024-03-29 07:28] LABS: INR 1.14 (0.9-1.15); Partial Thromboplastin Time 40.5 SEC (24.5-34.5); Prothrombin Time 11.9 sec (9.3-11.8)
--- NOTE | 2024-03-29 12:13 | DVHPN2 ---
José Luis Pacheco is a 68-year-old male with past medical history of ESRD on HD, BPH, COPD, diabetes, GERD, HSV, and hypertension, who was brought in by ambulance for complaint of black discoloration and pain to 4th digit on left foot. Per EMS report, patient is a poor historian and a resident of [facility] for rehabilitation care. Patient was recently admitted for similar complaints, but came back due to toe worsening. Patient has no reported numbness, tingling, weakness, discharge, fever, chills, or other associated symptoms or modifiers at this time. Changes from previous H/P or p: No Changes Eyes: No Pain, No Vision change, No Conjunctivae inflammation, No Eyelid inflammation, No Other, No Redness ENT: No Ear pain, No Ear discharge, No Nose pain, No Nose discharge, No Nose congestion, No Mouth pain, No Mouth swelling, No Throat pain, No Throat swelling, No Other Cardiovascular: No Chest Pain, No Palpitations, No Orthopnea, No Paroxysmal Noc. Dyspnea, No Edema, No Lt Headedness, No Other Respiratory: No Cough, No Dry, No Shortness of breath, No SOB with excertion, No Wheezing, No Hemoptysis, No Pleuritic Pain, No Sputum, No Other Gastrointestinal: No Nausea, No Vomiting, No Abdominal Pain, No Diarrhea, No Constipation, No Melena, No Hematochezia, No Other Genitourinary: No Dysuria, No Frequency, No Incontinence, No Hematuria, No Retention, No Other Musculoskeletal: No other, No neck pain, No shoulder pain, No arm pain, No back pain, No hand pain, No leg pain (Left toe wound, pain, and redness), No foot pain Skin: No Rash, No Lesions, No Jaundice, No Bruising, No Other Objective Vitals Vital Signs Date Time Temp Pulse Resp B/P (MAP) Pulse Ox O2 Delivery O2 Flow Rate FiO2 03/29/24 09:00 97.9 74 16 130/76 (94) 93 97.9 03/29/24 08:00 Nasal Cannula* 2 28 Intake/Output Intake and Output 03/29/24 07:00 Intake Total 290 ml Balance 290 ml Intake Oral 240 ml IV Total 50 ml Exam DERMATOLOGIC EXAM: - Skin is dry and cool to the touch dry bilaterally. - Nails 1-5 of the bilateral foot are thickened, discolored, dystrophic, and tender to palpate with subungual debris - Hair loss noted to bilateral feet - necrosis of the 4th digit on the left foot VASCULAR EXAM: - DP and PT pulses are palpable bilaterally. - [employer] is brisk to all digits. - Feet are cool to touch compared to lower legs bilaterally. NEUROLOGIC EXAM: - Normal light touch sensation to the superficial peroneal, deep peroneal, sural, saphenous, and tibial nerve branches. - Protective sensation is diminished as tested with a 5.07 10g [place] bilaterally. MUSCULOSKELETAL EXAM: - No gross deformities - Muscle strength is 5/5 and active motion is pain-free and symmetrical bilaterally - No pain or crepitation with passive range of motion bilaterally to all major pedal joints General Appearance: Alert, Other (Disoriented) Lungs: Other (Bilateral rhonchi) Cardiovascular: Regular rate, Normal S1 Abdomen: Normal bowel sounds, Soft, No tenderness Extremities: No edema, Other (Left foot discoloration and gangrene of the 4th toe with edema and erythema that is up to the ankle) Medications Current Medications Medications Dose Ordered Sig/Alec Route Start Time Stop Time Status Last Admin Dose Admin Sodium Chloride 10 ml Q8HR IV 03/28/24 14:00 03/29/24 05:55 10 ML Acetaminophen/ Hydrocodone Bitart 1 tab Q4HP PRN PO 03/28/24 08:15 03/29/24 06:17 1 TAB Ondansetron HCl 4 mg Q4HP PRN IV 03/28/24 08:15 Docusate Sodium 100 mg BIDPRN PRN PO 03/28/24 08:15 Acetaminophen 650 mg Q6HP PRN PO 03/28/24 08:15 Nitroglycerin 0.4 mg Q5MINP PRN SL 03/28/24 08:15 Morphine Sulfate 2 mg Q30M PRN IV 03/28/24 08:15 Diagnostic Test (Pha) 1 strip ACHS 03/28/24 11:30 03/29/24 11:50 1 STRIP Insulin Human Regular HS SC 03/28/24 22:00 Insulin Human Regular AC SC 03/28/24 11:30 03/28/24 12:01 2 UNITS Dextrose 50 ml UD PRN IV 03/28/24 08:15 Cefepime HCl 50 ml @ 12.5 mls/hr DAILY IV 03/28/24 10:00 03/29/24 11:56 12.5 MLS/HR Acyclovir 400 mg BID PO 03/28/24 10:00 03/28/24 22:00 400 MG Gabapentin 300 mg DAILY PO 03/28/24 10:00 Hold Sevelamer HCl 1,600 mg TID PO 03/28/24 14:00 03/28/24 22:00 1,600 MG Tamsulosin HCl 0.4 mg DAILY PO 03/28/24 10:00 03/28/24 11:58 0.4 MG Patient Own Medication 1 tab DAILY PO 03/28/24 10:00 Patient Own Medication 2 tab TIDWM PO 03/28/24 12:00 Patient Own Medication 8.4 gm DAILY PO 03/28/24 10:00 Betamethasone Dipropion Augmented 1 applic BID TOP 03/28/24 22:00 Vancomycin HCl 0 ml @ 0 mls/hr UD IV 03/28/24 14:30 Laboratory Results Laboratory Tests 03/29/24 05:37 Chemistry Test 03/29/24 05:37 Albumin 3.0 g/dL (3.2-4.8) L Calcium Level 8.6 mg/dL (8.7-10.4) L Total Protein 5.7 g/dL (5.7-8.2) Coagulation Test 03/29/24 05:37 Prothrombin Time 11.9 sec (9.3-11.8) H Prothrombin Time INR 1.14 (0.9-1.15) Activated Partial Thromboplast Time 40.5 SEC (24.5-34.5) H LFT Test 03/29/24 05:37 Alanine Aminotransferase (ALT) < 9 U/L (7-40) Alkaline Phosphatase 171 U/L (46-116) H Aspartate Amino Transferase (AST) 22 U/L (13-40) Total Bilirubin 0.5 mg/dL (0.2-1.0) Urinalysis Test 03/27/24 23:04 Urine Color Yellow (Yellow) Urine Clarity Clear (Clear) Urine pH 8.0 (5.0-9.0) Urine Specific [place] 1.011 (1.001-1.035) Urine Protein 3+ (Negative) H Urine Ketones Negative (Negative) Urine Blood Negative /uL (Negative) Urine Nitrite Negative (Negative) Urine Bilirubin Negative (Negative) Urine Urobilinogen Normal mg/dL (Negative) Urine Leukocyte Esterase Negative /uL (Negative) Urine RBC 3 /hpf (0 - 3) Urine Microscopic WBC 3 /HPF (0-3) Urine Squamous Epithelial Cells Few /hpf (<5) Urine Bacteria Few /hpf (None Seen) H Urine Glucose 3+ mg/dL (Normal) H Microbiology Microbiology Date/Time Source Procedure Growth Status 03/29/24 02:17 Nose MRSA Screen - Final Complete 03/27/24 23:35 Blood Blood Culture - Preliminary NO GROWTH AFTER 24 HOURS OF INCUBATION. Resulted Assessment/Plan Assessment/Plan ASSESSMENT: Patient is a 68 year old seen on the floor for a worsening ulcer PLAN: - The patients chart was reviewed, clinical findings were discussed with the patient, the etiologies of the conditions were discussed in detail, and a treatment plan was agreed to at this time, with both oral and written instructions provided. - reviewed advanced imaging - discussed plan is to perform an incision and drainage - patient will be NPO at midnight - take him to the OR today - we will get cultures in the OR - can weightbear as tolerated in postoperative shoe All questions were answered and concerns addressed to the patient's satisfaction. The patient was given the phone number to the clinic and was told how to make contact with the clinic should any concerns or questions arise. Patient understands that if any questions or concerns arise prior to the next appointment, we should be contacted immediately. 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, on chronic dialysis (7) Biliary colic (8) Dehydration (9) Hypokalemia (10) Acute hyperkalemia (11) Hypocalcemia (12) Urinary retention (13) Confusion (14) Confusional state (15) Cough (16) Wheezing (17) Acute bronchitis (18) Chronic pancreatitis (19) Head injury (20) Fluid retention (21) Abdominal pain (22) Chest pain (23) Cystitis (24) Diverticula of colon (25) Hypertension (26) Severe malnutrition (27) Tonsillitis (28) Elevated blood pressure reading (29) Metabolic encephalopathy (30) Uncontrolled diabetes mellitus (31) CKD (chronic kidney disease) stage 5, GFR less than 15 ml/min (32) Elevated troponin (33) Mild dehydration (34) End stage renal failure on dialysis (35) Diabetes type 2, controlled (36) Acute exacerbation of congestive heart failure (37) Toe contusion (38) Mild protein malnutrition (39) Hypertensive urgency (40) Hypertensive urgency (41) Orbital floor fracture (42) Elevated brain natriuretic peptide (BNP) level (43) Uncontrolled hypertension (44) Toe infection (45) History of shingles (46) Cholelithiasis without cholecystitis (47) History of renal dialysis (48) Diabetes mellitus with hyperglycemia (49) Opacity of lung on imaging study (50) Pneumonia of both lower lobes (51) Acute renal failure superimposed on chronic kidney disease, on chronic dialysis (52) Suspected COVID-19 virus infection (53) Bronchitis due to COVID-19 virus (54) COVID-19 (55) Lab test positive for detection of COVID-19 virus Date of Service: Mar 29, 2024 Billing Provider: YUSEF OSCAR DPM Common Visit Codes: [id number] INP/OBS CARE(MOD) YUSEF OSCAR DPM Mar 29, 2024 12:13
--- NOTE | 2024-03-29 12:24 | DVHPN2 ---
Subjective Just had dialysis Scheduled for surgery today Changes from previous H/P or p: Changes Eyes: No Pain, No Vision change, No Conjunctivae inflammation, No Eyelid inflammation, No Other, No Redness ENT: No Ear pain, No Ear discharge, No Nose pain, No Nose discharge, No Nose congestion, No Mouth pain, No Mouth swelling, No Throat pain, No Throat swelling, No Other Cardiovascular: No Chest Pain, No Palpitations, No Orthopnea, No Paroxysmal Noc. Dyspnea, No Edema, No Lt Headedness, No Other Respiratory: No Cough, No Dry, No Shortness of breath, No SOB with excertion, No Wheezing, No Hemoptysis, No Pleuritic Pain, No Sputum, No Other Gastrointestinal: No Nausea, No Vomiting, No Abdominal Pain, No Diarrhea, No Constipation, No Melena, No Hematochezia, No Other Genitourinary: No Dysuria, No Frequency, No Incontinence, No Hematuria, No Retention, No Other Musculoskeletal: No other, No neck pain, No shoulder pain, No arm pain, No back pain, No hand pain, No leg pain (Left toe wound, pain, and redness), No foot pain Skin: No Rash, No Lesions, No Jaundice, No Bruising, No Other Objective Vitals Vital Signs Date Time Temp Pulse Resp B/P (MAP) Pulse Ox O2 Delivery O2 Flow Rate FiO2 03/29/24 09:00 97.9 74 16 130/76 (94) 93 97.9 03/29/24 08:00 Nasal Cannula* 2 28 Intake/Output Intake and Output 03/29/24 07:00 Intake Total 290 ml Balance 290 ml Intake Oral 240 ml IV Total 50 ml General Appearance: Alert, Other (Disoriented) Lungs: Other (Bilateral rhonchi) Cardiovascular: Regular rate, Normal S1 Abdomen: Normal bowel sounds, Soft, No tenderness Extremities: No edema, Other (Left foot discoloration and gangrene of the 4th toe with edema and erythema that is up to the ankle) Medications Current Medications Medications Dose Ordered Sig/Alec Route Start Time Stop Time Status Last Admin Dose Admin Sodium Chloride 10 ml Q8HR IV 03/28/24 14:00 03/29/24 05:55 10 ML Acetaminophen/ Hydrocodone Bitart 1 tab Q4HP PRN PO 03/28/24 08:15 03/29/24 06:17 1 TAB Ondansetron HCl 4 mg Q4HP PRN IV 03/28/24 08:15 Docusate Sodium 100 mg BIDPRN PRN PO 03/28/24 08:15 Acetaminophen 650 mg Q6HP PRN PO 03/28/24 08:15 Nitroglycerin 0.4 mg Q5MINP PRN SL 03/28/24 08:15 Morphine Sulfate 2 mg Q30M PRN IV 03/28/24 08:15 Diagnostic Test (Pha) 1 strip ACHS 03/28/24 11:30 03/29/24 11:50 1 STRIP Insulin Human Regular HS SC 03/28/24 22:00 Insulin Human Regular AC SC 03/28/24 11:30 03/28/24 12:01 2 UNITS Dextrose 50 ml UD PRN IV 03/28/24 08:15 Cefepime HCl 50 ml @ 12.5 mls/hr DAILY IV 03/28/24 10:00 03/29/24 11:56 12.5 MLS/HR Acyclovir 400 mg BID PO 03/28/24 10:00 03/28/24 22:00 400 MG Gabapentin 300 mg DAILY PO 03/28/24 10:00 Hold Sevelamer HCl 1,600 mg TID PO 03/28/24 14:00 03/28/24 22:00 1,600 MG Tamsulosin HCl 0.4 mg DAILY PO 03/28/24 10:00 03/28/24 11:58 0.4 MG Patient Own Medication 1 tab DAILY PO 03/28/24 10:00 Patient Own Medication 2 tab TIDWM PO 03/28/24 12:00 Patient Own Medication 8.4 gm DAILY PO 03/28/24 10:00 Betamethasone Dipropion Augmented 1 applic BID TOP 03/28/24 22:00 Vancomycin HCl 0 ml @ 0 mls/hr UD IV 03/28/24 14:30 Laboratory Results Laboratory Tests 03/29/24 05:37 Chemistry Test 03/29/24 05:37 Albumin 3.0 g/dL (3.2-4.8) L Calcium Level 8.6 mg/dL (8.7-10.4) L Total Protein 5.7 g/dL (5.7-8.2) Coagulation Test 03/29/24 05:37 Prothrombin Time 11.9 sec (9.3-11.8) H Prothrombin Time INR 1.14 (0.9-1.15) Activated Partial Thromboplast Time 40.5 SEC (24.5-34.5) H LFT Test 03/29/24 05:37 Alanine Aminotransferase (ALT) < 9 U/L (7-40) Alkaline Phosphatase 171 U/L (46-116) H Aspartate Amino Transferase (AST) 22 U/L (13-40) Total Bilirubin 0.5 mg/dL (0.2-1.0) Urinalysis Test 03/27/24 23:04 Urine Color Yellow (Yellow) Urine Clarity Clear (Clear) Urine pH 8.0 (5.0-9.0) Urine Specific [place] 1.011 (1.001-1.035) Urine Protein 3+ (Negative) H Urine Ketones Negative (Negative) Urine Blood Negative /uL (Negative) Urine Nitrite Negative (Negative) Urine Bilirubin Negative (Negative) Urine Urobilinogen Normal mg/dL (Negative) Urine Leukocyte Esterase Negative /uL (Negative) Urine RBC 3 /hpf (0 - 3) Urine Microscopic WBC 3 /HPF (0-3) Urine Squamous Epithelial Cells Few /hpf (<5) Urine Bacteria Few /hpf (None Seen) H Urine Glucose 3+ mg/dL (Normal) H Microbiology Microbiology Date/Time Source Procedure Growth Status 03/29/24 02:17 Nose MRSA Screen - Final Complete 03/27/24 23:35 Blood Blood Culture - Preliminary NO GROWTH AFTER 24 HOURS OF INCUBATION. Resulted Assessment/Plan Assessment/Plan Left foot cellulitis Left foot 4th digit gangrene End-stage renal disease on hemodialysis Hypertension GERD Type 2 diabetes BPH Balanitis xerotica obliterans Acute metabolic encephalopathy Plan Broad-spectrum antibiotics with vancomycin and cefepime Infectious disease consult Nephrology consult for hemodialysis Urology consult was done, recommended medical management Podiatry consult Monitor closely Full code Advance directives discussed for 15 minute 03/29/2024: Continue IV antibiotics Hemodialysis per nephrology Podiatry surgery today The rest of the management will depend on the hospital course Plan discussed with: Patient My Orders Orders - FRANKIE SANCHEZ MD Procedure Category Date Status Time *Podiatry Consult CONS 03/28/24 Transmitted [facility]) 14:17 * Infectious Michael- CONS 03/28/24 Transmitted Jayce Krishna 14:17 Vancomycin Per PHA 2/10/25 In Process Pharmacy 14:30 Vancomycin 1gm/250ml PHA 03/29/24 In Process Kit 17:00 Vancomycin,Random LAB 03/30/24 Verified 05:00 Vancomycin Per SANDRA 03/29/24 In Process Pharmacy [facility]toc 17:00 Date of Service: Mar 29, 2024 Billing Provider: FRANKIE SANCHEZ MD Common Visit Codes: [id number] INP/OBS CARE(HIGH) FRANKIE SANCHEZ MD Mar 29, 2024 12:24
[2024-03-29] MEDS: BUPIVACAINE HCL 0.25% P/F 10 ML VIAL ONE (13:15)
[2024-03-29] MEDS ORDERED: fentaNYL CITRATE 100 MCG/2 ML VL ONE (13:27)
[2024-03-29] MEDS ORDERED: MIDAZOLAM HCL 2MG/2ML 2ml VIAL (1mg/ml) ONE (13:27)
[2024-03-29] MEDS ORDERED: PROPOFOL 10 MG/ML 20 ML IV ONE (13:41)
--- NOTE | 2024-03-29 14:33 | DVHPN2 ---
Progress Note - Dictate Date Seen: Mar 29, 2024 Has the PT tested + for MRSA If YES, has PT been informed?: No Medical Necessity Reason Pt with a Central, PICC or Fol: No Subjective Denies shortness of breath today. Left foot pain controlled. vital signs Vital Sign Date Time Temp Pulse Resp B/P (MAP) Pulse Ox O2 Delivery O2 Flow Rate FiO2 03/29/24 14:00 79 14 146/77 (100) 96 03/29/24 13:45 98.1 98.1 03/29/24 13:45 Mask 12.0 03/29/24 13:45 96 Total Intake and Output 03/28/24 03/28/24 03/29/24 15:00 23:00 07:00 Intake Total 50 ml 240 ml Balance 50 ml 240 ml medications Current Medications Medications Dose Ordered Sig/Alec Route Start Time Stop Time Status Last Admin Dose Admin Sodium Chloride 10 ml Q8HR IV 03/28/24 14:00 03/29/24 14:03 10 ML Acetaminophen/ Hydrocodone Bitart 1 tab Q4HP PRN PO 03/28/24 08:15 03/29/24 06:17 1 TAB Ondansetron HCl 4 mg Q4HP PRN IV 03/28/24 08:15 Docusate Sodium 100 mg BIDPRN PRN PO 03/28/24 08:15 Acetaminophen 650 mg Q6HP PRN PO 03/28/24 08:15 Nitroglycerin 0.4 mg Q5MINP PRN SL 03/28/24 08:15 Morphine Sulfate 2 mg Q30M PRN IV 03/28/24 08:15 Diagnostic Test (Pha) 1 strip ACHS 03/28/24 11:30 03/29/24 11:50 1 STRIP Insulin Human Regular HS SC 03/28/24 22:00 Insulin Human Regular AC SC 03/28/24 11:30 03/28/24 12:01 2 UNITS Dextrose 50 ml UD PRN IV 03/28/24 08:15 Cefepime HCl 50 ml @ 12.5 mls/hr DAILY IV 03/28/24 10:00 03/29/24 11:56 12.5 MLS/HR Acyclovir 400 mg BID PO 03/28/24 10:00 03/28/24 22:00 400 MG Gabapentin 300 mg DAILY PO 03/28/24 10:00 Hold Sevelamer HCl 1,600 mg TID PO 03/28/24 14:00 03/28/24 22:00 1,600 MG Tamsulosin HCl 0.4 mg DAILY PO 03/28/24 10:00 03/28/24 11:58 0.4 MG Patient Own Medication 1 tab DAILY PO 03/28/24 10:00 Patient Own Medication 2 tab TIDWM PO 03/28/24 12:00 Patient Own Medication 8.4 gm DAILY PO 03/28/24 10:00 Betamethasone Dipropion Augmented 1 applic BID TOP 03/28/24 22:00 Vancomycin HCl 0 ml @ 0 mls/hr UD IV 03/28/24 14:30 objective HEENT: No evidence of JVD, no oral ulcers. Pulmonary: Lungs are clear on auscultation bilaterally Cardiovascular S1-S2, no S3 or S4 Abdomen: Bowel sounds positive, soft no rebound tenderness Skin: No rash Extremities: Left foot dressed with an Shaji bandage no evidence of bleeding Neurological: Alert, oriented, no focal weakness laboratory and microbiology Laboratory Tests 03/29/24 05:37 Test 03/29/24 05:37 Range/Units Serum Glucose 76 74-106 mg/dL Assessment/Plan Assessment: ESRD on HD Left foot 4th digit gangrene with cellulitis Hypertension GERD Type 2 diabetes BPH Balanitis xerotica obliterans Acute metabolic encephalopathy Plan plan and recommendations: Broad-spectrum antibiotics, renally dosed for EGFR less than 10 mL/min. Hemodialysis today and TTS Antibiotics as per primary team LAUREL for goal hemoglobin 10-11 Fluid restriction less than 1 L/day Resume antihypertensive meds Podiatry consultation appreciated Thank you very much for the consultation Plan discussed with: Patient LONNIE GASPAR MD Mar 29, 2024 14:33
--- NOTE | 2024-03-29 16:28 | DVHOP2 ---
Operative Report - 2 Report Details Date: 03/29/24 Preop Diagnosis: 1. Left 4th toe gangrene 2. 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 Left 4th toe cellulitis Postop Diagnosis: Same as preop Surgeon: Yusef Oscar MD Anesthesiologist: See anesthesia Anesthesia: Mac Consent: The patient was informed of the risks and benefits of the procedure. These include but are not limited to complications of anesthesia, postoperative infection, incomplete relief of symptoms, recurrence of symptoms, damage to blood vessels, nerves and tendons, deep venous thrombosis, pulmonary embolism an d possible need for repeat surgery in the future. Complications: None Estimated Blood Loss: Minimal Fluids: See anesthesia Findings: Consistent with diagnosis Indications for Surgery: Worsening left foot wound Name of Procedure Performed 1. Left foot I&D to bone (09147) 2. Left foot 4th toe amputation (95612) 3. Left foot 4th toe bone biopsy () Procedure Details Procedure Details: PRE-PROCEDURE INFORMATION: In the pre-op holding area, the extremity to be operated on was clearly marked and the patient verified correct laterality of the marking. The patient was transferred to the OR table and placed in a supine position. A timeout was performed in which identification of the correct patient, procedure, location, and materials was done. The left foot and leg were prepped and draped in normal sterile fashion. The foot and leg were exsanguinated and the _ tourniquet was inflated to 300 mmHg. DESCRIPTION OF PROCEDURE: Attention was directed to the left where area of fluctuance was noted. An incision was made over this area and was deepened through blunt dissection. The incision was deepened to the level of abscess and bone. Care was taken to the dissection to avoid any neurovascular and tendinous structures. The incision was deepened to the bone, and the abscess appeared to be purulent fluid consistent with pus. The cortices of the bone was then r emoved with Jonathan moss all necrotic tissue. At this point as decided that amputation of the toe was required. Using a 15. Blade, the capsule and tendinous structures of the 4th digit were excised at the level of the MPJ. The bone from the toe was then sent as a biopsy. After the abscess was drained, the area was irrigated with 3 L normal saline using cysto tubing. Deep cultures were then obtained from the wound. The area was then inspected and any areas of tracking, especially along the tendons were also drained. The wound was packed with Betadine-soaked gauze and we will need to be closed at a later date. POSTOPERATIVE INFORMATION: The patient tolerated the above noted procedure and anesthesia well and was transferred to the PACU with vital signs stable, and vascular status intact with capillary refill intact to all digits. Deep cultures were taken of the patient will return to the OR a future date to perform another incision and drainage and then close it. Condition Good Disposition Still a Patient YUSEF OSCAR DPM Mar 29, 2024 16:28
[2024-03-29] MEDS: VANCOMYCIN 1GM/250ML KIT 250 ML IV ONE (16:35)
[2024-03-29] MEDS: EPOETIN ALFA-EPBX 4,000 UNIT/ML VIAL SC ONE (20:55)
[2024-03-30] VITALS (9 sets, daily range): BP systolic 105–151; BP diastolic 55–89; PULSE 56–92; RESP 15–19; TEMP 96.9–98.9; O2SAT 90–98
[2024-03-30] MEDS: ACETAMINOPHEN 325 MG TAB PO PRN (03:14)
[2024-03-30 08:54] LABS: Potassium 4.8 mmol/L (3.5-5.1)
[2024-03-30 08:59] LABS: Carbon Dioxide 28 mmol/L (20-31)
[2024-03-30 09:01] LABS: Anion Gap 8 (5-15); Calcium 8.1 mg/dL (8.7-10.4); Chloride 94 mmol/L (98-107); Sodium 130 mmol/L (136-145)
[2024-03-30 09:04] LABS: BUN/Creatinine Ratio 4.4 (10.0-20.0)
[2024-03-30 09:07] LABS: Blood Urea Nitrogen 25 mg/dL (9-23); Glucose 110 mg/dL (74-106)
[2024-03-30] MEDS: SODIUM CHL 0.9% 1000 ML BAG XX ONE (09:17)
--- NOTE | 2024-03-30 14:25 | DVHPN2 ---
Subjective He is complaining of severe pain in his foot He is on Herreid but is not completely effective Changes from previous H/P or p: Changes Eyes: No Pain, No Vision change, No Conjunctivae inflammation, No Eyelid inflammation, No Other, No Redness ENT: No Ear pain, No Ear discharge, No Nose pain, No Nose discharge, No Nose congestion, No Mouth pain, No Mouth swelling, No Throat pain, No Throat swelling, No Other Cardiovascular: No Chest Pain, No Palpitations, No Orthopnea, No Paroxysmal Noc. Dyspnea, No Edema, No Lt Headedness, No Other Respiratory: No Cough, No Dry, No Shortness of breath, No SOB with excertion, No Wheezing, No Hemoptysis, No Pleuritic Pain, No Sputum, No Other Gastrointestinal: No Nausea, No Vomiting, No Abdominal Pain, No Diarrhea, No Constipation, No Melena, No Hematochezia, No Other Genitourinary: No Dysuria, No Frequency, No Incontinence, No Hematuria, No Retention, No Other Musculoskeletal: No other, No neck pain, No shoulder pain, No arm pain, No back pain, No hand pain, No leg pain (Left toe wound, pain, and redness), No foot pain Skin: No Rash, No Lesions, No Jaundice, No Bruising, No Other Objective Vitals Vital Signs Date Time Temp Pulse Resp B/P (MAP) Pulse Ox O2 Delivery O2 Flow Rate FiO2 03/30/24 12:56 98.4 56 19 105/55 (72) 94 98.4 03/30/24 07:45 Room Air* 0 21 Intake/Output Intake and Output 03/30/24 07:00 Intake Total 700 ml Output Total 300 ml Balance 400 ml Intake Oral 400 ml IV Total 300 ml Output Urine Total 300 ml General Appearance: Alert, Other (Disoriented) Lungs: Other (Bilateral rhonchi) Cardiovascular: Regular rate, Normal S1 Abdomen: Normal bowel sounds, Soft, No tenderness Extremities: No edema, Other (Left foot discoloration and gangrene of the 4th toe with edema and erythema that is up to the ankle) Medications Current Medications Medications Dose Ordered Sig/Alec Route Start Time Stop Time Status Last Admin Dose Admin Sodium Chloride 10 ml Q8HR IV 03/28/24 14:00 03/30/24 14:14 10 ML Acetaminophen/ Hydrocodone Bitart 1 tab Q4HP PRN PO 03/28/24 08:15 03/30/24 14:14 1 TAB Ondansetron HCl 4 mg Q4HP PRN IV 03/28/24 08:15 Docusate Sodium 100 mg BIDPRN PRN PO 03/28/24 08:15 Acetaminophen 650 mg Q6HP PRN PO 03/28/24 08:15 03/30/24 03:14 650 MG Nitroglycerin 0.4 mg Q5MINP PRN SL 03/28/24 08:15 Morphine Sulfate 2 mg Q30M PRN IV 03/28/24 08:15 Diagnostic Test (Pha) 1 strip ACHS 03/28/24 11:30 03/30/24 11:34 1 STRIP Insulin Human Regular HS SC 03/28/24 22:00 03/29/24 22:16 3 UNITS Insulin Human Regular AC SC 03/28/24 11:30 03/30/24 11:33 2 UNITS Dextrose 50 ml UD PRN IV 03/28/24 08:15 Cefepime HCl 50 ml @ 12.5 mls/hr DAILY IV 03/28/24 10:00 03/30/24 09:29 12.5 MLS/HR Acyclovir 400 mg BID PO 03/28/24 10:00 03/30/24 09:29 400 MG Gabapentin 300 mg DAILY PO 03/28/24 10:00 Hold Sevelamer HCl 1,600 mg TID PO 03/28/24 14:00 03/30/24 14:14 1,600 MG Tamsulosin HCl 0.4 mg DAILY PO 03/28/24 10:00 03/30/24 09:29 0.4 MG Patient Own Medication 1 tab DAILY PO 03/28/24 10:00 Patient Own Medication 2 tab TIDWM PO 03/28/24 12:00 Patient Own Medication 8.4 gm DAILY PO 03/28/24 10:00 Betamethasone Dipropion Augmented 1 applic BID TOP 03/28/24 22:00 03/30/24 09:28 1 APPLIC Vancomycin HCl 0 ml @ 0 mls/hr UD IV 03/28/24 14:30 Laboratory Results Laboratory Tests 03/29/24 05:37 03/30/24 06:02 Chemistry Test 03/30/24 06:02 Calcium Level 8.1 mg/dL (8.7-10.4) L Urinalysis Test 03/27/24 23:04 Urine Color Yellow (Yellow) Urine Clarity Clear (Clear) Urine pH 8.0 (5.0-9.0) Urine Specific [place] 1.011 (1.001-1.035) Urine Protein 3+ (Negative) H Urine Ketones Negative (Negative) Urine Blood Negative /uL (Negative) Urine Nitrite Negative (Negative) Urine Bilirubin Negative (Negative) Urine Urobilinogen Normal mg/dL (Negative) Urine Leukocyte Esterase Negative /uL (Negative) Urine RBC 3 /hpf (0 - 3) Urine Microscopic WBC 3 /HPF (0-3) Urine Squamous Epithelial Cells Few /hpf (<5) Urine Bacteria Few /hpf (None Seen) H Urine Glucose 3+ mg/dL (Normal) H Microbiology Microbiology Date/Time Source Procedure Growth Status 03/29/24 13:36 Foot Left Gram Stain - Final Resulted 03/29/24 13:36 Foot Left Anaerobic Culture Pending Resulted 03/29/24 13:36 Foot Left Aerobic Culture - Preliminary Resulted 03/27/24 23:35 Blood Blood Culture - Preliminary NO GROWTH AFTER 48 HOURS OF INCUBATION. Resulted Assessment/Plan Assessment/Plan Left foot cellulitis Left foot 4th digit gangrene End-stage renal disease on hemodialysis Hypertension GERD Type 2 diabetes BPH Balanitis xerotica obliterans Acute metabolic encephalopathy Plan Broad-spectrum antibiotics with vancomycin and cefepime Infectious disease consult Nephrology consult for hemodialysis Urology consult was done, recommended medical management Podiatry consult Monitor closely Full code Advance directives discussed for 15 minute 03/29/2024: Continue IV antibiotics Hemodialysis per nephrology Podiatry surgery today The rest of the management will depend on the hospital course 03/30/2024: Continue the IV antibiotics Hemodialysis per nephrology Continue Herreid for pain Add to Herreid q.6 hours p.r.n. for severe pain Podiatry is planning to take him in 1-2 days again for 2nd surgery and closure of the wound The rest of the management will depend on the hospital course Plan discussed with: Patient My Orders Orders - FRANKIE SANCHEZ MD Procedure Category Date Status Time Vancomycin Per SANDRA 03/30/24 In Process Pharmacy [facility] 09:43 Date of Service: Mar 30, 2024 Billing Provider: FRANKIE SANCHEZ MD Common Visit Codes: [id number] INP/OBS CARE(HIGH) FRANKIE SANCHEZ MD Mar 30, 2024 14:25
--- NOTE | 2024-03-30 14:33 | ECG ---
[facility] Test Date: 2024-03-28 Test Time: 23:47:40 Pat Name: MANDA LAI Department: Room: 0289T A Gender: M Surveillance Supervisor: SAMUEL CLAY : 1955 Requested By: FREYA GALVAN Order Number: [id number] Reading MD: Juan Francisco Byrne Measurements Intervals [place] Rate: 68 P: 57 [place]: 137 QRS: -76 QRSD: 97 T: 91 QT: 396 QTc: 422 Interpretive Statements Sinus rhythm Left anterior fascicular block Consider right ventricular hypertrophy Nonspecific T abnrm, anterolateral leads Electronically Signed On 03-31-2024 9:27:31 PST by Juan Francisco Byrne Please click the below link to view image of tracing.
--- NOTE | 2024-03-30 16:23 | DVHPN2 ---
Progress Note - Dictate Date Seen: Mar 30, 2024 Has the PT tested + for MRSA If YES, has PT been informed?: No Medical Necessity Reason Pt with a Central, PICC or Fol: No Subjective Denies shortness of breath today. Complains of left foot pain vital signs Vital Sign Date Time Temp Pulse Resp B/P (MAP) Pulse Ox O2 Delivery O2 Flow Rate FiO2 03/30/24 12:56 98.4 56 19 105/55 (72) 94 98.4 03/30/24 07:45 Room Air* 0 21 Total Intake and Output 03/29/24 03/29/24 03/30/24 15:00 23:00 07:00 Intake Total 300 ml 400 ml Output Total 0 ml 300 ml Balance 300 ml 100 ml medications Current Medications Medications Dose Ordered Sig/Alec Route Start Time Stop Time Status Last Admin Dose Admin Sodium Chloride 10 ml Q8HR IV 03/28/24 14:00 03/30/24 14:14 10 ML Acetaminophen/ Hydrocodone Bitart 1 tab Q4HP PRN PO 03/28/24 08:15 03/30/24 14:14 1 TAB Ondansetron HCl 4 mg Q4HP PRN IV 03/28/24 08:15 Docusate Sodium 100 mg BIDPRN PRN PO 03/28/24 08:15 Acetaminophen 650 mg Q6HP PRN PO 03/28/24 08:15 03/30/24 03:14 650 MG Nitroglycerin 0.4 mg Q5MINP PRN SL 03/28/24 08:15 Morphine Sulfate 2 mg Q30M PRN IV 03/28/24 08:15 Diagnostic Test (Pha) 1 strip ACHS 03/28/24 11:30 03/30/24 11:34 1 STRIP Insulin Human Regular HS SC 03/28/24 22:00 03/29/24 22:16 3 UNITS Insulin Human Regular AC SC 03/28/24 11:30 03/30/24 11:33 2 UNITS Dextrose 50 ml UD PRN IV 03/28/24 08:15 Cefepime HCl 50 ml @ 12.5 mls/hr DAILY IV 03/28/24 10:00 03/30/24 09:29 12.5 MLS/HR Acyclovir 400 mg BID PO 03/28/24 10:00 03/30/24 09:29 400 MG Gabapentin 300 mg DAILY PO 03/28/24 10:00 Hold Sevelamer HCl 1,600 mg TID PO 03/28/24 14:00 03/30/24 14:14 1,600 MG Tamsulosin HCl 0.4 mg DAILY PO 03/28/24 10:00 03/30/24 09:29 0.4 MG Patient Own Medication 1 tab DAILY PO 03/28/24 10:00 Patient Own Medication 2 tab TIDWM PO 03/28/24 12:00 Patient Own Medication 8.4 gm DAILY PO 03/28/24 10:00 Betamethasone Dipropion Augmented 1 applic BID TOP 03/28/24 22:00 03/30/24 09:28 1 APPLIC Vancomycin HCl 0 ml @ 0 mls/hr UD IV 03/28/24 14:30 Acetaminophen/ Hydrocodone Bitart 2 tab Q6HPRN PRN PO 03/30/24 14:30 UNV objective HEENT: No evidence of JVD, no oral ulcers. Pulmonary: Lungs are clear on auscultation bilaterally Cardiovascular S1-S2, no S3 or S4 Abdomen: Bowel sounds positive, soft no rebound tenderness Skin: No rash Extremities: Left foot dressed with an Shaji bandage with blood-tinged bleeding Neurological: Alert, oriented, no focal weakness laboratory and microbiology Laboratory Tests 03/30/24 06:02 03/29/24 05:37 Test 03/30/24 06:02 Range/Units Serum Glucose 110 H 74-106 mg/dL Assessment/Plan Assessment: ESRD on HD Left foot 4th digit gangrene with cellulitis Hypertension GERD Type 2 diabetes BPH Balanitis xerotica obliterans Acute metabolic encephalopathy Plan plan and recommendations: Dialysis on Broad-spectrum antibiotics, renally dosed for EGFR less than 10 mL/min. 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
--- NOTE | 2024-03-30 16:38 | DVHPN2 ---
José Luis Pacheco is a 68-year-old male with past medical history of ESRD on HD, BPH, COPD, diabetes, GERD, HSV, and hypertension, who was brought in by ambulance for complaint of black discoloration and pain to 4th digit on left foot. Per EMS report, patient is a poor historian and a resident of [facility] for rehabilitation care. Patient was recently admitted for similar complaints, but came back due to toe worsening. Patient has no reported numbness, tingling, weakness, discharge, fever, chills, or other associated symptoms or modifiers at this time. Changes from previous H/P or p: No Changes Eyes: No Pain, No Vision change, No Conjunctivae inflammation, No Eyelid inflammation, No Other, No Redness ENT: No Ear pain, No Ear discharge, No Nose pain, No Nose discharge, No Nose congestion, No Mouth pain, No Mouth swelling, No Throat pain, No Throat swelling, No Other Cardiovascular: No Chest Pain, No Palpitations, No Orthopnea, No Paroxysmal Noc. Dyspnea, No Edema, No Lt Headedness, No Other Respiratory: No Cough, No Dry, No Shortness of breath, No SOB with excertion, No Wheezing, No Hemoptysis, No Pleuritic Pain, No Sputum, No Other Gastrointestinal: No Nausea, No Vomiting, No Abdominal Pain, No Diarrhea, No Constipation, No Melena, No Hematochezia, No Other Genitourinary: No Dysuria, No Frequency, No Incontinence, No Hematuria, No Retention, No Other Musculoskeletal: No other, No neck pain, No shoulder pain, No arm pain, No back pain, No hand pain, No leg pain (Left toe wound, pain, and redness), No foot pain Skin: No Rash, No Lesions, No Jaundice, No Bruising, No Other Objective Vitals Vital Signs Date Time Temp Pulse Resp B/P (MAP) Pulse Ox O2 Delivery O2 Flow Rate FiO2 03/30/24 12:56 98.4 56 19 105/55 (72) 94 98.4 03/30/24 07:45 Room Air* 0 21 Intake/Output Intake and Output 03/30/24 06:59 Intake Total 700 ml Output Total 300 ml Balance 400 ml Intake Oral 400 ml IV Total 300 ml Output Urine Total 300 ml Exam DERMATOLOGIC EXAM: - Skin is dry and cool to the touch dry bilaterally. - Nails 1-5 of the bilateral foot are thickened, discolored, dystrophic, and tender to palpate with subungual debris - Hair loss noted to bilateral feet - necrosis of the 4th digit on the left foot VASCULAR EXAM: - DP and PT pulses are palpable bilaterally. 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 - Feet are cool to touch compared to lower legs bilaterally. NEUROLOGIC EXAM: - Normal light touch sensation to the superficial peroneal, deep peroneal, sural, saphenous, and tibial nerve branches. - Protective sensation is diminished as tested with a 5.07 10g [place] bilaterally. MUSCULOSKELETAL EXAM: - No gross deformities - Muscle strength is 5/5 and active motion is pain-free and symmetrical bilaterally - No pain or crepitation with passive range of motion bilaterally to all major pedal joints General Appearance: Alert, Other (Disoriented) Lungs: Other (Bilateral rhonchi) Cardiovascular: Regular rate, Normal S1 Abdomen: Normal bowel sounds, Soft, No tenderness Extremities: No edema, Other (Left foot discoloration and gangrene of the 4th toe with edema and erythema that is up to the ankle) Medications Current Medications Medications Dose Ordered Sig/Alec Route Start Time Stop Time Status Last Admin Dose Admin Sodium Chloride 10 ml Q8HR IV 03/28/24 14:00 03/30/24 14:14 10 ML Acetaminophen/ Hydrocodone Bitart 1 tab Q4HP PRN PO 03/28/24 08:15 03/30/24 14:14 1 TAB Ondansetron HCl 4 mg Q4HP PRN IV 03/28/24 08:15 Docusate Sodium 100 mg BIDPRN PRN PO 03/28/24 08:15 Acetaminophen 650 mg Q6HP PRN PO 03/28/24 08:15 03/30/24 03:14 650 MG Nitroglycerin 0.4 mg Q5MINP PRN SL 03/28/24 08:15 Morphine Sulfate 2 mg Q30M PRN IV 03/28/24 08:15 Diagnostic Test (Pha) 1 strip ACHS 03/28/24 11:30 03/30/24 16:28 1 STRIP Insulin Human Regular HS SC 03/28/24 22:00 03/29/24 22:16 3 UNITS Insulin Human Regular AC SC 03/28/24 11:30 03/30/24 11:33 2 UNITS Dextrose 50 ml UD PRN IV 03/28/24 08:15 Cefepime HCl 50 ml @ 12.5 mls/hr DAILY IV 03/28/24 10:00 03/30/24 09:29 12.5 MLS/HR Acyclovir 400 mg BID PO 03/28/24 10:00 03/30/24 09:29 400 MG Gabapentin 300 mg DAILY PO 03/28/24 10:00 Hold Sevelamer HCl 1,600 mg TID PO 03/28/24 14:00 03/30/24 14:14 1,600 MG Tamsulosin HCl 0.4 mg DAILY PO 03/28/24 10:00 03/30/24 09:29 0.4 MG Patient Own Medication 1 tab DAILY PO 03/28/24 10:00 Patient Own Medication 2 tab TIDWM PO 03/28/24 12:00 Patient Own Medication 8.4 gm DAILY PO 03/28/24 10:00 Betamethasone Dipropion Augmented 1 applic BID TOP 03/28/24 22:00 03/30/24 09:28 1 APPLIC Vancomycin HCl 0 ml @ 0 mls/hr UD IV 03/28/24 14:30 Acetaminophen/ Hydrocodone Bitart 2 tab Q6HPRN PRN PO 03/30/24 14:30 Laboratory Results Laboratory Tests 03/29/24 05:37 03/30/24 06:02 Chemistry Test 03/30/24 06:02 Calcium Level 8.1 mg/dL (8.7-10.4) L Urinalysis Test 03/27/24 23:04 Urine Color Yellow (Yellow) Urine Clarity Clear (Clear) Urine pH 8.0 (5.0-9.0) Urine Specific [place] 1.011 (1.001-1.035) Urine Protein 3+ (Negative) H Urine Ketones Negative (Negative) Urine Blood Negative /uL (Negative) Urine Nitrite Negative (Negative) Urine Bilirubin Negative (Negative) Urine Urobilinogen Normal mg/dL (Negative) Urine Leukocyte Esterase Negative /uL (Negative) Urine RBC 3 /hpf (0 - 3) Urine Microscopic WBC 3 /HPF (0-3) Urine Squamous Epithelial Cells Few /hpf (<5) Urine Bacteria Few /hpf (None Seen) H Urine Glucose 3+ mg/dL (Normal) H Microbiology Microbiology Date/Time Source Procedure Growth Status 03/29/24 13:36 Foot Left Gram Stain - Final Resulted 03/29/24 13:36 Foot Left Anaerobic Culture Pending Resulted 03/29/24 13:36 Foot Left Aerobic Culture - Preliminary Resulted 03/27/24 23:35 Blood Blood Culture - Preliminary NO GROWTH AFTER 48 HOURS OF INCUBATION. Resulted Assessment/Plan Assessment/Plan ASSESSMENT: Patient is a 68 year old seen on the floor 1 day s/p from a ortho amputation PLAN: - The patients chart was reviewed, clinical findings were discussed with the patient, the etiologies of the conditions were discussed in detail, and a treatment plan was agreed to at this time, with both oral and written instructions provided. - reviewed advanced imaging - plan is to take the patient back on Thursday for another I&D with closure - continue IV antibiotics - leave dressings intact until Thursday - patient will be NPO at midnight - we will take him to the OR around noon - patient will be able to be discharged when medically stable after the procedure on Thursday All questions were answered and concerns addressed to the patient's satisfaction. The patient was given the phone number to the clinic and was told how to make contact with the clinic should any concerns or questions arise. Patient understands that if any questions or concerns arise prior to the next appointment, we should be contacted immediately. 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, on chronic dialysis (7) Biliary colic (8) Dehydration (9) Hypokalemia (10) Acute hyperkalemia (11) Hypocalcemia (12) Urinary retention (13) Confusion (14) Confusional state (15) Cough (16) Wheezing (17) Acute bronchitis (18) Chronic pancreatitis (19) Head injury (20) Fluid retention (21) Abdominal pain (22) Chest pain (23) Cystitis (24) Diverticula of colon (25) Hypertension (26) Severe malnutrition (27) Tonsillitis (28) Elevated blood pressure reading (29) Metabolic encephalopathy (30) Uncontrolled diabetes mellitus (31) CKD (chronic kidney disease) stage 5, GFR less than 15 ml/min (32) Elevated troponin (33) Mild dehydration (34) End stage renal failure on dialysis (35) Diabetes type 2, controlled (36) Acute exacerbation of congestive heart failure (37) Toe contusion (38) Mild protein malnutrition (39) Hypertensive urgency (40) Hypertensive urgency (41) Orbital floor fracture (42) Elevated brain natriuretic peptide (BNP) level (43) Uncontrolled hypertension (44) Toe infection (45) History of shingles (46) Cholelithiasis without cholecystitis (47) History of renal dialysis (48) Diabetes mellitus with hyperglycemia (49) Opacity of lung on imaging study (50) Pneumonia of both lower lobes (51) Acute renal failure superimposed on chronic kidney disease, on chronic dialysis (52) Suspected COVID-19 virus infection (53) Bronchitis due to COVID-19 virus (54) COVID-19 (55) Lab test positive for detection of COVID-19 virus Date of Service: Mar 30, 2024 Billing Provider: YUSEF OSCAR DPM Common Visit Codes: [id number] INP/OBS CARE(MOD) YUSEF OSCAR DPM Mar 30, 2024 16:38
--- NOTE | 2024-03-30 22:28 | DVHINCON2 ---
Date of service: Mar 28, 2024 Family History: Bronchitis G8 MOTHER FH: breast cancer G8 MOTHER FH: diabetes mellitus G8 MOTHER G8 FATHER FH: hypertension G8 MOTHER G8 FATHER FH: smoking G8 MOTHER Allergies: Coded Allergies: Amlodipine (Verified Allergy, Mild, "feet swelling" per pt statement on 01/07/21. , 03/28/24) ADVERSE REACTION Home Meds Active Scripts Dextromethorphan-Guaifenesin (Robitussin-Dm) 10 Ml Sr, 10 ML PO TID, #180 SYP Prov:ANDRAE RYAN MD 07/06/23 Acyclovir (ZOVIRAX TABLET) 400 Mg Tb, 1 TAB PO BID, #14 TAB 11 Refills Prov:ANDRAE RYAN MD 07/06/23 Reported Medications Patiromer Sorbitex Calcium (Veltassa) 8.4 Gm Pow, 8.4 GM PO DAILY, POW 07/27/23 Ferric Citrate (Auryxia) 210 Mg Tab, 2 TAB PO TIDWM, TAB 07/27/23 Clonidine Hydrochloride (Clonidine Hcl) 0.1 Mg Tab, 0.1 MG PO BID, MG 07/27/23 Gabapentin (Gabapentin) 300 Mg Cap, 300 MG PO DAILY for ZOSTER UNCOMPLICATED, MG 07/27/23 Tamsulosin Hcl (Tamsulosin Hcl) 0.4 Mg Cap, 0.4 MG PO DAILY for Urine Retension for 30 Days, MG 07/26/23 Sevelamer Hydrochloride (Sevelamer Hydrochloride) 800 Mg Tab, 2 TAB PO TID 07/06/23 Hydralazine Hcl (Hydralazine Hcl) 50 Mg Tab, 1 TAB PO TID 07/06/23 B-Complex W/ C & Folic Acid (Blanka-Meredith) Tab, 1 TAB PO DAILY, TAB 01/14/22 Lisinopril (Lisinopril) 40 Mg Tab, 40 MG PO DAILY, MG 01/14/22 Atenolol (Atenolol) 50 Mg Tab, 50 MG PO EOD 01/04/21 Current Medications Current Medications Medications (Trade) Dose Ordered Sig/Alec Route PRN Reason Start Time Stop Time Status Last Admin Acetaminophen/ Hydrocodone Bitart ([place] 5/325MG Tab) 2 tab Q6HPRN PRN PO SEVERE PAIN (7-10 PAIN SCALE) 03/30/24 14:30 Azithromycin 250 ml @ 125 mls/hr DAILY IV 03/31/24 10:00 Vital Signs Vital Signs Date Time Temp Pulse Resp B/P (MAP) Pulse Ox O2 Delivery O2 Flow Rate FiO2 03/30/24 17:11 98.4 81 19 151/57 (88) 96 98.4 03/30/24 07:45 Room Air* 0 21 Labs/Diagnostic Data Labs Test 03/30/24 11:24 03/30/24 06:02 03/29/24 05:37 03/27/24 23:35 Range/Units POC Glucose 144 H 70-106 mg/dl Sodium Level 130 L 136-145 mmol/L Potassium Level 4.8 3.5-5.1 mmol/L Chloride Level 94 L 98-107 mmol/L Carbon Dioxide Level 28 20-31 mmol/L Anion Gap 8 5-15 Blood Urea Nitrogen 25 #H 9-23 mg/dL Creatinine 5.63 H 0.700-1.30 mg/dL Glomerular Filtration Rate Calc 10 >90 mL/min BUN/Creatinine Ratio 4.4 L 10.0-20.0 Serum Glucose 110 H 74-106 mg/dL Calcium Level 8.1 L 8.7-10.4 mg/dL Random Vancomycin Level 21.9 H 5-10 ug/mL White Blood Count 9.6 4.4-10.8 10^3/uL Red Blood Count 3.22 L 4.5-5.90 10^6/uL Hemoglobin 10.4 L 13.5-17.5 g/dL Hematocrit 31.4 L 41.0-53.0 % Mean Corpuscular Volume 97.3 80.0-100.0 fL Mean Corpuscular Hemoglobin 32.4 H 28.0-32.0 pg Mean Corpuscular Hemoglobin Concent 33.3 32.0-36.0 g/dL Red Cell Distribution Width 16.5 H 11.8-14.3 % Platelet Count 296 140-450 10^3/uL Mean Platelet Volume 7.1 6.9-10.8 fL Neutrophils (%) (Auto) 74.8 37.0-80.0 % Lymphocytes (%) (Auto) 11.0 10.0-50.0 % Monocytes (%) (Auto) 11.5 0.0-12.0 % Eosinophils (%) (Auto) 1.6 0.0-7.0 % Basophils (%) (Auto) 1.1 0.0-2.0 % Neutrophils # (Auto) 7.2 1.6-8.6 10 ^3/uL Lymphocytes # (Auto) 1.1 0.4-5.4 10 ^3/uL Monocytes # (Auto) 1.1 0-1.3 10 ^3/uL Eosinophils # (Auto) 0.2 0-0.8 10 ^3/uL Basophils # (Auto) 0.1 0-0.2 10 ^3/uL Nucleated Red Blood Cells 0.0 % Prothrombin Time 11.9 H 9.3-11.8 sec Prothrombin Time INR 1.14 0.9-1.15 Activated Partial Thromboplast Time 40.5 H 24.5-34.5 SEC Total Bilirubin 0.5 0.2-1.0 mg/dL Aspartate Amino Transferase (AST) 22 13-40 U/L Alanine Aminotransferase (ALT) < 9 7-40 U/L Alkaline Phosphatase 171 H 46-116 U/L Total Protein 5.7 5.7-8.2 g/dL Albumin 3.0 L 3.2-4.8 g/dL Lactic Acid Level 0.6 0.4-2.0 mmol/L Test 03/27/24 23:04 Range/Units Urine Color Yellow Yellow Urine Clarity Clear Clear Urine pH 8.0 5.0-9.0 Urine Specific [place] 1.011 1.001-1.035 Urine Protein 3+ H Negative Urine Ketones Negative Negative Urine Blood Negative Negative /uL Urine Nitrite Negative Negative Urine Bilirubin Negative Negative Urine Urobilinogen Normal Negative mg/dL Urine Leukocyte Esterase Negative Negative /uL Urine RBC 3 0 - 3 /hpf Urine Microscopic WBC 3 0-3 /HPF Urine Squamous Epithelial Cells Few <5 /hpf Urine Bacteria Few H None Seen /hpf Urine Glucose 3+ H Normal mg/dL Microbiology Date/Time Source Procedure Growth Status 03/29/24 13:36 Foot Left Gram Stain - Final Resulted 03/29/24 13:36 Foot Left Anaerobic Culture Pending Resulted 03/29/24 13:36 Foot Left Aerobic Culture - Preliminary Resulted 03/27/24 23:35 Blood Blood Culture - Preliminary NO GROWTH AFTER 48 HOURS OF INCUBATION. Resulted Assessment ID Problem List: -- ESRD on dialysis -- BPH -- COPD -- Diabetes mellitus -- Hypertension -- History of herpes infection -- Penile ulcers -- Possible sexually transmitted infection -- Left fourth toe necrotic gangrene Assessment This is a 68 y.o. male with a past medical history of ESRD on dialysis, BPH, COPD, diabetes mellitus, hypertension, and history of herpes infection, who presents with black discoloration of the left fourth toe and pe nile ulcers. Patient was brought in by ambulance after being found with black discoloration of his left fourth toe. He is a poor historian, [place] speaking, from a [employer]. He was recently admitted for similar complaints; his toe continued to worsen, becoming martín and more painful. On physical exam, he has multiple ulcers under the shaft of his penis with very tender serous drainage and whitening of the glans skin. Laboratory studies show a WBC count of 8.9, hemoglobin of 10.x, platelet count of 281, creatinine of 5.84, and BUN of 26. X-ray of the left foot shows no bone erosion, no evidence of soft tissue collection or hematoma, no joint effusion, subluxation, dislocation, or abscess. Blood cultures show no growth to date. MRSA nares negative. Plan: -- Continue empiric antibiotic treatment with vancomycin and cefepime. -- Add acyclovir orally for possible herpes infection. -- Add azithromycin for empiric coverage of Haemophilus ducreyi, as it can be hard to isolate on culture. -- Order viral culture of penile drainage. -- Test for HIV, syphilis, gonorrhea, chlamydia, and herpes. -- Consult podiatry for possible amputation of necrotic left fourth toe. -- Obtain deep tissue cultures during procedure, including any infected bone or muscle. -- Keep blood sugars under 180 mg/dL. -- Defer dialysis management to nephrology. Isolation Precautions: standard Plan discussed with: Patient ROLAND CRUZ MD Mar 30, 2024 22:27
[2024-03-30] MEDS: FLUCONAZOLE 200MG/100ML 100 ML IV SCH (23:13)
[2024-03-31] VITALS (8 sets, daily range): BP systolic 129–156; BP diastolic 75–90; PULSE 77–92; RESP 12–18; TEMP 98–99.1; O2SAT 77–97
[2024-03-31 09:21] LABS: Basophils # (auto) 0.1 10 ^3/uL (0-0.2); Basophils % (auto) 1.2 % (0.0-2.0); Eosinophils # (auto) 0.1 10 ^3/uL (0-0.8); Hemoglobin 10.2 g/dL (13.5-17.5); Lymphocytes # (auto) 0.7 10 ^3/uL (0.4-5.4); Lymphocytes % (auto) 8.9 % (10.0-50.0); Mean Corpuscular Hemoglobin 31.8 pg (28.0-32.0); Mean Corpuscular Hgb Conc. 32.8 g/dL (32.0-36.0); Monocytes # (auto) 0.8 10 ^3/uL (0-1.3); Monocytes % (auto) 9.7 % (0.0-12.0); Neutrophils # (auto) 6.4 10 ^3/uL (1.6-8.6); Neutrophils % (auto) 79.2 % (37.0-80.0); Platelet Count (auto) 309 10^3/uL (140-450); Red Blood Cells 3.19 10^6/uL (4.5-5.90); Red Cell Distribution Width 16.7 % (11.8-14.3); White Blood Cell 8.1 10^3/uL (4.4-10.8)
[2024-03-31] MEDS ORDERED: FLUCONAZOLE 100 MG TAB PO SCH (10:00)
--- NOTE | 2024-03-31 11:03 | DVHPN2 ---
Subjective Doing No new complaints except for the pain in the left foot Scheduled for surgery tomorrow Changes from previous H/P or p: Changes Eyes: No Pain, No Vision change, No Conjunctivae inflammation, No Eyelid inflammation, No Other, No Redness ENT: No Ear pain, No Ear discharge, No Nose pain, No Nose discharge, No Nose congestion, No Mouth pain, No Mouth swelling, No Throat pain, No Throat swelling, No Other Cardiovascular: No Chest Pain, No Palpitations, No Orthopnea, No Paroxysmal Noc. Dyspnea, No Edema, No Lt Headedness, No Other Respiratory: No Cough, No Dry, No Shortness of breath, No SOB with excertion, No Wheezing, No Hemoptysis, No Pleuritic Pain, No Sputum, No Other Gastrointestinal: No Nausea, No Vomiting, No Abdominal Pain, No Diarrhea, No Constipation, No Melena, No Hematochezia, No Other Genitourinary: No Dysuria, No Frequency, No Incontinence, No Hematuria, No Retention, No Other Musculoskeletal: No other, No neck pain, No shoulder pain, No arm pain, No back pain, No hand pain, No leg pain (Left toe wound, pain, and redness), No foot pain Skin: No Rash, No Lesions, No Jaundice, No Bruising, No Other Objective Vitals Vital Signs Date Time Temp Pulse Resp B/P (MAP) Pulse Ox O2 Delivery O2 Flow Rate FiO2 03/31/24 08:30 98.1 92 14 129/86 (100) 90 98.1 03/30/24 20:00 Room Air* 0 21 Intake/Output Intake and Output 03/31/24 07:00 Intake Total 1110 ml Output Total 0 ml Balance 1110 ml Intake Oral 860 ml IV Total 250 ml Output Urine Total 0 ml General Appearance: Alert, Other (Disoriented) Lungs: Other (Bilateral rhonchi) Cardiovascular: Regular rate, Normal S1 Abdomen: Normal bowel sounds, Soft, No tenderness Extremities: No edema, Other (Left foot discoloration and gangrene of the 4th toe with edema and erythema that is up to the ankle) Medications Current Medications Medications Dose Ordered Sig/Alec Route Start Time Stop Time Status Last Admin Dose Admin Sodium Chloride 10 ml Q8HR IV 03/28/24 14:00 03/31/24 06:27 10 ML Acetaminophen/ Hydrocodone Bitart 1 tab Q4HP PRN PO 03/28/24 08:15 03/31/24 06:33 1 TAB Ondansetron HCl 4 mg Q4HP PRN IV 03/28/24 08:15 Docusate Sodium 100 mg BIDPRN PRN PO 03/28/24 08:15 Acetaminophen 650 mg Q6HP PRN PO 03/28/24 08:15 03/30/24 03:14 650 MG Nitroglycerin 0.4 mg Q5MINP PRN SL 03/28/24 08:15 Morphine Sulfate 2 mg Q30M PRN IV 03/28/24 08:15 Diagnostic Test (Pha) 1 strip ACHS 03/28/24 11:30 03/31/24 06:26 1 STRIP Insulin Human Regular HS SC 03/28/24 22:00 03/30/24 23:09 2 UNITS Insulin Human Regular AC SC 03/28/24 11:30 03/30/24 11:33 2 UNITS Dextrose 50 ml UD PRN IV 03/28/24 08:15 Cefepime HCl 50 ml @ 12.5 mls/hr DAILY IV 03/28/24 10:00 03/31/24 09:22 12.5 MLS/HR Acyclovir 400 mg BID PO 03/28/24 10:00 03/31/24 09:22 400 MG Gabapentin 300 mg DAILY PO 03/28/24 10:00 Hold Sevelamer HCl 1,600 mg TID PO 03/28/24 14:00 03/31/24 06:29 1,600 MG Tamsulosin HCl 0.4 mg DAILY PO 03/28/24 10:00 03/31/24 09:22 0.4 MG Patient Own Medication 1 tab DAILY PO 03/28/24 10:00 Patient Own Medication 2 tab TIDWM PO 03/28/24 12:00 Patient Own Medication 8.4 gm DAILY PO 03/28/24 10:00 Betamethasone Dipropion Augmented 1 applic BID TOP 03/28/24 22:00 03/30/24 09:28 1 APPLIC Vancomycin HCl 0 ml @ 0 mls/hr UD IV 03/28/24 14:30 Acetaminophen/ Hydrocodone Bitart 2 tab Q6HPRN PRN PO 03/30/24 14:30 Azithromycin 250 ml @ 125 mls/hr DAILY IV 03/31/24 10:00 Fluconazole 200 mg DAILY PO 03/31/24 10:00 UNV Fluconazole 100 ml @ 100 mls/hr DAILY IV 03/31/24 10:00 Laboratory Results Laboratory Tests 03/31/24 08:48 Chemistry Test 03/31/24 08:48 Calcium Level Pending Magnesium Level Pending Urinalysis Test 03/27/24 23:04 Urine Color Yellow (Yellow) Urine Clarity Clear (Clear) Urine pH 8.0 (5.0-9.0) Urine Specific [place] 1.011 (1.001-1.035) Urine Protein 3+ (Negative) H Urine Ketones Negative (Negative) Urine Blood Negative /uL (Negative) Urine Nitrite Negative (Negative) Urine Bilirubin Negative (Negative) Urine Urobilinogen Normal mg/dL (Negative) Urine Leukocyte Esterase Negative /uL (Negative) Urine RBC 3 /hpf (0 - 3) Urine Microscopic WBC 3 /HPF (0-3) Urine Squamous Epithelial Cells Few /hpf (<5) Urine Bacteria Few /hpf (None Seen) H Urine Glucose 3+ mg/dL (Normal) H Microbiology Microbiology Date/Time Source Procedure Growth Status 03/29/24 13:36 Foot Left Gram Stain - Final Resulted 03/29/24 13:36 Foot Left Anaerobic Culture Pending Resulted 03/29/24 13:36 Aerobic Culture - Preliminary Presumptive Kasia albicans Resulted 03/27/24 23:35 Blood Blood Culture - Preliminary NO GROWTH AFTER 72 HOURS OF INCUBATION. Resulted Assessment/Plan Assessment/Plan Left foot cellulitis Left foot 4th digit gangrene End-stage renal disease on hemodialysis Hypertension GERD Type 2 diabetes BPH Balanitis xerotica obliterans Acute metabolic encephalopathy Plan Broad-spectrum antibiotics with vancomycin and cefepime Infectious disease consult Nephrology consult for hemodialysis Urology consult was done, recommended medical management Podiatry consult Monitor closely Full code Advance directives discussed for 15 minute 03/29/2024: Continue IV antibiotics Hemodialysis per nephrology Podiatry surgery today The rest of the management will depend on the hospital course 03/30/2024: Continue the IV antibiotics Hemodialysis per nephrology Continue [place] for pain Add to [place] q.6 hours p.r.n. for severe pain Podiatry is planning to take him in 1-2 days again for 2nd surgery and closure of the wound The rest of the management will depend on the hospital course 03/31/2024: Continue IV antibiotics Surgery for tomorrow for wound closure and possible discharged home afterwards Hemodialysis per nephrology Pain management as needed Plan discussed with: Patient My Orders Orders - FRANKIE SANCHEZ MD Procedure Category Date Status Time Hydrocodone-Acet PHA 03/30/24 In Process 5/325mg Tab ([place] 14:30 Basic Metabolic Panel LAB 03/31/24 In Process 04:00 Magnesium LAB 03/31/24 In Process 04:00 Date of Service: Mar 31, 2024 Billing Provider: LARRY BANKS ON CALL Common Visit Codes: [id number] INP/OBS CARE(HIGH) FRANKIE SANCHEZ MD Mar 31, 2024 11:03
[2024-03-31 11:31] LABS: Anion Gap 7 (5-15); Carbon Dioxide 30 mmol/L (20-31); Chloride 94 mmol/L (98-107); Potassium 3.9 mmol/L (3.5-5.1); Sodium 131 mmol/L (136-145)
[2024-03-31 11:37] LABS: Blood Urea Nitrogen 16 mg/dL (9-23); Glucose 76 mg/dL (74-106)
[2024-03-31 11:47] LABS: Calcium 8.5 mg/dL (8.7-10.4)
--- NOTE | 2024-03-31 11:50 | DVHPN2 ---
Consult Progress Note Date Seen: Mar 29, 2024 Subjective Patient reports: Other (underwent operative debridement of toe and staates toe is still hurting , having bloody drainage mostly serious drainage from his toe where itws been amuptated . his penis is still has a white discoloration of the glads and smaall ulceration underside his penis with serious drainage ) Objective vital signs Vital Sign Date Time Temp Pulse Resp B/P (MAP) Pulse Ox O2 Delivery O2 Flow Rate FiO2 03/31/24 08:30 98.1 92 14 129/86 (100) 90 98.1 03/30/24 20:00 Room Air* 0 21 Total Intake and Output 03/30/24 03/30/24 03/31/24 15:00 23:00 07:00 Intake Total 50 ml 860 ml 200 ml Output Total 0 ml Balance 50 ml 860 ml 200 ml medications Current Medications Medications Dose Ordered Sig/Alec Route Start Time Stop Time Status Last Admin Dose Admin Sodium Chloride 10 ml Q8HR IV 03/28/24 14:00 03/31/24 06:27 10 ML Acetaminophen/ Hydrocodone Bitart 1 tab Q4HP PRN PO 03/28/24 08:15 03/31/24 06:33 1 TAB Ondansetron HCl 4 mg Q4HP PRN IV 03/28/24 08:15 Docusate Sodium 100 mg BIDPRN PRN PO 03/28/24 08:15 Acetaminophen 650 mg Q6HP PRN PO 03/28/24 08:15 03/30/24 03:14 650 MG Nitroglycerin 0.4 mg Q5MINP PRN SL 03/28/24 08:15 Morphine Sulfate 2 mg Q30M PRN IV 03/28/24 08:15 Diagnostic Test (Pha) 1 strip ACHS 03/28/24 11:30 03/31/24 06:26 1 STRIP Insulin Human Regular HS SC 03/28/24 22:00 03/30/24 23:09 2 UNITS Insulin Human Regular AC SC 03/28/24 11:30 03/30/24 11:33 2 UNITS Dextrose 50 ml UD PRN IV 03/28/24 08:15 Cefepime HCl 50 ml @ 12.5 mls/hr DAILY IV 03/28/24 10:00 03/31/24 09:22 12.5 MLS/HR Acyclovir 400 mg BID PO 03/28/24 10:00 03/31/24 09:22 400 MG Gabapentin 300 mg DAILY PO 03/28/24 10:00 Hold Sevelamer HCl 1,600 mg TID PO 03/28/24 14:00 03/31/24 06:29 1,600 MG Tamsulosin HCl 0.4 mg DAILY PO 03/28/24 10:00 03/31/24 09:22 0.4 MG Patient Own Medication 1 tab DAILY PO 03/28/24 10:00 Patient Own Medication 2 tab TIDWM PO 03/28/24 12:00 Patient Own Medication 8.4 gm DAILY PO 03/28/24 10:00 Betamethasone Dipropion Augmented 1 applic BID TOP 03/28/24 22:00 03/31/24 10:00 1 APPLIC Vancomycin HCl 0 ml @ 0 mls/hr UD IV 03/28/24 14:30 Acetaminophen/ Hydrocodone Bitart 2 tab Q6HPRN PRN PO 03/30/24 14:30 Azithromycin 250 ml @ 125 mls/hr DAILY IV 03/31/24 10:00 Fluconazole 200 mg DAILY PO 03/31/24 10:00 UNV Fluconazole 100 ml @ 100 mls/hr DAILY IV 03/31/24 10:00 Physical Exam: General: NAD Neck: Supple. No masses. HEENT: PERRL. Normal lids and conjunctiva. Moist mucous membranes. Oropharynx without lesions, exudates, or excessive erythema. Normal appearance of the external aspects of the nose and ears. Heart: Regular rhythm, normal rate. No murmur. No lower extremity edema. Lungs: Normal respiratory effort. Clear to auscultation bilaterally. No wheezes. No crackles. Abdomen: Soft. Non-tender. Non-distended. No masses or abdominal hernia. Msk: No digital cyanosis. Normal strength and tone in all 4 limbs Skin: Warm and dry. Black discoloration of left fourth toe. Multiple ulcers under the shaft of penis with very tender serous drainage and whitening of glans skin. Neuro: Alert. No facial droop or slurred speech. Extra-ocular movements intact. Sensation intact to soft touch in all 4 limbs. Psych: Appropriate mood. Full affect. Oriented to person, place, time, and situation. laboratory and microbiology Laboratory Tests 03/31/24 08:48 Test 03/31/24 08:48 Range/Units Serum Glucose Pending Problem List/Assessment/Plan Problems(with codes): (1) Toe contusion (2) Mild protein malnutrition (3) Diabetes type 2, controlled (4) Mild dehydration (5) Diabetic foot infection (6) Toe infection Problem List/Assessment/Plan ID Problem List: -- ESRD on dialysis -- BPH -- COPD -- Diabetes mellitus -- Hypertension -- History of herpes infection -- Penile ulcers -- Possible sexually transmitted infection -- Left fourth toe necrotic gangrene Assessment This is a 68 y.o. male with a past medical history of ESRD on dialysis, BPH, COPD, diabetes mellitus, hypertension, and history of herpes infection, who presents with black discoloration of the left fourth toe and penile ulcers. Patient was brought in by ambulance after being found with black discoloration of his left fourth toe. He is a poor historian, [place] speaking, from a [employer]. He was recently admitted for similar complaints; his toe continued to worsen, becoming martín and more painful. On physical exam, he has multiple ulcers under the shaft of his penis with very tender serous drainage and whitening of the glans skin. Laboratory studies show a WBC count of 8.9, hemoglobin of 10.x, platelet count of 281, creatinine of 5.84, and BUN of 26. X-ray of the left foot shows no bone erosion, no evidence of soft tissue collection or hematoma, no joint effusion, subluxation, dislocation, or abscess. Blood cultures show no growth to date. MRSA nares negative. 03/29: underwent debridement and amputation of toe. per operative note there was a a deepening incision to the bone there was an abscess with preliminary fluid and puss . Cortices of the bone was removed and the necrotic tissue , amputation of the toe was required and taken down to the 4th digit and excised to the level of MPJ . bone was taken for biopsy . patient is planning to return to [place] for additional operative debridement enclosure Plan: - follow up on operative cultures -- Continue empiric antibiotic treatment with vancomycin and cefepime. -- Add acyclovir orally for possible herpes infection. -- Add azithromycin for empiric coverage of Haemophilus ducreyi, as it can be hard to isolate on culture. -- Order viral culture of penile drainage. -- Test for HIV, syphilis, gonorrhea, chlamydia, and herpes. -- Consult podiatry for possible amputation of necrotic left fourth toe. -- Obtain deep tissue cultures during procedure, including any infected bone or muscle. -- Keep blood sugars under 180 mg/dL. -- Defer dialysis management to nephrology. Isolation Precautions: standard Plan discussed with: ROLAND Busch MD Mar 31, 2024 11:50
--- NOTE | 2024-03-31 12:00 | DVHPN2 ---
Consult Progress Note Date Seen: Mar 30, 2024 Subjective Patient reports: Other (not having any pain on his foot today , toe is dressed , penis appears about the same with less drainage from ulcers and pale white discoloration of glands) Objective vital signs Vital Sign Date Time Temp Pulse Resp B/P (MAP) Pulse Ox O2 Delivery O2 Flow Rate FiO2 03/31/24 08:30 98.1 92 14 129/86 (100) 90 98.1 03/30/24 20:00 Room Air* 0 21 Total Intake and Output 03/30/24 03/30/24 03/31/24 15:00 23:00 07:00 Intake Total 50 ml 860 ml 200 ml Output Total 0 ml Balance 50 ml 860 ml 200 ml medications Current Medications Medications Dose Ordered Sig/Alec Route Start Time Stop Time Status Last Admin Dose Admin Sodium Chloride 10 ml Q8HR IV 03/28/24 14:00 03/31/24 06:27 10 ML Acetaminophen/ Hydrocodone Bitart 1 tab Q4HP PRN PO 03/28/24 08:15 03/31/24 06:33 1 TAB Ondansetron HCl 4 mg Q4HP PRN IV 03/28/24 08:15 Docusate Sodium 100 mg BIDPRN PRN PO 03/28/24 08:15 Acetaminophen 650 mg Q6HP PRN PO 03/28/24 08:15 03/30/24 03:14 650 MG Nitroglycerin 0.4 mg Q5MINP PRN SL 03/28/24 08:15 Morphine Sulfate 2 mg Q30M PRN IV 03/28/24 08:15 Diagnostic Test (Pha) 1 strip ACHS 03/28/24 11:30 03/31/24 06:26 1 STRIP Insulin Human Regular HS SC 03/28/24 22:00 03/30/24 23:09 2 UNITS Insulin Human Regular AC SC 03/28/24 11:30 03/30/24 11:33 2 UNITS Dextrose 50 ml UD PRN IV 03/28/24 08:15 Cefepime HCl 50 ml @ 12.5 mls/hr DAILY IV 03/28/24 10:00 03/31/24 09:22 12.5 MLS/HR Acyclovir 400 mg BID PO 03/28/24 10:00 03/31/24 09:22 400 MG Gabapentin 300 mg DAILY PO 03/28/24 10:00 Hold Sevelamer HCl 1,600 mg TID PO 03/28/24 14:00 03/31/24 06:29 1,600 MG Tamsulosin HCl 0.4 mg DAILY PO 03/28/24 10:00 03/31/24 09:22 0.4 MG Patient Own Medication 1 tab DAILY PO 03/28/24 10:00 Patient Own Medication 2 tab TIDWM PO 03/28/24 12:00 Patient Own Medication 8.4 gm DAILY PO 03/28/24 10:00 Betamethasone Dipropion Augmented 1 applic BID TOP 03/28/24 22:00 03/31/24 10:00 1 APPLIC Vancomycin HCl 0 ml @ 0 mls/hr UD IV 03/28/24 14:30 Acetaminophen/ Hydrocodone Bitart 2 tab Q6HPRN PRN PO 03/30/24 14:30 Azithromycin 250 ml @ 125 mls/hr DAILY IV 03/31/24 10:00 Fluconazole 200 mg DAILY PO 03/31/24 10:00 UNV Fluconazole 100 ml @ 100 mls/hr DAILY IV 03/31/24 10:00 Physical Exam: General: NAD Neck: Supple. No masses. HEENT: PERRL. Normal lids and conjunctiva. Moist mucous membranes. Oropharynx without lesions, exudates, or excessive erythema. Normal appearance of the external aspects of the nose and ears. Heart: Regular rhythm, normal rate. No murmur. No lower extremity edema. Lungs: Normal respiratory effort. Clear to auscultation bilaterally. No wheezes. No crackles. Abdomen: Soft. Non-tender. Non-distended. No masses or abdominal hernia. Msk: No digital cyanosis. Normal strength and tone in all 4 limbs Skin: Warm and dry. Black discoloration of left fourth toe. Multiple ulcers under the shaft of penis with very tender serous drainage and whitening of glans skin. Neuro: Alert. No facial droop or slurred speech. Extra-ocular movements intact. Sensation intact to soft touch in all 4 limbs. Psych: Appropriate mood. Full affect. Oriented to person, place, time, and situation. laboratory and microbiology Laboratory Tests 03/31/24 08:48 Test 03/31/24 08:48 Range/Units Serum Glucose 76 74-106 mg/dL Problem List/Assessment/Plan Problems(with codes): (1) ESRD (end stage renal disease) on dialysis (2) COPD (chronic obstructive pulmonary disease) (3) Toe contusion (4) Hypertension (5) Penile ulcer Problem List/Assessment/Plan ID Problem List: -- ESRD on dialysis -- BPH -- COPD -- Diabetes mellitus -- Hypertension -- History of herpes infection -- Penile ulcers -- Possible sexually transmitted infection -- Left fourth toe necrotic gangrene Assessment This is a 68 y.o. male with a past medical history of ESRD on dialysis, BPH, COPD, diabetes mellitus, hypertension, and history of herpes infection, who presents with black discoloration of the left fourth toe and penile ulcers. Patient was brought in by ambulance after being found with black discoloration of his left fourth toe. He is a poor historian, [place] speaking, from [place]. He was recently admitted for similar complaints; his toe continued to worsen, becoming martín and more painful. On physical exam, he has multiple ulcers under the shaft of his penis with very tender serous drainage and whitening of the glans skin. Laboratory studies show a WBC count of 8.9, hemoglobin of 10.x, platelet count of 281, creatinine of 5.84, and BUN of 26. X-ray of the left foot shows no bone erosion, no evidence of soft tissue collection or hematoma, no joint effusion, subluxation, dislocation, or abscess. Blood cultures show no growth to date. MRSA nares negative. 03/29: underwent debridement and amputation of toe. per operative note there was a a deepening incision to the bone there was an abscess with preliminary fluid and puss . Cortices of the bone was removed and the necrotic tissue , amputation of the toe was required and taken down to the 4th digit and excised to the level of MPJ . bone was taken for biopsy . patient is planning to return to OR for additional operative debridement enclosure 03/30: Left foot toe has a dressing that appears to not have any drainage on it or puss , just spotting . preliminary operative cultures are growing fungus Plan: - 1x dose of Iv fluconazole 400 milligrams , followed by IV fluconazole 200 milligrams daily - check EKG in 5 days to determine if QTC is prolonged in setting of chronic fluconazole - likely patient will need 6 weeks of IV fluconazole followed by several months of antifungal orally to completely eradicate osteomyelitis - follow up on operative cultures -- Continue empiric antibiotic treatment with vancomycin and cefepime. -- Continue acyclovir orally for possible herpes infection. -- Continue azithromycin for empiric coverage of Haemophilus ducreyi, as it can be hard to isolate on culture. -- Order viral culture of penile drainage. -- Test for HIV, syphilis, gonorrhea, chlamydia, and herpes. -- Consult podiatry for possible amputation of necrotic left fourth toe. -- Obtain deep tissue cultures during procedure, including any infected bone or muscle. -- Keep blood sugars under 180 mg/dL. -- Defer dialysis management to nephrology. Isolation Precautions: standard Plan discussed with: ROLAND Busch MD Mar 31, 2024 12:00
--- NOTE | 2024-03-31 12:37 | DVHPN2 ---
Progress Note - Dictate Date Seen: Mar 31, 2024 Has the PT tested + for MRSA If YES, has PT been informed?: No Medical Necessity Reason Pt with a Central, PICC or Fol: No Subjective Patient complained of some the glans of the penis vital signs Vital Sign Date Time Temp Pulse Resp B/P (MAP) Pulse Ox O2 Delivery O2 Flow Rate FiO2 03/31/24 08:30 98.1 92 14 129/86 (100) 90 98.1 03/31/24 08:00 Room Air* 0 21 Total Intake and Output 03/30/24 03/30/24 03/31/24 15:00 23:00 07:00 Intake Total 50 ml 860 ml 200 ml Output Total 0 ml Balance 50 ml 860 ml 200 ml medications Current Medications Medications Dose Ordered Sig/Alec Route Start Time Stop Time Status Last Admin Dose Admin Sodium Chloride 10 ml Q8HR IV 03/28/24 14:00 03/31/24 06:27 10 ML Acetaminophen/ Hydrocodone Bitart 1 tab Q4HP PRN PO 03/28/24 08:15 03/31/24 06:33 1 TAB Ondansetron HCl 4 mg Q4HP PRN IV 03/28/24 08:15 Docusate Sodium 100 mg BIDPRN PRN PO 03/28/24 08:15 Acetaminophen 650 mg Q6HP PRN PO 03/28/24 08:15 03/30/24 03:14 650 MG Nitroglycerin 0.4 mg Q5MINP PRN SL 03/28/24 08:15 Morphine Sulfate 2 mg Q30M PRN IV 03/28/24 08:15 Diagnostic Test (Pha) 1 strip ACHS 03/28/24 11:30 03/31/24 11:30 1 STRIP Insulin Human Regular HS SC 03/28/24 22:00 03/30/24 23:09 2 UNITS Insulin Human Regular AC SC 03/28/24 11:30 03/30/24 11:33 2 UNITS Dextrose 50 ml UD PRN IV 03/28/24 08:15 Cefepime HCl 50 ml @ 12.5 mls/hr DAILY IV 03/28/24 10:00 03/31/24 09:22 12.5 MLS/HR Acyclovir 400 mg BID PO 03/28/24 10:00 03/31/24 09:22 400 MG Gabapentin 300 mg DAILY PO 03/28/24 10:00 Hold Sevelamer HCl 1,600 mg TID PO 03/28/24 14:00 03/31/24 06:29 1,600 MG Tamsulosin HCl 0.4 mg DAILY PO 03/28/24 10:00 03/31/24 09:22 0.4 MG Patient Own Medication 1 tab DAILY PO 03/28/24 10:00 Patient Own Medication 2 tab TIDWM PO 03/28/24 12:00 Patient Own Medication 8.4 gm DAILY PO 03/28/24 10:00 Betamethasone Dipropion Augmented 1 applic BID TOP 03/28/24 22:00 03/31/24 10:00 1 APPLIC Vancomycin HCl 0 ml @ 0 mls/hr UD IV 03/28/24 14:30 Acetaminophen/ Hydrocodone Bitart 2 tab Q6HPRN PRN PO 03/30/24 14:30 Azithromycin 250 ml @ 125 mls/hr DAILY IV 03/31/24 10:00 Fluconazole 200 mg DAILY PO 03/31/24 10:00 UNV Fluconazole 100 ml @ 100 mls/hr DAILY IV 03/31/24 10:00 objective HEENT: No evidence of JVD, no oral ulcers. Pulmonary: Lungs are clear on auscultation bilaterally Cardiovascular S1-S2, no S3 or S4 Abdomen: Bowel sounds positive, soft no rebound tenderness Skin: No rash Extremities: Left foot dressed with an Shaji bandage with blood-tinged bleeding Neurological: Alert, oriented, no focal weakness : Deferred laboratory and microbiology Laboratory Tests 03/31/24 08:48 Test 03/31/24 08:48 Range/Units Serum Glucose 76 74-106 mg/dL Assessment/Plan Assessment: ESRD on HD Left foot 4th digit gangrene with cellulitis Hypertension GERD Type 2 diabetes BPH Balanitis xerotica obliterans Acute metabolic encephalopathy Plan plan and recommendations: Dialysis today and TTS On Diflucan, add clotrimazole he is being ruled out for chlamydia and gonorrhea Broad-spectrum antibiotics, renally dosed for EGFR less than 10 mL/min. Antibiotics as per primary team LAUREL for goal hemoglobin 10-11 Fluid restriction less than 1 L/day Resume antihypertensive meds Podiatry consultation appreciated For long-term IV antibiotics to be administered with dialysis preferably if not possible then tunneled central line as opposed to PICC line. Thank you very much for the consultation Plan discussed with: Patient LONNIE GASPAR MD Mar 31, 2024 12:37
[2024-03-31] MEDS: FLUCONAZOLE 200MG/100ML 100 ML IV SCH (13:54)
[2024-03-31] MEDS: HYDROcodone-ACET 5/325MG TAB PO PRN (17:51)
[2024-03-31] MEDS: AZITHROMYCIN 500MG/ 250ML 250 ML IV SCH (17:52)
[2024-03-31] MEDS: VANCOMYCIN 750mg/150ml 150 ML IV ONE (20:13)
[2024-03-31] MEDS: EPOETIN ALFA-EPBX 10,000 UNIT/1ML VIAL SC ONE (21:40)
[2024-03-31] MEDS: CLOTRIMAZOLE 1 % CREAM 15GM TOP SCH (21:50)
[2024-04-01] VITALS (7 sets, daily range): BP systolic 136–144; BP diastolic 75–86; PULSE 69–88; RESP 18–20; TEMP 97.6–98.3; O2SAT 80–100
[2024-04-01 08:07] LABS: RPR Non Reactive (Non Reactive)
[2024-04-01] MEDS: cefTRIAXone 2GM/50ML D5W 50 ML IV SCH (08:32)
--- NOTE | 2024-04-01 11:27 | DVHPN2 ---
Subjective Doing well No new complaints The patient is scheduled for his 2nd surgery today for closure of the wound He will need IV antibiotics at home and therefore we will do a tunneled central line since a PICC line he is contraindicated Changes from previous H/P or p: Changes Eyes: No Pain, No Vision change, No Conjunctivae inflammation, No Eyelid inflammation, No Other, No Redness ENT: No Ear pain, No Ear discharge, No Nose pain, No Nose discharge, No Nose congestion, No Mouth pain, No Mouth swelling, No Throat pain, No Throat swelling, No Other Cardiovascular: No Chest Pain, No Palpitations, No Orthopnea, No Paroxysmal Noc. Dyspnea, No Edema, No Lt Headedness, No Other Respiratory: No Cough, No Dry, No Shortness of breath, No SOB with excertion, No Wheezing, No Hemoptysis, No Pleuritic Pain, No Sputum, No Other Gastrointestinal: No Nausea, No Vomiting, No Abdominal Pain, No Diarrhea, No Constipation, No Melena, No Hematochezia, No Other Genitourinary: No Dysuria, No Frequency, No Incontinence, No Hematuria, No Retention, No Other Musculoskeletal: No other, No neck pain, No shoulder pain, No arm pain, No back pain, No hand pain, No leg pain (Left toe wound, pain, and redness), No foot pain Skin: No Rash, No Lesions, No Jaundice, No Bruising, No Other Objective Vitals Vital Signs Date Time Temp Pulse Resp B/P (MAP) Pulse Ox O2 Delivery O2 Flow Rate FiO2 04/01/24 08:48 97.9 77 18 144/84 (104) 81 97.9 03/31/24 20:00 Nasal Cannula* 2 28 Intake/Output Intake and Output 04/01/24 07:00 Intake Total 520 ml Output Total 400 ml Balance 120 ml Intake Oral 220 ml IV Total 300 ml Output Urine Total 400 ml # Voids 3 General Appearance: Alert, Other (Disoriented) Lungs: Other (Bilateral rhonchi) Cardiovascular: Regular rate, Normal S1 Abdomen: Normal bowel sounds, Soft, No tenderness Extremities: No edema, Other (Left foot discoloration and gangrene of the 4th toe with edema and erythema that is up to the ankle) Medications Current Medications Medications Dose Ordered Sig/Alec Route Start Time Stop Time Status Last Admin Dose Admin Sodium Chloride 10 ml Q8HR IV 03/28/24 14:00 04/01/24 05:37 10 ML Acetaminophen/ Hydrocodone Bitart 1 tab Q4HP PRN PO 03/28/24 08:15 03/31/24 06:33 1 TAB Ondansetron HCl 4 mg Q4HP PRN IV 03/28/24 08:15 Docusate Sodium 100 mg BIDPRN PRN PO 03/28/24 08:15 Acetaminophen 650 mg Q6HP PRN PO 03/28/24 08:15 03/30/24 03:14 650 MG Nitroglycerin 0.4 mg Q5MINP PRN SL 03/28/24 08:15 Morphine Sulfate 2 mg Q30M PRN IV 03/28/24 08:15 Diagnostic Test (Pha) 1 strip ACHS 03/28/24 11:30 04/01/24 05:57 1 STRIP Insulin Human Regular HS SC 03/28/24 22:00 03/30/24 23:09 2 UNITS Insulin Human Regular AC SC 03/28/24 11:30 03/31/24 18:07 2 UNITS Dextrose 50 ml UD PRN IV 03/28/24 08:15 Acyclovir 400 mg BID PO 03/28/24 10:00 03/31/24 09:22 400 MG Gabapentin 300 mg DAILY PO 03/28/24 10:00 Hold Sevelamer HCl 1,600 mg TID PO 03/28/24 14:00 04/01/24 05:41 1,600 MG Tamsulosin HCl 0.4 mg DAILY PO 03/28/24 10:00 03/31/24 09:22 0.4 MG Patient Own Medication 1 tab DAILY PO 03/28/24 10:00 Patient Own Medication 2 tab TIDWM PO 03/28/24 12:00 Patient Own Medication 8.4 gm DAILY PO 03/28/24 10:00 Betamethasone Dipropion Augmented 1 applic BID TOP 03/28/24 22:00 04/01/24 08:47 1 APPLIC Vancomycin HCl 0 ml @ 0 mls/hr UD IV 03/28/24 14:30 Acetaminophen/ Hydrocodone Bitart 2 tab Q6HPRN PRN PO 03/30/24 14:30 04/01/24 02:47 2 TAB Azithromycin 250 ml @ 125 mls/hr DAILY IV 03/31/24 10:00 03/31/24 17:52 125 MLS/HR Fluconazole 200 mg DAILY PO 03/31/24 10:00 UNV Fluconazole 100 ml @ 100 mls/hr DAILY IV 03/31/24 10:00 04/01/24 10:51 100 MLS/HR Clotrimazole 1 applic Q12HR TOP 03/31/24 22:00 04/01/24 08:39 1 APPLIC Ceftriaxone Sodium/Dextrose 50 ml @ 50 mls/hr DAILY IV 04/01/24 10:00 04/01/24 08:32 50 MLS/HR Laboratory Results Laboratory Tests 03/31/24 08:48 Urinalysis Test 03/27/24 23:04 Urine Color Yellow (Yellow) Urine Clarity Clear (Clear) Urine pH 8.0 (5.0-9.0) Urine Specific [place] 1.011 (1.001-1.035) Urine Protein 3+ (Negative) H Urine Ketones Negative (Negative) Urine Blood Negative /uL (Negative) Urine Nitrite Negative (Negative) Urine Bilirubin Negative (Negative) Urine Urobilinogen Normal mg/dL (Negative) Urine Leukocyte Esterase Negative /uL (Negative) Urine RBC 3 /hpf (0 - 3) Urine Microscopic WBC 3 /HPF (0-3) Urine Squamous Epithelial Cells Few /hpf (<5) Urine Bacteria Few /hpf (None Seen) H Urine Glucose 3+ mg/dL (Normal) H Microbiology Microbiology Date/Time Source Procedure Growth Status 03/29/24 13:36 Foot Left Gram Stain - Final Resulted 03/29/24 13:36 Foot Left Anaerobic Culture - Preliminary Resulted 03/29/24 13:36 Aerobic Culture - Final Staphylococcus haemolyticus Presumptive Kasia albicans Resulted 03/27/24 23:35 Blood Blood Culture - Preliminary NO GROWTH AFTER 72 HOURS OF INCUBATION. Resulted Assessment/Plan Assessment/Plan Left foot cellulitis Left foot 4th digit gangrene End-stage renal disease on hemodialysis Hypertension GERD Type 2 diabetes BPH Balanitis xerotica obliterans Acute metabolic encephalopathy Plan Broad-spectrum antibiotics with vancomycin and cefepime Infectious disease consult Nephrology consult for hemodialysis Urology consult was done, recommended medical management Podiatry consult Monitor closely Full code Advance directives discussed for 15 minute 03/29/2024: Continue IV antibiotics Hemodialysis per nephrology Podiatry surgery today The rest of the management will depend on the hospital course 03/30/2024: Continue the IV antibiotics Hemodialysis per nephrology Continue Conrad for pain Add to Conrad q.6 hours p.r.n. for severe pain Podiatry is planning to take him in 1-2 days again for 2nd surgery and closure of the wound The rest of the management will depend on the hospital course 03/31/2024: Continue IV antibiotics Surgery for tomorrow for wound closure and possible discharged home afterwards Hemodialysis per nephrology Pain management as needed 04/01/2024: Discussed his case with ID and Nephrology We will order a tunneled central line for the IV antibiotics at home He is scheduled for a 2nd surgery today by Podiatry Hemodialysis per nephrology Continue broad-spectrum antibiotic with Rocephin, Zithromax, fluconazole, vancomycin Acyclovir was ordered by ID also Discharge planning once a tunneled central line and IV antibiotics are ordered and arranged Plan discussed with: Patient My Orders Orders - FRANKIE SANCHEZ MD Procedure Category Date Status Time Vancomycin,Random LAB 04/02/24 Verified 05:00 Vancomycin Per SANDRA 03/31/24 In Process Pharmacy [facility] 16:00 Date of Service: Apr 01, 2024 Billing Provider: FRANKIE SANCHEZ MD Common Visit Codes: [id number] INP/OBS CARE(HIGH) FRANKIE SANCHEZ MD Apr 01, 2024 11:27
[2024-04-01] MEDS: METOCLOPRAMIDE HCL 5MG/ml INJ 2ml VIAL IV ONE (11:45)
[2024-04-01] MEDS: KETOROLAC TROMETH 30 MG/ML 1ML VIAL IV ONE (11:45)
[2024-04-01] MEDS: ACCU-CHEK COMFORT CURVE STRIP VI ONE (11:45)
[2024-04-01] MEDS ORDERED: MORPHINE SULFATE INJ 2 MG/ml SYRG IV PRN ×2 (11:45)
[2024-04-01] MEDS ORDERED: HYDROmorphone HCL 2 MG/ML VL/or syr IV PRN ×2 (11:45)
[2024-04-01] MEDS: BUPIVACAINE 0.5% P/F INJ 10 ML VIAL ONE (12:22)
[2024-04-01] MEDS: VANCOMYCIN HCL 1000 MG VL ONE (12:28)
--- NOTE | 2024-04-01 12:41 | DVHOP2 ---
Operative Report - 2 Report Details Date: 04/01/24 Preop Diagnosis: 1. Left 4th toe gangrene 2. 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 Left 4th toe cellulitis Postop Diagnosis: Same as preop Surgeon: Yusef Oscar MD Anesthesiologist: See anesthesia Anesthesia: Mac Consent: The patient was informed of the risks and benefits of the procedure. These include but are not limited to complications of anesthesia, postoperative infection, incomplete relief of symptoms, recurrence of symptoms, damage to blood vessels, nerves and tendons, deep venous thrombosis, pulmonary embolism an d possible need for repeat surgery in the future. Complications: None Estimated Blood Loss: Minimal Fluids: See H&P Findings: Consistent with diagnosis Indications for Surgery: Worsening left foot Name of Procedure Performed 1. Left foot I&D to bone (10956) 2. Left foot delayed closure (37599) Procedure Details Procedure Details: PRE-PROCEDURE INFORMATION: In the pre-op holding area, the extremity to be operated on was clearly marked and the patient verified correct laterality of the marking. The patient was transferred to the OR table and placed in a supine position. A timeout was performed in which identification of the correct patient, procedure, location, and materials was done. The left foot and leg were prepped and draped in normal sterile fashion. DESCRIPTION OF PROCEDURE: Attention was directed to the left foot where area of fluctuance was noted. An incision was made over this area and was deepened through blunt dissection. The incision was deepened to the level of abscess and bone. Care was taken to the dissection to avoid any neurovascular and tendinous structures. The incision was deepened to the bone, and the abscess appeared to be purulent fluid consistent with pus. The cortices of the bone was then remove d with Jonathan an all necrotic tissue. After the abscess was drained, the area was irrigated with 3 L normal saline using cysto tubing. A delayed closure was then performed using 2-0 nylon after was deemed appropriate with no longer concern for infection. POSTOPERATIVE INFORMATION: The patient tolerated the above noted procedure and anesthesia well and was transferred to the PACU with vital signs stable, and vascular status intact with capillary refill intact to all digits. Patient can return to the floor. Patient can weightbear as tolerated in a postop shoe patient can be discharged in a postop shoe when deemed medically stable Condition Good Disposition Still a Patient YUSEF OSCAR DPM Apr 01, 2024 12:41
--- NOTE | 2024-04-01 12:43 | DVHPN2 ---
José Luis Pacheco is a 68-year-old male with past medical history of ESRD on HD, BPH, COPD, diabetes, GERD, HSV, and hypertension, who was brought in by ambulance for complaint of black discoloration and pain to 4th digit on left foot. Per EMS report, patient is a poor historian and a resident of [facility] for rehabilitation care. Patient was recently admitted for similar complaints, but came back due to toe worsening. Patient has no reported numbness, tingling, weakness, discharge, fever, chills, or other associated symptoms or modifiers at this time. Changes from previous H/P or p: No Changes Eyes: No Pain, No Vision change, No Conjunctivae inflammation, No Eyelid inflammation, No Other, No Redness ENT: No Ear pain, No Ear discharge, No Nose pain, No Nose discharge, No Nose congestion, No Mouth pain, No Mouth swelling, No Throat pain, No Throat swelling, No Other Cardiovascular: No Chest Pain, No Palpitations, No Orthopnea, No Paroxysmal Noc. Dyspnea, No Edema, No Lt Headedness, No Other Respiratory: No Cough, No Dry, No Shortness of breath, No SOB with excertion, No Wheezing, No Hemoptysis, No Pleuritic Pain, No Sputum, No Other Gastrointestinal: No Nausea, No Vomiting, No Abdominal Pain, No Diarrhea, No Constipation, No Melena, No Hematochezia, No Other Genitourinary: No Dysuria, No Frequency, No Incontinence, No Hematuria, No Retention, No Other Musculoskeletal: No other, No neck pain, No shoulder pain, No arm pain, No back pain, No hand pain, No leg pain (Left toe wound, pain, and redness), No foot pain Skin: No Rash, No Lesions, No Jaundice, No Bruising, No Other Objective Vitals Vital Signs Date Time Temp Pulse Resp B/P (MAP) Pulse Ox O2 Delivery O2 Flow Rate FiO2 04/01/24 08:48 97.9 77 18 144/84 (104) 81 97.9 03/31/24 20:00 Nasal Cannula* 2 28 Intake/Output Intake and Output 04/01/24 07:00 Intake Total 520 ml Output Total 400 ml Balance 120 ml Intake Oral 220 ml IV Total 300 ml Output Urine Total 400 ml # Voids 3 Exam DERMATOLOGIC EXAM: - Skin is dry and cool to the touch dry bilaterally. - Nails 1-5 of the bilateral foot are thickened, discolored, dystrophic, and tender to palpate with subungual debris - Hair loss noted to bilateral feet - necrosis of the 4th digit on the left foot VASCULAR EXAM: - DP and PT pulses are palpable bilaterally. - WOOL CLEANER is brisk to all digits. - Feet are cool to touch compared to lower legs bilaterally. NEUROLOGIC EXAM: - Normal light touch sensation to the superficial peroneal, deep peroneal, sural, saphenous, and tibial nerve branches. - Protective sensation is diminished as tested with a 5.07 10g [place] bilaterally. MUSCULOSKELETAL EXAM: - No gross deformities - Muscle strength is 5/5 and active motion is pain-free and symmetrical bilaterally - No pain or crepitation with passive range of motion bilaterally to all major pedal joints General Appearance: Alert, Other (Disoriented) Lungs: Other (Bilateral rhonchi) Cardiovascular: Regular rate, Normal S1 Abdomen: Normal bowel sounds, Soft, No tenderness Extremities: No edema, Other (Left foot discoloration and gangrene of the 4th toe with edema and erythema that is up to the ankle) Medications Current Medications Medications Dose Ordered Sig/Alec Route Start Time Stop Time Status Last Admin Dose Admin Sodium Chloride 10 ml Q8HR IV 03/28/24 14:00 04/01/24 05:37 10 ML Acetaminophen/ Hydrocodone Bitart 1 tab Q4HP PRN PO 03/28/24 08:15 03/31/24 06:33 1 TAB Ondansetron HCl 4 mg Q4HP PRN IV 03/28/24 08:15 Docusate Sodium 100 mg BIDPRN PRN PO 03/28/24 08:15 Acetaminophen 650 mg Q6HP PRN PO 03/28/24 08:15 03/30/24 03:14 650 MG Nitroglycerin 0.4 mg Q5MINP PRN SL 03/28/24 08:15 Morphine Sulfate 2 mg Q30M PRN IV 03/28/24 08:15 Diagnostic Test (Pha) 1 strip ACHS 03/28/24 11:30 04/01/24 05:57 1 STRIP Insulin Human Regular HS SC 03/28/24 22:00 03/30/24 23:09 2 UNITS Insulin Human Regular AC SC 03/28/24 11:30 03/31/24 18:07 2 UNITS Dextrose 50 ml UD PRN IV 03/28/24 08:15 Acyclovir 400 mg BID PO 03/28/24 10:00 03/31/24 09:22 400 MG Gabapentin 300 mg DAILY PO 03/28/24 10:00 Hold Sevelamer HCl 1,600 mg TID PO 03/28/24 14:00 04/01/24 05:41 1,600 MG Tamsulosin HCl 0.4 mg DAILY PO 03/28/24 10:00 03/31/24 09:22 0.4 MG Patient Own Medication 1 tab DAILY PO 03/28/24 10:00 Patient Own Medication 2 tab TIDWM PO 03/28/24 12:00 Patient Own Medication 8.4 gm DAILY PO 03/28/24 10:00 Betamethasone Dipropion Augmented 1 applic BID TOP 03/28/24 22:00 04/01/24 08:47 1 APPLIC Vancomycin HCl 0 ml @ 0 mls/hr UD IV 03/28/24 14:30 Acetaminophen/ Hydrocodone Bitart 2 tab Q6HPRN PRN PO 03/30/24 14:30 04/01/24 02:47 2 TAB Azithromycin 250 ml @ 125 mls/hr DAILY IV 03/31/24 10:00 03/31/24 17:52 125 MLS/HR Fluconazole 200 mg DAILY PO 03/31/24 10:00 UNV Fluconazole 100 ml @ 100 mls/hr DAILY IV 03/31/24 10:00 04/01/24 10:51 100 MLS/HR Clotrimazole 1 applic Q12HR TOP 03/31/24 22:00 04/01/24 08:39 1 APPLIC Ceftriaxone Sodium/Dextrose 50 ml @ 50 mls/hr DAILY IV 04/01/24 10:00 04/01/24 08:32 50 MLS/HR Hydromorphone HCl 0.5 mg Q10M PRN IV 04/01/24 11:45 04/01/24 12:26 UNV Morphine Sulfate 2 mg Q4H PRN IV 04/01/24 11:45 04/01/24 15:46 UNV Hydromorphone HCl 0.25 mg Q10M PRN IV 04/01/24 11:45 04/01/24 12:16 UNV Morphine Sulfate 1 mg Q30M PRN IV 04/01/24 11:45 04/01/24 13:46 UNV Laboratory Results Laboratory Tests 03/31/24 08:48 Urinalysis Test 03/27/24 23:04 Urine Color Yellow (Yellow) Urine Clarity Clear (Clear) Urine pH 8.0 (5.0-9.0) Urine Specific [place] 1.011 (1.001-1.035) Urine Protein 3+ (Negative) H Urine Ketones Negative (Negative) Urine Blood Negative /uL (Negative) Urine Nitrite Negative (Negative) Urine Bilirubin Negative (Negative) Urine Urobilinogen Normal mg/dL (Negative) Urine Leukocyte Esterase Negative /uL (Negative) Urine RBC 3 /hpf (0 - 3) Urine Microscopic WBC 3 /HPF (0-3) Urine Squamous Epithelial Cells Few /hpf (<5) Urine Bacteria Few /hpf (None Seen) H Urine Glucose 3+ mg/dL (Normal) H Microbiology Microbiology Date/Time Source Procedure Growth Status 03/29/24 13:36 Foot Left Gram Stain - Final Resulted 03/29/24 13:36 Foot Left Anaerobic Culture - Preliminary Resulted 03/29/24 13:36 Aerobic Culture - Final Staphylococcus haemolyticus Presumptive Kasia albicans Resulted 03/27/24 23:35 Blood Blood Culture - Preliminary NO GROWTH AFTER 72 HOURS OF INCUBATION. Resulted Assessment/Plan Assessment/Plan ASSESSMENT: Patient is a 68 year old seen on the floor 3 day s/p from a ortho amputation PLAN: - The patients chart was reviewed, clinical findings were discussed with the patient, the etiologies of the conditions were discussed in detail, and a treatment plan was agreed to at this time, with both oral and written instructions provided. - reviewed advanced imaging - plan is to take the patient back on Thursday for another I&D with closure - continue IV antibiotics - leave dressings intact until Thursday - patient NPO since midnight - we will take him to the OR around noon today - patient will be able to be discharged when medically stable after the procedure on Thursday All questions were answered and concerns addressed to the patient's satisfaction. The patient was given the phone number to the clinic and was told how to make contact with the clinic should any concerns or questions arise. Patient understands that if any questions or concerns arise prior to the next appointment, we should be contacted immediately. 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, on chronic dialysis (7) Biliary colic (8) Dehydration (9) Hypokalemia (10) Acute hyperkalemia (11) Hypocalcemia (12) Urinary retention (13) Confusion (14) Confusional state (15) Cough (16) Wheezing (17) Acute bronchitis (18) Chronic pancreatitis (19) Head injury (20) Fluid retention (21) Abdominal pain (22) Chest pain (23) Cystitis (24) Diverticula of colon (25) Hypertension (26) Severe malnutrition (27) Tonsillitis (28) Elevated blood pressure reading (29) Metabolic encephalopathy (30) Uncontrolled diabetes mellitus (31) CKD (chronic kidney disease) stage 5, GFR less than 15 ml/min (32) Elevated troponin (33) Mild dehydration (34) End stage renal failure on dialysis (35) Diabetes type 2, controlled (36) Acute exacerbation of congestive heart failure (37) Toe contusion (38) Mild protein malnutrition (39) Hypertensive urgency (40) Hypertensive urgency (41) Orbital floor fracture (42) Elevated brain natriuretic peptide (BNP) level (43) Uncontrolled hypertension (44) Toe infection (45) History of shingles (46) Cholelithiasis without cholecystitis (47) History of renal dialysis (48) Diabetes mellitus with hyperglycemia (49) Opacity of lung on imaging study (50) Pneumonia of both lower lobes (51) Acute renal failure superimposed on chronic kidney disease, on chronic dialysis (52) Suspected COVID-19 virus infection (53) Bronchitis due to COVID-19 virus (54) COVID-19 (55) Lab test positive for detection of COVID-19 virus (56) ESRD (end stage renal disease) on dialysis (57) COPD (chronic obstructive pulmonary disease) (58) Penile ulcer Date of Service: Apr 01, 2024 Billing Provider: YUSEF OSCAR DPM Common Visit Codes: [id number] INP/OBS CARE(MOD) YUSEF OSCAR DPM Apr 01, 2024 12:43
--- NOTE | 2024-04-01 13:44 | DVHPN2 ---
Progress Note - Dictate Date Seen: Apr 01, 2024 Has the PT tested + for MRSA If YES, has PT been informed?: No Medical Necessity Reason Pt with a Central, PICC or Fol: No Subjective Patient went to OR today vital signs Vital Sign Date Time Temp Pulse Resp B/P (MAP) Pulse Ox O2 Delivery O2 Flow Rate FiO2 04/01/24 12:40 98 Nasal Cannula 3.0 04/01/24 12:40 98 04/01/24 08:48 97.9 77 18 144/84 (104) 97.9 Total Intake and Output 03/31/24 03/31/24 04/01/24 15:00 23:00 07:00 Intake Total 50 ml 250 ml 220 ml Output Total 400 ml Balance 50 ml 250 ml -180 ml medications Current Medications Medications Dose Ordered Sig/Alec Route Start Time Stop Time Status Last Admin Dose Admin Sodium Chloride 10 ml Q8HR IV 03/28/24 14:00 04/01/24 05:37 10 ML Acetaminophen/ Hydrocodone Bitart 1 tab Q4HP PRN PO 03/28/24 08:15 03/31/24 06:33 1 TAB Ondansetron HCl 4 mg Q4HP PRN IV 03/28/24 08:15 Docusate Sodium 100 mg BIDPRN PRN PO 03/28/24 08:15 Acetaminophen 650 mg Q6HP PRN PO 03/28/24 08:15 03/30/24 03:14 650 MG Nitroglycerin 0.4 mg Q5MINP PRN SL 03/28/24 08:15 Morphine Sulfate 2 mg Q30M PRN IV 03/28/24 08:15 Diagnostic Test (Pha) 1 strip ACHS 03/28/24 11:30 04/01/24 11:30 1 STRIP Insulin Human Regular HS SC 03/28/24 22:00 03/30/24 23:09 2 UNITS Insulin Human Regular AC SC 03/28/24 11:30 03/31/24 18:07 2 UNITS Dextrose 50 ml UD PRN IV 03/28/24 08:15 Acyclovir 400 mg BID PO 03/28/24 10:00 03/31/24 09:22 400 MG Gabapentin 300 mg DAILY PO 03/28/24 10:00 Hold Sevelamer HCl 1,600 mg TID PO 03/28/24 14:00 04/01/24 05:41 1,600 MG Tamsulosin HCl 0.4 mg DAILY PO 03/28/24 10:00 03/31/24 09:22 0.4 MG Patient Own Medication 1 tab DAILY PO 03/28/24 10:00 Patient Own Medication 2 tab TIDWM PO 03/28/24 12:00 Patient Own Medication 8.4 gm DAILY PO 03/28/24 10:00 Betamethasone Dipropion Augmented 1 applic BID TOP 03/28/24 22:00 04/01/24 08:47 1 APPLIC Vancomycin HCl 0 ml @ 0 mls/hr UD IV 03/28/24 14:30 Acetaminophen/ Hydrocodone Bitart 2 tab Q6HPRN PRN PO 03/30/24 14:30 04/01/24 02:47 2 TAB Azithromycin 250 ml @ 125 mls/hr DAILY IV 03/31/24 10:00 03/31/24 17:52 125 MLS/HR Fluconazole 200 mg DAILY PO 03/31/24 10:00 UNV Fluconazole 100 ml @ 100 mls/hr DAILY IV 03/31/24 10:00 04/01/24 10:51 100 MLS/HR Clotrimazole 1 applic Q12HR TOP 03/31/24 22:00 04/01/24 08:39 1 APPLIC Ceftriaxone Sodium/Dextrose 50 ml @ 50 mls/hr DAILY IV 04/01/24 10:00 04/01/24 08:32 50 MLS/HR Morphine Sulfate 2 mg Q4H PRN IV 04/01/24 11:45 04/01/24 15:46 Morphine Sulfate 1 mg Q30M PRN IV 04/01/24 11:45 04/01/24 13:46 objective HEENT: No evidence of JVD, no oral ulcers. Pulmonary: Lungs are clear on auscultation bilaterally Cardiovascular S1-S2, no S3 or S4 Abdomen: Bowel sounds positive, soft no rebound tenderness Skin: No rash Extremities: Left foot dressed with an Shaji bandage with blood-tinged bleeding Neurological: Alert, oriented, no focal weakness : Deferred laboratory and microbiology Laboratory Tests 03/31/24 08:48 Test 03/31/24 08:48 Range/Units Serum Glucose 76 74-106 mg/dL Assessment/Plan Assessment: ESRD on HD Left foot 4th digit gangrene with cellulitis Hypertension GERD Type 2 diabetes BPH Balanitis xerotica obliterans Acute metabolic encephalopathy Plan plan and recommendations: Continue dialysis TTS Going for surgery today On Diflucan, add clotrimazole he is being ruled out for chlamydia and gonorrhea Broad-spectrum antibiotics, renally dosed for EGFR less than 10 mL/min. Antibiotics as per primary team LAUREL for goal hemoglobin 10-11 Fluid restriction less than 1 L/day Resume antihypertensive meds Podiatry consultation appreciated For long-term IV antibiotics to be administered with dialysis preferably if not possible then tunneled central line as opposed to PICC line. Thank you very much for the consultation Dietary Evaluation Review Comments: encourage and monitor PO feedings to meet 75% of his needs, consider Ash BID, vitamin for ESRD plus additinal vit C and Zn to promote healing. Expected Outcomes/Goals: controlled DM, graudal healed wounds, improved nutrition status, Plan discussed with: Patient LONNIE GASPAR MD Apr 01, 2024 13:44
[2024-04-01] MEDS: ONDANSETRON HCL 4 MG/2 ML VIAL IV PRN (16:17)
[2024-04-01 23:07] LABS: Chlamydia Trachomatis, NAA Negative (Negative); Neisseria gonorrhoeae, NAA Negative (Negative)
[2024-04-02] VITALS (9 sets, daily range): BP systolic 146–172; BP diastolic 70–89; PULSE 75–87; RESP 17–20; TEMP 97.8–99; O2SAT 91–98
[2024-04-02 07:22] LABS: Basophils # (auto) 0.1 10 ^3/uL (0-0.2); Basophils % (auto) 1.1 % (0.0-2.0); Eosinophils # (auto) 0.1 10 ^3/uL (0-0.8); Eosinophils % (auto) 0.7 % (0.0-7.0); Hematocrit 30.6 % (41.0-53.0); Hemoglobin 10.1 g/dL (13.5-17.5); Lymphocytes # (auto) 0.9 10 ^3/uL (0.4-5.4); Lymphocytes % (auto) 10.4 % (10.0-50.0); Mean Corpuscular Hemoglobin 32.1 pg (28.0-32.0); Mean Corpuscular Volume 97.4 fL (80.0-100.0); Monocytes # (auto) 0.7 10 ^3/uL (0-1.3); Monocytes % (auto) 8.1 % (0.0-12.0); Neutrophils # (auto) 7.2 10 ^3/uL (1.6-8.6); Neutrophils % (auto) 79.7 % (37.0-80.0); Platelet Count (auto) 338 10^3/uL (140-450); Red Blood Cells 3.14 10^6/uL (4.5-5.90); Red Cell Distribution Width 17.3 % (11.8-14.3)
[2024-04-02 07:45] LABS: Anion Gap 10 (5-15); Aspartate Aminotransferase 21 U/L (13-40); BUN/Creatinine Ratio 4.7 (10.0-20.0); Carbon Dioxide 24 mmol/L (20-31); Magnesium 2.1 mg/dL (1.6-2.6)
[2024-04-02 07:46] LABS: Bilirubin, Total 0.3 mg/dL (0.2-1.0)
[2024-04-02 07:54] LABS: Alanine Aminotransferase < 9 U/L (7-40); Albumin 2.8 g/dL (3.2-4.8); Alkaline Phosphatase 179 U/L (46-116); Blood Urea Nitrogen 27 mg/dL (9-23); Calcium 8.3 mg/dL (8.7-10.4); Chloride 93 mmol/L (98-107); Glucose 68 mg/dL (74-106); Potassium 5.4 mmol/L (3.5-5.1); Sodium 127 mmol/L (136-145); Total Protein 5.4 g/dL (5.7-8.2)
--- NOTE | 2024-04-02 11:25 | DVHPN2 ---
Subjective No new complaints Undergoing hemodialysis now Changes from previous H/P or p: Changes Eyes: No Pain, No Vision change, No Conjunctivae inflammation, No Eyelid inflammation, No Other, No Redness ENT: No Ear pain, No Ear discharge, No Nose pain, No Nose discharge, No Nose congestion, No Mouth pain, No Mouth swelling, No Throat pain, No Throat swelling, No Other Cardiovascular: No Chest Pain, No Palpitations, No Orthopnea, No Paroxysmal Noc. Dyspnea, No Edema, No Lt Headedness, No Other Respiratory: No Cough, No Dry, No Shortness of breath, No SOB with excertion, No Wheezing, No Hemoptysis, No Pleuritic Pain, No Sputum, No Other Gastrointestinal: No Nausea, No Vomiting, No Abdominal Pain, No Diarrhea, No Constipation, No Melena, No Hematochezia, No Other Genitourinary: No Dysuria, No Frequency, No Incontinence, No Hematuria, No Retention, No Other Musculoskeletal: No other, No neck pain, No shoulder pain, No arm pain, No back pain, No hand pain, No leg pain (Left toe wound, pain, and redness), No foot pain Skin: No Rash, No Lesions, No Jaundice, No Bruising, No Other Objective Vitals Vital Signs Date Time Temp Pulse Resp B/P (MAP) Pulse Ox O2 Delivery O2 Flow Rate FiO2 04/02/24 09:00 98.0 82 20 146/70 (95) 91 98.0 04/01/24 20:00 Room Air* 0 21 Intake/Output Intake and Output 04/02/24 07:00 Intake Total 1270 ml Output Total 640 ml Balance 630 ml Intake Oral 1110 ml IV Total 160 ml Output Urine Total 640 ml General Appearance: Alert, Other (Disoriented) Lungs: Other (Bilateral rhonchi) Cardiovascular: Regular rate, Normal S1 Abdomen: Normal bowel sounds, Soft, No tenderness Extremities: No edema, Other (Left foot discoloration and gangrene of the 4th toe with edema and erythema that is up to the ankle) Medications Current Medications Medications Dose Ordered Sig/Alec Route Start Time Stop Time Status Last Admin Dose Admin Sodium Chloride 10 ml Q8HR IV 03/28/24 14:00 04/02/24 06:09 10 ML Acetaminophen/ Hydrocodone Bitart 1 tab Q4HP PRN PO 03/28/24 08:15 04/02/24 02:19 1 TAB Ondansetron HCl 4 mg Q4HP PRN IV 03/28/24 08:15 04/02/24 05:55 4 MG Docusate Sodium 100 mg BIDPRN PRN PO 03/28/24 08:15 Acetaminophen 650 mg Q6HP PRN PO 03/28/24 08:15 03/30/24 03:14 650 MG Nitroglycerin 0.4 mg Q5MINP PRN SL 03/28/24 08:15 Morphine Sulfate 2 mg Q30M PRN IV 03/28/24 08:15 Diagnostic Test (Pha) 1 strip ACHS 03/28/24 11:30 04/02/24 06:10 1 STRIP Insulin Human Regular HS SC 03/28/24 22:00 03/30/24 23:09 2 UNITS Insulin Human Regular AC SC 03/28/24 11:30 04/01/24 17:11 3 UNITS Dextrose 50 ml UD PRN IV 03/28/24 08:15 Acyclovir 400 mg BID PO 03/28/24 10:00 04/01/24 21:16 400 MG Gabapentin 300 mg DAILY PO 03/28/24 10:00 Hold Sevelamer HCl 1,600 mg TID PO 03/28/24 14:00 04/02/24 05:53 1,600 MG Tamsulosin HCl 0.4 mg DAILY PO 03/28/24 10:00 04/01/24 15:58 0.4 MG Patient Own Medication 1 tab DAILY PO 03/28/24 10:00 Patient Own Medication 2 tab TIDWM PO 03/28/24 12:00 Patient Own Medication 8.4 gm DAILY PO 03/28/24 10:00 Betamethasone Dipropion Augmented 1 applic BID TOP 03/28/24 22:00 04/01/24 08:47 1 APPLIC Vancomycin HCl 0 ml @ 0 mls/hr UD IV 03/28/24 14:30 Acetaminophen/ Hydrocodone Bitart 2 tab Q6HPRN PRN PO 03/30/24 14:30 04/02/24 00:10 2 TAB Azithromycin 250 ml @ 125 mls/hr DAILY IV 03/31/24 10:00 04/01/24 15:58 125 MLS/HR Fluconazole 200 mg DAILY PO 03/31/24 10:00 UNV Fluconazole 100 ml @ 100 mls/hr DAILY IV 03/31/24 10:00 04/01/24 10:51 100 MLS/HR Clotrimazole 1 applic Q12HR TOP 03/31/24 22:00 04/01/24 08:39 1 APPLIC Ceftriaxone Sodium/Dextrose 50 ml @ 50 mls/hr DAILY IV 04/01/24 10:00 04/01/24 08:32 50 MLS/HR Laboratory Results Laboratory Tests 04/02/24 06:13 Chemistry Test 04/02/24 06:13 Albumin 2.8 g/dL (3.2-4.8) L Calcium Level 8.3 mg/dL (8.7-10.4) L Magnesium Level 2.1 mg/dL (1.6-2.6) Total Protein 5.4 g/dL (5.7-8.2) L LFT Test 04/02/24 06:13 Alanine Aminotransferase (ALT) < 9 U/L (7-40) Alkaline Phosphatase 179 U/L (46-116) H Aspartate Amino Transferase (AST) 21 U/L (13-40) Total Bilirubin 0.3 mg/dL (0.2-1.0) Urinalysis Test 03/27/24 23:04 Urine Color Yellow (Yellow) Urine Clarity Clear (Clear) Urine pH 8.0 (5.0-9.0) Urine Specific [place] 1.011 (1.001-1.035) Urine Protein 3+ (Negative) H Urine Ketones Negative (Negative) Urine Blood Negative /uL (Negative) Urine Nitrite Negative (Negative) Urine Bilirubin Negative (Negative) Urine Urobilinogen Normal mg/dL (Negative) Urine Leukocyte Esterase Negative /uL (Negative) Urine RBC 3 /hpf (0 - 3) Urine Microscopic WBC 3 /HPF (0-3) Urine Squamous Epithelial Cells Few /hpf (<5) Urine Bacteria Few /hpf (None Seen) H Urine Glucose 3+ mg/dL (Normal) H Microbiology Microbiology Date/Time Source Procedure Growth Status 03/29/24 13:36 Foot Left Gram Stain - Final Resulted 03/29/24 13:36 Foot Left Anaerobic Culture - Preliminary Resulted 03/29/24 13:36 Aerobic Culture - Final Staphylococcus haemolyticus Presumptive Kasia albicans Resulted 03/27/24 23:35 Blood Blood Culture - Final NO GROWTH AFTER 5 DAYS OF INCUBATION. Complete Assessment/Plan Assessment/Plan Left foot cellulitis Left foot 4th digit gangrene End-stage renal disease on hemodialysis Hypertension GERD Type 2 diabetes BPH Balanitis xerotica obliterans Acute metabolic encephalopathy Plan Broad-spectrum antibiotics with vancomycin and cefepime Infectious disease consult Nephrology consult for hemodialysis Urology consult was done, recommended medical management Podiatry consult Monitor closely Full code Advance directives discussed for 15 minute 03/29/2024: Continue IV antibiotics Hemodialysis per nephrology Podiatry surgery today The rest of the management will depend on the hospital course 03/30/2024: Continue the IV antibiotics Hemodialysis per nephrology Continue Omro for pain Add to Omro q.6 hours p.r.n. for severe pain Podiatry is planning to take him in 1-2 days again for 2nd surgery and closure of the wound The rest of the management will depend on the hospital course 03/31/2024: Continue IV antibiotics Surgery for tomorrow for wound closure and possible discharged home afterwards Hemodialysis per nephrology Pain management as needed 04/01/2024: Discussed his case with ID and Nephrology We will order a tunneled central line for the IV antibiotics at home He is scheduled for a 2nd surgery today by Podiatry Hemodialysis per nephrology Continue broad-spectrum antibiotic with Rocephin, Zithromax, fluconazole, vancomycin Acyclovir was ordered by ID also Discharge planning once a tunneled central line and IV antibiotics are ordered and arranged 04/02/2024: Hemodialysis is done today Tunneled central catheter to be done on Thursday for IV antibiotics at home Continue the current management until IV antibiotics at home and central line are done Plan discussed with: Patient My Orders Orders - FRANKIE SANCHEZ MD Procedure Category Date Status Time Regular Diet DIET 04/01/24 Transmitted Dinner * Wound Consult CONS 04/01/24 Transmitted Date of Service: Apr 02, 2024 Billing Provider: FRANKIE SANCHEZ MD Common Visit Codes: [id number] INP/OBS CARE(HIGH) FRANKIE SANCHEZ MD Apr 02, 2024 11:25
--- NOTE | 2024-04-02 12:21 | DVHPN2 ---
Progress Note - Dictate Date Seen: Apr 02, 2024 Has the PT tested + for MRSA If YES, has PT been informed?: No Medical Necessity Reason Pt with a Central, PICC or Fol: No Subjective Patient has no major complaints today vital signs Vital Sign Date Time Temp Pulse Resp B/P (MAP) Pulse Ox O2 Delivery O2 Flow Rate FiO2 04/02/24 09:00 98.0 82 20 146/70 (95) 91 98.0 04/02/24 08:00 Nasal Cannula* 2 28 Total Intake and Output 04/01/24 04/01/24 04/02/24 14:59 22:59 06:59 Intake Total 160 ml 840 ml 270 ml Output Total 350 ml 290 ml Balance 160 ml 490 ml -20 ml medications Current Medications Medications Dose Ordered Sig/Alec Route Start Time Stop Time Status Last Admin Dose Admin Sodium Chloride 10 ml Q8HR IV 03/28/24 14:00 04/02/24 06:09 10 ML Acetaminophen/ Hydrocodone Bitart 1 tab Q4HP PRN PO 03/28/24 08:15 04/02/24 02:19 1 TAB Ondansetron HCl 4 mg Q4HP PRN IV 03/28/24 08:15 04/02/24 05:55 4 MG Docusate Sodium 100 mg BIDPRN PRN PO 03/28/24 08:15 Acetaminophen 650 mg Q6HP PRN PO 03/28/24 08:15 03/30/24 03:14 650 MG Nitroglycerin 0.4 mg Q5MINP PRN SL 03/28/24 08:15 Morphine Sulfate 2 mg Q30M PRN IV 03/28/24 08:15 Diagnostic Test (Pha) 1 strip ACHS 03/28/24 11:30 04/02/24 11:49 1 STRIP Insulin Human Regular HS SC 03/28/24 22:00 03/30/24 23:09 2 UNITS Insulin Human Regular AC SC 03/28/24 11:30 04/01/24 17:11 3 UNITS Dextrose 50 ml UD PRN IV 03/28/24 08:15 Acyclovir 400 mg BID PO 03/28/24 10:00 04/01/24 21:16 400 MG Gabapentin 300 mg DAILY PO 03/28/24 10:00 Hold Sevelamer HCl 1,600 mg TID PO 03/28/24 14:00 04/02/24 05:53 1,600 MG Tamsulosin HCl 0.4 mg DAILY PO 03/28/24 10:00 04/01/24 15:58 0.4 MG Patient Own Medication 1 tab DAILY PO 03/28/24 10:00 Patient Own Medication 2 tab TIDWM PO 03/28/24 12:00 Patient Own Medication 8.4 gm DAILY PO 03/28/24 10:00 Betamethasone Dipropion Augmented 1 applic BID TOP 03/28/24 22:00 04/02/24 11:49 1 APPLIC Vancomycin HCl 0 ml @ 0 mls/hr UD IV 03/28/24 14:30 Acetaminophen/ Hydrocodone Bitart 2 tab Q6HPRN PRN PO 03/30/24 14:30 04/02/24 00:10 2 TAB Azithromycin 250 ml @ 125 mls/hr DAILY IV 03/31/24 10:00 04/01/24 15:58 125 MLS/HR Fluconazole 200 mg DAILY PO 03/31/24 10:00 UNV Fluconazole 100 ml @ 100 mls/hr DAILY IV 03/31/24 10:00 04/01/24 10:51 100 MLS/HR Clotrimazole 1 applic Q12HR TOP 03/31/24 22:00 04/02/24 11:49 1 APPLIC Ceftriaxone Sodium/Dextrose 50 ml @ 50 mls/hr DAILY IV 04/01/24 10:00 04/01/24 08:32 50 MLS/HR objective HEENT: No evidence of JVD, no oral ulcers. Pulmonary: Lungs are clear on auscultation bilaterally Cardiovascular S1-S2, no S3 or S4 Abdomen: Bowel sounds positive, soft no rebound tenderness Skin: No rash Extremities: Left foot dressed with an Shaji bandage with blood-tinged bleeding Neurological: Alert, oriented, no focal weakness : Deferred laboratory and microbiology Laboratory Tests 04/02/24 06:13 Test 04/02/24 06:13 Range/Units Serum Glucose 68 L 74-106 mg/dL Assessment/Plan Assessment: ESRD on HD Left foot 4th digit gangrene with cellulitis Hypertension GERD Type 2 diabetes BPH Balanitis xerotica obliterans Acute metabolic encephalopathy Plan plan and recommendations: Continue dialysis TTS, 3 L UF On Diflucan, add clotrimazole he is being ruled out for chlamydia and gonorrhea Broad-spectrum antibiotics, renally dosed for EGFR less than 10 mL/min. Antibiotics as per primary team LAUREL for goal hemoglobin 10-11 Fluid restriction less than 1 L/day Resume antihypertensive meds Podiatry consultation appreciated For long-term IV antibiotics to be administered with dialysis preferably if not possible then tunneled central line as opposed to PICC line. Thank you very much for the consultation Dietary Evaluation Review Comments: encourage and monitor PO feedings to meet 75% of his needs, consider Ash BID, vitamin for ESRD plus additinal vit C and Zn to promote healing. Expected Outcomes/Goals: controlled DM, graudal healed wounds, improved nutrition status, Plan discussed with: Patient LONNIE GASPAR MD Apr 02, 2024 12:21
--- NOTE | 2024-04-02 12:47 | DVHPN2 ---
Consult Progress Note Date Seen: Mar 31, 2024 Subjective Patient reports: Other (not having any foot pain , mentating a bit better and is anble to answer questions , not having any diarrhea . has a white discoloration of the gland , the underside is dry and is less tender ) Objective vital signs Vital Sign Date Time Temp Pulse Resp B/P (MAP) Pulse Ox O2 Delivery O2 Flow Rate FiO2 04/02/24 09:00 98.0 82 20 146/70 (95) 91 98.0 04/02/24 08:00 Nasal Cannula* 2 28 Total Intake and Output 04/01/24 04/01/24 04/02/24 15:00 23:00 07:00 Intake Total 160 ml 840 ml 270 ml Output Total 350 ml 290 ml Balance 160 ml 490 ml -20 ml medications Current Medications Medications Dose Ordered Sig/Alec Route Start Time Stop Time Status Last Admin Dose Admin Sodium Chloride 10 ml Q8HR IV 03/28/24 14:00 04/02/24 06:09 10 ML Acetaminophen/ Hydrocodone Bitart 1 tab Q4HP PRN PO 03/28/24 08:15 04/02/24 02:19 1 TAB Ondansetron HCl 4 mg Q4HP PRN IV 03/28/24 08:15 04/02/24 05:55 4 MG Docusate Sodium 100 mg BIDPRN PRN PO 03/28/24 08:15 Acetaminophen 650 mg Q6HP PRN PO 03/28/24 08:15 03/30/24 03:14 650 MG Nitroglycerin 0.4 mg Q5MINP PRN SL 03/28/24 08:15 Morphine Sulfate 2 mg Q30M PRN IV 03/28/24 08:15 Diagnostic Test (Pha) 1 strip ACHS 03/28/24 11:30 04/02/24 11:49 1 STRIP Insulin Human Regular HS SC 03/28/24 22:00 03/30/24 23:09 2 UNITS Insulin Human Regular AC SC 03/28/24 11:30 04/01/24 17:11 3 UNITS Dextrose 50 ml UD PRN IV 03/28/24 08:15 Acyclovir 400 mg BID PO 03/28/24 10:00 04/01/24 21:16 400 MG Gabapentin 300 mg DAILY PO 03/28/24 10:00 Hold Sevelamer HCl 1,600 mg TID PO 03/28/24 14:00 04/02/24 05:53 1,600 MG Tamsulosin HCl 0.4 mg DAILY PO 03/28/24 10:00 04/01/24 15:58 0.4 MG Patient Own Medication 1 tab DAILY PO 03/28/24 10:00 Patient Own Medication 2 tab TIDWM PO 03/28/24 12:00 Patient Own Medication 8.4 gm DAILY PO 03/28/24 10:00 Betamethasone Dipropion Augmented 1 applic BID TOP 03/28/24 22:00 04/02/24 11:49 1 APPLIC Vancomycin HCl 0 ml @ 0 mls/hr UD IV 03/28/24 14:30 Acetaminophen/ Hydrocodone Bitart 2 tab Q6HPRN PRN PO 03/30/24 14:30 04/02/24 00:10 2 TAB Azithromycin 250 ml @ 125 mls/hr DAILY IV 03/31/24 10:00 04/01/24 15:58 125 MLS/HR Fluconazole 200 mg DAILY PO 03/31/24 10:00 UNV Fluconazole 100 ml @ 100 mls/hr DAILY IV 03/31/24 10:00 04/01/24 10:51 100 MLS/HR Clotrimazole 1 applic Q12HR TOP 03/31/24 22:00 04/02/24 11:49 1 APPLIC Ceftriaxone Sodium/Dextrose 50 ml @ 50 mls/hr DAILY IV 04/01/24 10:00 04/01/24 08:32 50 MLS/HR Physical Exam: General: NAD Neck: Supple. No masses. HEENT: PERRL. Normal lids and conjunctiva. Moist mucous membranes. Oropharynx without lesions, exudates, or excessive erythema. Normal appearance of the external aspects of the nose and ears. Heart: Regular rhythm, normal rate. No murmur. No lower extremity edema. Lungs: Normal respiratory effort. Clear to auscultation bilaterally. No wheezes. No crackles. Abdomen: Soft. Non-tender. Non-distended. No masses or abdominal hernia. Msk: No digital cyanosis. Normal strength and tone in all 4 limbs Skin: Warm and dry. Black discoloration of left fourth toe. Multiple ulcers under the shaft of penis with very tender serous drainage and whitening of glans skin. Neuro: Alert. No facial droop or slurred speech. Extra-ocular movements intact. Sensation intact to soft touch in all 4 limbs. Psych: Appropriate mood. Full affect. Oriented to person, place, time, and situation. laboratory and microbiology Laboratory Tests 04/02/24 06:13 Test 04/02/24 06:13 Range/Units Serum Glucose 68 L 74-106 mg/dL Problem List/Assessment/Plan Problems(with codes): (1) Penile ulcer (2) COPD (chronic obstructive pulmonary disease) (3) ESRD (end stage renal disease) on dialysis (4) Lab test positive for detection of COVID-19 virus (5) Acute renal failure superimposed on chronic kidney disease, on chronic dialysis Problem List/Assessment/Plan ID Problem List: -- ESRD on dialysis -- BPH -- COPD -- Diabetes mellitus -- Hypertension -- History of herpes infection -- Penile ulcers -- Possible sexually transmitted infection -- Left fourth toe necrotic gangrene Assessment This is a 68 y.o. male with a past medical history of ESRD on dialysis, BPH, COPD, diabetes mellitus, hypertension, and history of herpes infection, who presents with black discoloration of the left fourth toe and penile ulcers. Patient was brought in by ambulance after being found with black discoloration of his left fourth toe. He is a poor historian, Georgian speaking, from a senior living. He was recently admitted for similar complaints; his toe continued to worsen, becoming martín and more painful. On physical exam, he has multiple ulcers under the shaft of his penis with very tender serous drainage and whitening of the glans skin. Laboratory studies show a WBC count of 8.9, hemoglobin of 10.x, platelet count of 281, creatinine of 5.84, and BUN of 26. X-ray of the left foot shows no bone erosion, no evidence of soft tissue collection or hematoma, no joint effusion, subluxation, dislocation, or abscess. Blood cultures show no growth to date. MRSA nares negative. 03/29: underwent debridement and amputation of toe. per operative note there was a a deepening incision to the bone there was an abscess with preliminary fluid and puss . Cortices of the bone was removed and the necrotic tissue , amputation of the toe was required and taken down to the 4th digit and excised to the level of MPJ . bone was taken for biopsy . patient is planning to return to [place] for additional operative debridement enclosure 03/30: Left foot toe has a dressing that appears to not have any drainage on it or puss , just spotting . preliminary operative cultures are growing fungus 03/31: HIV is negative , awaiting gonorrhea , chlamydia and RPR tests Plan: - recommend piccline for 6 weeks of IV antibiotics - suspect patient will need IV ceftriaxone , fluconazole and vancomycin - order vancomycin to given with dialysis - stop cefepime - 1 gram dose of azithromycin for H. Ducreyi - patient will need 7 days of acyclovir therapy for possible herpes infection and follow up on results - 1x dose of Iv fluconazole 400 milligrams , followed by IV fluconazole 200 milligrams daily - check EKG in 5 days to determine if QTC is prolonged in setting of chronic fluconazole - likely patient will need 6 weeks of IV fluconazole followed by several months of antifungal orally to completely eradicate osteomyelitis - follow up on operative cultures -- Continue empiric antibiotic treatment with vancomycin -- Order viral culture of penile drainage. -- Test for HIV, syphilis, gonorrhea, chlamydia, and herpes. -- Consult podiatry for possible amputation of necrotic left fourth toe. -- Obtain deep tissue cultures during procedure, including any infected bone or muscle. -- Keep blood sugars under 180 mg/dL. -- Defer dialysis management to nephrology. Isolation Precautions: standard Plan discussed with: Other Dietary Evaluation Review Comments: encourage and monitor PO feedings to meet 75% of his needs, consider Ash BID, vitamin for ESRD plus additinal vit C and Zn to promote healing. Expected Outcomes/Goals: controlled DM, graudal healed wounds, improved nutrition status, ROLAND CRUZ MD Apr 02, 2024 12:47
--- NOTE | 2024-04-02 12:54 | DVHPN2 ---
Consult Progress Note Date Seen: Apr 01, 2024 Subjective Patient reports: Other (has no crackles in lungs and penis underside appears dry and the ulcer is smaller ) Objective vital signs Vital Sign Date Time Temp Pulse Resp B/P (MAP) Pulse Ox O2 Delivery O2 Flow Rate FiO2 04/02/24 09:00 98.0 82 20 146/70 (95) 91 98.0 04/02/24 08:00 Nasal Cannula* 2 28 Total Intake and Output 04/01/24 04/01/24 04/02/24 15:00 23:00 07:00 Intake Total 160 ml 840 ml 270 ml Output Total 350 ml 290 ml Balance 160 ml 490 ml -20 ml medications Current Medications Medications Dose Ordered Sig/Alec Route Start Time Stop Time Status Last Admin Dose Admin Sodium Chloride 10 ml Q8HR IV 03/28/24 14:00 04/02/24 06:09 10 ML Acetaminophen/ Hydrocodone Bitart 1 tab Q4HP PRN PO 03/28/24 08:15 04/02/24 02:19 1 TAB Ondansetron HCl 4 mg Q4HP PRN IV 03/28/24 08:15 04/02/24 05:55 4 MG Docusate Sodium 100 mg BIDPRN PRN PO 03/28/24 08:15 Acetaminophen 650 mg Q6HP PRN PO 03/28/24 08:15 03/30/24 03:14 650 MG Nitroglycerin 0.4 mg Q5MINP PRN SL 03/28/24 08:15 Morphine Sulfate 2 mg Q30M PRN IV 03/28/24 08:15 Diagnostic Test (Pha) 1 strip ACHS 03/28/24 11:30 04/02/24 11:49 1 STRIP Insulin Human Regular HS SC 03/28/24 22:00 03/30/24 23:09 2 UNITS Insulin Human Regular AC SC 03/28/24 11:30 04/01/24 17:11 3 UNITS Dextrose 50 ml UD PRN IV 03/28/24 08:15 Acyclovir 400 mg BID PO 03/28/24 10:00 04/01/24 21:16 400 MG Gabapentin 300 mg DAILY PO 03/28/24 10:00 Hold Sevelamer HCl 1,600 mg TID PO 03/28/24 14:00 04/02/24 05:53 1,600 MG Tamsulosin HCl 0.4 mg DAILY PO 03/28/24 10:00 04/01/24 15:58 0.4 MG Patient Own Medication 1 tab DAILY PO 03/28/24 10:00 Patient Own Medication 2 tab TIDWM PO 03/28/24 12:00 Patient Own Medication 8.4 gm DAILY PO 03/28/24 10:00 Betamethasone Dipropion Augmented 1 applic BID TOP 03/28/24 22:00 04/02/24 11:49 1 APPLIC Vancomycin HCl 0 ml @ 0 mls/hr UD IV 03/28/24 14:30 Acetaminophen/ Hydrocodone Bitart 2 tab Q6HPRN PRN PO 03/30/24 14:30 04/02/24 00:10 2 TAB Azithromycin 250 ml @ 125 mls/hr DAILY IV 03/31/24 10:00 04/01/24 15:58 125 MLS/HR Fluconazole 200 mg DAILY PO 03/31/24 10:00 UNV Fluconazole 100 ml @ 100 mls/hr DAILY IV 03/31/24 10:00 04/01/24 10:51 100 MLS/HR Clotrimazole 1 applic Q12HR TOP 03/31/24 22:00 04/02/24 11:49 1 APPLIC Ceftriaxone Sodium/Dextrose 50 ml @ 50 mls/hr DAILY IV 04/01/24 10:00 04/01/24 08:32 50 MLS/HR Physical Exam: General: NAD Neck: Supple. No masses. HEENT: PERRL. Normal lids and conjunctiva. Moist mucous membranes. Oropharynx without lesions, exudates, or excessive erythema. Normal appearance of the external aspects of the nose and ears. Heart: Regular rhythm, normal rate. No murmur. No lower extremity edema. Lungs: Normal respiratory effort. Clear to auscultation bilaterally. No wheezes. No crackles. Abdomen: Soft. Non-tender. Non-distended. No masses or abdominal hernia. Msk: No digital cyanosis. Normal strength and tone in all 4 limbs Skin: Warm and dry. Black discoloration of left fourth toe. Multiple ulcers under the shaft of penis with very tender serous drainage and whitening of glans skin. Neuro: Alert. No facial droop or slurred speech. Extra-ocular movements intact. Sensation intact to soft touch in all 4 limbs. Psych: Appropriate mood. Full affect. Oriented to person, place, time, and situation. laboratory and microbiology Laboratory Tests 04/02/24 06:13 Test 04/02/24 06:13 Range/Units Serum Glucose 68 L 74-106 mg/dL Problem List/Assessment/Plan Problems(with codes): (1) Penile ulcer (2) COPD (chronic obstructive pulmonary disease) (3) ESRD (end stage renal disease) on dialysis (4) Lab test positive for detection of COVID-19 virus (5) Acute renal failure superimposed on chronic kidney disease, on chronic dialysis Problem List/Assessment/Plan ID Problem List: -- ESRD on dialysis -- BPH -- COPD -- Diabetes mellitus -- Hypertension -- History of herpes infection -- Penile ulcers -- Possible sexually transmitted infection -- Left fourth toe necrotic gangrene Assessment This is a 68 y.o. male with a past medical history of ESRD on dialysis, BPH, COPD, diabetes mellitus, hypertension, and history of herpes infection, who presents with black discoloration of the left fourth toe and penile ulcers. Patient was brought in by ambulance after being found with black discoloration of his left fourth toe. He is a poor historian, Barbadian speaking, from a snf. He was recently admitted for similar complaints; his toe continued to worsen, becoming martín and more painful. On physical exam, he has multiple ulcers under the shaft of his penis with very tender serous drainage and whitening of the glans skin. Laboratory studies show a WBC count of 8.9, hemoglobin of 10.x, platelet count of 281, creatinine of 5.84, and BUN of 26. X-ray of the left foot shows no bone erosion, no evidence of soft tissue collection or hematoma, no joint effusion, subluxation, dislocation, or abscess. Blood cultures show no growth to date. MRSA nares negative. 03/29: underwent debridement and amputation of toe. per operative note there was a a deepening incision to the bone there was an abscess with preliminary fluid and puss . Cortices of the bone was removed and the necrotic tissue , amputation of the toe was required and taken down to the 4th digit and excised to the level of MPJ . bone was taken for biopsy . patient is planning to return to OR for additional operative debridement enclosure 03/30: Left foot toe has a dressing that appears to not have any drainage on it or puss , just spotting . preliminary operative cultures are growing fungus 03/31: HIV is negative , awaiting gonorrhea , chlamydia and RPR tests 04/01: operative cultures from foot debridement reveal growth of staph hemolyticus as well as fungal organism kenroy . the staph is methicillin resistant Plan: - recommend piccline for 6 weeks of IV antibiotics - patient will need IV ceftriaxone 2 grams daily via tunnel catheter, IV fluconazole 200 milligrams daily via tunnel catheter - follow up with infectious disease in 2 weeks to undergo EKG to ensure patient is tolerating therapy as well as asses for need of antibiotics and antifungal therapy after IV antibiotics are complete - recommend oral 7 day course for Acyclovir therapy - IV vancomycin to given with dialysis - Stop azithromycin in regards of penile ulcer - patient will need 7 days of acyclovir therapy for possible herpes infection and follow up on results - 1x dose of Iv fluconazole 400 milligrams , followed by IV fluconazole 200 milligrams daily - check EKG in 5 days to determine if QTC is prolonged in setting of chronic fluconazole - likely patient will need 6 weeks of IV fluconazole followed by several months of antifungal orally to completely eradicate osteomyelitis - follow up on operative cultures -- Continue empiric antibiotic treatment with vancomycin -- Order viral culture of penile drainage. -- Test for HIV, syphilis, gonorrhea, chlamydia, and herpes. -- Consult podiatry for possible amputation of necrotic left fourth toe. -- Obtain deep tissue cultures during procedure, including any infected bone or muscle. -- Keep blood sugars under 180 mg/dL. -- Defer dialysis management to nephrology. Isolation Precautions: standard Plan discussed with: Other Dietary Evaluation Review Comments: encourage and monitor PO feedings to meet 75% of his needs, consider Ash BID, vitamin for ESRD plus additinal vit C and Zn to promote healing. Expected Outcomes/Goals: controlled DM, graudal healed wounds, improved nutrition status, ROLAND CRUZ MD Apr 02, 2024 12:54
[2024-04-02] MEDS: SODIUM CHL 0.9% 1000 ML BAG XX ONE (13:15)
[2024-04-02] MEDS ORDERED: fentaNYL CITRATE 100 MCG/2 ML VL IV ONE (14:58)
[2024-04-02] MEDS: EPOETIN ALFA-EPBX 4,000 UNIT/ML VIAL SC ONE (21:00)
[2024-04-03] VITALS (8 sets, daily range): BP systolic 114–161; BP diastolic 64–87; PULSE 59–89; RESP 18–22; TEMP 97.5–98.1; O2SAT 92–98
[2024-04-03] MEDS: DOCUSATE SOD 100 MG CAP PO PRN (06:15)
[2024-04-03] MEDS: hydrALAZINE HCL 25 MG TAB PO SCH (06:15)
[2024-04-03 08:46] LABS: Basophils # (auto) 0.1 10 ^3/uL (0-0.2); Basophils % (auto) 1.3 % (0.0-2.0); Eosinophils # (auto) 0 10 ^3/uL (0-0.8); Eosinophils % (auto) 0.6 % (0.0-7.0); Hematocrit 31.4 % (41.0-53.0); Hemoglobin 10.5 g/dL (13.5-17.5); Lymphocytes # (auto) 1.1 10 ^3/uL (0.4-5.4); Lymphocytes % (auto) 12.9 % (10.0-50.0); Mean Corpuscular Hemoglobin 31.9 pg (28.0-32.0); Mean Corpuscular Hgb Conc. 33.3 g/dL (32.0-36.0); Mean Corpuscular Volume 95.7 fL (80.0-100.0); Monocytes # (auto) 0.8 10 ^3/uL (0-1.3); Monocytes % (auto) 9.5 % (0.0-12.0); Neutrophils # (auto) 6.3 10 ^3/uL (1.6-8.6); Neutrophils % (auto) 75.7 % (37.0-80.0); Nucleated Red Blood Cells % 0.1 %; Platelet Count (auto) 354 10^3/uL (140-450); Red Blood Cells 3.28 10^6/uL (4.5-5.90); Red Cell Distribution Width 17.1 % (11.8-14.3); White Blood Cell 8.3 10^3/uL (4.4-10.8)
[2024-04-03 08:51] LABS: Potassium 4.5 mmol/L (3.5-5.1)
[2024-04-03 08:52] LABS: Anion Gap 7 (5-15); Carbon Dioxide 31 mmol/L (20-31)
[2024-04-03 08:53] LABS: Calcium 8.8 mg/dL (8.7-10.4)
[2024-04-03 08:57] LABS: BUN/Creatinine Ratio 3.6 (10.0-20.0); Blood Urea Nitrogen 17 mg/dL (9-23); Glucose 89 mg/dL (74-106)
[2024-04-03 09:22] LABS: Chloride 92 mmol/L (98-107); Sodium 130 mmol/L (136-145)
[2024-04-03] MEDS: ATENOLOL 25 MG TAB PO SCH (09:40)
[2024-04-03] MEDS: cloNIDine HCL 0.1 MG TAB PO SCH (09:40)
--- NOTE | 2024-04-03 12:19 | DVHPN2 ---
Subjective He is complaining of pain in his hands and his foot He is more alert and oriented now and was able to carry a full conversation He says he is not going to be able to go home for the IV antibiotics and he would like to go to rehab due to the weakness and the need for wound care and IV antibiotics which he does not think his family can provide Changes from previous H/P or p: Changes Eyes: No Pain, No Vision change, No Conjunctivae inflammation, No Eyelid inflammation, No Other, No Redness ENT: No Ear pain, No Ear discharge, No Nose pain, No Nose discharge, No Nose congestion, No Mouth pain, No Mouth swelling, No Throat pain, No Throat swelling, No Other Cardiovascular: No Chest Pain, No Palpitations, No Orthopnea, No Paroxysmal Noc. Dyspnea, No Edema, No Lt Headedness, No Other Respiratory: No Cough, No Dry, No Shortness of breath, No SOB with excertion, No Wheezing, No Hemoptysis, No Pleuritic Pain, No Sputum, No Other Gastrointestinal: No Nausea, No Vomiting, No Abdominal Pain, No Diarrhea, No Constipation, No Melena, No Hematochezia, No Other Genitourinary: No Dysuria, No Frequency, No Incontinence, No Hematuria, No Retention, No Other Musculoskeletal: No other, No neck pain, No shoulder pain, No arm pain, No back pain, No hand pain, No leg pain (Left toe wound, pain, and redness), No foot pain Skin: No Rash, No Lesions, No Jaundice, No Bruising, No Other Objective Vitals Vital Signs Date Time Temp Pulse Resp B/P (MAP) Pulse Ox O2 Delivery O2 Flow Rate FiO2 04/03/24 09:40 82 144/82 04/03/24 09:00 98.0 22 95 98.0 04/03/24 08:00 Nasal Cannula* 2 28 Intake/Output Intake and Output 04/03/24 07:00 Intake Total 888 ml Output Total 200 ml Balance 688 ml Intake Oral 488 ml IV Total 400 ml Output Urine Total 200 ml General Appearance: Alert, Other (Disoriented) Lungs: Other (Bilateral rhonchi) Cardiovascular: Regular rate, Normal S1 Abdomen: Normal bowel sounds, Soft, No tenderness Extremities: No edema, Other (Left foot discoloration and gangrene of the 4th toe with edema and erythema that is up to the ankle) Medications Current Medications Medications Dose Ordered Sig/Alec Route Start Time Stop Time Status Last Admin Dose Admin Sodium Chloride 10 ml Q8HR IV 03/28/24 14:00 04/03/24 06:16 10 ML Acetaminophen/ Hydrocodone Bitart 1 tab Q4HP PRN PO 03/28/24 08:15 04/02/24 15:38 1 TAB Ondansetron HCl 4 mg Q4HP PRN IV 03/28/24 08:15 04/02/24 05:55 4 MG Docusate Sodium 100 mg BIDPRN PRN PO 03/28/24 08:15 04/03/24 06:15 100 MG Acetaminophen 650 mg Q6HP PRN PO 03/28/24 08:15 03/30/24 03:14 650 MG Nitroglycerin 0.4 mg Q5MINP PRN SL 03/28/24 08:15 Morphine Sulfate 2 mg Q30M PRN IV 03/28/24 08:15 Diagnostic Test (Pha) 1 strip ACHS 03/28/24 11:30 04/03/24 11:16 1 STRIP Insulin Human Regular HS SC 03/28/24 22:00 03/30/24 23:09 2 UNITS Insulin Human Regular AC SC 03/28/24 11:30 04/01/24 17:11 3 UNITS Dextrose 50 ml UD PRN IV 03/28/24 08:15 Acyclovir 400 mg BID PO 03/28/24 10:00 04/03/24 09:39 400 MG Gabapentin 300 mg DAILY PO 03/28/24 10:00 Hold Sevelamer HCl 1,600 mg TID PO 03/28/24 14:00 04/03/24 06:15 1,600 MG Tamsulosin HCl 0.4 mg DAILY PO 03/28/24 10:00 04/03/24 11:03 0.4 MG Patient Own Medication 1 tab DAILY PO 03/28/24 10:00 Patient Own Medication 2 tab TIDWM PO 03/28/24 12:00 Patient Own Medication 8.4 gm DAILY PO 03/28/24 10:00 Betamethasone Dipropion Augmented 1 applic BID TOP 03/28/24 22:00 04/03/24 09:55 1 APPLIC Vancomycin HCl 0 ml @ 0 mls/hr UD IV 03/28/24 14:30 Acetaminophen/ Hydrocodone Bitart 2 tab Q6HPRN PRN PO 03/30/24 14:30 04/03/24 11:07 2 TAB Azithromycin 250 ml @ 125 mls/hr DAILY IV 03/31/24 10:00 04/02/24 15:38 125 MLS/HR Fluconazole 200 mg DAILY PO 03/31/24 10:00 UNV Fluconazole 100 ml @ 100 mls/hr DAILY IV 03/31/24 10:00 04/03/24 11:03 100 MLS/HR Clotrimazole 1 applic Q12HR TOP 03/31/24 22:00 04/03/24 09:55 1 APPLIC Ceftriaxone Sodium/Dextrose 50 ml @ 50 mls/hr DAILY IV 04/01/24 10:00 04/03/24 09:39 50 MLS/HR Atenolol 50 mg EOD PO 04/03/24 10:00 04/03/24 09:40 50 MG Clonidine HCl 0.1 mg BID PO 04/03/24 10:00 Hydralazine HCl 50 mg TID PO 04/03/24 06:00 04/03/24 06:15 50 MG Laboratory Results Laboratory Tests 04/03/24 08:17 Chemistry Test 04/03/24 08:17 Calcium Level 8.8 mg/dL (8.7-10.4) Urinalysis Test 03/27/24 23:04 Urine Color Yellow (Yellow) Urine Clarity Clear (Clear) Urine pH 8.0 (5.0-9.0) Urine Specific [place] 1.011 (1.001-1.035) Urine Protein 3+ (Negative) H Urine Ketones Negative (Negative) Urine Blood Negative /uL (Negative) Urine Nitrite Negative (Negative) Urine Bilirubin Negative (Negative) Urine Urobilinogen Normal mg/dL (Negative) Urine Leukocyte Esterase Negative /uL (Negative) Urine RBC 3 /hpf (0 - 3) Urine Microscopic WBC 3 /HPF (0-3) Urine Squamous Epithelial Cells Few /hpf (<5) Urine Bacteria Few /hpf (None Seen) H Urine Glucose 3+ mg/dL (Normal) H Microbiology Microbiology Date/Time Source Procedure Growth Status 03/29/24 13:36 Foot Left Gram Stain - Final Complete 03/29/24 13:36 Foot Left Anaerobic Culture - Final Complete 03/29/24 13:36 Aerobic Culture - Final Staphylococcus haemolyticus Presumptive Kasia albicans Complete 03/27/24 23:35 Blood Blood Culture - Final NO GROWTH AFTER 5 DAYS OF INCUBATION. Complete Assessment/Plan Assessment/Plan Left foot cellulitis Left foot 4th digit gangrene End-stage renal disease on hemodialysis Hypertension GERD Type 2 diabetes BPH Balanitis xerotica obliterans Acute metabolic encephalopathy Plan Broad-spectrum antibiotics with vancomycin and cefepime Infectious disease consult Nephrology consult for hemodialysis Urology consult was done, recommended medical management Podiatry consult Monitor closely Full code Advance directives discussed for 15 minute 03/29/2024: Continue IV antibiotics Hemodialysis per nephrology Podiatry surgery today The rest of the management will depend on the hospital course 03/30/2024: Continue the IV antibiotics Hemodialysis per nephrology Continue Lillie for pain Add to Lillie q.6 hours p.r.n. for severe pain Podiatry is planning to take him in 1-2 days again for 2nd surgery and closure of the wound The rest of the management will depend on the hospital course 03/31/2024: Continue IV antibiotics Surgery for tomorrow for wound closure and possible discharged home afterwards Hemodialysis per nephrology Pain management as needed 04/01/2024: Discussed his case with ID and Nephrology We will order a tunneled central line for the IV antibiotics at home He is scheduled for a 2nd surgery today by Podiatry Hemodialysis per nephrology Continue broad-spectrum antibiotic with Rocephin, Zithromax, fluconazole, vancomycin Acyclovir was ordered by ID also Discharge planning once a tunneled central line and IV antibiotics are ordered and arranged 04/02/2024: Hemodialysis is done today Tunneled central catheter to be done on Thursday for IV antibiotics at home Continue the current management until IV antibiotics at home and central line are done 04/03/2024: Continue IV antibiotics Central line to be done tomorrow Generalized weakness: The patient would like to go to rehab for care including physical therapy and wound care and IV antibiotics since he can not have it done at home Consult a manager social media to arrange SNF Plan discussed with: Patient My Orders Orders - FRANKIE SANCHEZ MD Procedure Category Date Status Time Apply: SANDRA 04/02/24 In Process 14:16 Date of Service: Apr 03, 2024 Billing Provider: FRANKIE SANCHEZ MD Common Visit Codes: [id number] INP/OBS CARE(HIGH) FRANKIE SANCHEZ MD Apr 03, 2024 12:19
[2024-04-03] MEDS: VANCOMYCIN 1GM/250ML KIT 250 ML IV ONE (15:46)
[2024-04-03] MEDS ORDERED: MORPHINE SULFATE INJ 2 MG/ml SYRG IV PRN (16:00)
--- NOTE | 2024-04-03 16:01 | DVHPN2 ---
Progress Note - Dictate Date Seen: Apr 03, 2024 Has the PT tested + for MRSA If YES, has PT been informed?: No Medical Necessity Reason Pt with a Central, PICC or Fol: No Subjective Status post dialysis yesterday no events. Patient endorses index finger skin lesion with contractures started about two weeks prior to admission. vital signs Vital Sign Date Time Temp Pulse Resp B/P (MAP) Pulse Ox O2 Delivery O2 Flow Rate FiO2 04/03/24 14:20 114/75 04/03/24 13:00 98.0 70 20 95 98.0 04/03/24 08:00 Nasal Cannula* 2 28 Total Intake and Output 04/02/24 04/02/24 04/03/24 15:00 23:00 07:00 Intake Total 50 ml 695 ml 143 ml Output Total 200 ml Balance 50 ml 695 ml -57 ml medications Current Medications Medications Dose Ordered Sig/Alec Route Start Time Stop Time Status Last Admin Dose Admin Sodium Chloride 10 ml Q8HR IV 03/28/24 14:00 04/03/24 14:20 10 ML Acetaminophen/ Hydrocodone Bitart 1 tab Q4HP PRN PO 03/28/24 08:15 04/02/24 15:38 1 TAB Ondansetron HCl 4 mg Q4HP PRN IV 03/28/24 08:15 04/02/24 05:55 4 MG Docusate Sodium 100 mg BIDPRN PRN PO 03/28/24 08:15 04/03/24 06:15 100 MG Acetaminophen 650 mg Q6HP PRN PO 03/28/24 08:15 03/30/24 03:14 650 MG Nitroglycerin 0.4 mg Q5MINP PRN SL 03/28/24 08:15 Morphine Sulfate 2 mg Q30M PRN IV 03/28/24 08:15 Diagnostic Test (Pha) 1 strip ACHS 03/28/24 11:30 04/03/24 11:16 1 STRIP Insulin Human Regular HS SC 03/28/24 22:00 03/30/24 23:09 2 UNITS Insulin Human Regular AC SC 03/28/24 11:30 04/01/24 17:11 3 UNITS Dextrose 50 ml UD PRN IV 03/28/24 08:15 Acyclovir 400 mg BID PO 03/28/24 10:00 04/03/24 09:39 400 MG Gabapentin 300 mg DAILY PO 03/28/24 10:00 Hold Sevelamer HCl 1,600 mg TID PO 03/28/24 14:00 04/03/24 14:21 1,600 MG Tamsulosin HCl 0.4 mg DAILY PO 03/28/24 10:00 04/03/24 11:03 0.4 MG Patient Own Medication 1 tab DAILY PO 03/28/24 10:00 Patient Own Medication 2 tab TIDWM PO 03/28/24 12:00 Patient Own Medication 8.4 gm DAILY PO 03/28/24 10:00 Betamethasone Dipropion Augmented 1 applic BID TOP 03/28/24 22:00 04/03/24 09:55 1 APPLIC Vancomycin HCl 0 ml @ 0 mls/hr UD IV 03/28/24 14:30 Acetaminophen/ Hydrocodone Bitart 2 tab Q6HPRN PRN PO 03/30/24 14:30 04/03/24 11:07 2 TAB Azithromycin 250 ml @ 125 mls/hr DAILY IV 03/31/24 10:00 04/03/24 10:00 125 MLS/HR Fluconazole 200 mg DAILY PO 03/31/24 10:00 UNV Fluconazole 100 ml @ 100 mls/hr DAILY IV 03/31/24 10:00 04/03/24 11:03 100 MLS/HR Clotrimazole 1 applic Q12HR TOP 03/31/24 22:00 04/03/24 09:55 1 APPLIC Ceftriaxone Sodium/Dextrose 50 ml @ 50 mls/hr DAILY IV 04/01/24 10:00 04/03/24 09:39 50 MLS/HR Atenolol 50 mg EOD PO 04/03/24 10:00 04/03/24 09:40 50 MG Clonidine HCl 0.1 mg BID PO 04/03/24 10:00 Hydralazine HCl 50 mg TID PO 04/03/24 06:00 04/03/24 14:20 50 MG objective HEENT: No evidence of JVD, no oral ulcers. 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 Broad-spectrum antibiotics, renally dosed for EGFR less than 10 mL/min. Antibiotics as per primary team LAUREL for goal hemoglobin 10-11 Fluid restriction less than 1 L/day Resume antihypertensive meds Podiatry consultation appreciated For long-term IV antibiotics to be administered with dialysis preferably if not possible then tunneled central line as opposed to PICC line. Thank you very much for the consultation Dietary Evaluation Review Comments: encourage and monitor PO feedings to meet 75% of his needs, consider Ash BID, vitamin for ESRD plus additinal vit C and Zn to promote healing. Expected Outcomes/Goals: controlled DM, graudal healed wounds, improved nutrition status, Plan discussed with: Patient LONNIE GASPAR MD Apr 03, 2024 16:01
[2024-04-03] MEDS: MORPHINE SULFATE INJ 2 MG/ml SYRG IV PRN (17:08)
[2024-04-03] MEDS: Glucerna Carbsteady SHAKE Stawberry 8oz PO SCH (18:00)
--- NOTE | 2024-04-03 20:27 | DVHPN2 ---
Consult Progress Note Date Seen: Apr 02, 2024 Subjective Patient reports: Other (awaiting catheter placement , had dialysis yesterday , endorsing pain in his index finger as well as multiple toes not just debridement site but no pain at his penis , but still remains discolored , ulcers are goeeting smaller ) Objective vital signs Vital Sign Date Time Temp Pulse Resp B/P (MAP) Pulse Ox O2 Delivery O2 Flow Rate FiO2 04/03/24 17:38 72 14 114/64 04/03/24 17:00 98.0 97 98.0 04/03/24 08:00 Nasal Cannula* 2 28 Total Intake and Output 04/02/24 04/02/24 04/03/24 15:00 23:00 07:00 Intake Total 50 ml 695 ml 143 ml Output Total 200 ml Balance 50 ml 695 ml -57 ml medications Current Medications Medications Dose Ordered Sig/Alec Route Start Time Stop Time Status Last Admin Dose Admin Sodium Chloride 10 ml Q8HR IV 03/28/24 14:00 04/03/24 14:20 10 ML Acetaminophen/ Hydrocodone Bitart 1 tab Q4HP PRN PO 03/28/24 08:15 04/02/24 15:38 1 TAB Ondansetron HCl 4 mg Q4HP PRN IV 03/28/24 08:15 04/02/24 05:55 4 MG Docusate Sodium 100 mg BIDPRN PRN PO 03/28/24 08:15 04/03/24 06:15 100 MG Acetaminophen 650 mg Q6HP PRN PO 03/28/24 08:15 03/30/24 03:14 650 MG Nitroglycerin 0.4 mg Q5MINP PRN SL 03/28/24 08:15 Morphine Sulfate 2 mg Q30M PRN IV 03/28/24 08:15 Diagnostic Test (Pha) 1 strip ACHS 03/28/24 11:30 04/03/24 17:08 1 STRIP Insulin Human Regular HS SC 03/28/24 22:00 03/30/24 23:09 2 UNITS Insulin Human Regular AC SC 03/28/24 11:30 04/01/24 17:11 3 UNITS Dextrose 50 ml UD PRN IV 03/28/24 08:15 Acyclovir 400 mg BID PO 03/28/24 10:00 04/03/24 09:39 400 MG Gabapentin 300 mg DAILY PO 03/28/24 10:00 Hold Sevelamer HCl 1,600 mg TID PO 03/28/24 14:00 04/03/24 14:21 1,600 MG Tamsulosin HCl 0.4 mg DAILY PO 03/28/24 10:00 04/03/24 11:03 0.4 MG Patient Own Medication 1 tab DAILY PO 03/28/24 10:00 Patient Own Medication 2 tab TIDWM PO 03/28/24 12:00 Patient Own Medication 8.4 gm DAILY PO 03/28/24 10:00 Betamethasone Dipropion Augmented 1 applic BID TOP 03/28/24 22:00 04/03/24 09:55 1 APPLIC Vancomycin HCl 0 ml @ 0 mls/hr UD IV 03/28/24 14:30 Azithromycin 250 ml @ 125 mls/hr DAILY IV 03/31/24 10:00 04/03/24 10:00 125 MLS/HR Fluconazole 200 mg DAILY PO 03/31/24 10:00 UNV Fluconazole 100 ml @ 100 mls/hr DAILY IV 03/31/24 10:00 04/03/24 11:03 100 MLS/HR Clotrimazole 1 applic Q12HR TOP 03/31/24 22:00 04/03/24 09:55 1 APPLIC Ceftriaxone Sodium/Dextrose 50 ml @ 50 mls/hr DAILY IV 04/01/24 10:00 04/03/24 09:39 50 MLS/HR Atenolol 50 mg EOD PO 04/03/24 10:00 04/03/24 09:40 50 MG Clonidine HCl 0.1 mg BID PO 04/03/24 10:00 Hydralazine HCl 50 mg TID PO 04/03/24 06:00 04/03/24 14:20 50 MG Enteral Nutritional Formula 240 ml TIDWM PO 04/03/24 18:00 04/03/24 18:00 240 ML Morphine Sulfate 2 mg Q4HPRN PRN IV 04/03/24 16:15 04/03/24 17:08 2 MG Physical Exam: General: NAD Neck: Supple. No masses. HEENT: PERRL. Normal lids and conjunctiva. Moist mucous membranes. Oropharynx without lesions, exudates, or excessive erythema. Normal appearance of the external aspects of the nose and ears. Heart: Regular rhythm, normal rate. No murmur. No lower extremity edema. Lungs: Normal respiratory effort. Clear to auscultation bilaterally. No wheezes. No crackles. Abdomen: Soft. Non-tender. Non-distended. No masses or abdominal hernia. Msk: No digital cyanosis. Normal strength and tone in all 4 limbs Skin: Warm and dry. Black discoloration of left fourth toe. Multiple ulcers under the shaft of penis with very tender serous drainage and whitening of glans skin. Neuro: Alert. No facial droop or slurred speech. Extra-ocular movements intact. Sensation intact to soft touch in all 4 limbs. Psych: Appropriate mood. Full affect. Oriented to person, place, time, and situation. laboratory and microbiology Laboratory Tests 04/03/24 08:17 Test 04/03/24 08:17 Range/Units Serum Glucose 89 74-106 mg/dL Problem List/Assessment/Plan Problems(with codes): (1) Penile ulcer (2) COPD (chronic obstructive pulmonary disease) (3) ESRD (end stage renal disease) on dialysis (4) Lab test positive for detection of COVID-19 virus (5) COVID-19 (6) Acute renal failure superimposed on chronic kidney disease, on chronic dialysis Problem List/Assessment/Plan ID Problem List: -- ESRD on dialysis -- BPH -- COPD -- Diabetes mellitus -- Hypertension -- History of herpes infection -- Penile ulcers -- Possible sexually transmitted infection -- Left fourth toe necrotic gangrene Assessment This is a 68 y.o. male with a past medical history of ESRD on dialysis, BPH, COPD, diabetes mellitus, hypertension, and history of herpes infection, who presents with black discoloration of the left fourth toe and penile ulcers. Patient was brought in by ambulance after being found with black discoloration of his left fourth toe. He is a poor historian, Nepali speaking, from a retirement. He was recently admitted for similar complaints; his toe continued to worsen, becoming martín and more painful. On physical exam, he has multiple ulcers under the shaft of his penis with very tender serous drainage and whitening of the glans skin. Laboratory studies show a WBC count of 8.9, hemoglobin of 10.x, platelet count of 281, creatinine of 5.84, and BUN of 26. X-ray of the left foot shows no bone erosion, no evidence of soft tissue collection or hematoma, no joint effusion, subluxation, dislocation, or abscess. Blood cultures show no growth to date. MRSA nares negative. 03/29: underwent debridement and amputation of toe. per operative note there was a a deepening incision to the bone there was an abscess with preliminary fluid and puss . Cortices of the bone was removed and the necrotic tissue , amputation of the toe was required and taken down to the 4th digit and excised to the level of MPJ . bone was taken for biopsy . patient is planning to return to OR for additional operative debridement enclosure 03/30: Left foot toe has a dressing that appears to not have any drainage on it or puss , just spotting . preliminary operative cultures are growing fungus 03/31: HIV is negative , awaiting gonorrhea , chlamydia and RPR tests 04/01: operative cultures from foot debridement reveal growth of staph hemolyticus as well as fungal organism kenroy . the staph is methicillin resistant 04/02: negative for gonorrhea , syphilis , chlamydia , HIV Plan: - agree with vascular surgery consult to assess if patient would benefit from vascular intervention in setting of likely severe peripheral arterial disease - recommend piccline for 6 weeks of IV antibiotics - patient will need IV ceftriaxone 2 grams daily via tunnel catheter, IV fluconazole 200 milligrams daily via tunnel catheter - follow up with infectious disease in 2 weeks to undergo EKG to ensure patient is tolerating therapy as well as asses for need of antibiotics and antifungal therapy after IV antibiotics are complete - recommend oral 7 day course for Acyclovir therapy - IV vancomycin to given with dialysis - patient will need 7 days of acyclovir therapy for possible herpes infection and follow up on results - 1x dose of Iv fluconazole 400 milligrams , followed by IV fluconazole 200 milligrams daily - check EKG in 5 days to determine if QTC is prolonged in setting of chronic fluconazole - likely patient will need 6 weeks of IV fluconazole followed by several months of antifungal orally to completely eradicate osteomyelitis - follow up on operative cultures -- Continue empiric antibiotic treatment with vancomycin -- Order viral culture of penile drainage. -- Test for HIV, syphilis, gonorrhea, chlamydia, and herpes. -- Consult podiatry for possible amputation of necrotic left fourth toe. -- Obtain deep tissue cultures during procedure, including any infected bone or muscle. -- Keep blood sugars under 180 mg/dL. -- Defer dialysis management to nephrology. Isolation Precautions: standard Plan discussed with: Other Dietary Evaluation Review Comments: encourage and monitor PO feedings to meet 75% of his needs, consider Ash BID, vitamin for ESRD plus additinal vit C and Zn to promote healing. Expected Outcomes/Goals: controlled DM, graudal healed wounds, improved nutrition status, ROLAND CRUZ MD Apr 03, 2024 20:26
[2024-04-04] VITALS (11 sets, daily range): BP systolic 122–141; BP diastolic 66–85; PULSE 65–79; RESP 13–20; TEMP 97.9–98.4; O2SAT 92–97
--- NOTE | 2024-04-04 06:43 | DVH ---
EXAM: XR Chest, 1 View CLINICAL INDICATION: Procedure on 04/04/24 TECHNIQUE: Frontal view of the chest. COMPARISON: XY CHEST PORTABLE on DOS: 03/29/24, XY CHEST XRAY 1 VIEW on DOS: 03/24/24, XY CHEST XRAY 1 VIEW on DOS: 03/23/24, XY CHEST XRAY 1 VIEW on DOS: 03/20/24, XY CHEST XRAY 1 VIEW on DOS: 03/20/24 FINDINGS: LUNGS AND PLEURAL SPACES: Pulmonary congestion and edema. Pneumonia cannot be excluded. Bilateral pleural effusions. No pneumothorax. HEART: Unremarkable. No cardiomegaly. MEDIASTINUM: Unremarkable. Normal mediastinal contour. BONES/JOINTS: Unremarkable. No acute fracture. OTHER FINDINGS: . . . . .. IMPRESSION: 1. Pulmonary congestion and edema. Pneumonia cannot be excluded. 2. Bilateral pleural effusions.
[2024-04-04 06:50] LABS: Basophils # (auto) 0.1 10 ^3/uL (0-0.2); Basophils % (auto) 1.5 % (0.0-2.0); Eosinophils # (auto) 0.1 10 ^3/uL (0-0.8); Eosinophils % (auto) 0.8 % (0.0-7.0); Hematocrit 30.9 % (41.0-53.0); Hemoglobin 10.2 g/dL (13.5-17.5); Lymphocytes # (auto) 0.7 10 ^3/uL (0.4-5.4); Lymphocytes % (auto) 8.6 % (10.0-50.0); Mean Corpuscular Hemoglobin 31.9 pg (28.0-32.0); Mean Corpuscular Hgb Conc. 33.2 g/dL (32.0-36.0); Mean Corpuscular Volume 96.4 fL (80.0-100.0); Monocytes # (auto) 0.7 10 ^3/uL (0-1.3); Monocytes % (auto) 8.4 % (0.0-12.0); Neutrophils # (auto) 6.5 10 ^3/uL (1.6-8.6); Neutrophils % (auto) 80.7 % (37.0-80.0); Platelet Count (auto) 361 10^3/uL (140-450); Red Cell Distribution Width 16.8 % (11.8-14.3)
--- NOTE | 2024-04-04 09:36 | ECG ---
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
[2024-04-04 10:40] LABS: INR 1.14 (0.9-1.15); Prothrombin Time 11.9 sec (9.3-11.8)
--- NOTE | 2024-04-04 11:00 | DVHPN2 ---
Progress Note - Dictate Date Seen: Apr 04, 2024 Has the PT tested + for MRSA If YES, has PT been informed?: No Medical Necessity Reason Pt with a Central, PICC or Fol: No Subjective no acute issues overnight vital signs Vital Sign Date Time Temp Pulse Resp B/P (MAP) Pulse Ox O2 Delivery O2 Flow Rate FiO2 04/04/24 09:57 68 20 139/85 04/04/24 09:00 98.0 97 98.0 04/03/24 20:00 Nasal Cannula* 2 28 Total Intake and Output 04/03/24 04/03/24 04/04/24 15:00 23:00 07:00 Intake Total 400 ml 670 ml 0 ml Balance 400 ml 670 ml 0 ml medications Current Medications Medications Dose Ordered Sig/Alec Route Start Time Stop Time Status Last Admin Dose Admin Sodium Chloride 10 ml Q8HR IV 03/28/24 14:00 04/04/24 06:00 10 ML Acetaminophen/ Hydrocodone Bitart 1 tab Q4HP PRN PO 03/28/24 08:15 04/02/24 15:38 1 TAB Ondansetron HCl 4 mg Q4HP PRN IV 03/28/24 08:15 04/02/24 05:55 4 MG Docusate Sodium 100 mg BIDPRN PRN PO 03/28/24 08:15 04/03/24 06:15 100 MG Acetaminophen 650 mg Q6HP PRN PO 03/28/24 08:15 03/30/24 03:14 650 MG Nitroglycerin 0.4 mg Q5MINP PRN SL 03/28/24 08:15 Morphine Sulfate 2 mg Q30M PRN IV 03/28/24 08:15 Diagnostic Test (Pha) 1 strip ACHS 03/28/24 11:30 04/04/24 07:14 1 STRIP Insulin Human Regular HS SC 03/28/24 22:00 03/30/24 23:09 2 UNITS Insulin Human Regular AC SC 03/28/24 11:30 04/01/24 17:11 3 UNITS Dextrose 50 ml UD PRN IV 03/28/24 08:15 Acyclovir 400 mg BID PO 03/28/24 10:00 04/04/24 09:57 400 MG Gabapentin 300 mg DAILY PO 03/28/24 10:00 Hold Sevelamer HCl 1,600 mg TID PO 03/28/24 14:00 04/03/24 23:15 1,600 MG Tamsulosin HCl 0.4 mg DAILY PO 03/28/24 10:00 04/04/24 09:57 0.4 MG Patient Own Medication 1 tab DAILY PO 03/28/24 10:00 Patient Own Medication 2 tab TIDWM PO 03/28/24 12:00 Patient Own Medication 8.4 gm DAILY PO 03/28/24 10:00 Betamethasone Dipropion Augmented 1 applic BID TOP 03/28/24 22:00 04/03/24 22:47 1 APPLIC Vancomycin HCl 0 ml @ 0 mls/hr UD IV 03/28/24 14:30 Fluconazole 200 mg DAILY PO 03/31/24 10:00 UNV Fluconazole 100 ml @ 100 mls/hr DAILY IV 03/31/24 10:00 04/03/24 11:03 100 MLS/HR Clotrimazole 1 applic Q12HR TOP 03/31/24 22:00 04/03/24 22:47 1 APPLIC Ceftriaxone Sodium/Dextrose 50 ml @ 50 mls/hr DAILY IV 04/01/24 10:00 04/04/24 09:57 50 MLS/HR Atenolol 50 mg EOD PO 04/03/24 10:00 04/03/24 09:40 50 MG Clonidine HCl 0.1 mg BID PO 04/03/24 10:00 Hydralazine HCl 50 mg TID PO 04/03/24 06:00 04/03/24 23:16 50 MG Enteral Nutritional Formula 240 ml TIDWM PO 04/03/24 18:00 04/04/24 08:00 240 ML Morphine Sulfate 2 mg Q4HPRN PRN IV 04/03/24 16:15 04/04/24 09:57 2 MG objective HEENT: No evidence of JVD, no oral ulcers. Pulmonary: Lungs are clear on auscultation bilaterally Cardiovascular S1-S2, no S3 or S4 Abdomen: Bowel sounds positive, soft no rebound tenderness Skin: No rash Extremities: Left foot in bandages Right index finger with small eschar Neurological: Alert, oriented, no focal weakness laboratory and microbiology Laboratory Tests 04/04/24 05:54 04/03/24 08:17 Test 04/03/24 08:17 Range/Units Serum Glucose 89 74-106 mg/dL Problem List ESRD on HD Left foot 4th digit gangrene with cellulitis Hypertension GERD Type 2 diabetes BPH Penile ulcer Right index finger skin lesion Acute metabolic encephalopathy Assessment/Plan Continue dialysis TTS Antibiotics as per ID LAUREL for goal hemoglobin 10-11 Dietary Evaluation Review Comments: encourage and monitor PO feedings to meet 75% of his needs, consider Ash BID, vitamin for ESRD plus additinal vit C and Zn to promote healing. Expected Outcomes/Goals: controlled DM, graudal healed wounds, improved nutrition status, Plan discussed with: Patient JESÚS GAY MD Apr 04, 2024 11:00
--- NOTE | 2024-04-04 11:32 | DVHPN2 ---
Subjective c/o pain in legs Changes from previous H/P or p: Changes Eyes: No Pain, No Vision change, No Conjunctivae inflammation, No Eyelid inflammation, No Other, No Redness ENT: No Ear pain, No Ear discharge, No Nose pain, No Nose discharge, No Nose congestion, No Mouth pain, No Mouth swelling, No Throat pain, No Throat swelling, No Other Cardiovascular: No Chest Pain, No Palpitations, No Orthopnea, No Paroxysmal Noc. Dyspnea, No Edema, No Lt Headedness, No Other Respiratory: No Cough, No Dry, No Shortness of breath, No SOB with excertion, No Wheezing, No Hemoptysis, No Pleuritic Pain, No Sputum, No Other Gastrointestinal: No Nausea, No Vomiting, No Abdominal Pain, No Diarrhea, No Constipation, No Melena, No Hematochezia, No Other Genitourinary: No Dysuria, No Frequency, No Incontinence, No Hematuria, No Retention, No Other Musculoskeletal: No other, No neck pain, No shoulder pain, No arm pain, No back pain, No hand pain, No leg pain (Left toe wound, pain, and redness), No foot pain Skin: No Rash, No Lesions, No Jaundice, No Bruising, No Other Objective Vitals Vital Signs Date Time Temp Pulse Resp B/P (MAP) Pulse Ox O2 Delivery O2 Flow Rate FiO2 04/04/24 10:00 139/85 04/04/24 09:57 68 20 04/04/24 09:00 98.0 97 98.0 04/03/24 20:00 Nasal Cannula* 2 28 Intake/Output Intake and Output 04/04/24 07:00 Intake Total 1070 ml Balance 1070 ml Intake Oral 420 ml IV Total 650 ml # Voids 6 # Bowel Movements 1 General Appearance: Alert, Other (Disoriented) Lungs: Other (Bilateral rhonchi) Cardiovascular: Regular rate, Normal S1 Abdomen: Normal bowel sounds, Soft, No tenderness Extremities: No edema, Other (Left foot discoloration and gangrene of the 4th toe with edema and erythema that is up to the ankle) Medications Current Medications Medications Dose Ordered Sig/Alec Route Start Time Stop Time Status Last Admin Dose Admin Sodium Chloride 10 ml Q8HR IV 03/28/24 14:00 04/04/24 06:00 10 ML Acetaminophen/ Hydrocodone Bitart 1 tab Q4HP PRN PO 03/28/24 08:15 04/02/24 15:38 1 TAB Ondansetron HCl 4 mg Q4HP PRN IV 03/28/24 08:15 04/02/24 05:55 4 MG Docusate Sodium 100 mg BIDPRN PRN PO 03/28/24 08:15 04/03/24 06:15 100 MG Acetaminophen 650 mg Q6HP PRN PO 03/28/24 08:15 03/30/24 03:14 650 MG Nitroglycerin 0.4 mg Q5MINP PRN SL 03/28/24 08:15 Morphine Sulfate 2 mg Q30M PRN IV 03/28/24 08:15 Diagnostic Test (Pha) 1 strip ACHS 03/28/24 11:30 04/04/24 07:14 1 STRIP Insulin Human Regular HS SC 03/28/24 22:00 03/30/24 23:09 2 UNITS Insulin Human Regular AC SC 03/28/24 11:30 04/01/24 17:11 3 UNITS Dextrose 50 ml UD PRN IV 03/28/24 08:15 Acyclovir 400 mg BID PO 03/28/24 10:00 04/04/24 09:57 400 MG Gabapentin 300 mg DAILY PO 03/28/24 10:00 Hold Sevelamer HCl 1,600 mg TID PO 03/28/24 14:00 04/03/24 23:15 1,600 MG Tamsulosin HCl 0.4 mg DAILY PO 03/28/24 10:00 04/04/24 09:57 0.4 MG Patient Own Medication 1 tab DAILY PO 03/28/24 10:00 Patient Own Medication 2 tab TIDWM PO 03/28/24 12:00 Patient Own Medication 8.4 gm DAILY PO 03/28/24 10:00 Betamethasone Dipropion Augmented 1 applic BID TOP 03/28/24 22:00 04/04/24 10:55 1 APPLIC Vancomycin HCl 0 ml @ 0 mls/hr UD IV 03/28/24 14:30 Fluconazole 200 mg DAILY PO 03/31/24 10:00 UNV Fluconazole 100 ml @ 100 mls/hr DAILY IV 03/31/24 10:00 04/03/24 11:03 100 MLS/HR Clotrimazole 1 applic Q12HR TOP 03/31/24 22:00 04/04/24 10:55 1 APPLIC Ceftriaxone Sodium/Dextrose 50 ml @ 50 mls/hr DAILY IV 04/01/24 10:00 04/04/24 09:57 50 MLS/HR Atenolol 50 mg EOD PO 04/03/24 10:00 04/03/24 09:40 50 MG Clonidine HCl 0.1 mg BID PO 04/03/24 10:00 Hydralazine HCl 50 mg TID PO 04/03/24 06:00 04/03/24 23:16 50 MG Enteral Nutritional Formula 240 ml TIDWM PO 04/03/24 18:00 04/03/24 18:00 240 ML Morphine Sulfate 2 mg Q4HPRN PRN IV 04/03/24 16:15 04/04/24 09:57 2 MG Laboratory Results Laboratory Tests 04/03/24 08:17 04/04/24 05:54 Coagulation Test 04/04/24 08:50 Prothrombin Time 11.9 sec (9.3-11.8) H Prothrombin Time INR 1.14 (0.9-1.15) Activated Partial Thromboplast Time 42.0 SEC (24.5-34.5) H Urinalysis Test 03/27/24 23:04 Urine Color Yellow (Yellow) Urine Clarity Clear (Clear) Urine pH 8.0 (5.0-9.0) Urine Specific [place] 1.011 (1.001-1.035) Urine Protein 3+ (Negative) H Urine Ketones Negative (Negative) Urine Blood Negative /uL (Negative) Urine Nitrite Negative (Negative) Urine Bilirubin Negative (Negative) Urine Urobilinogen Normal mg/dL (Negative) Urine Leukocyte Esterase Negative /uL (Negative) Urine RBC 3 /hpf (0 - 3) Urine Microscopic WBC 3 /HPF (0-3) Urine Squamous Epithelial Cells Few /hpf (<5) Urine Bacteria Few /hpf (None Seen) H Urine Glucose 3+ mg/dL (Normal) H Microbiology Microbiology Date/Time Source Procedure Growth Status 03/29/24 13:36 Foot Left Gram Stain - Final Complete 03/29/24 13:36 Foot Left Anaerobic Culture - Final Complete 03/29/24 13:36 Aerobic Culture - Final Staphylococcus haemolyticus Presumptive Kasia albicans Complete 03/27/24 23:35 Blood Blood Culture - Final NO GROWTH AFTER 5 DAYS OF INCUBATION. Complete Assessment/Plan Assessment/Plan Left foot cellulitis Left foot 4th digit gangrene End-stage renal disease on hemodialysis Hypertension GERD Type 2 diabetes BPH Balanitis xerotica obliterans Acute metabolic encephalopathy Plan Broad-spectrum antibiotics with vancomycin and cefepime Infectious disease consult Nephrology consult for hemodialysis Urology consult was done, recommended medical management Podiatry consult Monitor closely Full code Advance directives discussed for 15 minute 03/29/2024: Continue IV antibiotics Hemodialysis per nephrology Podiatry surgery today The rest of the management will depend on the hospital course 03/30/2024: Continue the IV antibiotics Hemodialysis per nephrology Continue [place] for pain Add to [place] q.6 hours p.r.n. for severe pain Podiatry is planning to take him in 1-2 days again for 2nd surgery and closure of the wound The rest of the management will depend on the hospital course 03/31/2024: Continue IV antibiotics Surgery for tomorrow for wound closure and possible discharged home afterwards Hemodialysis per nephrology Pain management as needed 04/01/2024: Discussed his case with ID and Nephrology We will order a tunneled central line for the IV antibiotics at home He is scheduled for a 2nd surgery today by Podiatry Hemodialysis per nephrology Continue broad-spectrum antibiotic with Rocephin, Zithromax, fluconazole, vancomycin Acyclovir was ordered by ID also Discharge planning once a tunneled central line and IV antibiotics are ordered and arranged 04/02/2024: Hemodialysis is done today Tunneled central catheter to be done on Thursday for IV antibiotics at home Continue the current management until IV antibiotics at home and central line are done 04/03/2024: Continue IV antibiotics Central line to be done tomorrow Generalized weakness: The patient would like to go to rehab for care including physical therapy and wound care and IV antibiotics since he can not have it done at home Consult a social psychologist to arrange SNF 04/04/24: Central catheter by IR pending Patient will need IV ceftriaxone 2 grams daily via tunnel catheter, IV fluconazole 200 milligrams daily via tunnel catheter and IV Vanco w HD x 6 weeks at SNF HD per nephrology Wound care Arrange SNF Plan discussed with: Patient My Orders Orders - FRANKIE SANCHEZ MD Procedure Category Date Status Time * Manager Media CONS 04/03/24 Transmitted Consult Nutritional PHA 04/03/24 In Process Supplements (Glucerna 18:00 Morphine Sulfate PHA 04/03/24 In Process Injection 16:15 Chest Xray 1 View XY 04/04/24 Resulted 01:28 Urinalysis LAB 04/04/24 Uncollected 01:28 Complete Blood Count LAB 04/05/24 Verified 04:00 Creatinine LAB 04/05/24 Verified 04:00 Vancomycin,Random LAB 04/05/24 Verified 04:00 Date of Service: Apr 04, 2024 Billing Provider: FRANKIE SANCHEZ MD Common Visit Codes: [id number] INP/OBS CARE(HIGH) FRANKIE SANCHEZ MD Apr 04, 2024 11:32
[2024-04-04] MEDS ORDERED: MIDAZOLAM HCL 2MG/2ML 2ml VIAL (1mg/ml) ONE (13:14)
[2024-04-04] MEDS ORDERED: fentaNYL CITRATE 100 MCG/2 ML VL ONE (13:14)
[2024-04-04] MEDS ORDERED: HEPARIN SODIUM (PORCINE) 5000 UNITS/ML 1ML VIAL ONE (13:19)
[2024-04-04] MEDS ORDERED: LIDOCAINE 2%HCL (LOCAL ANESTH.) INJ 20ML MDV ONE (13:19)
--- NOTE | 2024-04-04 15:53 | DVH ---
XY Insertion of Venous Cath, HISTORY: INTRA POWER LINE for IV antibiotics at home. PROCEDURE: Informed consent was obtained. The patient was placed supine on the interventional table. A limited localization ultrasound of the right neck base was obtained. The right neck base and upper chest were prepped with chlorhexidine which was allowed to dry and draped in the usual sterile fashio n. Time out was performed. IV sedation was administered. The skin and the soft tissues were infiltrat ed with 1% Lidocaine . With real-time ultrasound guidance, the internal jugular vein was accessed wit h a micropuncture kit, and an image documenting patency was recorded to PACS. A subcutaneous tunneled tract was created from the right upper chest to the venotomy site. A 5 Taiwanese Power Line, 23 cm long cut to length catheter was advanced through the tunneled tract. Fluoroscopy was used to advance a guidewire through the internal jugular vein into the inferior vena cava. 5 [place]ese peel-away sheath was introduced, though which was advanced the catheter into the right atrium. The catheter tip position was confirmed with fluoroscopy. There was satisfactory flow in bot h lumens. The catheter lumens were flushed with saline and heparin was left indwelling in the cathete r. A post-procedure image of the chest was obtained. The neck incision site was closed with a pressur e and dressed sterilely. The catheter was sutured at the skin surface and exit site also dressed ster ilely. No immediate complication was identified. DAP 126 FLUOROSCOPY TIME: 0.9 minutes. SEDATION: Dr. Josesito Zuleta was personally responsible for the administration of moderate sedation during the procedure performed, including the use of an independent trained observer who had no other duties during the procedure. The drugs utilized were IV fentanyl and versed (see nursing log for details). The total time of supervision by the attending physician was approximately 25 minutes. FINDINGS: Widely patent right IJV. Post procedure image demonstrates smooth course of the Power Line catheter with the tip in the right atrium. IMPRESSION: Placement of 5 [place]ese dual lumen Power Line, 23 cm long cut to length catheter through right internal jugular vein. Plan: Please contact IR for removal when no longer needed.
[2024-04-04] MEDS: MORPHINE SULFATE INJ 2 MG/ml SYRG IV PRN (20:41)
--- NOTE | 2024-04-04 20:47 | DVHPN2 ---
Consult Progress Note Date Seen: Apr 03, 2024 Subjective Patient reports: Other (having ongoing pains primarily in his fingers , debridement site appears clean and edema in lower extremities ) Objective vital signs Vital Sign Date Time Temp Pulse Resp B/P (MAP) Pulse Ox O2 Delivery O2 Flow Rate FiO2 04/04/24 17:00 97.9 71 18 122/66 (84) 94 97.9 04/04/24 08:00 Room Air* 0 21 Total Intake and Output 04/03/24 04/03/24 04/04/24 15:00 23:00 07:00 Intake Total 400 ml 670 ml 0 ml Balance 400 ml 670 ml 0 ml medications Current Medications Medications Dose Ordered Sig/Alec Route Start Time Stop Time Status Last Admin Dose Admin Sodium Chloride 10 ml Q8HR IV 03/28/24 14:00 04/04/24 16:56 10 ML Acetaminophen/ Hydrocodone Bitart 1 tab Q4HP PRN PO 03/28/24 08:15 04/04/24 14:46 1 TAB Ondansetron HCl 4 mg Q4HP PRN IV 03/28/24 08:15 04/02/24 05:55 4 MG Docusate Sodium 100 mg BIDPRN PRN PO 03/28/24 08:15 04/03/24 06:15 100 MG Acetaminophen 650 mg Q6HP PRN PO 03/28/24 08:15 03/30/24 03:14 650 MG Nitroglycerin 0.4 mg Q5MINP PRN SL 03/28/24 08:15 Morphine Sulfate 2 mg Q30M PRN IV 03/28/24 08:15 Diagnostic Test (Pha) 1 strip ACHS 03/28/24 11:30 04/04/24 16:41 1 STRIP Insulin Human Regular HS SC 03/28/24 22:00 03/30/24 23:09 2 UNITS Insulin Human Regular AC SC 03/28/24 11:30 04/01/24 17:11 3 UNITS Dextrose 50 ml UD PRN IV 03/28/24 08:15 Acyclovir 400 mg BID PO 03/28/24 10:00 04/04/24 09:57 400 MG Gabapentin 300 mg DAILY PO 03/28/24 10:00 Hold Sevelamer HCl 1,600 mg TID PO 03/28/24 14:00 04/04/24 16:55 1,600 MG Tamsulosin HCl 0.4 mg DAILY PO 03/28/24 10:00 04/04/24 09:57 0.4 MG Patient Own Medication 1 tab DAILY PO 03/28/24 10:00 Patient Own Medication 2 tab TIDWM PO 03/28/24 12:00 Patient Own Medication 8.4 gm DAILY PO 03/28/24 10:00 Betamethasone Dipropion Augmented 1 applic BID TOP 03/28/24 22:00 04/04/24 10:55 1 APPLIC Vancomycin HCl 0 ml @ 0 mls/hr UD IV 03/28/24 14:30 Fluconazole 200 mg DAILY PO 03/31/24 10:00 UNV Fluconazole 100 ml @ 100 mls/hr DAILY IV 03/31/24 10:00 04/04/24 10:00 100 MLS/HR Clotrimazole 1 applic Q12HR TOP 03/31/24 22:00 04/04/24 10:55 1 APPLIC Ceftriaxone Sodium/Dextrose 50 ml @ 50 mls/hr DAILY IV 04/01/24 10:00 04/04/24 09:57 50 MLS/HR Atenolol 50 mg EOD PO 04/03/24 10:00 04/03/24 09:40 50 MG Clonidine HCl 0.1 mg BID PO 04/03/24 10:00 Hydralazine HCl 50 mg TID PO 04/03/24 06:00 04/04/24 16:55 50 MG Enteral Nutritional Formula 240 ml TIDWM PO 04/03/24 18:00 04/04/24 18:00 240 ML Morphine Sulfate 2 mg Q4HPRN PRN IV 04/03/24 16:15 04/04/24 09:57 2 MG Physical Exam: General: NAD Neck: Supple. No masses. HEENT: PERRL. Normal lids and conjunctiva. Moist mucous membranes. Oropharynx without lesions, exudates, or excessive erythema. Normal appearance of the external aspects of the nose and ears. Heart: Regular rhythm, normal rate. No murmur. No lower extremity edema. Lungs: Normal respiratory effort. Clear to auscultation bilaterally. No wheezes. No crackles. Abdomen: Soft. Non-tender. Non-distended. No masses or abdominal hernia. Msk: No digital cyanosis. Normal strength and tone in all 4 limbs Skin: Warm and dry. Black discoloration of left fourth toe. Multiple ulcers under the shaft of penis with very tender serous drainage and whitening of glans skin. Neuro: Alert. No facial droop or slurred speech. Extra-ocular movements intact. Sensation intact to soft touch in all 4 limbs. Psych: Appropriate mood. Full affect. Oriented to person, place, time, and situation. laboratory and microbiology Laboratory Tests 04/04/24 05:54 04/03/24 08:17 Test 04/03/24 08:17 Range/Units Serum Glucose 89 74-106 mg/dL Problem List/Assessment/Plan Problems(with codes): (1) Penile ulcer (2) COPD (chronic obstructive pulmonary disease) (3) ESRD (end stage renal disease) on dialysis (4) Acute renal failure superimposed on chronic kidney disease, on chronic dialysis (5) Pneumonia of both lower lobes Problem List/Assessment/Plan ID Problem List: -- ESRD on dialysis -- BPH -- COPD -- Diabetes mellitus -- Hypertension -- History of herpes infection -- Penile ulcers -- Possible sexually transmitted infection -- Left fourth toe necrotic gangrene Assessment This is a 68 y.o. male with a past medical history of ESRD on dialysis, BPH, COPD, diabetes mellitus, hypertension, and history of herpes infection, who presents with black discoloration of the left fourth toe and penile ulcers. Patient was brought in by ambulance after being found with black discoloration of his left fourth toe. He is a poor historian, [place] speaking, from [place]. He was recently admitted for similar complaints; his toe continued to worsen, becoming martín and more painful. On physical exam, he has multiple ulcers under the shaft of his penis with very tender serous drainage and whitening of the glans skin. Laboratory studies show a WBC count of 8.9, hemoglobin of 10.x, platelet count of 281, creatinine of 5.84, and BUN of 26. X-ray of the left foot shows no bone erosion, no evidence of soft tissue collection or hematoma, no joint effusion, subluxation, dislocation, or abscess. Blood cultures show no growth to date. MRSA nares negative. 03/29: underwent debridement and amputation of toe. per operative note there was a a deepening incision to the bone there was an abscess with preliminary fluid and puss . Cortices of the bone was removed and the necrotic tissue , amputation of the toe was required and taken down to the 4th digit and excised to the level of MPJ . bone was taken for biopsy . patient is planning to return to OR for additional operative debridement enclosure 03/30: Left foot toe has a dressing that appears to not have any drainage on it or puss , just spotting . preliminary operative cultures are growing fungus 03/31: HIV is negative , awaiting gonorrhea , chlamydia and RPR tests 04/01: operative cultures from foot debridement reveal growth of staph hemolyticus as well as fungal organism kenroy . the staph is methicillin resistant 04/02: negative for gonorrhea , syphilis , chlamydia , HIV 04/03: whitecount is 3.3 Plan: - order aan EKG to evaluate QTC in setting of fluconazole and azithromycin - agree with vascular surgery consult to assess if patient would benefit from vascular intervention in setting of likely severe peripheral arterial disease - recommend piccline for 6 weeks of IV antibiotics - patient will need IV ceftriaxone 2 grams daily via tunnel catheter, IV fluconazole 200 milligrams daily via tunnel catheter - follow up with infectious disease in 2 weeks to undergo EKG to ensure patient is tolerating therapy as well as asses for need of antibiotics and antifungal therapy after IV antibiotics are complete - recommend oral 7 day course for Acyclovir therapy - IV vancomycin to given with dialysis - patient will need 7 days of acyclovir therapy for possible herpes infection and follow up on results - 1x dose of Iv fluconazole 400 milligrams , followed by IV fluconazole 200 milligrams daily - check EKG in 5 days to determine if QTC is prolonged in setting of chronic fluconazole - likely patient will need 6 weeks of IV fluconazole followed by several months of antifungal orally to completely eradicate osteomyelitis - follow up on operative cultures -- Continue empiric antibiotic treatment with vancomycin -- Order viral culture of penile drainage. -- Test for HIV, syphilis, gonorrhea, chlamydia, and herpes. -- Consult podiatry for possible amputation of necrotic left fourth toe. -- Obtain deep tissue cultures during procedure, including any infected bone or muscle. -- Keep blood sugars under 180 mg/dL. -- Defer dialysis management to nephrology. Isolation Precautions: standard Plan discussed with: Other Dietary Evaluation Review Comments: encourage and monitor PO feedings to meet 75% of his needs, consider Ash BID, vitamin for ESRD plus additinal vit C and Zn to promote healing. Expected Outcomes/Goals: controlled DM, graudal healed wounds, improved nutrition status, ROLAND CRUZ MD Apr 04, 2024 20:46
[2024-04-05] VITALS (7 sets, daily range): BP systolic 121–159; BP diastolic 44–90; PULSE 57–80; RESP 16–18; TEMP 97.3–98.8; O2SAT 90–98
[2024-04-05 06:36] LABS: Basophils # (auto) 0.1 10 ^3/uL (0-0.2); Basophils % (auto) 1.4 % (0.0-2.0); Eosinophils # (auto) 0.1 10 ^3/uL (0-0.8); Hematocrit 30.9 % (41.0-53.0); Hemoglobin 10.1 g/dL (13.5-17.5); Lymphocytes # (auto) 0.8 10 ^3/uL (0.4-5.4); Lymphocytes % (auto) 10.2 % (10.0-50.0); Mean Corpuscular Hemoglobin 31.9 pg (28.0-32.0); Mean Corpuscular Hgb Conc. 32.8 g/dL (32.0-36.0); Mean Corpuscular Volume 97.3 fL (80.0-100.0); Monocytes # (auto) 0.8 10 ^3/uL (0-1.3); Monocytes % (auto) 10.1 % (0.0-12.0); Neutrophils # (auto) 6.3 10 ^3/uL (1.6-8.6); Neutrophils % (auto) 77.3 % (37.0-80.0); Platelet Count (auto) 373 10^3/uL (140-450); Red Blood Cells 3.17 10^6/uL (4.5-5.90); Red Cell Distribution Width 17.5 % (11.8-14.3); White Blood Cell 8.1 10^3/uL (4.4-10.8)
[2024-04-05] MEDS ORDERED: SODIUM CHL 0.9% 1000 ML BAG XX ONE (07:00)
[2024-04-05 07:54] LABS: Hypochromia Slight; Platelet Estimate Adequate
--- NOTE | 2024-04-05 11:16 | DVHDS2 ---
Discharge Summary Date of Admission Mar 28, 2024 at 08:07 Date of Discharge: Apr 05, 2024 Labs/Diagnostic Data: Laboratory Results Test 04/05/24 05:55 04/05/24 05:45 04/04/24 08:50 04/03/24 08:17 White Blood Count 8.1 10^3/uL (4.4-10.8) Red Blood Count 3.17 10^6/uL (4.5-5.90) Hemoglobin 10.1 g/dL (13.5-17.5) Hematocrit 30.9 % (41.0-53.0) Mean Corpuscular Volume 97.3 fL (80.0-100.0) Mean Corpuscular Hemoglobin 31.9 pg (28.0-32.0) Mean Corpuscular Hemoglobin Concent 32.8 g/dL (32.0-36.0) Red Cell Distribution Width 17.5 % (11.8-14.3) Platelet Count 373 10^3/uL (140-450) Mean Platelet Volume 6.9 fL (6.9-10.8) Neutrophils (%) (Auto) 77.3 % (37.0-80.0) Lymphocytes (%) (Auto) 10.2 % (10.0-50.0) Monocytes (%) (Auto) 10.1 % (0.0-12.0) Eosinophils (%) (Auto) 1.0 % (0.0-7.0) Basophils (%) (Auto) 1.4 % (0.0-2.0) Neutrophils # (Auto) 6.3 10 ^3/uL (1.6-8.6) Lymphocytes # (Auto) 0.8 10 ^3/uL (0.4-5.4) Monocytes # (Auto) 0.8 10 ^3/uL (0-1.3) Eosinophils # (Auto) 0.1 10 ^3/uL (0-0.8) Basophils # (Auto) 0.1 10 ^3/uL (0-0.2) Nucleated Red Blood Cells 0.0 % Platelet Estimate Adequate Hypochromasia (manual) Slight Creatinine 6.35 mg/dL (0.700-1.30) Glomerular Filtration Rate Calc 9 mL/min (>90) Random Vancomycin Level 25.7 ug/mL (5-10) POC Glucose 63 mg/dl (70-106) Prothrombin Time 11.9 sec (9.3-11.8) Prothrombin Time INR 1.14 (0.9-1.15) Activated Partial Thromboplast Time 42.0 SEC (24.5-34.5) Sodium Level 130 mmol/L (136-145) Potassium Level 4.5 mmol/L (3.5-5.1) Chloride Level 92 mmol/L (98-107) Carbon Dioxide Level 31 mmol/L (20-31) Anion Gap 7 (5-15) Blood Urea Nitrogen 17 mg/dL (9-23) BUN/Creatinine Ratio 3.6 (10.0-20.0) Serum Glucose 89 mg/dL (74-106) Calcium Level 8.8 mg/dL (8.7-10.4) Test 04/02/24 06:13 03/31/24 08:48 03/31/24 08:15 03/30/24 06:02 Magnesium Level 2.1 mg/dL (1.6-2.6) Total Bilirubin 0.3 mg/dL (0.2-1.0) Aspartate Amino Transferase (AST) 21 U/L (13-40) Alanine Aminotransferase (ALT) < 9 U/L (7-40) Alkaline Phosphatase 179 U/L (46-116) Total Protein 5.4 g/dL (5.7-8.2) Albumin 2.8 g/dL (3.2-4.8) Rapid Plasma Reagin Non reactive (Non Reactive) Chlamydia trachomatis (ITZ) Negative (Negative) Neisseria gonorrhoeae (ITZ) Negative (Negative) HIV (1&2) Antibody Negative (Negative) Test 03/27/24 23:35 03/27/24 23:04 Lactic Acid Level 0.6 mmol/L (0.4-2.0) Urine Color Yellow (Yellow) Urine Clarity Clear (Clear) Urine pH 8.0 (5.0-9.0) Urine Specific [place] 1.011 (1.001-1.035) Urine Protein 3+ (Negative) Urine Ketones Negative (Negative) Urine Blood Negative /uL (Negative) Urine Nitrite Negative (Negative) Urine Bilirubin Negative (Negative) Urine Urobilinogen Normal mg/dL (Negative) Urine Leukocyte Esterase Negative /uL (Negative) Urine RBC 3 /hpf (0 - 3) Urine Microscopic WBC 3 /HPF (0-3) Urine Squamous Epithelial Cells Few /hpf (<5) Urine Bacteria Few /hpf (None Seen) Urine Glucose 3+ mg/dL (Normal) Other Laboratory Tests 04/05/24 05:55 04/03/24 08:17 Brief Hx & Hospital Course: Final diagnoses: Left foot cellulitis Left foot 4th digit gangrene End-stage renal disease on hemodialysis Hypertension GERD Type 2 diabetes BPH Balanitis xerotica obliterans Acute metabolic encephalopathy He has osteomyelitis of the 4th digit of the left foot requiring surgery, he had amputation of the toe He was treated with IV antibiotics The culture of the wound showed Kasia albicans and Staph haemolyticus Infectious disease was consulted and recommended treatment with IV vancomycin and Rocephin and Diflucan for 6 weeks Because he is on dialysis a PICC line was not done and instead he had a tunneled central line done yesterday The patient is stable for discharge however he needs to go to a group home facility for rehab and wound care and IV antibiotics for 6 weeks Stable for discharge Condition at Discharge: Good Final Diagnosis/Problems List Left foot cellulitis Left foot 4th digit gangrene End-stage renal disease on hemodialysis Hypertension GERD Type 2 diabetes BPH Balanitis xerotica obliterans Acute metabolic encephalopathy [facility] Discharge Will this Physician continue t: No Discharge Statement: "Patient was advised to return to the ER or call 911 if any headaches, dizziness, shortness of breath, chest pain, abdominal pain, bleeding, fevers, or worsening of medical condition. Patient was counseled about treatment plan, medications, possible side effects, patientverbalized understanding. All questions were answered to the best of my ability. This discharge took greater then 30 minutes in planning, reviewing documentation, counseling the patient, and discussing with other team members." ASSESSMENT ASSESSMENT Assessment Same as preop Date of Service: Apr 05, 2024 Billing Provider: FRANKIE SANCHZE MD Common Visit Codes: [id number]/[id number] DISCH DAY >30min FRANKIE SANCHEZ MD Apr 05, 2024 11:16
--- NOTE | 2024-04-05 15:44 | DVHPN2 ---
Progress Note - Dictate Date Seen: Apr 05, 2024 Has the PT tested + for MRSA If YES, has PT been informed?: No Medical Necessity Reason Pt with a Central, PICC or Fol: No Subjective no acute issues overnight HD today vital signs Vital Sign Date Time Temp Pulse Resp B/P (MAP) Pulse Ox O2 Delivery O2 Flow Rate FiO2 04/05/24 13:00 97.9 57 17 121/44 (69) 90 97.9 04/05/24 08:00 Room Air* 0 21 Total Intake and Output 04/04/24 04/04/24 04/05/24 15:00 23:00 07:00 Intake Total 50 ml 100 ml 300 ml Balance 50 ml 100 ml 300 ml medications Current Medications Medications Dose Ordered Sig/Alec Route Start Time Stop Time Status Last Admin Dose Admin Sodium Chloride 10 ml Q8HR IV 03/28/24 14:00 04/05/24 05:59 10 ML Acetaminophen/ Hydrocodone Bitart 1 tab Q4HP PRN PO 03/28/24 08:15 04/05/24 08:05 1 TAB Ondansetron HCl 4 mg Q4HP PRN IV 03/28/24 08:15 04/02/24 05:55 4 MG Docusate Sodium 100 mg BIDPRN PRN PO 03/28/24 08:15 04/05/24 10:02 100 MG Acetaminophen 650 mg Q6HP PRN PO 03/28/24 08:15 03/30/24 03:14 650 MG Nitroglycerin 0.4 mg Q5MINP PRN SL 03/28/24 08:15 Morphine Sulfate 2 mg Q30M PRN IV 03/28/24 08:15 04/04/24 20:41 2 MG Diagnostic Test (Pha) 1 strip ACHS 03/28/24 11:30 04/05/24 11:30 1 STRIP Insulin Human Regular HS SC 03/28/24 22:00 04/04/24 22:05 2 UNITS Insulin Human Regular AC SC 03/28/24 11:30 04/01/24 17:11 3 UNITS Dextrose 50 ml UD PRN IV 03/28/24 08:15 Acyclovir 400 mg BID PO 03/28/24 10:00 04/05/24 10:02 400 MG Gabapentin 300 mg DAILY PO 03/28/24 10:00 Hold Sevelamer HCl 1,600 mg TID PO 2/10/25 14:00 04/05/24 05:57 1,600 MG Tamsulosin HCl 0.4 mg DAILY PO 03/28/24 10:00 04/05/24 08:05 0.4 MG Patient Own Medication 1 tab DAILY PO 03/28/24 10:00 Patient Own Medication 2 tab TIDWM PO 03/28/24 12:00 Patient Own Medication 8.4 gm DAILY PO 03/28/24 10:00 Betamethasone Dipropion Augmented 1 applic BID TOP 03/28/24 22:00 04/05/24 10:03 1 APPLIC Vancomycin HCl 0 ml @ 0 mls/hr UD IV 03/28/24 14:30 Fluconazole 200 mg DAILY PO 03/31/24 10:00 UNV Fluconazole 100 ml @ 100 mls/hr DAILY IV 03/31/24 10:00 04/05/24 08:05 100 MLS/HR Clotrimazole 1 applic Q12HR TOP 03/31/24 22:00 04/05/24 10:03 1 APPLIC Ceftriaxone Sodium/Dextrose 50 ml @ 50 mls/hr DAILY IV 04/01/24 10:00 04/05/24 10:07 50 MLS/HR Atenolol 50 mg EOD PO 04/03/24 10:00 04/03/24 09:40 50 MG Clonidine HCl 0.1 mg BID PO 04/03/24 10:00 04/04/24 21:56 0.1 MG Hydralazine HCl 50 mg TID PO 04/03/24 06:00 04/04/24 21:55 50 MG Enteral Nutritional Formula 240 ml TIDWM PO 04/03/24 18:00 04/05/24 12:29 240 ML Morphine Sulfate 2 mg Q4HPRN PRN IV 04/03/24 16:15 04/04/24 09:57 2 MG objective HEENT: No evidence of JVD, no oral ulcers. Pulmonary: Lungs are clear on auscultation bilaterally Cardiovascular S1-S2, no S3 or S4 Abdomen: Bowel sounds positive, soft no rebound tenderness Skin: No rash Extremities: Left foot in bandages Right index finger with small eschar Neurological: Alert, oriented, no focal weakness laboratory and microbiology Laboratory Tests 04/05/24 05:55 04/03/24 08:17 Test 04/03/24 08:17 Range/Units Serum Glucose 89 74-106 mg/dL Problem List ESRD on HD Left foot 4th digit gangrene with cellulitis Hypertension GERD Type 2 diabetes BPH Penile ulcer Right index finger skin lesion Acute metabolic encephalopathy Assessment/Plan Continue dialysis TTS Antibiotics as per ID LAUREL for goal hemoglobin 10-11 To be transferred to SNF today Dietary Evaluation Review Comments: encourage and monitor PO feedings to meet 75% of his needs, consider Ash BID, vitamin for ESRD plus additinal vit C and Zn to promote healing. Expected Outcomes/Goals: controlled DM, graudal healed wounds, improved nutrition status, Plan discussed with: Other JESÚS GAY MD Apr 05, 2024 15:44
[2024-04-05] MEDS: EPOETIN ALFA-EPBX 4,000 UNIT/ML VIAL SC ONE (21:26)
[2024-04-06 01:00] VITALS: BP 118/75; PULSE 87; RESP 17; TEMP 97.8; O2SAT 97
[2024-04-06 04:16] LABS: Potassium 4.6 mmol/L (3.5-5.1)
[2024-04-06 04:17] LABS: Anion Gap 7 (5-15); Calcium 8.7 mg/dL (8.7-10.4); Carbon Dioxide 29 mmol/L (20-31)
[2024-04-06 04:22] LABS: BUN/Creatinine Ratio 3.8 (10.0-20.0); Blood Urea Nitrogen 19 mg/dL (9-23); Glucose 81 mg/dL (74-106)
[2024-04-06 04:38] LABS: Chloride 96 mmol/L (98-107); Sodium 132 mmol/L (136-145)
[2024-04-06 05:00] VITALS: BP 130/72; PULSE 77; RESP 18; TEMP 98; O2SAT 95
[2024-04-06 09:00] VITALS: BP 120/63; PULSE 82; RESP 19; TEMP 98.6; O2SAT 93
[2024-04-06 10:04] VITALS: BP 130/72; PULSE 82; TEMP 37
--- NOTE | 2024-04-06 10:50 | DVHPN2 ---
Subjective He was supposed to be discharged to SNF yesterday but it was too late because he needed dialysis He is doing well now and he is being transferred to the SNF today Changes from previous H/P or p: Changes Eyes: No Pain, No Vision change, No Conjunctivae inflammation, No Eyelid inflammation, No Other, No Redness ENT: No Ear pain, No Ear discharge, No Nose pain, No Nose discharge, No Nose congestion, No Mouth pain, No Mouth swelling, No Throat pain, No Throat swelling, No Other Cardiovascular: No Chest Pain, No Palpitations, No Orthopnea, No Paroxysmal Noc. Dyspnea, No Edema, No Lt Headedness, No Other Respiratory: No Cough, No Dry, No Shortness of breath, No SOB with excertion, No Wheezing, No Hemoptysis, No Pleuritic Pain, No Sputum, No Other Gastrointestinal: No Nausea, No Vomiting, No Abdominal Pain, No Diarrhea, No Constipation, No Melena, No Hematochezia, No Other Genitourinary: No Dysuria, No Frequency, No Incontinence, No Hematuria, No Retention, No Other Musculoskeletal: No other, No neck pain, No shoulder pain, No arm pain, No back pain, No hand pain, No leg pain (Left toe wound, pain, and redness), No foot pain Skin: No Rash, No Lesions, No Jaundice, No Bruising, No Other Objective Vitals Vital Signs Date Time Temp Pulse Resp B/P (MAP) Pulse Ox O2 Delivery O2 Flow Rate FiO2 04/06/24 10:04 37.0 82 04/06/24 09:00 19 120/63 (82) 93 04/05/24 20:00 Room Air* 0 21 Intake/Output Intake and Output 04/06/24 07:00 Intake Total 1125 ml Output Total 350 ml Balance 775 ml Intake Oral 975 ml IV Total 150 ml Output Urine Total 350 ml General Appearance: Alert, Other (Disoriented) Lungs: Other (Bilateral rhonchi) Cardiovascular: Regular rate, Normal S1 Abdomen: Normal bowel sounds, Soft, No tenderness Extremities: No edema, Other (Left foot discoloration and gangrene of the 4th toe with edema and erythema that is up to the ankle) Medications Current Medications Medications Dose Ordered Sig/Alec Route Start Time Stop Time Status Last Admin Dose Admin Fluconazole 200 mg DAILY PO 03/31/24 10:00 UNV Laboratory Results Laboratory Tests 04/05/24 05:55 04/06/24 03:19 Chemistry Test 04/06/24 03:19 Calcium Level 8.7 mg/dL (8.7-10.4) Urinalysis Test 03/27/24 23:04 Urine Color Yellow (Yellow) Urine Clarity Clear (Clear) Urine pH 8.0 (5.0-9.0) Urine Specific [place] 1.011 (1.001-1.035) Urine Protein 3+ (Negative) H Urine Ketones Negative (Negative) Urine Blood Negative /uL (Negative) Urine Nitrite Negative (Negative) Urine Bilirubin Negative (Negative) Urine Urobilinogen Normal mg/dL (Negative) Urine Leukocyte Esterase Negative /uL (Negative) Urine RBC 3 /hpf (0 - 3) Urine Microscopic WBC 3 /HPF (0-3) Urine Squamous Epithelial Cells Few /hpf (<5) Urine Bacteria Few /hpf (None Seen) H Urine Glucose 3+ mg/dL (Normal) H Microbiology Microbiology Date/Time Source Procedure Growth Status 03/29/24 13:36 Foot Left Gram Stain - Final Complete 03/29/24 13:36 Foot Left Anaerobic Culture - Final Complete 03/29/24 13:36 Aerobic Culture - Final Staphylococcus haemolyticus Presumptive Kasia albicans Complete 03/27/24 23:35 Blood Blood Culture - Final NO GROWTH AFTER 5 DAYS OF INCUBATION. Complete Assessment/Plan Assessment/Plan Left foot cellulitis Left foot 4th digit gangrene End-stage renal disease on hemodialysis Hypertension GERD Type 2 diabetes BPH Balanitis xerotica obliterans Acute metabolic encephalopathy Plan Broad-spectrum antibiotics with vancomycin and cefepime Infectious disease consult Nephrology consult for hemodialysis Urology consult was done, recommended medical management Podiatry consult Monitor closely Full code Advance directives discussed for 15 minute 03/29/2024: Continue IV antibiotics Hemodialysis per nephrology Podiatry surgery today The rest of the management will depend on the hospital course 03/30/2024: Continue the IV antibiotics Hemodialysis per nephrology Continue [place] for pain Add to [place] q.6 hours p.r.n. for severe pain Podiatry is planning to take him in 1-2 days again for 2nd surgery and closure of the wound The rest of the management will depend on the hospital course 03/31/2024: Continue IV antibiotics Surgery for tomorrow for wound closure and possible discharged home afterwards Hemodialysis per nephrology Pain management as needed 04/01/2024: Discussed his case with ID and Nephrology We will order a tunneled central line for the IV antibiotics at home He is scheduled for a 2nd surgery today by Podiatry Hemodialysis per nephrology Continue broad-spectrum antibiotic with Rocephin, Zithromax, fluconazole, vancomycin Acyclovir was ordered by ID also Discharge planning once a tunneled central line and IV antibiotics are ordered and arranged 04/02/2024: Hemodialysis is done today Tunneled central catheter to be done on Thursday for IV antibiotics at home Continue the current management until IV antibiotics at home and central line are done 04/03/2024: Continue IV antibiotics Central line to be done tomorrow Generalized weakness: The patient would like to go to rehab for care including physical therapy and wound care and IV antibiotics since he can not have it done at home Consult a social media marketing specialist to arrange SNF 04/04/24: Central catheter by IR pending Patient will need IV ceftriaxone 2 grams daily via tunnel catheter, IV fluconazole 200 milligrams daily via tunnel catheter and IV Vanco w HD x 6 weeks at SNF HD per nephrology Wound care Arrange SNF 04/06/2024: Discharge to SNF on IV antibiotics Hemodialysis was done yesterday Stable for discharge Plan discussed with: Patient My Orders Orders - FRANKIE SANCHEZ MD Procedure Category Date Status Time Discharge DISCHARGE 04/05/24 Transmitted 11:13 Date of Service: Apr 06, 2024 Billing Provider: FRANKIE SANCHEZ MD Common Visit Codes: [id number] INP/OBS CARE(MOD) FRANKIE SANCHEZ MD Apr 06, 2024 10:50
--- NOTE | 2024-04-06 23:52 | DVHPN2 ---
Consult Progress Note Date Seen: Apr 06, 2024 Subjective Patient reports: Other (his tunnel catheter site is clean ) Objective vital signs Vital Sign Date Time Temp Pulse Resp B/P (MAP) Pulse Ox O2 Delivery O2 Flow Rate FiO2 04/06/24 10:04 37.0 82 04/06/24 09:00 19 120/63 (82) 93 04/05/24 20:00 Room Air* 0 21 Total Intake and Output 04/05/24 04/05/24 04/06/24 15:00 23:00 07:00 Intake Total 150 ml 300 ml 675 ml Output Total 350 ml Balance 150 ml 300 ml 325 ml medications Current Medications Medications Dose Ordered Sig/Alec Route Start Time Stop Time Status Last Admin Dose Admin Fluconazole 200 mg DAILY PO 03/31/24 10:00 UNV Physical Exam: General: NAD Neck: Supple. No masses. HEENT: PERRL. Normal lids and conjunctiva. Moist mucous membranes. Oropharynx without lesions, exudates, or excessive erythema. Normal appearance of the external aspects of the nose and ears. Heart: Regular rhythm, normal rate. No murmur. No lower extremity edema. Lungs: Normal respiratory effort. Clear to auscultation bilaterally. No wheezes. No crackles. Abdomen: Soft. Non-tender. Non-distended. No masses or abdominal hernia. Msk: No digital cyanosis. Normal strength and tone in all 4 limbs Skin: Warm and dry. Black discoloration of left fourth toe. Multiple ulcers under the shaft of penis with very tender serous drainage and whitening of glans skin. Neuro: Alert. No facial droop or slurred speech. Extra-ocular movements intact. Sensation intact to soft touch in all 4 limbs. Psych: Appropriate mood. Full affect. Oriented to person, place, time, and situation. laboratory and microbiology Laboratory Tests 04/06/24 03:19 04/05/24 05:55 Test 04/06/24 03:19 Range/Units Serum Glucose 81 74-106 mg/dL Problem List/Assessment/Plan Problems(with codes): (1) Uncontrolled diabetes mellitus (2) Toe infection (3) Acute renal failure superimposed on chronic kidney disease, on chronic dialysis (4) Bronchitis due to COVID-19 virus (5) ESRD (end stage renal disease) on dialysis (6) COPD (chronic obstructive pulmonary disease) (7) Penile ulcer Problem List/Assessment/Plan ID Problem List: -- ESRD on dialysis -- BPH -- COPD -- Diabetes mellitus -- Hypertension -- History of herpes infection -- Penile ulcers -- Possible sexually transmitted infection -- Left fourth toe necrotic gangrene Assessment This is a 68 y.o. male with a past medical history of ESRD on dialysis, BPH, COPD, diabetes mellitus, hypertension, and history of herpes infection, who presents with black discoloration of the left fourth toe and penile ulcers. Patient was brought in by ambulance after being found with black discoloration of his left fourth toe. He is a poor historian, Kiswahili speaking, from a custodial. He was recently admitted for similar complaints; his toe continued to worsen, becoming martín and more painful. On physical exam, he has multiple ulcers under the shaft of his penis with very tender serous drainage and whitening of the glans skin. Laboratory studies show a WBC count of 8.9, hemoglobin of 10.x, platelet count of 281, creatinine of 5.84, and BUN of 26. X-ray of the left foot shows no bone erosion, no evidence of soft tissue collection or hematoma, no joint effusion, subluxation, dislocation, or abscess. Blood cultures show no growth to date. MRSA nares negative. 03/29: underwent debridement and amputation of toe. per operative note there was a a deepening incision to the bone there was an abscess with preliminary fluid and puss . Cortices of the bone was removed and the necrotic tissue , amputation of the toe was required and taken down to the 4th digit and excised to the level of MPJ . bone was taken for biopsy . patient is planning to return to OR for additional operative debridement enclosure 03/30: Left foot toe has a dressing that appears to not have any drainage on it or puss , just spotting . preliminary operative cultures are growing fungus 03/31: HIV is negative , awaiting gonorrhea , chlamydia and RPR tests 04/01: operative cultures from foot debridement reveal growth of staph hemolyticus as well as fungal organism kenroy . the staph is methicillin resistant 04/02: negative for gonorrhea , syphilis , chlamydia , HIV 04/03: whitecount is 3.3 2: patient has a tunnel catheter in for antibiotics and is receiving dialysis , no signs of hypotension 04/05: patient has completed 7 days of acyclovir and 2 doses of azithromycin for penile kinkeroid 04/06: patients antibiotics appear to be ready for discharge and patient is tolerating dialysis and vancomycin trots are therapeutic Plan: - order aan EKG to evaluate QTC in setting of fluconazole and azithromycin - agree with vascular surgery consult to assess if patient would benefit from vascular intervention in setting of likely severe peripheral arterial disease - recommend piccline for 6 weeks of IV antibiotics - patient will need IV ceftriaxone 2 grams daily via tunnel catheter, IV fluconazole 200 milligrams daily via tunnel catheter - follow up with infectious disease in 2 weeks to undergo EKG to ensure patient is tolerating therapy as well as asses for need of antibiotics and antifungal therapy after IV antibiotics are complete - recommend oral 7 day course for Acyclovir therapy - IV vancomycin to given with dialysis - patient will need 7 days of acyclovir therapy for possible herpes infection and follow up on results - 1x dose of Iv fluconazole 400 milligrams , followed by IV fluconazole 200 milligrams daily - check EKG in 5 days to determine if QTC is prolonged in setting of chronic fluconazole - likely patient will need 6 weeks of IV fluconazole followed by several months of antifungal orally to completely eradicate osteomyelitis - follow up on operative cultures -- Continue empiric antibiotic treatment with vancomycin -- Order viral culture of penile drainage. -- Test for HIV, syphilis, gonorrhea, chlamydia, and herpes. -- Consult podiatry for possible amputation of necrotic left fourth toe. -- Obtain deep tissue cultures during procedure, including any infected bone or muscle. -- Keep blood sugars under 180 mg/dL. -- Defer dialysis management to nephrology. Isolation Precautions: standard Plan discussed with: Other Dietary Evaluation Review Comments: encourage and monitor PO feedings to meet 75% of his needs, consider Ash BID, vitamin for ESRD plus additinal vit C and Zn to promote healing. Expected Outcomes/Goals: controlled DM, graudal healed wounds, improved nutrition status, ROLAND CRUZ MD Apr 06, 2024 23:52
--- NOTE | 2024-04-06 23:52 | DVHPN2 ---
Consult Progress Note Date Seen: Apr 04, 2024 Subjective Patient reports: Other (no new complaits ) Objective vital signs Vital Sign Date Time Temp Pulse Resp B/P (MAP) Pulse Ox O2 Delivery O2 Flow Rate FiO2 04/06/24 10:04 37.0 82 04/06/24 09:00 19 120/63 (82) 93 04/05/24 20:00 Room Air* 0 21 Total Intake and Output 04/05/24 04/05/24 04/06/24 15:00 23:00 07:00 Intake Total 150 ml 300 ml 675 ml Output Total 350 ml Balance 150 ml 300 ml 325 ml medications Current Medications Medications Dose Ordered Sig/Alec Route Start Time Stop Time Status Last Admin Dose Admin Fluconazole 200 mg DAILY PO 03/31/24 10:00 UNV Physical Exam: General: NAD Neck: Supple. No masses. HEENT: PERRL. Normal lids and conjunctiva. Moist mucous membranes. Oropharynx without lesions, exudates, or excessive erythema. Normal appearance of the external aspects of the nose and ears. Heart: Regular rhythm, normal rate. No murmur. No lower extremity edema. Lungs: Normal respiratory effort. Clear to auscultation bilaterally. No wheezes. No crackles. Abdomen: Soft. Non-tender. Non-distended. No masses or abdominal hernia. Msk: No digital cyanosis. Normal strength and tone in all 4 limbs Skin: Warm and dry. Black discoloration of left fourth toe. Multiple ulcers under the shaft of penis with very tender serous drainage and whitening of glans skin. Neuro: Alert. No facial droop or slurred speech. Extra-ocular movements intact. Sensation intact to soft touch in all 4 limbs. Psych: Appropriate mood. Full affect. Oriented to person, place, time, and situation. laboratory and microbiology Laboratory Tests 04/06/24 03:19 04/05/24 05:55 Test 04/06/24 03:19 Range/Units Serum Glucose 81 74-106 mg/dL Problem List/Assessment/Plan Problems(with codes): (1) Penile ulcer (2) COPD (chronic obstructive pulmonary disease) (3) ESRD (end stage renal disease) on dialysis (4) Lab test positive for detection of COVID-19 virus (5) COVID-19 (6) Acute renal failure superimposed on chronic kidney disease, on chronic dialysis (7) Pneumonia of both lower lobes (8) Opacity of lung on imaging study (9) Diabetes mellitus with hyperglycemia Problem List/Assessment/Plan ID Problem List: -- ESRD on dialysis -- BPH -- COPD -- Diabetes mellitus -- Hypertension -- History of herpes infection -- Penile ulcers -- Possible sexually transmitted infection -- Left fourth toe necrotic gangrene Assessment This is a 68 y.o. male with a past medical history of ESRD on dialysis, BPH, COPD, diabetes mellitus, hypertension, and history of herpes infection, who presents with black discoloration of the left fourth toe and penile ulcers. Patient was brought in by ambulance after being found with black discoloration of his left fourth toe. He is a poor historian, Fijian speaking, from a [employer]. He was recently admitted for similar complaints; his toe continued to worsen, becoming martín and more painful. On physical exam, he has multiple ulcers under the shaft of his penis with very tender serous drainage and whitening of the glans skin. Laboratory studies show a WBC count of 8.9, hemoglobin of 10.x, platelet count of 281, creatinine of 5.84, and BUN of 26. X-ray of the left foot shows no bone erosion, no evidence of soft tissue collection or hematoma, no joint effusion, subluxation, dislocation, or abscess. Blood cultures show no growth to date. MRSA nares negative. 03/29: underwent debridement and amputation of toe. per operative note there was a a deepening incision to the bone there was an abscess with preliminary fluid and puss . Cortices of the bone was removed and the necrotic tissue , amputation of the toe was required and taken down to the 4th digit and excised to the level of MPJ . bone was taken for biopsy . patient is planning to return to OR for additional operative debridement enclosure 03/30: Left foot toe has a dressing that appears to not have any drainage on it or puss , just spotting . preliminary operative cultures are growing fungus 03/31: HIV is negative , awaiting gonorrhea , chlamydia and RPR tests 04/01: operative cultures from foot debridement reveal growth of staph hemolyticus as well as fungal organism kenroy . the staph is methicillin resistant 04/02: negative for gonorrhea , syphilis , chlamydia , HIV 04/03: whitecount is 3.3 04/04: patient has a tunnel catheter in for antibiotics and is receiving dialysis , no signs of hypotension Plan: - order aan EKG to evaluate QTC in setting of fluconazole and azithromycin - agree with vascular surgery consult to assess if patient would benefit from vascular intervention in setting of likely severe peripheral arterial disease - recommend piccline for 6 weeks of IV antibiotics - patient will need IV ceftriaxone 2 grams daily via tunnel catheter, IV fluconazole 200 milligrams daily via tunnel catheter - follow up with infectious disease in 2 weeks to undergo EKG to ensure patient is tolerating therapy as well as asses for need of antibiotics and antifungal therapy after IV antibiotics are complete - recommend oral 7 day course for Acyclovir therapy - IV vancomycin to given with dialysis - patient will need 7 days of acyclovir therapy for possible herpes infection and follow up on results - 1x dose of Iv fluconazole 400 milligrams , followed by IV fluconazole 200 milligrams daily - check EKG in 5 days to determine if QTC is prolonged in setting of chronic fluconazole - likely patient will need 6 weeks of IV fluconazole followed by several months of antifungal orally to completely eradicate osteomyelitis - follow up on operative cultures -- Continue empiric antibiotic treatment with vancomycin -- Order viral culture of penile drainage. -- Test for HIV, syphilis, gonorrhea, chlamydia, and herpes. -- Consult podiatry for possible amputation of necrotic left fourth toe. -- Obtain deep tissue cultures during procedure, including any infected bone or muscle. -- Keep blood sugars under 180 mg/dL. -- Defer dialysis management to nephrology. Isolation Precautions: standard Plan discussed with: Other Dietary Evaluation Review Comments: encourage and monitor PO feedings to meet 75% of his needs, consider Ash BID, vitamin for ESRD plus additinal vit C and Zn to promote healing. Expected Outcomes/Goals: controlled DM, graudal healed wounds, improved nutrition status, ROLAND CRUZ MD Apr 06, 2024 23:51
--- NOTE | 2024-04-06 23:52 | DVHPN2 ---
Consult Progress Note Date Seen: Apr 05, 2024 Subjective Patient reports: Other (states penis is no longer swollen and not hurting , penile lesion has scabbed over ) Objective vital signs Vital Sign Date Time Temp Pulse Resp B/P (MAP) Pulse Ox O2 Delivery O2 Flow Rate FiO2 04/06/24 10:04 37.0 82 04/06/24 09:00 19 120/63 (82) 93 04/05/24 20:00 Room Air* 0 21 Total Intake and Output 04/05/24 04/05/24 04/06/24 15:00 23:00 07:00 Intake Total 150 ml 300 ml 675 ml Output Total 350 ml Balance 150 ml 300 ml 325 ml medications Current Medications Medications Dose Ordered Sig/Alec Route Start Time Stop Time Status Last Admin Dose Admin Fluconazole 200 mg DAILY PO 03/31/24 10:00 UNV Physical Exam: General: NAD Neck: Supple. No masses. HEENT: PERRL. Normal lids and conjunctiva. Moist mucous membranes. Oropharynx without lesions, exudates, or excessive erythema. Normal appearance of the external aspects of the nose and ears. Heart: Regular rhythm, normal rate. No murmur. No lower extremity edema. Lungs: Normal respiratory effort. Clear to auscultation bilaterally. No wheezes. No crackles. Abdomen: Soft. Non-tender. Non-distended. No masses or abdominal hernia. Msk: No digital cyanosis. Normal strength and tone in all 4 limbs Skin: Warm and dry. Black discoloration of left fourth toe. Multiple ulcers under the shaft of penis with very tender serous drainage and whitening of glans skin. Neuro: Alert. No facial droop or slurred speech. Extra-ocular movements intact. Sensation intact to soft touch in all 4 limbs. Psych: Appropriate mood. Full affect. Oriented to person, place, time, and situation. laboratory and microbiology Laboratory Tests 04/06/24 03:19 04/05/24 05:55 Test 04/06/24 03:19 Range/Units Serum Glucose 81 74-106 mg/dL Problem List/Assessment/Plan Problems(with codes): (1) CKD (chronic kidney disease) stage 5, GFR less than 15 ml/min (2) Uncontrolled diabetes mellitus (3) Penile ulcer (4) COPD (chronic obstructive pulmonary disease) (5) ESRD (end stage renal disease) on dialysis (6) Bronchitis due to COVID-19 virus (7) Toe infection Problem List/Assessment/Plan ID Problem List: -- ESRD on dialysis -- BPH -- COPD -- Diabetes mellitus -- Hypertension -- History of herpes infection -- Penile ulcers -- Possible sexually transmitted infection -- Left fourth toe necrotic gangrene Assessment This is a 68 y.o. male with a past medical history of ESRD on dialysis, BPH, COPD, diabetes mellitus, hypertension, and history of herpes infection, who presents with black discoloration of the left fourth toe and penile ulcers. Patient was brought in by ambulance after being found with black discoloration of his left fourth toe. 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 He was recently admitted for similar complaints; his toe continued to worsen, becoming martín and more painful. On physical exam, he has multiple ulcers under the shaft of his penis with very tender serous drainage and whitening of the glans skin. Laboratory studies show a WBC count of 8.9, hemoglobin of 10.x, platelet count of 281, creatinine of 5.84, and BUN of 26. X-ray of the left foot shows no bone erosion, no evidence of soft tissue collection or hematoma, no joint effusion, subluxation, dislocation, or abscess. Blood cultures show no growth to date. MRSA nares negative. 03/29: underwent debridement and amputation of toe. per operative note there was a a deepening incision to the bone there was an abscess with preliminary fluid and puss . Cortices of the bone was removed and the necrotic tissue , amputation of the toe was required and taken down to the 4th digit and excised to the level of MPJ . bone was taken for biopsy . patient is planning to return to OR for additional operative debridement enclosure 03/30: Left foot toe has a dressing that appears to not have any drainage on it or puss , just spotting . preliminary operative cultures are growing fungus 03/31: HIV is negative , awaiting gonorrhea , chlamydia and RPR tests 04/01: operative cultures from foot debridement reveal growth of staph hemolyticus as well as fungal organism kenroy . the staph is methicillin resistant 04/02: negative for gonorrhea , syphilis , chlamydia , HIV 04/03: whitecount is 3.3 2: patient has a tunnel catheter in for antibiotics and is receiving dialysis , no signs of hypotension 04/05: patient has completed 7 days of acyclovir and 2 doses of azithromycin for penile kinkeroid Plan: - order aan EKG to evaluate QTC in setting of fluconazole and azithromycin - agree with vascular surgery consult to assess if patient would benefit from vascular intervention in setting of likely severe peripheral arterial disease - recommend piccline for 6 weeks of IV antibiotics - patient will need IV ceftriaxone 2 grams daily via tunnel catheter, IV fluconazole 200 milligrams daily via tunnel catheter - follow up with infectious disease in 2 weeks to undergo EKG to ensure patient is tolerating therapy as well as asses for need of antibiotics and antifungal therapy after IV antibiotics are complete - recommend oral 7 day course for Acyclovir therapy - IV vancomycin to given with dialysis - patient will need 7 days of acyclovir therapy for possible herpes infection and follow up on results - 1x dose of Iv fluconazole 400 milligrams , followed by IV fluconazole 200 milligrams daily - check EKG in 5 days to determine if QTC is prolonged in setting of chronic fluconazole - likely patient will need 6 weeks of IV fluconazole followed by several months of antifungal orally to completely eradicate osteomyelitis - follow up on operative cultures -- Continue empiric antibiotic treatment with vancomycin -- Order viral culture of penile drainage. -- Test for HIV, syphilis, gonorrhea, chlamydia, and herpes. -- Consult podiatry for possible amputation of necrotic left fourth toe. -- Obtain deep tissue cultures during procedure, including any infected bone or muscle. -- Keep blood sugars under 180 mg/dL. -- Defer dialysis management to nephrology. Isolation Precautions: standard Plan discussed with: Other Dietary Evaluation Review Comments: encourage and monitor PO feedings to meet 75% of his needs, consider Ash BID, vitamin for ESRD plus additinal vit C and Zn to promote healing. Expected Outcomes/Goals: controlled DM, graudal healed wounds, improved nutrition status, ROLAND CRUZ MD Apr 06, 2024 23:52
== END 2024-04-06 10:26 | DRG 616 ==
LOC: ER 21:27 → EDBD 21:27 → EDUNIT# 21:27 → TELE 03-28 08:07 → TELE-WESTW 03-28 21:39 → OVERFLOW 03-29 15:48 → WEST WING 03-29 16:02 → OVERFLOW 03-30 13:23 → TELE-WESTW 03-30 13:41
PROVIDERS: ADMIT Internal Medicine Geriatric Medicine; ATTEND Internal Medicine Geriatric Medicine
PROC: 0Q9P0ZX Drainage of Left Metatarsal, Open Approach, Diagnostic (ICD-10-PCS; 2024-03-29)
PROC: 5A1D70Z Performance of Urinary Filtration, Intermittent, Less than 6 Hours Per Day (ICD-10-PCS; 2024-03-29)
PROC: 0Y6W0Z0 Detachment at Left 4th Toe, Complete, Open Approach (ICD-10-PCS; principal; 2024-03-29 13:21)
PROC: 5A1D70Z Performance of Urinary Filtration, Intermittent, Less than 6 Hours Per Day (ICD-10-PCS; 2024-03-31)
PROC: 0Y9N0ZZ Drainage of Left Foot, Open Approach (ICD-10-PCS; 2024-04-01)
PROC: 5A1D70Z Performance of Urinary Filtration, Intermittent, Less than 6 Hours Per Day (ICD-10-PCS; 2024-04-02)
PROC: 0JH63XZ Insertion of Tunneled Vascular Access Device into Chest Subcutaneous Tissue and Fascia, Percutaneous Approach (ICD-10-PCS; 2024-04-04)
PROC: 02H633Z Insertion of Infusion Device into Right Atrium, Percutaneous Approach (ICD-10-PCS; 2024-04-04)
PROC: B518ZZA Fluoroscopy of Superior Vena Cava, Guidance (ICD-10-PCS; 2024-04-04)
PROC: B548ZZA Ultrasonography of Superior Vena Cava, Guidance (ICD-10-PCS; 2024-04-04)
PROC: 5A1D70Z Performance of Urinary Filtration, Intermittent, Less than 6 Hours Per Day (ICD-10-PCS; 2024-04-05)
DX: E11.628 Type 2 diabetes mellitus with other skin complications (principal); G93.41 Metabolic encephalopathy; J15.69 Pneumonia due to other Gram-negative bacteria; J15.9 Unspecified bacterial pneumonia; L03.116 Cellulitis of left lower limb; E11.52 Type 2 diabetes mellitus with diabetic peripheral angiopathy with gangrene; E87.1 Hypo-osmolality and hyponatremia; I13.2 Hypertensive heart and chronic kidney disease with heart failure and with stage 5 chronic kidney disease, or end stage renal disease; I96 Gangrene, not elsewhere classified; N18.6 End stage renal disease; E11.22 Type 2 diabetes mellitus with diabetic chronic kidney disease; J44.89 Other specified chronic obstructive pulmonary disease; N40.0 Benign prostatic hyperplasia without lower urinary tract symptoms; N48.0 Leukoplakia of penis; N48.5 Ulcer of penis; K21.9 Gastro-esophageal reflux disease without esophagitis; I50.9 Heart failure, unspecified; E78.5 Hyperlipidemia, unspecified; D64.9 Anemia, unspecified; Z99.2 Dependence on renal dialysis; Z88.8 Allergy status to other drugs, medicaments and biological substances; Z79.899 Other long term (current) drug therapy; Z80.3 Family history of malignant neoplasm of breast; Z83.3 Family history of diabetes mellitus; Z82.5 Family history of asthma and other chronic lower respiratory diseases; Z82.49 Family history of ischemic heart disease and other diseases of the circulatory system; Z79.84 Long term (current) use of oral hypoglycemic drugs; Z86.19 Personal history of other infectious and parasitic diseases
CPT/HCPCS: 36415; 36558; 71045; 73700; 77001; 80048; 80053; 80202; 81001; 82565; 82962; 83605; 83735; 85025; 85610; 85730; 86592; 86703; 86850; 86900; 86901; 87040; 87070; 87075; 87077; 87081; 87186; 87205; 90935; 93005; G0378; J1450; J1642; J1815; J2250; J2405; J2704; J3490